=== PATIENT | male | born 1935 | race Hispanic/Latino ===

== ENCOUNTER 2016-08-28 10:03 | Inpatient (IN) | payer MEDICARE, OTHER ==
[2016-08-28 10:26] VITALS: BMI 20.7
--- NOTE | 2016-08-28 10:51 | ED PDOC ---
Arrival/HPI - General Chief Complaint: Male Genitourinary Time Seen by Provider: 08/28/16 10:05 Historian: [facility] - History of Present Illness Narrative History of Present Illness (Text): 08/28/16 10:47 A 80 year old male, whose past past medical history includes anemia, hypertension, kidney failure, urinary retention, CAD and dementia, was sent into the emergency department by correction for piper catheter replacement. As per report, patient pulled on his piper. HPI and ROS limited due to patients state. Patient is currently alert and oriented time one. PMD: Dr. Dejesus Time/Duration: Prior to Arrival Symptom Course: Unchanged Quality: Other Context: Home (correction) Past Medical History - Provider Review Nursing Documentation Reviewed: Yes - Cardiac Hx Cardiac Disorders: Yes Hx Congestive Heart Failure: Yes Hx Hypertension: Yes - Pulmonary Hx Respiratory Disorders: No - Neurological Hx Neurological Disorder: No HX Cerebrovascular Accident: Yes - HEENT Hx HEENT Disorder: No - Renal Hx Renal Disorder: No - Endocrine/Metabolic Hx Endocrine Disorders: No - Hematological/Oncological Hx Anemia: Yes - Integumentary Hx Dermatological Disorder: No - Musculoskeletal/Rheumatological Hx Musculoskeletal Disorders: No Hx Falls: No - Gastrointestinal Hx Gastrointestinal Disorders: No - Genitourinary/Gynecological Hx Genitourinary Disorders: No - Psychiatric Hx Psychophysiologic Disorder: No Hx Substance Use: No - Surgical History Hx Open Heart Surgery: Yes - Anesthesia Hx Anesthesia: Yes Family/Social History - Physician Review Nursing Documentation Reviewed: Yes Family/Social History: No Known Family HX Smoking Status: Never Smoked Hx Alcohol Use: No Hx Substance Use: No Allergies/Home Meds Allergies/Adverse Reactions: Allergies No Known Allergies Allergy (Verified 08/28/16 14:40) Home Medications: Home Meds Medication Instructions Recorded Confirmed Aspirin [Ecotrin] 81 mg PO DAILY 06/12/16 08/28/16 Clopidogrel [Plavix] 75 mg PO DAILY 06/12/16 08/28/16 Mupirocin 2% Ointment [Bactroban 1 appl TP BID 06/12/16 08/28/16 Ointment] Acetaminophen [Tylenol 325mg tab] 650 mg PO Q6 PRN 08/28/16 08/28/16 Allopurinol [Zyloprim] 100 mg PO DAILY 08/28/16 08/28/16 Ascorbic Acid [Acerola C] 500 mg PO DAILY 08/28/16 08/28/16 Atorvastatin [Lipitor] 40 mg PO DAILY 08/28/16 08/28/16 Calcium Acetate [Phoslo] 667 mg PO DAILY 08/28/16 08/28/16 Carvedilol [Coreg] 12.5 mg PO DAILY 08/28/16 08/28/16 Heparin [Heparin (RENAL)] 5,000 units SC Q8 08/28/16 08/28/16 Paricalcitol 1 mcg PO DAILY 08/28/16 08/28/16 Protein Supplement [Prosource] 30 ml PO DAILY 08/28/16 08/28/16 Risperidone [Risperdal] 0.25 mg PO Q12 08/28/16 08/28/16 amLODIPine [Norvasc] 5 mg PO DAILY 08/28/16 08/28/16 Review of Systems - Review of Systems Systems not reviewed;Unavailable: Dementia Physical Exam - Physical Exam Narrative Physical Exam (Text): Constitutional: No acute distress. Head: Normocephalic. Atraumatic. Eyes: PERRL. ENT: Moist mucous membranes. Neck: Supple. Cardiovascular: Regular rate. Chest: No tenderness. Respiratory: Clear to auscultation bilaterally. GI: Soft. Nontender. Nondistended. New and old ecchymosis. : Enlarged scrotum (Known history of hernia). Urethra not visible amidst scrotum. Back: No CVA tenderness. No decubitus ulcer. Musculoskeletal: No tenderness or swelling of extremities. Skin: No rash. Neurologic: Alert, no focal deficit. Vital Signs Reviewed: Yes Vital Signs Temp Pulse Resp BP Pulse Ox 08/28/16 13:00 116 H 18 149/73 96 08/28/16 12:23 95 H 142/64 08/28/16 11:52 106 H 22 142/64 100 08/28/16 10:20 102.2 F H 108 H 22 161/94 H 100 Temperature: Febrile Blood Pressure: Hypertensive Pulse: Tachycardic Respiratory Rate: Normal Appearance: Positive for: Well-Appearing, Non-Toxic, Comfortable Mental Status: No: Alert and Oriented X 3 (Alert and Oriented x 1) Medical Decision Making ED Course and Treatment: 08/28/16 10:47 Impression: A 80 year old male sent for piper catheter replacement. Plan: -- EKG -- Piper catheter insertion -- Reassess and disposition Progress Notes: Case discussed with Dr. Dejesus, who states patient is only being sent for piper catheter insertion and no other work up is indicated at this time. Patient can be discharged home. He recommends urology consult for piper replacement. 08/28/16 11:[address] Dejesus, given that the patient has a fever and is mildly tachycardic he recommends further evaluation for infection. Piper placement by ER nurse was unsuccessful. Dr. Terrance Kovacs, urologist vehicle controls engineer, made aware of plan and agrees to accept consult. He states he will place catheter in patient while he is in the hospital. 08/28/16 11:49 Chest X-ray read and interpreted by me, which shows cardiomegaly, no pulmonary edema. 08/28/16 11:55 Labs reviewed, lactate level of 4.4. Code sepsis called at this time. Will start on broad antibiotics and IV fluids, no bolus due to patients history of CHF. Spoke with Dr. Dejesus, who will consult Dr. Morales, an infectious disease specialist. - Lab Interpretations Lab Results: 08/28/16 10:15 08/28/16 10:15 Lab Results 08/28/16 10:15: WBC 5.7 D, RBC 4.34, Hgb 13.1 L, Hct 40.8 L, MCV 94.0, MCH 30.2 , MCHC 32.1, RDW 16.4 H, Plt Count 198, MPV 11.9 H, Gran % 95.8 H, Lymph % (Auto ) 3.1 L, Nolan % (Auto) 0.7 L, Eos % (Auto) 0.2 L, Baso % (Auto) 0.2, Gran # 5.48 , Lymph # 0.2 L, Nolan # 0.0 L, Eos # 0.0, Baso # 0.01, PT 11.2, INR 1.04, APTT 28.3, pO2 49, VBG pH 7.41, VBG pCO2 49.0, VBG HCO3 31.1 H, VBG Total CO2 32.6 H , VBG O2 Sat (Calc) 85.5 H, VBG Base Excess 5.3 H, VBG Potassium 6.8 H*, Glucose 83, Lactate 4.4 H*, FiO2 21.0, Sodium 134.0, Potassium 4.4, Chloride 100.0, Carbon Dioxide 28, Anion Gap 18, BUN 58 H, Creatinine 3.1 H, Est GFR ( Amer) 24, Est GFR (Non-Af Amer) 19, Random Glucose 81, Calcium 10.7 H, Total Bilirubin 1.3, AST 35, ALT 22, Alkaline Phosphatase 46, Total Protein 7.6 , Albumin 3.9, Globulin 3.7, Albumin/Globulin Ratio 1.1, Lipase 269, Venous Blood Potassium 6.8 H* - RAD Interpretation Radiology Orders: 08/28/16 11:37 CHEST PORTABLE [RAD] Stat - Medication Orders Current Medication Orders: Allopurinol (Zyloprim) 100 mg PO DAILY [facility] Aspirin (Ecotrin) 81 mg PO DAILY [facility] Carvedilol (Coreg) 12.5 mg PO DAILY [facility] Clopidogrel Bisulfate (Plavix) 75 mg PO DAILY [facility] Furosemide (Lasix) 40 mg PO BID [facility] Heparin Sodium (Porcine) (Heparin) 5,000 units SC Q8H [facility] PRN Reason: Protocol Cefepime HCl (Maxipime 1gm) 100 mls @ 100 mls/hr IVPB Q12 [facility] PRN Reason: Protocol Sodium Chloride (Sodium Chloride 0.9%) 1,000 mls @ 80 mls/hr IV .[id number] [facility] Non-Formulary Medication (Calcium Acetate [Phoslo]) 667 mg PO DAILY [facility] Risperidone (Risperdal Tab) 0.25 mg PO Q12 [facility] PRN Reason: Protocol Discontinued Medications Amlodipine Besylate (Norvasc) 5 mg PO STAT STA Stop: 08/28/16 12:15 Last Admin: 08/28/16 12:23 Dose: 5 MG MAR Pulse and Blood Pressure Document 08/28/16 12:23 SE (Rec: 08/28/16 12:23 SE [id number]) Pulse Pulse Rate (60-90) 95 Blood Pressure Blood Pressure (100/60-150/90) 142/64 Heparin Sodium (Porcine) (Heparin) 5,000 units IV Q8H [facility] Heparin Sodium (Porcine) (Heparin) Confirm Administered Dose 5,000 units .ROUTE .STK-MED ONE Stop: 08/28/16 12:24 Last Admin: 08/28/16 12:29 Dose: Heparin Sodium (Porcine) (Heparin) 5,000 units SC STAT STA PRN Reason: Protocol Stop: 08/28/16 12:31 Last Admin: 08/28/16 12:39 Dose: Sodium Chloride (Sodium Chloride 0.9%) 1,000 mls @ 75 mls/hr IV .[id number] [facility] Last Admin: 08/28/16 11:55 Dose: 75 MLS/HR eMAR Start Stop Document 08/28/16 11:55 SE (Rec: 08/28/16 11:55 SE [id number]) Intravenous Solution Start Date 08/28/16 Start Time 11:55 Sodium Chloride (Sodium Chloride 0.9%) 1,000 mls @ 40 mls/hr IV .Q24H [facility] Last Admin: 08/28/16 12:10 Dose: 40 MLS/HR eMAR Start Stop Document 08/28/16 12:10 SE (Rec: 08/28/16 12:11 SE [id number]) Intravenous Solution Start Date 08/28/16 Start Time 12:11 Cefepime HCl (Maxipime 1gm) 100 mls @ 100 mls/hr IVPB STAT STA PRN Reason: Protocol Stop: 08/28/16 13:05 Cefepime HCl (Maxipime 1gm) 100 mls @ 100 mls/hr IVPB Q8H [facility] PRN Reason: Protocol Last Admin: 08/28/16 12:23 Dose: 100 MLS/HR eMAR Start Stop Document 08/28/16 12:23 SE (Rec: 08/28/16 12:23 SE [id number]) Intravenous Solution Start Date 08/28/16 Start Time 12:23 Vancomycin HCl (Vancomycin 1gm) 250 mls @ 167 mls/hr IVPB STAT STA PRN Reason: Protocol Stop: 08/28/16 16:07 Influenza Virus Vaccine (Fluvirin) 45 mcg IM .ONCE ONE Stop: 08/28/16 15:17 Pneumococcal Polyvalent Vaccine (Pneumovax 23 Vaccine) 0.5 ml IM .ONCE ONE Stop: 08/28/16 15:17 - Scribe Statement The provider has reviewed the documentation as recorded by the Scribe Jenniffer Spencer Provider Scribe Attestation: All medical record entries made by the Scribe were at my direction and personally dictated by me. I have reviewed the chart and agree that the record accurately reflects my personal performance of the history, physical exam, medical decision making, and the department course for this patient. I have also personally directed, reviewed, and agree with the discharge instructions and disposition. Disposition/Present on Arrival - Present on Arrival Any Indicators Present on Arrival: Yes History of DVT/PE: No History of Uncontrolled Diabetes: No Urinary Catheter: Yes History of Decub. Ulcer: No History Surgical Site Infection Following: None - Disposition Have Diagnosis and Disposition been Completed?: Yes Diagnosis: Sepsis, Dislodged Piper catheter Disposition: HOSPITALIZED Disposition Time: 12:06 Patient Plan: Admission Condition: GUARDED
[2016-08-28 11:46] LABS: ADD MANUAL DIFF? NO
[2016-08-28 11:50] LABS: VENOUS BLOOD GAS BASE EXCESS 5.3 mmol/L (0.0-2.0); VENOUS BLOOD PH 7.41 (7.32-7.43)
[2016-08-28 11:52] LABS: BASO # 0.01 K/mm3 (0.0-2.0); BASO % 0.2 % (0.0-3.0); EOS % 0.2 % (1.5-5.0); GRAN # 5.48 (1.4-6.5); GRAN % 95.8 % (50.0-68.0); HEMATOCRIT 40.8 % (42.0-52.0); LYMPH # 0.2 (1.2-3.4); LYMPH % 3.1 % (22.0-35.0); MEAN CORPUSCULAR HEMOGLOBIN 30.2 pg (25.0-35.0); MEAN CORPUSCULAR HGB CONC 32.1 g/dl (31.0-37.0); MEAN PLATELET VOLUME 11.9 fl (7.0-11.0); MONO % 0.7 % (1.0-6.0); PLATELET COUNT 198 10^3/uL (120.0-450.0); RED CELL DISTRIBUTION WIDTH 16.4 % (11.5-14.5); WHITE BLOOD COUNT 5.7 10^3/ul (4.5-11.0)
--- NOTE | 2016-08-28 11:57 | RAD ---
PROCEDURE: Chest portable HISTORY: r/o PNA COMPARISON: 06/12/2016 TECHNIQUE: Technique: Single view portable semi erect @ 11:44. FINDINGS: No active pulmonary disease. No pulmonary nodules, masses or infiltrates. No evidence of acute, significant cardiovascular disease. Cardiomegaly. No significant pleural, osseous or subdiaphragmatic abnormalities. IMPRESSION: No active disease. No significant interval change compared to the prior examination(s).
[2016-08-28 12:00] LABS: ALB/GLOB RATIO 1.1 (1.1-1.8); BILIRUBIN,TOTAL 1.3 mg/dL (0.2-1.3); CALCIUM 10.7 mg/dL (8.4-10.5); POTASSIUM 4.4 mmol/L (3.6-5.0); TOTAL PROTEIN 7.6 g/dL (5.8-8.3)
[2016-08-28] MEDS ORDERED: Sodium Chloride 0.9% 1,000 ML IV SCH ×2 (12:00→12:02)
[2016-08-28 12:03] LABS: INR 1.04 (0.93-1.08); PARTIAL THROMBOPLASTIN TIME 28.3 Seconds (23.7-30.8)
[2016-08-28] MEDS ORDERED: Cefepime 1gm in NS 100ml 100 ML IVPB STA (12:06)
[2016-08-28] MEDS ORDERED: Cefepime 1gm in NS 100ml 100 ML IVPB SCH (12:16)
--- NOTE | 2016-08-28 12:41 | CARD ---
APPROVED REPORT EKG Measurement Heart [id number] <Conclusion> Sinus tachycardia PVCs PRWP LAHB RBBB ASMI, old STTW changes c/w ischemia
--- NOTE | 2016-08-28 14:29 | HP ---
HISTORY OF PRESENT ILLNESS: I know the patient very well from house calls and now he is in [facility] for subacute rehab. I saw him this morning actually around 6:00 in the morning. He was doing gr eat, sitting up in bed, alert and talking to me. Since then, now it is 12 noon, he had pulled out hi s Raya catheter and he has been going downhill since. He had some blood in the urine and now he loo ks septic, and they called septic in the ER, so I am here in the ER at [facility]. He is very lethargic. His face, his color has changed completely. He has got 102 temperature and this is all new since he pulled the Raya catheter out and they said there was blood in his urine and they c ould not put the Raya catheter in, so we have to get urology to put the Raya catheter in. He is no t doing well and he is in distress. Will start him on IV antibiotics, IV fluids. PAST MEDICAL HISTORY: He has a history of CHF, cellulitis of both legs with leg ulcers, history of m yocardial infarction, he had a CVA, he has been incontinent. He had an appendectomy, open heart surg miladys. He has high cholesterol, CHF, very large inguinal hernia, huge. He finally went to the [facility] e rehab after CHF and debility and he was doing well and now this happened. He also has gout. ALLERGIES: He has no known drug allergies. FAMILY HISTORY: Hypertension in the family. SOCIAL HISTORY: No smoking, no drinking, no drugs. There is secondhand smoke, though from his roomm ate. MEDICATIONS: He is on a whole bunch of medications from the senior care. He was taking ascorbic ac id, Lipitor, heparin, Bactroban cream, paricalcitol, protein, amlodipine, allopurinol, aspirin, calci um acetate, carvedilol, Plavix, Lasix, and risperidone. I see him in the stretcher in the [facility]. He is lethargic. Difficult to have a conv ersation. It was 5 hours ago he was talking, sitting up and in good spirits. He has acute changes me ntally. No acute vision or hearing loss, but old. No apparent sore throat. No chest pain, no short ness of breath, no abdominal pain, just weak, lethargic. He has a large inguinal hernia, bowling bal l size. His legs are not swollen at this time. The blisters and cellulitis have really improved wit h his weight loss. PHYSICAL EXAMINATION: VITAL SIGNS: He has 102.2 rectal temp, 108 pulse, 164/94 blood pressure, 22 respiratory rate, 100% O 2 sat on room air. HEENT: His head is ashen color, sunken eyeballs. Difficult to arouse, but he arouses and he will peter k. His throat is dry, lips are chapped. NECK: Supple. HEART: Regular rate. LUNGS: Have decreased breath sounds, clear to auscultation. ABDOMEN: Soft, nontender, positive bowel sounds. EXTREMITIES: No erythema or ulcers at this time. There is trace edema, if any. NEUROLOGIC: He is alert but he is sluggish to respond. Cranial nerves are grossly intact. What a b ig difference in 5 hours. He had pulled out his Raya and ever since then, with the blood, he has be en doing poorly. I spoke to the nurses. Sent him to get a Raya reinserted, but now he is much worse with temperature s and more lethargic. I discussed this with the Emergency Room physician. He agrees there is a vladislav christine in mentation. LABORATORY: He has a 138 sodium, potassium 4.4, BUN 58, creatinine 3.4. He did have renal failure a nd it was much worse than this, so it is improved. GFR is up to 19. Sugar is 81, calcium is 10.7, t otal bilirubin is 1.3, AST is 35, ALT is 22, alkaline phosphatase 46, total protein 7.6, albumin is 3 .9, lipase is 269. White count 5.7, hemoglobin 13.1, hematocrit 40.8, platelets of 198. INR is 1.04 . Chest x-ray showed no active disease, no significant interval change compared to prior exams. ASSESSMENT AND PLAN: I believe he is septic. We called code sepsis in the hospital Emergency Room. I consulted Dr. Morales, infectious disease doctor, and also Dr. Kovacs, urologist, to help us w ith the Raya catheter back in place. I will also get Dr. Wong, the renal doctor, who knows hi m from his past time here for renal failure. We will give him IV fluids at 40. I do not want to giv e him too much because he goes into congestive heart failure fairly quickly. Will gently hydrate him and put him on IV antibiotics. I will keep a very close eye on him. He is here for acute sepsis, p robably urosepsis, elevated temperature, still with renal failure, but has improved some, history of congestive heart failure and he is debilitated. Derick Dejesus DO cc: [id number] TT: 08/28/2016 14:28:55 pal[place]
[2016-08-28 14:37] LABS: URINE BILIRUBIN MODERATE (NEGATIVE); URINE BLOOD LARGE (NEGATIVE); URINE GLUCOSE (UA) NEGATIVE (NEGATIVE); URINE KETONE TRACE mg/dL (NEGATIVE); URINE LEUKOCYTE ESTERASE LARGE Leu/uL (NEGATIVE); URINE PROTEIN >=300 mg/dL (<30 mg/dL)
[2016-08-28] MEDS ORDERED: Vancomycin 1gm in NS 250ml 250 ML IVPB STA (14:38)
[2016-08-28 14:42] LABS: URINE APPEARANCE TURBID (CLEAR); URINE COLOR BROWN (YELLOW)
[2016-08-28 14:45] LABS: URINE BACTERIA MOD (NEG); URINE WBC TNTC /hpf (0-6)
[2016-08-28] MEDS ORDERED: Pneumococcal 23-Valent Vaccine IM ONE (15:16)
[2016-08-28] MEDS ORDERED: Influenza Vaccine 45 MCG/0.5 ml IM ONE (15:16)
[2016-08-28 16:35] LABS: VENOUS BLOOD GAS BASE EXCESS 7.3 mmol/L (0.0-2.0); VENOUS BLOOD PH 7.41 (7.32-7.43)
--- NOTE | 2016-08-28 17:01 | RAD ---
PROCEDURE: Left Hip X-ray Radiographs. HISTORY: left hip pain and swelling COMPARISON: None. FINDINGS: BONES: Normal. No fracture. JOINTS: Normal. SOFT TISSUES: Normal. OTHER FINDINGS: None. IMPRESSION: Normal left hip radiographs. No acute fracture.
[2016-08-28] MEDS: Sodium Chloride 0.9% 1,000 ML IV SCH (17:19)
[2016-08-28] MEDS: Cefepime 1gm in NS 100ml 100 ML IVPB SCH (22:21)
[2016-08-29 07:43] LABS: HEMATOCRIT 34.1 % (42.0-52.0); MEAN CELL VOLUME 94.7 fL (80.0-105.0); MEAN CORPUSCULAR HEMOGLOBIN 29.7 pg (25.0-35.0); MEAN CORPUSCULAR HGB CONC 31.4 g/dl (31.0-37.0); MEAN PLATELET VOLUME 10.2 fl (7.0-11.0); RED CELL DISTRIBUTION WIDTH 16.9 % (11.5-14.5); WHITE BLOOD COUNT 7.8 10^3/ul (4.5-11.0)
[2016-08-29 08:00] LABS: CALCIUM 9.5 mg/dL (8.4-10.5); POTASSIUM 4.3 mmol/L (3.6-5.0); TOTAL PROTEIN 6.2 g/dL (5.8-8.3)
--- NOTE | 2016-08-29 08:23 | CON ---
DATE: 08/29/2016 HISTORY OF PRESENT ILLNESS: The patient is an 80-year-old male who presented with issues related to his Raya catheter and urosepsis. He was found to have frequent PVCs on EKG, including nonsustained VT. The patient was found to have hematuria. PAST MEDICAL HISTORY: Includes a history of CHF, with cellulitis of the lower extremities, history o f myocardial infarction and a documented LV ejection fraction of 30%. Currently, he is in bed and uncooperative to any history taking, but he denies chest pain and does no t appear dyspneic. PHYSICAL EXAMINATION: VITAL SIGNS: Blood pressure 143/75, heart rate is in the 70s with frequent PVCs. NECK: Negative JVD. LUNGS: Decreased breath sounds without rales. HEART: Reveals S1, S2 with a II/ systolic ejection murmur. EXTREMITIES: Positive edema. LABORATORIES: BUN and creatinine are 65 and 3.2. Hemoglobin is 13.1. EKG shows normal sinus rhythm, left axis deviation, with frequent PVCs and nonspecific ST-T changes. IMPRESSION: 1. Urosepsis. 2. Mild systolic congestive heart failure. 3. Dilated cardiomyopathy. 4. Pedal edema. 5. Renal insufficiency. Given these findings, I agree with the patient on p.o. Lasix; will continue it. Will check a magnesi um. Will monitor on telemetry for 24 hours. Clement Wheat MD cc: [facility] TT: 08/29/2016 08:23:13 Confirmation # [id number] Dictation # [id number] mn
--- NOTE | 2016-08-29 09:05 | PN ---
DATE: 08/29/2016 He came in yesterday quite septic. He is looking a lot better this morning. The color in his face i s back. He opens his eyes, they are not sunken in anymore. He is talking to me a little bit better, still tired but much better. MEDICATIONS: He is on PhosLo, Coreg, Ecotrin, heparin, Lasix, Maxipime, Plavix, Risperdal, IV fluids , and Zyloprim. PHYSICAL EXAMINATION: VITAL SIGNS: He has a 99.6 temperature. The temp was 100.5/100.8 last night. It is down to 99.6. I t was 102.8 when he came in, 143/75 blood pressure, 20 respiratory rate, 100% O2 sat on nasal cannul a. HEENT: Head is atraumatic, normocephalic. HEART: Regular rate. LUNGS: Have decreased breath sounds bilaterally, but no wheezes, rhonchi or rales. ABDOMEN: Soft, positive bowel sounds, nontender. EXTREMITIES: Trace edema. LABORATORY: He has a 5.7 white count, 13.1 hemoglobin, 40.8 hematocrit with 198 platelets. INR is 1 .04. He has 135 sodium, potassium 4.3, BUN 65, creatinine 3.2. Sugar is 77, calcium is 9.5. AST is 34, ALT is 29, alkaline phosphatase 39, total protein 6.2. His urine is large blood, positive nitri yousuf, large leukocytes, white count too numerous to count, moderate bacteria. He is being seen by cardiology and infectious disease. IMAGING STUDIES: He also had some x-rays. Normal left hip, no acute fracture, no active disease in the chest x-ray. PLAN: Overall, starting to improve, will keep an eye on. I need to get him out of bed to chair. Ge t physical therapy involved. Continue with diet, IV fluids, IV antibiotics. Check his labs tomorrow . He is here for urosepsis, renal failure, CHF. Derick Dejesus DO cc: [id number] TT: 08/29/2016 09:05:11 Confirmation # [id number] Dictation # [id number] jn
[2016-08-29] MEDS ORDERED: Non Formulary Medication (Calcium Acetate [Phoslo] 667 MG) PO SCH (10:00)
[2016-08-29] MEDS: Cefepime 1gm in NS 100ml 100 ML IVPB SCH (12:00)
[2016-08-29] MEDS ORDERED: Meropenem 1 GM in Sodium Chloride 0.9% 100 ML IVPB SCH (16:15)
--- NOTE | 2016-08-29 16:29 | CP.PCM.CON ---
History of Present Illness - History of Present Illness History of Present Illness: 80 year old male with PMH of CAD S/P CABG with chronic CHF, HTN, dyslipidemia, history of CVA, history of urinary retention, dementia, history of right leg cellulitis [facility] because the patient looked ill, was somewhat lethargic after pulling his own Raya catheter. There was note of fever in the ED. There is no note of convulsions, no vomiting, no diarrhea, no loss of consciousness from the [facility]entiary. In the ED, blood and urine cx were taken which showed gram negative bacilli. Infectious Diseases consult is requested to further evaluate and manage. Full review of systems is difficult to obtain because of the patient's dementia. The patient is currently comfortable in bed, not in distress. Review of Systems - Review of Systems Systems not reviewed;Unavailable: Dementia Past Patient History - Past Social History Smoking Status: Never Smoked - CARDIAC Hx Cardiac Disorders: Yes Hx Congestive Heart Failure: Yes Hx Hypertension: Yes - PULMONARY Hx Respiratory Disorders: No - NEUROLOGICAL Hx Neurological Disorder: No HX Cerebrovascular Accident: Yes - HEENT Hx HEENT Problems: No - RENAL Hx Chronic Kidney Disease: No - ENDOCRINE/METABOLIC Hx Endocrine Disorders: No - HEMATOLOGICAL/ONCOLOGICAL Hx Anemia: Yes - INTEGUMENTARY Hx Dermatological Problems: No - MUSCULOSKELETAL/RHEUMATOLOGICAL Hx Musculoskeletal Disorders: No Hx Falls: No - GASTROINTESTINAL Hx Gastrointestinal Disorders: No - GENITOURINARY/GYNECOLOGICAL Hx Genitourinary Disorders: No - PSYCHIATRIC Hx Psychophysiologic Disorder: No Hx Substance Use: No - SURGICAL HISTORY Hx Open Heart Surgery: Yes - ANESTHESIA Hx Anesthesia: Yes Meds Allergies/Adverse Reactions: Allergies Allergy/AdvReac Type Severity Reaction Status Date / Time No Known Allergies Allergy Verified 08/28/16 14:40 - Medications Medications: Current Medications Allopurinol (Zyloprim) 100 mg PO DAILY [facility] Aspirin (Ecotrin) 81 mg PO DAILY [facility] Carvedilol (Coreg) 12.5 mg PO DAILY [facility] Clopidogrel Bisulfate (Plavix) 75 mg PO DAILY [facility] Furosemide (Lasix) 40 mg PO BID [facility] Heparin Sodium (Porcine) (Heparin) 5,000 units SC Q8H [facility] PRN Reason: Protocol Sodium Chloride (Sodium Chloride 0.9%) 1,000 mls @ 40 mls/hr IV .Q24H [facility] Last Admin: 08/28/16 12:10 Dose: 40 mls/hr Cefepime HCl (Maxipime 1gm) 100 mls @ 100 mls/hr IVPB Q8H [facility] PRN Reason: Protocol Last Admin: 08/28/16 12:23 Dose: 100 mls/hr Non-Formulary Medication (Calcium Acetate [Phoslo]) 667 mg PO DAILY [facility] Risperidone (Risperdal Tab) 0.25 mg PO Q12 [facility] PRN Reason: Protocol Physical Exam - Constitutional Appears: Non-toxic, No Acute Distress - Head Exam Head Exam: NORMAL INSPECTION - ENT Exam ENT Exam: Mucous Membranes Moist - Neck Exam Neck exam: Negative for: Lymphadenopathy, Meningismus - Respiratory Exam Respiratory Exam: Decreased Breath Sounds - Cardiovascular Exam Cardiovascular Exam: +S1, +S2 - GI/Abdominal Exam GI & Abdominal Exam: Soft. absent: Tenderness Results - Vital Signs Recent Vital Signs: Last Vital Signs Temp 102.2 F H 08/28/16 10:20 Pulse 116 H 08/28/16 13:00 Resp 18 08/28/16 13:00 BP 149/73 08/28/16 13:00 Pulse Ox 96 08/28/16 13:00 - Labs Result Diagrams: 08/29/16 08:15 08/29/16 07:15 Assessment & Plan - Assessment and Plan (Free Text) Plan: assessment Sepsis secondary to gram negative bacilli bacteremia probably from urinary tract infection history of right leg cellulitis CAD S/P CABG with chronic CHF HTN dyslipidemia history of CVA Plan Started the patient on Cefepime but will change it to Merrem for now pending identification and sensitivities of the gram negative bacilli in the blood and urine; should consider CT scan of the abdomen and pelvis Will monitor clinically
--- NOTE | 2016-08-29 19:28 | PCM.URO ---
Urology Progress Note - Objective Lab Results Last 24 Hours: Laboratory Results - last 24 hr 08/28/16 08/29/16 08/29/16 14:50 00:00 07:15 WBC RBC Hgb Hct MCV MCH MCHC RDW Plt Count MPV Sodium 135 Potassium 4.3 Chloride 96 Carbon Dioxide 32 Anion Gap 11 BUN 65 H Creatinine 3.2 H Est GFR ( Amer) 23 Est GFR (Non-Af Amer) 19 POC Glucose (mg/dL) 228 H Random Glucose 77 Calcium 9.5 Magnesium Total Bilirubin 1.0 AST 34 ALT 29 Alkaline Phosphatase 39 NT-Pro-B Natriuret Pep Total Protein 6.2 Albumin 3.1 Globulin 3.1 Albumin/Globulin Ratio 1.0 L Procalcitonin 1.55 H 08/29/16 08/29/16 07:30 08:15 WBC 7.8 D RBC 3.60 Hgb 10.7 L Hct 34.1 L MCV 94.7 MCH 29.7 MCHC 31.4 RDW 16.9 H Plt Count 130 MPV 10.2 Sodium Potassium Chloride Carbon Dioxide Anion Gap BUN Creatinine Est GFR ( Amer) Est GFR (Non-Af Amer) POC Glucose (mg/dL) Random Glucose Calcium Magnesium 2.1 Total Bilirubin AST ALT Alkaline Phosphatase NT-Pro-B Natriuret Pep 22692 H Total Protein Albumin Globulin Albumin/Globulin Ratio Procalcitonin Intake & Output: Intake & Output 08/29/16 08/29/16 08/30/16 06:59 18:59 06:59 Intake Total 1880 Output Total 600 Balance 1280 Weight 148 lb Intake: IV 1400 Right Forearm 1400 Oral 480 Output: Urine 600 Urine, Voided 600 Other: # Bowel Movements 0 Vital Signs: Vital Signs - 24 hr 08/28/16 08/29/16 08/29/16 22:00 00:01 01:29 Temperature 98.7 F 100.8 F H Pulse Rate 89 66 Respiratory 20 Rate Blood Pressure 151/68 H O2 Sat by Pulse 99 Oximetry 08/29/16 08/29/16 08/29/16 02:00 02:29 05:20 Temperature 100.5 F H Pulse Rate 93 H 78 Respiratory Rate Blood Pressure O2 Sat by Pulse Oximetry 08/29/16 08/29/16 08/29/16 06:00 09:59 10:00 Temperature 99.6 F Pulse Rate 78 78 83 Respiratory 20 Rate Blood Pressure 143/75 143/75 143/75 O2 Sat by Pulse 100 Oximetry 08/29/16 08/29/16 08/29/16 12:39 14:00 18:00 Temperature 98 F 98.9 F Pulse Rate 85 85 82 Respiratory 18 18 Rate Blood Pressure 115/62 126/67 O2 Sat by Pulse Oximetry 08/29/16 19:04 Temperature Pulse Rate Respiratory Rate Blood Pressure 126/67 O2 Sat by Pulse Oximetry
[2016-08-30] MEDS: Sodium Chloride 0.9% 1,000 ML IV SCH ×2 (00:57→18:49)
[2016-08-30 06:29] LABS: HEMATOCRIT 31.1 % (42.0-52.0); MEAN CELL VOLUME 94.2 fL (80.0-105.0); MEAN CORPUSCULAR HEMOGLOBIN 29.4 pg (25.0-35.0); MEAN CORPUSCULAR HGB CONC 31.2 g/dl (31.0-37.0); MEAN PLATELET VOLUME 10.2 fl (7.0-11.0); RED CELL DISTRIBUTION WIDTH 16.6 % (11.5-14.5)
[2016-08-30 06:40] LABS: ALB/GLOB RATIO 0.9 (1.1-1.8); BILIRUBIN,TOTAL 0.9 mg/dL (0.2-1.3); CALCIUM 8.6 mg/dL (8.4-10.5); PHOSPHOROUS 3.6 mg/dL (2.5-4.5); POTASSIUM 4.2 mmol/L (3.6-5.0); TOTAL PROTEIN 5.9 g/dL (5.8-8.3)
--- NOTE | 2016-08-30 07:54 | CON ---
DATE: 08/29/2016 CONSULTATION REQUESTED BY: Dr. Derick Dejesus. REASON FOR CONSULTATION: Acute renal failure, stage IV chronic kidney disease and congestive heart f ailure. HISTORY OF PRESENT ILLNESS: The patient is an 80-year-old gentleman. He was referred to [facility]'s Emergency Department from his senior living after pulling out his Raya catheter at the senior living. Of note, during a hospitalization at another facility the patient required urology to insert his catheter. On arrival to the ED, he was noted to have a blood pressure of 161/94 with a he art rate of 108, breathing at 22 breaths per minute with an oxygen saturation of 100%. Oral temperat ure was 102.2. Attempts were made to place a Raya catheter in the ER which were unsuccessful and th e patient was seen by urology who then inserted his catheter. Laboratory studies revealed a white bl ood cell count of 5700 with 96% neutrophils (patient is not on steroids). Lactic acid level was elev ated at 4.4. Chemistry panel had a BUN/creatinine of 58/3.1 whereas his baseline creatinine is in th e high 2's, corresponding to stage IV chronic kidney disease. Procalcitonin level is elevated at 1.5 5 and urine was noted to be brown, turbid with a pH of 7.0, protein of greater than 300, large blood, and 10-15 RBCs per high power field. The patient was admitted for further evaluation and management . He was given 1 gram of vancomycin as well as cefepime, and started on normal saline at 80 mL per h our. Since having been admitted, he is noted to have episodes where his mentation does decrease and he becomes confused, however. In reviewing the medications the patient was taking at his nursing [facility] e, he was on furosemide 40 mg orally twice daily, but was not on any ALIREZA inhibitors nor on any angiot ensin receptor blockers. Of note, the patient is much less edematous than he has been in the past, a s recently as 2 weeks ago. REVIEW OF SYSTEMS: Obtained from the patient as well as the chart across all 10 systems and 14 point s and was negative unless stated otherwise above. PAST MEDICAL HISTORY: Significant for hypertension, dyslipidemia, coronary artery disease with histo ry of coronary artery bypass graft, benign prostatic hypertrophy with history of urinary retention, d ementia, right lower extremity cellulitis and prior history of CVA. In 05/2016 the patient had an ec hocardiogram which revealed an ejection fraction of 30% with mild LVH. Right ventricular systolic fu nction was also noted to be mild to moderately decreased, and the patient had moderate pulmonary hype rtension. MEDICATIONS: That the patient had been taking prior to admission included amlodipine 5 mg orally ruiz ly, Risperdal 0.25 mg orally twice daily, ProSource 30 mL orally daily, paricalcitol 1 mcg orally ruiz ly, heparin 5000 units subcutaneously every 8 hours, furosemide 40 mg orally twice daily, clopidogrel 75 mg orally daily, carvedilol 12.5 mg orally daily, calcium acetate 667 mg orally daily, atorvastat in 40 mg orally daily, aspirin 81 mg orally daily, ascorbic acid 500 mg orally daily, allopurinol 100 mg orally daily and Tylenol as needed. At present, the patient has also been given vancomycin as we ll as cefepime and is on normal saline as well at 80 mL per hour. ALLERGIES: The patient has no known drug allergies. SOCIAL HISTORY: Notable for the patient having smoked in the past, although he no longer does so. H e used to drink alcohol socially, but no longer does so either. There is no illicit drug use. FAMILY HISTORY: Negative for any inheritable renal or electrolyte disorders and was otherwise noncon tributory. PHYSICAL EXAMINATION: GENERAL APPEARANCE: I saw the patient lying in bed at a 30 degree angle. He appeared to be somewhat encephalopathic and confused. When I saw him, he was receiving normal saline at 80 mL hour. VITAL SIGNS: Blood pressure is 126/67, heart rate 82, oral temperature is 98.9, respiratory rate is 18. I's and O's in the last 24-hour period are 2000/600. HEENT: The patient was normocephalic and atraumatic without any sinus tenderness. Neck was supple w ith full range of motion. Trachea was midline and freely movable. Thyroid was nontender nor was it enlarged. There was no jugular venous distention. Conjunctivae were neither pale nor were they icte rui. CHEST: Lung alex on my exam were grossly clear without any rales, rhonchi or wheezing, but the pat ient was not cooperative with deep breaths. CARDIAC: Had a regular rate and rhythm without any rubs or gallops. There were no heaves, and the P IA was not displaced. ABDOMEN: Soft, mildly distended but nontender. There was no rebounding, guarding or rigidity. Ther e were no masses, pulsatile or otherwise. EXTREMITIES: Had no dependent edema. NEUROLOGIC: The patient was encephalopathic as stated above. The patient was confused, but was othe rwise nonfocal. SKIN: Appeared to be intact, although there was evidence of chronic stasis changes of both lower ext remities. GENITOURINARY: Notable for the presence of a Raya catheter with light sidney colored urine at presen t. LABORATORY STUDIES: White count is 7.8, H and H is 10.7/34.1 with a platelet count 130,000. There a re 96% neutrophils, 3% lymphocytes, 1% monocytes. Coagulation studies are within normal limits. Lac tic acid level has decreased from 4.4 to 1.9. Sodium is 135, potassium is 4.3, chloride 96, bicarbon ate 32, BUN/creatinine 65/3.2 with a glucose of 228. Total protein/albumin is 6.2/3.1 such that his calcium of 9.5 corrects to 10.3. Yesterday's calcium had been 10.7. Procalcitonin is 1.55. AST/ALT is 34/29, alkaline phosphatase is 39. Urinalysis was brown, turbid with a pH of 7, specific gravity of 1.020, protein greater than 300, large blood, trace ketones, positive nitrites, moderate bilirubi n, large leukocyte esterase with 10-15 WBCs per high power field. Urine culture as well as blood cul tures revealed gram negative rods. X-rays of the patient's hip and pelvis do not show any evidence o f fracture. Chest x-ray did not show any evidence of acute disease. IMPRESSION AND PLAN: The patient is an 80-year-old gentleman with a known history of hypertension, d yslipidemia, coronary artery disease with history of coronary artery bypass graft, benign prostatic h ypertrophy with history of urinary retention, stage IV chronic kidney disease with a baseline creatin ine in the mid to high 2's, history of biventricular heart failure, dyslipidemia, cerebrovascular acc ident, recent hospitalization at [facility] for bilateral lower extremity cellulitis as well as acute kidney injury and acute decompensated congestive heart failure for which he had been on BiPAP, who was referred to the Emergency Department after pulling out his Raya catheter and note d to be febrile. He has gram-negative rods in the blood as well as a urine consistent with sepsis se condary to a genitourinary source. Of note, the patient also has acute kidney injury as well as lact ic acidosis and meets criteria for severe sepsis as well. He has been seen by infectious disease and his antibiotics are to be changed to meropenem. CT scan of the abdomen and pelvis has been recommen ded; clinically, however, the patient does not appear to have pyelonephritis. Of note, his urinalysi s had a specific gravity that was quite elevated, indicative of inadequate oral intake, and the patie nt at times is quite lethargic. When last I saw him he had a fairly significant amount of edema and now he has not, so we will hold his furosemide. I agree with continuing gentle intravenous fluids on this patient, and for now we will maintain him on normal saline at 80 mL per hour. Although he has decreased left ventricular systolic function, he is also noted to have decreased right ventricular sy stolic function to some degree; he may be preload dependent. His acute kidney injury I suspect is se condary to severe sepsis as well as the patient being on furosemide in the setting of inadequate oral intake. Additionally, since his urinalysis reveals his urine to be brown with "large blood" but onl y 10-15 RBCs per high power field, we will also check a CPK with his next set of labs to rule out pos sibility that he may have fallen and has rhabdomyolysis. Of note, his calcium level was elevated on admission and is currently at the upper limits of normal, and I will discontinue his calcium acetate. I will recheck his phosphorus level, and if it is elevated then we will use another phosphorus bind er such as Renagel instead. For deep venous thrombosis prophylaxis, he is on heparin 5000 units subc utaneously twice daily. Since the patient is on dual antiplatelet therapy with aspirin as well as cl opidogrel, we will also place him on gastrointestinal prophylaxis with famotidine 20 mg orally daily as well. We await final identification of the gram-negative sandra in his urine also. With respect to the patient's blood pressure, although it was elevated when he presented, at present it is on the low side, likely indicative of his severe sepsis, and for this reason I will hold off on any further aml odipine for the time being. I will be following this complex patient closely for the above complex m edical problems. I thank you very much for the courtesy of this consultation. Geovanni Wong MD cc: [id number] TT: 08/30/2016 07:54:05 Confirmation # [id number] Dictation # [id number] mn
--- NOTE | 2016-08-30 08:54 | PN ---
DATE: 08/30/2016 The plan right now is him to go home with [employer]. He is now off IV antibiotics for his u rosepsis. He has renal failure, CHF, dilated cardiomyopathy and he is comfortable in bed sleeping. He has no acute problems at this time. He has no pain, no chest pain or shortness of breath, no abdo gabby pain. PHYSICAL EXAMINATION: VITAL SIGNS: Temp 98.6, pulse 61, blood pressure 126/65, respiratory rate 18, O2 sat 100%. HEENT: Head is atraumatic, normocephalic. HEART: Regular rate. LUNGS: Decreased breath sounds but clear. ABDOMEN: Soft. EXTREMITIES: No edema. MEDICATIONS: He is on Coreg, Ecotrin, heparin, Pepcid, Plavix, Risperdal, IV fluids at 80, Zofran, a nd Zyloprim. LABORATORY DATA: He has a 136 sodium, potassium 4.2, BUN 66, creatinine 3.4. GFR is 17, sugar is 81 , calcium is 8.6, phosphorus 3.6, magnesium is 2, total bili is 0.9, AST is 30, ALT is 27, alkaline p hosphatase 37. Total protein 5.9. White count is down to 8, hemoglobin 9.7, hematocrit 31.1, platel ets of 121. He had a urine infection and urosepsis. His temperature is now normal. He is off IV antibiotics as per infectious disease. Raya catheter was put back in place. I will discontinue telemetry. The pl an is for him to go to home with home help, once he gets that arranged. He stated he would pay for h ome help too. He is on Zyloprim, Zofran Risperdal, Plavix, calcium, Pepcid, Ecotrin, and Coreg. I wi ll discontinue telemetry as per social media director and case management to arrange for home placement. Derick Dejesus DO cc: [id number] TT: 08/30/2016 08:53:45 Confirmation # [id number] Dictation # [id number] jose
--- NOTE | 2016-08-30 09:37 | CON ---
DATE: 08/29/2016 REASON FOR CONSULTATION: Urinary retention and Raya catheter dysfunction. History is from the chart mostly. The patient is unable to answer questions all that well. HISTORY OF PRESENT ILLNESS: The patient was sent in from a custodial with an indwelling Raya cat heter that was not working, that the patient had pulled out. They were unable to reinsert a catheter and sent to the Emergency Room. There was difficulty inserti ng the catheter. Urology was consulted for catheter insertion and further management and recommendations. The patient is currently with an indwelling Raya catheter that is draining clear yellow urine. PAST MEDICAL AND SURGICAL HISTORY: As listed on the chart. MEDICATIONS: See the chart as well. PHYSICAL EXAMINATION: GENERAL: He is a well-developed, well-nourished male in no apparent distress. He is currently resti ng comfortably in his bed. ABDOMEN: Soft: He has a normal male phallus without discharge. Raya catheter is in place and draining clear yellow urine. Of significant note, the patient is tremendously large inguinal hernia. However, when it is pushed t o the side and examined the penis that part of the exam is within relatively normal limits. See the plan. DIAGNOSES: 1. Urinary retention. 2. Large inguinal hernia. From a urology standpoint on initial evaluation, perhaps it is difficult to find concealed penis. In further evaluation once it is identified, the patient's penis is relatively within normal limits. He still has voiding dysfunction and urinary retention from what I can gather. So from a urology standpoint, the patient is stable for discharge home whenever he is cleared medical ly. I would suggest from a urology standpoint, we are going to try to follow the patient in the offi ce and change the catheter in our office. Regarding his hernia and consideration of surgical consultation is worth evaluating. This can be done inpatient or outpatient, regarding Dr. Dejesus's plan, also the patient's condition. So the final diagnosis is urinary retention and a hernia. UROLOGY PLAN: Outpatient management. Will continue to follow the patient in our office. Thank you for the urology consultation. Alfred Kovacs MD cc: [id number] TT: 08/30/2016 09:37:14 Confirmation # [id number] Dictation # [id number] jn
[2016-08-30] MEDS ORDERED: Meropenem 1 GM in Sodium Chloride 0.9% 100 ML IVPB SCH (10:00)
[2016-08-30] MEDS: Meropenem 1 GM in Sodium Chloride 0.9% 100 ML IVPB SCH ×2 (10:43→22:40)
--- NOTE | 2016-08-30 10:48 | PN ---
DATE: 08/30/2016 SUBJECTIVE: The patient is comfortable in bed. The Raya is now in place. PHYSICAL EXAMINATION: VITAL SIGNS: Blood pressure 126/65, heart rate is in the 60s. NECK: Negative JVD. LUNGS: Decreased breath sounds bilaterally. HEART: Reveals S1, S2. EXTREMITIES: Without change. LABORATORY DATA: BUN and creatinine 66 and 3.4. The magnesium is 2.0. The hemoglobin is 9.7. IMPRESSION: 1. Urosepsis. 2. Congestive heart failure, which is better. 3. Pedal edema, which is better. 4. Dilated cardiomyopathy. 5. Renal insufficiency. Given these findings, the patient is better on Lasix with electrolytes that are stable. PLAN: Will discontinue telemetry today. The plan is for discharge once arrangements have been made. We will discontinue telemetry today. Clement Wheat MD cc: [id number] TT: 08/30/2016 10:47:23 Confirmation # [id number] Dictation # [id number] an
--- NOTE | 2016-08-30 15:34 | CP.PCM.PN ---
Subjective - Date & Time of Evaluation Date of Evaluation: 08/30/16 Time of Evaluation: 09:50 - Subjective Subjective: Comfortable in bed, afebrile, not in cardiorespiratory distress, no diarrhea. Objective - Vital Signs/Intake and Output Vital Signs (last 24 hours): Temp Pulse Resp BP Pulse Ox 98.6 F 69 18 126/65 100 08/30/16 06:00 08/30/16 06:00 08/30/16 06:00 08/30/16 06:00 08/30/16 06:00 Intake and Output: 08/30/16 08/30/16 06:59 18:59 Intake Total 600 Output Total 225 Balance 375 - Medications Medications: Current Medications Allopurinol (Zyloprim) 100 mg PO DAILY [facility] Last Admin: 08/29/16 10:01 Dose: 100 mg Aspirin (Ecotrin) 81 mg PO DAILY [facility] Last Admin: 08/29/16 10:00 Dose: 81 mg Carvedilol (Coreg) 12.5 mg PO DAILY [facility] Last Admin: 08/29/16 09:59 Dose: 12.5 mg Clopidogrel Bisulfate (Plavix) 75 mg PO DAILY [facility] Last Admin: 08/29/16 10:00 Dose: 75 mg Famotidine (Pepcid) 40 mg PO HS [facility] Heparin Sodium (Porcine) (Heparin) 5,000 units SC Q12H [facility] PRN Reason: Protocol Last Admin: 08/29/16 22:57 Dose: 5,000 units Sodium Chloride (Sodium Chloride 0.9%) 1,000 mls @ 80 mls/hr IV .[id number] [facility] Last Admin: 08/30/16 00:57 Dose: 80 mls/hr Meropenem 1 gm/ Sodium (Chloride) 100 mls @ 100 mls/hr IVPB Q12 [facility] PRN Reason: Protocol Ondansetron HCl (Zofran Inj) 4 mg IVP Q8H PRN PRN Reason: Nausea/Vomiting Last Admin: 08/29/16 15:01 Dose: 4 mg Risperidone (Risperdal Tab) 0.25 mg PO Q12 [facility] PRN Reason: Protocol Last Admin: 08/29/16 22:58 Dose: 0.25 mg - Labs Labs: 08/30/16 06:05 08/30/16 06:05 PT 11.2 Seconds (9.9-11.8) 08/28/16 10:15 INR 1.04 (0.93-1.08) 08/28/16 10:15 APTT 28.3 Seconds (23.7-30.8) 08/28/16 10:15 - Constitutional Appears: Non-toxic, No Acute Distress - Head Exam Head Exam: NORMAL INSPECTION - ENT Exam ENT Exam: Mucous Membranes Moist - Neck Exam Neck Exam: absent: Lymphadenopathy, Meningismus - Respiratory Exam Respiratory Exam: Decreased Breath Sounds - Cardiovascular Exam Cardiovascular Exam: +S1, +S2 - GI/Abdominal Exam GI & Abdominal Exam: Soft. absent: Tenderness Assessment and Plan - Assessment and Plan (Free Text) Plan: assessment Sepsis secondary to gram negative bacilli bacteremia probably from urinary tract infection, slowly improving history of right leg cellulitis CAD S/P CABG with chronic CHF HTN dyslipidemia history of CVA Plan continue Merrem (day 2) pending identification and sensitivities of the gram negative bacilli in the blood and urine; should consider CT scan of the abdomen and pelvis; will follow up repeat blood cx done today Will continue to monitor clinically Discussed with Dr. Dejesus
--- NOTE | 2016-08-31 02:06 | PN ---
DATE: 08/30/2016 SUBJECTIVE: The patient was seen on telemetry earlier today. Since then he has been transferred to a general medical floor. He is awake, but appears to be somewhat encephalopathic. He denied any com plaints. OBJECTIVE: VITAL SIGNS: Blood pressure is 131/71, heart rate 56, oral temperature is 98.2, respiratory rate is 18, oxygen saturation 98% on room air. I's and O's were documented as 900/400. HEENT: The patient was normocephalic and atraumatic without any sinus tenderness, although he did ap pear to be somewhat pale, including conjunctivae. NECK: There was no jugular venous distention that I could appreciate. CHEST: Lungs alex on my exam were grossly clear to auscultation, but the patient was not cooperati ve with deep breaths. CARDIAC: Had a regular rate and rhythm without any rubs or gallops. ABDOMEN: Soft, mildly distended, but nontender. There was no rebounding, guarding or rigidity. EXTREMITIES: Had only trace dependent edema bilaterally. NEUROLOGIC: The patient was somewhat lethargic as stated above. VASCULAR: Had no bruits. LABORATORY STUDIES: As follows: White count is 8.0, H and H 9.7/31.1 with a platelet count of 121,0 00. Sodium is 136, potassium 4.2, chloride 97, bicarbonate 30, BUN/creatinine 66/3.4 with a glucose of 81. Corrected calcium is 9.6. Urine cultures have Klebsiella pneumoniae. Blood cultures with gr am-negative rods. There is no new imaging to report. IMPRESSION AND PLAN: The patient is an 80-year-old gentleman with history of hypertension, dyslipide dipak, coronary artery disease with history of coronary artery bypass graft, benign prostatic hypertrop hy with history of urinary retention, stage IV chronic kidney disease with a baseline creatinine in t he mid to high 2s, history of biventricular heart failure, dyslipidemia, history of cerebrovascular a ccident, recent hospitalization at [facility] for bilateral lower extremity celluliti s and acute kidney injury with acute decompensated congestive heart failure for which he had been on BiPAP, who originally was sent to the [facility]'s Emergency Department from his correction after he had pulled out his Raya catheter. While there, he was noted to be febrile and was adm itted and has acute kidney injury with severe sepsis. He is also noted to have Klebsiella pneumoniae in the urine, as well as gram-negative rods in the blood, which are yet to be identified. 1. Infectious disease followup is appreciated and the patient currently remains on meropenem for now . CT scan of the abdomen and pelvis has been recommended. 2. The patient's creatinine has increased since admission. He has no documented hemodynamic instabi lity and is currently not on any diuretics, ALIREZA inhibitors, or angiotensin receptor blockers. We amos l continue him on normal saline at 80 mL per hour for now, but need to be wary as to not volume overl oad him on account of this poor left ventricular systolic function. 3. Urinalysis on admission was brown, but CPK was only 38. I will repeat his CPK tomorrow. The fac t that the urinalysis was brown could suggest glomerulonephritis. I doubt acute tubular necrosis giv en the fact that his urine specific gravity is elevated at 1.020. Nonetheless, we will check his uri ne sodium as well as urine creatinine and urine urea nitrogen to calculate his fractional excretion o f sodium and fractional excretion of urea nitrogen to determine whether or not he is volume responsiv e and whether or not he would benefit from ongoing intravenous fluids. 4. The patient does not have any rash to suggest interstitial nephritis, although this is not a univ ersal finding. there was no eosinophilia on admission. I will check his urine for eosinophils as we ll. 5. Cardiology followup is also appreciated. Telemetry was able to be discontinued today with the penny mendez being transferred to a general medical floor. 6. For now, leave Raya catheter in place given the patient's predisposition towards developing urin irineo retention. In the past, his Raya catheter had not been at the proper location. If his creatini ne continues to increase, I will check a bladder ultrasound tomorrow. Review of systems, past medical history, social history and family history were all reviewed and ther e were no new changes. Geovanni Wong MD cc: [id number] TT: 08/31/2016 02:05:05 Confirmation # [id number] Dictation # [id number] mn
[2016-08-31 04:59] LABS: URINE BILIRUBIN NEGATIVE (NEGATIVE); URINE BLOOD LARGE (NEGATIVE); URINE GLUCOSE (UA) NEGATIVE (NEGATIVE); URINE KETONE NEGATIVE (NEGATIVE); URINE LEUKOCYTE ESTERASE SMALL Leu/uL (NEGATIVE); URINE PROTEIN 30 mg/dL (<30 mg/dL); URINE UROBILINOGEN 0.2 E.U./dL (<1 E.U./dL)
[2016-08-31 05:04] LABS: URINE APPEARANCE SLIGHT-CLOUDY (CLEAR); URINE COLOR YELLOW (YELLOW)
[2016-08-31 05:09] LABS: URINE BACTERIA SMALL (NEG); URINE EPITHELIAL CELLS 0 - 2 /hpf (0-5); URINE RBC 15 - 20 /hpf (0-2)
[2016-08-31 06:53] LABS: HEMATOCRIT 28.4 % (42.0-52.0); MEAN CELL VOLUME 94.7 fL (80.0-105.0); MEAN CORPUSCULAR HEMOGLOBIN 29.7 pg (25.0-35.0); MEAN CORPUSCULAR HGB CONC 31.3 g/dl (31.0-37.0); MEAN PLATELET VOLUME 10.5 fl (7.0-11.0); RED CELL DISTRIBUTION WIDTH 16.6 % (11.5-14.5); WHITE BLOOD COUNT 6.7 10^3/ul (4.5-11.0)
[2016-08-31 07:11] LABS: ALB/GLOB RATIO 0.9 (1.1-1.8); BILIRUBIN,TOTAL 0.8 mg/dL (0.2-1.3); POTASSIUM 4.4 mmol/L (3.6-5.0); TOTAL PROTEIN 5.5 g/dL (5.8-8.3)
[2016-08-31] MEDS: Meropenem 1 GM in Sodium Chloride 0.9% 100 ML IVPB SCH (09:16)
--- NOTE | 2016-08-31 09:43 | PN ---
DATE: 08/31/2016 I saw the patient resting in bed. He is more alert, more coherent, talking, asking very good questio ns. He is on Coreg, Ecotrin, Merrem IV, Pepcid, Plavix, Risperdal, IV fluids, Zofran and Zyloprim. He is definitely improving mentally. PHYSICAL EXAMINATION: VITAL SIGNS: He has a 97.8 temp, 53 pulse, 124/64 blood pressure, 20 respiratory rate, 98% O2 sat on room air. HEENT: Head is atraumatic, normocephalic. HEART: Regular rate. LUNGS: Decreased breath sounds but clear. ABDOMEN: Soft. EXTREMITIES: No edema. I discussed physical therapy, walking and getting back to a good physical state. He understands what he has to do. He is being seen by renal, infectious disease, cardiology, urology. The Raya is arnie k in and there is clear urine. IMPRESSION: He has gram-negative rods in blood and urine from the urinary tract. Also right leg javier lulitis, coronary artery disease status post coronary artery bypass graft, chronic congestive heart f ailure, hypertension, history of cerebrovascular accident, large inguinal hernia. LABORATORY DATA: A 6.7 white count, 8.9 hemoglobin (it dropped from 13.1 - will keep an eye on it; if it keeps on going down, I am going to transfuse him), 28.4 hematocrit with 113 platelets. Sodium 136, potassium 4.4, BUN 65, creatinine 3.2 (3.2 is a little bit better), GFR is up to 19, sugar is 81 , calcium is 8. Total bili is 0.8, AST is 30, ALT is 27, alk phos is 43, total creatine kinase is 24 . BNP is 42,700. Total protein is 5.5. I am going to try and get him to TCU today to finish off the IV antibiotics, get physical therapy, an d that is the plan. I discussed this with his partner who would eventually like to take him home. Sera bhat is getting arrangements made for 24-hour help at home. Urosepsis, congestive heart failure, dilated cardiomyopathy, renal insufficiency, and change in menta tion which is improved. Derick Dejesus DO cc: [id number] TT: 08/31/2016 09:42:13 Confirmation # [id number] Dictation # [id number]
[2016-08-31] MEDS ORDERED: Barium Sulfate Susp 2.1% w/v, 2.0% w/w 450 mL Bottle PO ONE (10:20)
[2016-08-31] MEDS ORDERED: Lidocaine 2% Inj (20ml) ONE (14:45)
--- NOTE | 2016-08-31 15:40 | CT ---
PROCEDURE: CT Abdomen and Pelvis without intravenous contrast HISTORY: rule out intra-abdominal infection COMPARISON: None. TECHNIQUE: Without contrast. Contrast Dose: Radiation dose: Total exam DLP = 1289 mGy-cm. FINDINGS: LOWER THORAX: Bibasilar infiltrates and effusions are seen right greater than left. Air bronchograms are seen on the right side. LIVER: Unremarkable. No gross lesion or ductal dilatation. GALLBLADDER AND BILE DUCTS: Unremarkable. PANCREAS: Unremarkable. No gross lesion or ductal dilatation. SPLEEN: Unremarkable. ADRENALS: Unremarkable. No mass. KIDNEYS AND URETERS: Unremarkable. No hydronephrosis. No solid mass. VASCULATURE: A caval filter is present BOWEL: There is a very large right inguinal hernia. At the level of the inguinal canal the hernia measures 8 cm in diameter. In the right side of the scrotum the hernia measures 14 x 20 cm. The hernia contains multiple loops of large and small bowel. There is no evidence of inflammation or obstruction. APPENDIX: Not visualize PERITONEUM: Unremarkable. No free fluid. No free air. LYMPH NODES: Unremarkable. No enlarged lymph nodes. BLADDER: Unremarkable. REPRODUCTIVE: Unremarkable. BONES: No acute fracture. OTHER FINDINGS: None. IMPRESSION: Large right inguinal hernia which contains the right side of the colon and multiple small bowel loops. No evidence of obstruction. Bibasilar infiltrates and small effusions right greater than left, possible pneumonia
--- NOTE | 2016-08-31 17:07 | VASCULAR ---
PROCEDURE: Ultrasound and fluoroscopically placed right upper extremity PICC line. HISTORY: Sepsis. Urinary tract infection. Long-term IV antibiotics. Needs PICC line. PHYSICIAN(S): Clement Rodriges MD. TECHNIQUE: The relative risks and indications of the procedure were explained to the patient's family and consent obtained. The patient was placed supine on the arteriogram table and the right arm prepped and draped in the usual sterile fashion. A tourniquet was applied to the right axilla. 1% Xylocaine was used to anesthetize the skin and soft tissues at the puncture site above the elbow. The right basilic vein was punctured under direct ultrasound guidance with a micropuncture set. A 0.018 guidewire was advanced centrally and used to measure the length to the SVC/RA junction. A 5 Guyanese single-lumen PICC line 41 cm long was advanced to the SVC/RA junction. The catheter was flushed and secured. The patient tolerated the procedure well. IMPRESSION: 1. Ultrasound and fluoroscopically placed right upper extremity PICC line. A 5 Guyanese single-lumen PICC line 41 cm long was advanced to the SVC/RA junction.
[2016-08-31 17:12] VITALS: BP 129/70; PULSE 62; RESP 18; TEMP 97.6; O2SAT 99
--- NOTE | 2016-08-31 19:43 | CP.PCM.PN ---
Subjective - Date & Time of Evaluation Date of Evaluation: 08/31/16 Time of Evaluation: 10:15 - Subjective Subjective: Comfortable, complaining of mild abdominal pain, no diarrhea, no nausea or vomiting. Objective - Vital Signs/Intake and Output Vital Signs (last 24 hours): Temp Pulse Resp BP Pulse Ox 97.6 F 62 18 129/70 99 08/31/16 17:08 08/31/16 17:08 08/31/16 17:08 08/31/16 17:08 08/31/16 17:08 Intake and Output: 08/31/16 09/01/16 18:59 06:59 Intake Total 810 480 Output Total 300 350 Balance 510 130 - Medications Medications: Current Medications Allopurinol (Zyloprim) 100 mg PO DAILY [facility] Last Admin: 08/31/16 09:16 Dose: 100 mg Aspirin (Ecotrin) 81 mg PO DAILY [facility] Last Admin: 08/31/16 09:17 Dose: 81 mg Carvedilol (Coreg) 12.5 mg PO DAILY [facility] Last Admin: 08/31/16 09:16 Dose: 12.5 mg Clopidogrel Bisulfate (Plavix) 75 mg PO DAILY [facility] Last Admin: 08/31/16 09:16 Dose: 75 mg Famotidine (Pepcid) 40 mg PO HS [facility] Last Admin: 08/30/16 22:42 Dose: 40 mg Heparin Sodium (Porcine) (Heparin) 5,000 units SC Q12H ROXY PRN Reason: Protocol Last Admin: 08/31/16 12:40 Dose: Not Given Sodium Chloride (Sodium Chloride 0.9%) 1,000 mls @ 80 mls/hr IV .[id number] [facility] Last Admin: 08/30/16 18:49 Dose: 80 mls/hr Meropenem 1 gm/ Sodium (Chloride) 100 mls @ 100 mls/hr IVPB Q12 ROXY PRN Reason: Protocol Last Admin: 08/31/16 09:16 Dose: 100 mls/hr Ondansetron HCl (Zofran Inj) 4 mg IVP Q8H PRN PRN Reason: Nausea/Vomiting Last Admin: 08/30/16 20:22 Dose: 4 mg Risperidone (Risperdal Tab) 0.25 mg PO Q12 ROXY PRN Reason: Protocol Last Admin: 08/31/16 09:16 Dose: 0.25 mg - Labs Labs: 03/17/17 06:02 08/31/16 06:02 PT 11.2 Seconds (9.9-11.8) 08/28/16 10:15 INR 1.04 (0.93-1.08) 08/28/16 10:15 APTT 28.3 Seconds (23.7-30.8) 08/28/16 10:15 - Constitutional Appears: Non-toxic, No Acute Distress - Head Exam Head Exam: NORMAL INSPECTION - ENT Exam ENT Exam: Mucous Membranes Moist - Neck Exam Neck Exam: absent: Lymphadenopathy, Meningismus - Respiratory Exam Respiratory Exam: Decreased Breath Sounds - Cardiovascular Exam Cardiovascular Exam: +S1, +S2 - GI/Abdominal Exam GI & Abdominal Exam: Soft, Tenderness (mild, epigastric). absent: Distended, Guarding, Rigid Assessment and Plan - Assessment and Plan (Free Text) Plan: assessment Sepsis secondary to enterobacter bacteremia and Klebsiella urinary tract infection R/O intra-abdominal infection history of right leg cellulitis CAD S/P CABG with chronic CHF HTN dyslipidemia history of CVA Plan continue Merrem (day 3); follow up CT scan of the abdomen and pelvis; repeat blood cx is negative Will continue to monitor clinically
== END 2016-08-31 23:42 | DRG 872 ==
LOC: ED 10:03 → ERH 12:34 → 2RSO 13:30 → 3RSO 08-30 13:05 → 3RNO 08-30 13:43
PROVIDERS: ADMIT Family Medicine; ATTEND Family Medicine
PROC: 02HV33Z Insertion of Infusion Device into Superior Vena Cava, Percutaneous Approach (ICD-10-PCS; principal; 2016-08-31)
DX: A41.59 Other Gram-negative sepsis (principal); N39.0 Urinary tract infection, site not specified; R65.20 Severe sepsis without septic shock; N17.9 Acute kidney failure, unspecified; N18.4 Chronic kidney disease, stage 4 (severe); E87.2 Acidosis; I13.0 Hypertensive heart and chronic kidney disease with heart failure and stage 1 through stage 4 chronic kidney disease, or unspecified chronic kidney disease; I42.0 Dilated cardiomyopathy; I50.22 Chronic systolic (congestive) heart failure; L03.115 Cellulitis of right lower limb; F03.90 Unspecified dementia, unspecified severity, without behavioral disturbance, psychotic disturbance, mood disturbance, and anxiety; I27.2 Other secondary pulmonary hypertension; R31.9 Hematuria, unspecified; E78.5 Hyperlipidemia, unspecified; M10.9 Gout, unspecified; K40.90 Unilateral inguinal hernia, without obstruction or gangrene, not specified as recurrent; E78.00 Pure hypercholesterolemia, unspecified; I25.10 Atherosclerotic heart disease of native coronary artery without angina pectoris; N40.1 Benign prostatic hyperplasia with lower urinary tract symptoms; R33.8 Other retention of urine; I25.2 Old myocardial infarction; Z86.73 Personal history of transient ischemic attack (TIA), and cerebral infarction without residual deficits; Z95.1 Presence of aortocoronary bypass graft; Z79.02 Long term (current) use of antithrombotics/antiplatelets; Z79.82 Long term (current) use of aspirin; Z87.891 Personal history of nicotine dependence; Z82.49 Family history of ischemic heart disease and other diseases of the circulatory system

== ENCOUNTER 2016-09-21 19:00 | Inpatient (IN) | payer MEDICARE, OTHER ==
[2016-09-21 19:00] VITALS: BMI 20.7
[2016-09-21] MEDS ORDERED: Aztreonam 2 Gm in NS 100mL 100 ML IVPB STA (19:27)
[2016-09-21] MEDS ORDERED: Vancomycin 1gm in NS 250ml 250 ML IVPB STA (19:27)
[2016-09-21 19:39] LABS: ADD MANUAL DIFF? NO
--- NOTE | 2016-09-21 19:41 | ED PDOC ---
Arrival/HPI - General Chief Complaint: Weakness/Neurological Deficit Time Seen by Provider: 09/21/16 19:15 Historian: Custodial - History of Present Illness Narrative History of Present Illness (Text): 09/21/16 19:35 Jordi Acosta is an 80 year old male, whose past medical history includes CHF , CAD, hypertension, bilateral lower extremity cellulitis, NH, CVA, CABG, and incontinence, who presents to the Emergency department sent by EMS for lethargy tonight. long-term also reports associated generalized weakness. Patient is non-verbal. Limited HPI and ROS due to patient's altered mental status. Time/Duration: Other (today) Symptom Onset: Gradual Symptom Course: Unchanged Activities at Onset: Light Context: Home (long-term) Past Medical History - Provider Review Nursing Documentation Reviewed: Yes - Infectious Disease Hx of Infectious Diseases: None - Cardiac Hx Cardiac Disorders: Yes Hx Congestive Heart Failure: Yes Hx Hypertension: Yes - Pulmonary Hx Respiratory Disorders: No - Neurological HX Cerebrovascular Accident: Yes - HEENT Hx HEENT Disorder: No - Renal Hx Renal Disorder: No - Endocrine/Metabolic Hx Endocrine Disorders: No - Hematological/Oncological Hx Anemia: Yes - Integumentary Hx Dermatological Disorder: No - Musculoskeletal/Rheumatological Hx Musculoskeletal Disorders: No Hx Falls: No - Gastrointestinal Hx Gastrointestinal Disorders: No - Genitourinary/Gynecological Hx Genitourinary Disorders: No - Psychiatric Hx Psychophysiologic Disorder: No Hx Substance Use: No - Surgical History Hx Open Heart Surgery: Yes - Anesthesia Hx Anesthesia: Yes Family/Social History - Physician Review Nursing Documentation Reviewed: Yes Family/Social History: No Known Family HX Smoking Status: Never Smoked Hx Alcohol Use: No Hx Substance Use: No Allergies/Home Meds Allergies/Adverse Reactions: Allergies No Known Allergies Allergy (Verified 09/21/16 19:09) Home Medications: Home Meds Medication Instructions Recorded Confirmed Aspirin [Ecotrin] 81 mg PO DAILY 06/12/16 09/21/16 Clopidogrel [Plavix] 75 mg PO DAILY 06/12/16 09/21/16 Allopurinol [Zyloprim] 100 mg PO DAILY 08/28/16 09/21/16 Carvedilol [Coreg] 12.5 mg PO DAILY 08/28/16 09/21/16 Ferrous Sulfate [Feosol] 324 mg PO BID 09/21/16 09/21/16 Risperidone [Risperdal] 0.25 mg PO Q12 09/21/16 09/21/16 Vortioxetine Hydrobromide 5 mg PO DAILY 09/21/16 09/21/16 [Trintellix] Review of Systems - Review of Systems Systems not reviewed;Unavailable: Altered Mental Status Constitutional: Other (+lethargic) Physical Exam Vital Signs Reviewed: Yes Vital Signs Temp Pulse Resp BP Pulse Ox 09/21/16 23:49 66 20 128/31 L 89 L 09/21/16 23:40 67 20 117/38 L 98 09/21/16 23:29 63 20 113/51 L 95 09/21/16 23:20 61 20 108/52 L 96 09/21/16 23:09 65 20 81/32 L 96 09/21/16 23:00 69 20 115/51 L 96 09/21/16 22:49 66 20 110/43 L 96 09/21/16 22:38 67 20 88/36 L 100 09/21/16 22:29 74 20 87/37 L 100 09/21/16 22:19 75 20 80/47 L 100 09/21/16 22:09 68 20 96/50 L 97 09/21/16 22:02 71 20 85/49 L 98 09/21/16 21:59 67 20 88/52 L 98 09/21/16 21:39 89 20 178/92 H 100 09/21/16 21:31 20 09/21/16 21:08 62 18 102/61 09/21/16 20:08 67 H 125/69 96 09/21/16 19:00 99.5 F 88 24 112/66 97 Temperature: Afebrile Blood Pressure: Normal Pulse: Regular Respiratory Rate: Normal Appearance: Positive for: Non-Toxic, Comfortable Pain Distress: None Mental Status: Positive for: Lethargic - Systems Exam Head: Present: Atraumatic, Normocephalic Pupils: Present: PERRL Extroacular Muscles: Present: EOMI Conjunctiva: Present: Normal Mouth: Present: Moist Mucous Membranes Neck: Present: Normal Range of Motion Respiratory/Chest: Present: Good Air Exchange, Decreased Breath Sounds. No: Respiratory Distress, Accessory Muscle Use Cardiovascular: Present: Regular Rate and Rhythm, Normal S1, S2. No: Murmurs Abdomen: Present: Normal Bowel Sounds. No: Tenderness, Distention, Peritoneal Signs Genitourinary Male: Present: Hernias (Large hernia/scrotal mass) Upper Extremity: Present: Normal Inspection. No: Cyanosis, Edema Lower Extremity: Present: Normal Inspection. No: Edema Neurological: Present: CN II-XII Intact, Other (Non-verbal) Skin: Present: Warm, Dry, Normal Color. No: Rashes Psychiatric: Present: Lethargic Medical Decision Making ED Course and Treatment: 09/21/16 19:35 Impression: 80 year old male sent from [facility] for lethargy and generalized weakness. Differential Diagnosis include but are not limited to: sepsis vs. pneumonia vs. UTI vs. ACS Plan: -- EKG -- Chest X-ray -- Labs, VBG, blood cultures -- Urinalysis, urine cultures -- IV fluids -- Vanco -- Azactam -- Reassess and disposition Prior Visits: Notes and results from previous visits were reviewed. On 08/28/2016, pt was seen in the Emergency department for Raya replacement. Pt was admitted to the hospital for further evaluation. Progress Notes: 09/21/16 19:56 Reviewed radiology, Chest X-ray shows left upper lobe pneumonia. 09/21/16 20:45 Reviewed EKG, a fib at 64 bpm. Rapid ventricular response. LAD. Incomplete RBBB. Non-specific ST/T wave changes. 09/21/16 21:20 Called by RN to bedside. Pt became agonal, requiring emergent intubation. PROCEDURE: INTUBATION Performed by the emergency provider Consent: Discussion of the risks, benefits, and alternatives to the procedure, along with informed consent was precluded by the urgency of the procedure and the patient condition. Timeout: A timeout to verify the correct patient, procedure, and site was performed. Indication: Respiratory failure Pre-oxygenation: [id number] Medications: Propofol. See MAR for details. ETT Size: 7.5 gauge Confirmation: Cords directly visualized as tube passed, good bilateral breath sounds, positive CO2 detector color change, tube fogging, adequate chest rise, improving pulse oximetry reading, improved skin color, and absence of gastric sounds,. ETT Secured: The cuff was inflated and the tube was secured appropriately at a distance of 23 cm at the lip. Post-Procedure: There were no immediate complications. CXR Confirmation: Yes 09/21/16 21:[address] Uribe, intensivst, who is aware and agrees to evaluate pt for ICU admission. 09/21/16 21:[address] Son, covering for Dr. Dejesus, who is aware and agrees with plan. Pt will be admitted to ICU for sepsis and respiratory failure under Dr. Dejesus's service. 09/21/16 23:43 Reviewed post-intubation Chest X-ray, shows ET tube above the tiki. 09/22/16 06:40 - Critical Care Critical Care Minutes: 30 minutes Narrative Critical Care (Text): Management of respiratory failure - Lab Interpretations Lab Results: 09/21/16 19:30 09/21/16 19:30 Lab Results 09/21/16 21:10: Urine Color Yellow, Urine Appearance Turbid, Urine pH 6.0, Ur Specific [place] 1.025, Urine Protein 100 H, Urine Glucose (UA) Negative, Urine Ketones Negative, Urine Blood Large H, Urine Nitrate Negative, Urine Bilirubin Small H, Urine Urobilinogen 0.2, Ur Leukocyte Esterase Large H, Urine RBC 2 - 5 , Urine WBC Tntc, Ur Epithelial Cells 0 - 2, Urine Bacteria Many 09/21/16 19:30: WBC 19.0 H D, RBC 3.64, Hgb 10.4 L, Hct 34.3 L, MCV 94.2, MCH 28.6, MCHC 30.3 L, RDW 16.9 H, Plt Count 190, MPV 10.2, Gran % 79.3 H, Lymph % ( Auto) 11.4 L, Ward % (Auto) 9.2 H, Eos % (Auto) 0.0 L, Baso % (Auto) 0.1, Gran # 15.09 H, Lymph # 2.2, Ward # 1.8 H, Eos # 0.0, Baso # 0.01, PT 13.8 H, INR 1.28 H, APTT 34.4 H, pO2 109 H, VBG pH 7.27 L, VBG pCO2 56.0, VBG HCO3 25.7, VBG Total CO2 27.4, VBG O2 Sat (Calc) 99.0 H, VBG Base Excess -2.1 L, VBG Potassium 6.0 H, Glucose 95, Lactate 1.7, FiO2 21.0, Sodium 146.0, Potassium 5.8 H* D, Chloride 119.0 H, Carbon Dioxide 27, Anion Gap 14, BUN 56 H, Creatinine 3.3 H, Est GFR ( Amer) 22, Est GFR (Non-Af Amer) 18, Random Glucose 90, Calcium 8.6, Phosphorus 5.0 H, Magnesium 2.4 H, Total Bilirubin 1.6 H, AST 46, ALT 36, Alkaline Phosphatase 60, Total Protein 6.2, Albumin 2.6 L, Globulin 3.7, Albumin/Globulin Ratio 0.7 L, Venous Blood Potassium 6.0 H 09/21/16 19:24: POC Glucose (mg/dL) 92 09/21/16 19:00: Lactate Dehydrogenase 770 H, Total Creatine Kinase 358 H, CK-MB (CK-2) 4.1 H, CK-MB (CK-2) % Cancelled, Troponin I 1.15 H* D, NT-Pro-B Natriuret Pep 584390 H I have reviewed the lab results: Yes - RAD Interpretation Narrative RAD Interpretations (Text): Chest X-ray shows left upper lobe pneumonia. post-intubation Chest X-ray, shows ET tube above the tiki. Radiology Orders: 09/21/16 19:21 CHEST PORTABLE [RAD] Stat 09/21/16 21:48 CHEST PORTABLE [RAD] Stat Instrumentation Controls Engineer: ED Physician - EKG Interpretation EKG Interpretation (Text): EKG: Ordered, reviewed, and independently interpreted the EKG. Rate : 64 BPM Rhythm : A fib Interpretation : Rapid ventricular response. LAD. Incomplete RBBB. Non-specific ST/T wave changes. Comparison : No acute change from previous EKG on 08/28/2016. Interpreted by ED Physician: Yes Type: 12 lead EKG - Medication Orders Current Medication Orders: Albuterol/Ipratropium (Duoneb 3 Mg/0.5 Mg (3 Ml) Ud) 3 ml IH [id number] ROXY Stop: 09/22/16 12:01 Sodium Chloride (Sodium Chloride 0.9%) 1,000 mls @ 150 mls/hr IV .[id number] ROXY Last Admin: 09/22/16 02:30 Dose: 150 MLS/HR eMAR Start Stop Document 09/22/16 02:30 MORRISON (Rec: 09/22/16 02:30 [facility]RISON [facility] [place]-[employer] MANAGER) Intravenous Solution Start Date 09/22/16 Start Time 00:30 Vancomycin HCl (Vancomycin 1gm) 250 mls @ 167 mls/hr IVPB DAILY ROXY PRN Reason: Protocol Heparin Sodium/Sodium Chloride (Heparin 80431 Units/250ml 1/2 Normal Saline) 250 mls @ 12.737 mls/hr IV .[id number] PRN; Protocol; 18 UNITS/KG/HR PRN Reason: ADJUST RATE PER PROTOCOL Last Admin: 09/22/16 02:23 Dose: 12.737 MLS/HR Titration Intervention Document 09/22/16 02:23 MORRISON (Rec: 09/22/16 02:24 [facility] [place]-[employer] MANAGER) Titration Intake Container Volume 250 Titration Dosing Titration Dose 18 IV Rate 12.737 Intake/Decrease Start eMAR Start Stop Document 09/22/16 02:23 MORRISON (Rec: 09/22/16 02:24 [facility] [place]-[employer] MANAGER) Intravenous Solution Start Date 09/22/16 Start Time 02:24 Tigecycline 50 mg/ Sodium (Chloride) 100 mls @ 100 mls/hr IV Q12H ROXY PRN Reason: Protocol Stop: 09/22/16 12:59 Pantoprazole Sodium (Protonix Inj) 40 mg IVP DAILY ROXY Discontinued Medications Albuterol Sulfate (Albuterol 0.5% Inhal Liz (2.5 Mg/0.5 Ml) Ud) 5 mg IH STAT STA Stop: 09/21/16 20:11 Last Admin: 09/21/16 20:23 Dose: 5 MG Dextrose (Dextrose 50% Inj) 50 ml IVP STAT STA Stop: 09/21/16 20:10 Last Admin: 09/21/16 20:23 Dose: 50 ML IVP Administration Document 09/21/16 20:23 ATIF (Rec: 09/21/16 20:23 ATIF [id number]) Charges for Administration # of IVP Administrations 1 Enoxaparin Sodium (Lovenox) 30 mg SC DAILY ROXY PRN Reason: Protocol Aztreonam (Azactam 2 Gm) 100 mls @ 100 mls/hr IVPB STAT STA PRN Reason: Protocol Stop: 09/21/16 20:26 Last Admin: 09/21/16 19:45 Dose: 100 MLS/HR eMAR Start Stop Document 09/21/16 19:45 ATIF (Rec: 09/21/16 19:45 ATIF [id number]) Intravenous Solution Start Date 09/21/16 Start Time 19:45 End Date 09/21/16 End time 20:45 Total Infusion Time 60 Vancomycin HCl (Vancomycin 1gm) 250 mls @ 167 mls/hr IVPB STAT STA PRN Reason: Protocol Stop: 09/21/16 20:56 Last Admin: 09/21/16 19:45 Dose: 167 MLS/HR eMAR Start Stop Document 09/21/16 19:45 ATIF (Rec: 09/21/16 19:45 ATIF [id number]) Intravenous Solution Start Date 09/21/16 Start Time 19:45 End Date 09/21/16 End time 21:15 Total Infusion Time 90 Propofol (Diprivan) Confirm Administered Dose 100 mls @ ud .ROUTE .STK-MED ONE Stop: 09/21/16 21:46 Propofol (Diprivan) 50 mls @ 2.123 mls/hr IV .[id number] PRN; Protocol; 5 MCG/KG/ MIN PRN Reason: TITRATE PER MD ORDER Sodium Chloride (Sodium Chloride 0.9%) 1,000 mls @ 999 mls/hr IV .Q1H1M STA Stop: 09/22/16 00:12 Tigecycline 50 mg/ Sodium (Chloride) 100 mls @ 100 mls/hr IV Q12 ROXY PRN Reason: Protocol Stop: 09/22/16 00:44 Last Admin: 09/22/16 01:30 Dose: 100 MLS/HR eMAR Start Stop Document 09/22/16 01:30 MORRISON (Rec: 09/22/16 02:27 [facility] [place]-[employer] MANAGER) Intravenous Solution Start Date 09/22/16 Start Time 01:30 Insulin Human Regular (Humulin R) 10 units IVP STAT STA Stop: 09/21/16 20:10 Last Admin: 09/21/16 20:22 Dose: 10 UNITS IVP Administration Document 09/21/16 20:22 ATIF (Rec: 09/21/16 20:22 ATIF [id number]) Charges for Administration # of IVP Administrations 1 - Scribe Statement The provider has reviewed the documentation as recorded by the Jose Martinez Provider Attestation: All medical record entries made by the Scribe were at my direction and personally dictated by me. I have reviewed the chart and agree that the record accurately reflects my personal performance of the history, physical exam, medical decision making, and the department course for this patient. I have also personally directed, reviewed, and agree with the discharge instructions and disposition. Disposition/Present on Arrival - Present on Arrival Any Indicators Present on Arrival: No History of DVT/PE: No History of Uncontrolled Diabetes: No Urinary Catheter: Yes History of Decub. Ulcer: No History Surgical Site Infection Following: None - Disposition Have Diagnosis and Disposition been Completed?: Yes Diagnosis: Sepsis, Cardiac arrest Disposition: HOSPITALIZED Disposition Time: 22:00 Condition: CRITICAL
[2016-09-21] MEDS: Sodium Chloride 0.9% 1,000 ML IV SCH (19:46)
[2016-09-21 19:47] LABS: BASO # 0.01 K/mm3 (0.0-2.0); BASO % 0.1 % (0.0-3.0); GRAN # 15.09 (1.4-6.5); GRAN % 79.3 % (50.0-68.0); HEMATOCRIT 34.3 % (42.0-52.0); LYMPH # 2.2 (1.2-3.4); LYMPH % 11.4 % (22.0-35.0); MEAN CELL VOLUME 94.2 fL (80.0-105.0); MEAN CORPUSCULAR HEMOGLOBIN 28.6 pg (25.0-35.0); MEAN CORPUSCULAR HGB CONC 30.3 g/dl (31.0-37.0); MEAN PLATELET VOLUME 10.2 fl (7.0-11.0); MONO # 1.8 (0.1-0.6); MONO % 9.2 % (1.0-6.0); PLATELET COUNT 190 10^3/uL (120.0-450.0); RED CELL DISTRIBUTION WIDTH 16.9 % (11.5-14.5)
[2016-09-21 19:53] LABS: VENOUS BLOOD GAS BASE EXCESS -2.1 mmol/L (0.0-2.0); VENOUS BLOOD PH 7.27 (7.32-7.43)
[2016-09-21 19:57] LABS: INR 1.28 (0.93-1.08); PARTIAL THROMBOPLASTIN TIME 34.4 Seconds (23.7-30.8)
[2016-09-21 20:00] LABS: ALB/GLOB RATIO 0.7 (1.1-1.8); BILIRUBIN,TOTAL 1.6 mg/dL (0.2-1.3); CALCIUM 8.6 mg/dL (8.4-10.5); MAGNESIUM 2.4 mg/dL (1.7-2.2); TOTAL PROTEIN 6.2 g/dL (5.8-8.3)
[2016-09-21 20:07] LABS: POTASSIUM 5.8 mmol/L (3.6-5.0)
[2016-09-21] MEDS ORDERED: Insulin Regular 1 UNITS/0.01 ML ML IVP STA (20:09)
[2016-09-21] MEDS ORDERED: Dextrose 50% SYRINGE Inj (50 ml) IVP STA (20:09)
[2016-09-21] MEDS ORDERED: Albuterol 0.5% Inhal Sol (2.5 mg/0.5 ml) UD IH STA (20:10)
[2016-09-21 21:25] LABS: URINE APPEARANCE TURBID (CLEAR); URINE BILIRUBIN SMALL (NEGATIVE); URINE BLOOD LARGE (NEGATIVE); URINE COLOR YELLOW (YELLOW); URINE GLUCOSE (UA) NEGATIVE (NEGATIVE); URINE KETONE NEGATIVE (NEGATIVE); URINE LEUKOCYTE ESTERASE LARGE Leu/uL (NEGATIVE); URINE PROTEIN 100 mg/dL (<30 mg/dL); URINE UROBILINOGEN 0.2 E.U./dL (<1 E.U./dL)
[2016-09-21 21:30] LABS: URINE BACTERIA MANY (NEG); URINE EPITHELIAL CELLS 0 - 2 /hpf (0-5); URINE WBC TNTC /hpf (0-6)
[2016-09-21] MEDS ORDERED: Propofol 10 mg/ml 50 ML IV PRN (21:46)
[2016-09-21 22:53] LABS: ARTERIAL BLOOD GAS HCO3 19.3 mmol/L (21-28); ARTERIAL BLOOD GAS PH 7.28 (7.35-7.45)
[2016-09-21] MEDS ORDERED: Sodium Chloride 0.9% 1,000 ML IV STA (23:12)
--- NOTE | 2016-09-21 23:57 | CP.PCM.CON ---
History of Present Illness - History of Present Illness History of Present Illness: Reason for ICU Consult: Cardiac arrest HPI: 80 y/o male sent from [facility] secondary to a complaint of lethargy, fatigue and weakness for the past few days. The transfer records indicate the patient was becoming more lethargic daily and was unable to follow simple commands so he was sent to the ED. While in the ED the patient underwent cardiac arrest and underwent ACLS protocol from 2129 to 2138 when he achieved ROSC. Patient is now intubated and unable to provide any further history. I spoke with the patient's next of kin, who is his legal partner ( Jordi Vera [phone]) and he relayed that the patient has been in and out of rehab/nursing facilities since May of 2016. The records show the patient was here about 3 weeks ago, where he was treated for urosepsis, received a PICC line and was discharged to the nursing facility with an indwelling catheter and to continue his IV Abx. Patient is off of sedation which was started in the ED and is not awake or alert to partake in the history or physical exam. PMHx: h/o CVA CHF (EF 30% with mild pul htn RVSP 46 on echo 05/2016) chronic Right LE cellulitis Depression Allergies: NKDA Fam Hx: reviewed and noncontributory Soc Hx: no history of tobacco/etoh/illicit drug use Home meds: FeS04 325mg po bid Trintellix 5mg po daily Risperdol 0.25mg po q12 pepcid 40mg po hs Plavix 75mg po daily Coreg 12.5mg po daily ASA 81mg po daily Allopurinol 100mg po daily Review of Systems - Review of Systems Systems not reviewed;Unavailable: Intubated Past Patient History - Infectious Disease Hx of Infectious Diseases: None - Past Social History Smoking Status: Never Smoked Alcohol: None Home Situation {Lives}: Group Home - CARDIAC Hx Cardiac Disorders: Yes Hx Congestive Heart Failure: Yes Hx Hypertension: Yes - PULMONARY Hx Respiratory Disorders: No - NEUROLOGICAL HX Cerebrovascular Accident: Yes - HEENT Hx HEENT Problems: No - RENAL Hx Chronic Kidney Disease: No - ENDOCRINE/METABOLIC Hx Endocrine Disorders: No - HEMATOLOGICAL/ONCOLOGICAL Hx Anemia: Yes - INTEGUMENTARY Hx Dermatological Problems: No - MUSCULOSKELETAL/RHEUMATOLOGICAL Hx Musculoskeletal Disorders: No Hx Falls: No - GASTROINTESTINAL Hx Gastrointestinal Disorders: No - GENITOURINARY/GYNECOLOGICAL Hx Genitourinary Disorders: No - PSYCHIATRIC Hx Psychophysiologic Disorder: No Hx Substance Use: No - SURGICAL HISTORY Hx Open Heart Surgery: Yes - ANESTHESIA Hx Anesthesia: Yes Meds Allergies/Adverse Reactions: Allergies Allergy/AdvReac Type Severity Reaction Status Date / Time No Known Allergies Allergy Verified 09/21/16 19:09 - Medications Medications: Current Medications Enoxaparin Sodium (Lovenox) 30 mg SC DAILY ROXY PRN Reason: Protocol Sodium Chloride (Sodium Chloride 0.9%) 1,000 mls @ 150 mls/hr IV .Q6H40M ROXY Last Admin: 09/21/16 19:46 Dose: 150 mls/hr Propofol (Diprivan) 50 mls @ 2.123 mls/hr IV .[id number] PRN; Protocol; 5 MCG/KG/ MIN PRN Reason: TITRATE PER MD ORDER Sodium Chloride (Sodium Chloride 0.9%) 1,000 mls @ 999 mls/hr IV .Q1H1M STA Stop: 09/22/16 00:12 Aztreonam (Azactam 1 Gm) 100 mls @ 100 mls/hr IVPB Q8 ROXY PRN Reason: Protocol Stop: 09/22/16 14:59 Vancomycin HCl (Vancomycin 1gm) 250 mls @ 167 mls/hr IVPB DAILY ROXY PRN Reason: Protocol Physical Exam - Constitutional Appears: Chronically Ill Additional comments: intubated; non responsive to verbal or physical stimulus - Head Exam Head Exam: ATRAUMATIC, NORMOCEPHALIC - Eye Exam Pupil Exam: Miosis - ENT Exam ENT Exam: Mucous Membranes Dry - Respiratory Exam Respiratory Exam: Rhonchi (bilateral ronchi), NORMAL BREATHING PATTERN. absent : Rales, Wheezes - Cardiovascular Exam Cardiovascular Exam: Irregular Rhythm, +S1, +S2 (irregularly irregular) - GI/Abdominal Exam GI & Abdominal Exam: Soft. absent: Guarding, Rebound, Tenderness - Rectal Exam Rectal Exam: Deferred - Extremities Exam Additional comments: Right lower extremity cellulitis; appears chronic - Neurological Exam Neurological exam: Altered (intubated; not sedated; unresponsive to verbal or physical stimulus; withdraws to pain and is breathing over the ventilator) - Skin Skin Exam: Dry, Intact, Normal Color, Warm Results - Vital Signs Recent Vital Signs: Last Vital Signs Temp 99.5 F 09/21/16 19:00 Pulse 69 09/21/16 23:00 Resp 20 09/21/16 23:00 BP 115/51 L 09/21/16 23:00 Pulse Ox 96 09/21/16 23:00 - Labs Result Diagrams: 09/21/16 19:30 09/21/16 19:30 Labs: Laboratory Results - last 24 hr 09/21/16 09/21/16 22:09 22:35 pCO2 41 pO2 356.0 H HCO3 19.3 L ABG pH 7.28 L ABG Total CO2 20.6 L ABG O2 Saturation 100.6 H ABG Base Excess -7.1 L ABG Potassium 5.0 Sodium 146.0 Chloride 123.0 H Glucose 59 L Lactate 3.7 H FiO2 100.0 POC Glucose (mg/dL) 93 Arterial Blood Potassium 5.0 - EKG Data EKG Interpreted by: Myself (Afib @ 70 bpm; no ST elevations or depressions noted ; RBBB) - Imaging and Cardiology Chest x-ray Status: Image reviewed by me (ETT at the level of the tiki; ?RLL infiltrate/ atelectasis) Assessment & Plan - Assessment and Plan (Free Text) Assessment: 80 y/o male with a PMx CHF (EF 30%), CAD, RLE Cellulitis, Depression, history of CVA and recurrent urinary tract infection Plan: Neuro: patient is not responding to verbal or physical stimulus; will obtain a CT Head and perform frequent neurochecks; will avoid sedation unless patient becomes more awake/alert and agitated Pulm: ABG reviewed showing adequate oxygenation; metabolic acidosis; Fi02 decreased to 40% and will titrate to keep his sa02 greater than 92%. ETT pulled back as it was at the level of the tiki in a previous CXR; CT Chest film reviewed personally showing bibasilar effusions and atelectasis with a possible infiltrate on the RLL. CVS: Will hydrate with IVF resuscitation; patient had an SBP in the 80's in the ED after his cardiac arrest; will repeat lactic acid (post code lac elevated at 3.7); monitor strict i's and o's; will place on vasopressor support if patient fails to respond to fluid resuscitation (consent obtained from his legal partner via telephone with 2 witnesses). Shown to have Afib on ekg as well as on the monitor; CHADS VASC = 6; will place him on a heparin drip for anticoagulation to minimalize his stroke risk. Trop level of 1.15 possibly secondary to cardiac arrest, will continue on heparin drip and trend trop levels and also repeat BNP level as his post arrest level is 168K. GI: will keep him NPO and place him on protonix 40mg IV daily; OG-tube in place ; no acute issues otherwise. Renal: NAYA which appears to be worsening; Cr is higher today when compared to [place] records (BUN/Cr 44/2.4); will perform daily labs and strict i's and o's ; daily weights; currently does not have any urine output in the piper bag; will evaluate CT Abd/pelvis for any renal disease or urinary obstruction. Also shown to have hyperkalemia for which he was treated in the ED; will repeat bmp in the AM. ID: appears likely to be suffering from urosepsis; will follow up urine cultures and blood cultures; he was treated with Vanco and Azactam in the ED, however his recent urine culture shows kelbsiella which was resistant to Aztreonam; will order tigecycline (resistant) for now; ID consult pending Heme: history of iron deficiency anemia; curently showing leukocytosis of 19 likely secondary to cystitis; will monitor daily labs Urology: attempted to deflate piper balloon in the ED to have the catheter changed, however balloon would not deflate; bladder scan performed showing only 32mL's of urine; Case discussed with Dr. Alexi Kovacs over the phone; will attempt to irrigate piper catheter; will follow up CT Abd/pelvis to ensure the tip of the piper is within the bladder. psych: unable to assess due to being intubated and non-responsive Case discussed at length with Dr. Willett in the ED all labs and images available thus far have been reviewed personally Total time of care: 60 minutes
[2016-09-21] MEDS ORDERED: Heparin25000 units/250ml 1/2NS 250 ML IV PRN (23:58)
[2016-09-22 00:39] LABS: TROPONIN I 1.15 ng/mL
--- NOTE | 2016-09-22 01:03 | CT ---
EXAM: CT Head Without Intravenous Contrast CLINICAL HISTORY: 80 years old, male; Signs and symptoms; Other: Post cardiac arrest; Additional info: Post cardiac arrest; Evaluate for any ic pathology TECHNIQUE: Axial computed tomography images of the head/brain without intravenous contrast. This CT exam was performed using one or more of the following dose reduction techniques: automated exposure control, adjustment of the mA and/or kV according to patient size, and/or use of iterative reconstruction technique. COMPARISON: No relevant prior studies available. FINDINGS: Brain: No acute intracranial hemorrhage. Age-appropriate periventricular white matter disease. No edema. Large area of decreased attenuation is identified adjacent to the posterior horn of the left lateral ventricle, findings consistent with prior cerebral infarction. Ventricles: Age-appropriate ventriculomegaly. Bones: No acute displaced fracture. Sinuses: Unremarkable as visualized. No acute sinusitis. Mastoid air cells: Unremarkable as visualized. No mastoid effusion. IMPRESSION: Findings consistent with prior left-sided cerebral infarction, without acute intracranial hemorrhage, or suspicious mass effect.
--- NOTE | 2016-09-22 01:09 | CT ---
EXAM: CT Chest Without Intravenous Contrast CLINICAL HISTORY: 80 years old, male; Signs and symptoms; Other: Evaluate for significan pnumonia; Additional info: Evaluate for significant pnuemonia/atelectasis TECHNIQUE: Axial computed tomography images of the chest without intravenous contrast. This CT exam was performed using one or more of the following dose reduction techniques: automated exposure control, adjustment of the mA and/or kV according to patient size, and/or use of iterative reconstruction technique. MIP reconstructed images were created and reviewed. Coronal and sagittal reformatted images were created and reviewed. COMPARISON: CR - CHEST PORTABLE 09/21/2016 11:26:23 PM FINDINGS: Lungs: Moderate bilateral pleural effusions, with adjacent compressive atelectasis. Dense opacification along the anterolateral margin of the superior portion of the left lower lobe, possibly an infiltrate. Pleural spaces: As above. Heart: The heart is enlarged, without significant pericardial effusion. Valvular calcification is also present in Vasculature: Calcified atherosclerotic disease. Prominence of the main pulmonary artery, findings suggesting pulmonary hypertension. Lymph nodes: No enlarged lymph nodes. Bones: No acute fracture. Sternal wires are identified. IMPRESSION: Moderate bilateral pleural effusions with adjacent compressive atelectasis. Focal infiltrate within the left lower lobe, as detailed above.
--- NOTE | 2016-09-22 01:14 | CT ---
EXAM: CT Abdomen and Pelvis Without Intravenous Contrast CLINICAL HISTORY: 80 years old, male; Signs and symptoms; Other: Evaluate for hydronephrosis; Additional info: Evaluate for hydronephrosis or urinary obstruction TECHNIQUE: Axial computed tomography images of the abdomen and pelvis without intravenous contrast. This CT exam was performed using one or more of the following dose reduction techniques: automated exposure control, adjustment of the mA and/or kV according to patient size, and/or use of iterative reconstruction technique. Coronal and sagittal reformatted images were created and reviewed. COMPARISON: CT - ABD PELVIS PO CONTRAST ONLY 08/31/2016 3:03:21 PM FINDINGS: Lower thorax:Moderate bilateral pleural effusions, with adjacent compressive atelectasis. The heart is enlarged, without significant pericardial effusion. A nasogastric tube extends the stomach ABDOMEN: Liver: No acute findings Gallbladder and bile ducts: No acute finding. No calcified stones. No intra-extrahepatic biliary ductal dilation. Pancreas: Limited evaluation secondary to the lack of intravenous contrast. Spleen: No acute findings. Adrenals: No acute findings. Kidneys and ureters: No obstructing stones. No hydronephrosis. The bilateral kidneys are atrophic, with moderate perinephric stranding. PELVIS: Bladder: Decompressed with a Raya catheter. Moderately thickened rose. Reproductive: No acute findings. Appendix: The appendix is not definitively visualized, however no pericecal inflammatory changes identified to suggest the presence of acute appendicitis. ABDOMEN and PELVIS: Stomach and bowel: No acute findings. A nonobstructing bowel containing right inguinal hernia is identified, incompletely evaluated in the current examination as it is not fully included. Peritoneum: As above. Lymph nodes: Limited evaluation without intravenous contrast. Vasculature: Dense calcified atherosclerotic disease. A filter is present within the inferior vena cava Bones: No acute fracture. IMPRESSION: Moderate bilateral pleural effusions, with adjacent compressive atelectasis. Incomplete evaluation of a right inguinal hernia, containing bowel which does not appear to be obstructing, however not completely included on the current examination. No hydronephrosis is detected. The bladder is decompressed with a Raya catheter, with moderately thickened rose.
[2016-09-22] MEDS: Sodium Chloride 0.9% 1,000 ML IV SCH ×3 (02:30→22:30)
[2016-09-22] MEDS: Albuterol-Ipratrop 3 mg / 0.5 (3 ml) UD IH SCH ×2 (04:00→08:01)
[2016-09-22] MEDS ORDERED: Aztreonam 1 Gm in NS 100mL 100 ML IVPB SCH (06:00)
[2016-09-22 06:05] LABS: ADD MANUAL DIFF? NO
[2016-09-22 06:22] LABS: BASO # 0.01 K/mm3 (0.0-2.0); BASO % 0.1 % (0.0-3.0); GRAN # 11.64 (1.4-6.5); GRAN % 77.8 % (50.0-68.0); HEMATOCRIT 35.5 % (42.0-52.0); LYMPH # 2.1 (1.2-3.4); LYMPH % 14.1 % (22.0-35.0); MEAN CELL VOLUME 96.5 fL (80.0-105.0); MEAN CORPUSCULAR HEMOGLOBIN 28.8 pg (25.0-35.0); MEAN CORPUSCULAR HGB CONC 29.9 g/dl (31.0-37.0); MEAN PLATELET VOLUME 10.4 fl (7.0-11.0); MONO # 1.2 (0.1-0.6); PLATELET COUNT 158 10^3/uL (120.0-450.0); RED CELL DISTRIBUTION WIDTH 17.2 % (11.5-14.5); WHITE BLOOD COUNT 14.9 10^3/ul (4.5-11.0)
[2016-09-22 06:24] LABS: ALB/GLOB RATIO 0.7 (1.1-1.8); BILIRUBIN,TOTAL 1.3 mg/dL (0.2-1.3); POTASSIUM 5.3 mmol/L (3.6-5.0); TOTAL PROTEIN 5.6 g/dL (5.8-8.3)
[2016-09-22] MEDS ORDERED: Dextrose 50% SYRINGE Inj (50 ml) ONE (06:46)
[2016-09-22 06:48] LABS: INR 1.46 (0.93-1.08)
[2016-09-22 06:51] LABS: TROPONIN I 1.24 ng/mL
[2016-09-22 06:53] LABS: PARTIAL THROMBOPLASTIN TIME > 180.0 Seconds (23.7-30.8)
[2016-09-22 07:03] LABS: ARTERIAL BLOOD GAS HCO3 16.7 mmol/L (21-28); ARTERIAL BLOOD GAS O2 CAPACITY 13.5 mL/dl (16-24); ARTERIAL BLOOD GAS O2 CONTENT 13.2 ML/dl (15-23); ARTERIAL BLOOD HGB O2 SAT 94.8 % (95.0-98.0); CARBOXYHEMOGLOBIN 2.2 % (0.5-1.5); HHB 2.2 % (0-5); METHEMOGLOBIN 0.7 % (0.0-3.0)
[2016-09-22] MEDS ORDERED: Dextrose 50% SYRINGE Inj (50 ml) IVP ONE (07:27)
[2016-09-22] MEDS ORDERED: Meropenem 1,000 MG in Sodium Chloride 0.9% 100 ML IVPB SCH (07:30)
--- NOTE | 2016-09-22 08:08 | RAD ---
HISTORY: post intubation COMPARISON: Earlier today FINDINGS: LUNGS: Endotracheal and nasogastric tubes in satisfactory position. Infiltrate at right lung base PLEURA: No significant pleural effusion identified, no pneumothorax apparent. CARDIOVASCULAR: Normal. OSSEOUS STRUCTURES: No significant abnormalities. VISUALIZED UPPER ABDOMEN: Normal. OTHER FINDINGS: None. IMPRESSION: Endotracheal and nasogastric tubes in satisfactory position. Infiltrate at right lung base
--- NOTE | 2016-09-22 08:13 | RAD ---
HISTORY: Sepsis Patient COMPARISON: 08/28/2016 FINDINGS: LUNGS: No active pulmonary disease. PLEURA: There is layering of small pleural effusions CARDIOVASCULAR: Moderate cardiomegaly. Vascular congestion and layering pleural effusions OSSEOUS STRUCTURES: No significant abnormalities. VISUALIZED UPPER ABDOMEN: Normal. OTHER FINDINGS: None. IMPRESSION: Cardiomegaly with vascular congestion and small pleural effusions
--- NOTE | 2016-09-22 08:24 | RAD ---
HISTORY: evaluate repositioned ET tube COMPARISON: Earlier same day FINDINGS: LUNGS: The endotracheal tube is been pulled back slightly and is in satisfactory position. The nasogastric tube extends just beyond the GE junction in satisfactory position. PLEURA: No significant pleural effusion identified, no pneumothorax apparent. CARDIOVASCULAR: Moderate cardiomegaly vascular congestion and right lower lobe infiltrate OSSEOUS STRUCTURES: No significant abnormalities. VISUALIZED UPPER ABDOMEN: Normal. OTHER FINDINGS: None. IMPRESSION: Endotracheal and nasogastric tube in satisfactory position
--- NOTE | 2016-09-22 09:43 | HP ---
HISTORY OF PRESENT ILLNESS: The patient was sent over from rehab facility secondary to fevers and ch ills and difficulty breathing. When brought to the ER, was immediately intubated and sent to the ICU . PAST MEDICAL HISTORY: Includes CHF, cellulitis, CAD, CVA, as well as incontinence. PAST SURGICAL HISTORY: Open heart surgery as well as an appendectomy. ALLERGIES: No known allergies to medications. FAMILY MEDICAL HISTORY: Hypertension. SOCIAL HISTORY: No smoking, no drinking, no drug use. REVIEW OF SYSTEMS: Unable to obtain from the patient because the patient is intubated at this point; however, in review from the [facility] he was complaining about chills, chest pain, and shortness of breath. PHYSICAL EXAMINATION: VITAL SIGNS: Blood pressure currently is 128/30, pulse rate of 66, temperature is 98.6, O2 saturatio n is 100% on mechanical ventilation. HEENT: Normocephalic, atraumatic. Positive for ET tube. CARDIOVASCULAR: Regular rate and rhythm. S1, S2 appreciated. LUNGS: Bilateral air entry is decreased at the base and there are scattered rhonchi. ABDOMEN: Nondistended, nontender. Positive bowel sounds. EXTREMITIES: Peripheral pulses +2 with trace pitting edema. LABORATORY DATA: WBCs of 14.9, hemoglobin of 10.6, hematocrit of 35.5, platelets of 158. INR curren tly is 1.46. Chemistry: Sodium of 149, potassium of 5.3, creatinine of 3.1. Troponin is elevated a t 1.24. ASSESSMENT: 1. Respiratory failure. 2. Sepsis. 3. Non-ST elevation myocardial infarction. 4. History of congestive heart failure. 5. History of cellulitis. PLAN: At this point, we will follow with the MICU team is doing, giving IV fluids as well as started the patient on heparin drip. Cardiology was called in and will follow this patient very closely. Roman Son MD cc: [id number] TT: 09/22/2016 09:42:53 jn
--- NOTE | 2016-09-22 09:50 | PN ---
DATE: 09/22/2016 SUBJECTIVE: The patient is sedated on the ventilator with FiO2 of 40%. He is getting IV heparin. N ote that the patient is post-CPR and presented initially with altered mental status. PHYSICAL EXAMINATION: VITAL SIGNS: Temperature is 98.6, his pulse is 66, respirations of 14 and BP is 128/31. SKIN: Warm and dry. HEENT: Head atraumatic, normocephalic. Eyes sluggishly reactive to light. Ears, nose and throat se emed to be within normal limits. NECK: Supple, no JVD, no thyroid enlargement, no lymph nodes. HEART: Regular rate and rhythm, normal S1, S2. LUNGS: Reveal rare rhonchi bilaterally. ABDOMEN: Soft, decreased bowel sounds. GENITAL AND RECTAL: Deferred. MUSCULOSKELETAL: No joint deformities. EXTREMITIES: Reveal 1-2+ lower extremity edema. NEUROLOGIC: The patient is sedated on the ventilator. Chest x-ray reveals that there is bilateral pleural effusions with left lower lobe infiltrate. LABORATORY DATA: Show a white count of 14.9, hemoglobin is 10.6, hematocrit 35.5 with platelets of 1 58,000. Arterial blood gas reveals a pH of 7.30, pCO2 of 34, pO2 of 80 on 40% FIO2. Sodium is 149, potassium 5.3, chloride 118, CO2 of 20 with a BUN of 55, creatinine of 3.1, and glucose of 93. IMPRESSION: This patient has respiratory failure requiring ventilator support, is status post cardia c arrest requiring CPR. The patient presented initially with altered mental status. He has a urinar y tract infection, possible urosepsis and is noted to have pleural effusions as well as the left lowe r lobe pneumonia. The patient has renal insufficiency, anemia and an old left-sided cerebral infarct . PLAN: We will continue with ventilator support. We will follow his chest x-ray and arterial blood g as closely. The patient is getting doxycycline as far as antibiotics. He is getting heparin IV as w ell. The patient is on meropenem as a second antibiotic and is getting Protonix IV. We will continu e with IV fluids and continue to monitor the patient closely. We will follow his labs and correct as needed and continue to treat aggressively along with the other consultants and the primary care doct or. Hugh Roberts MD cc: [id number] TT: 09/22/2016 09:49:37 Confirmation # [id number] Dictation # [id number] jn
[2016-09-22] MEDS ORDERED: Enoxaparin 30 mg Syringe SC SCH (10:00)
[2016-09-22] MEDS ORDERED: Vancomycin 1gm in NS 250ml 250 ML IVPB SCH (10:00)
[2016-09-22] MEDS: Meropenem 1g/NS 100mL IVPB 100 ML IVPB SCH ×2 (10:09→21:16)
[2016-09-22] MEDS: Linezolid 600 mg in D5W 300 ml 300 ML IVPB SCH ×2 (10:09→21:17)
--- NOTE | 2016-09-22 11:23 | CP.PCM.CON ---
History of Present Illness - History of Present Illness History of Present Illness: 80 year old male with PMH of CAD S/P CABG with chronic CHF, HTN, dyslipidemia, history of CVA, history of urinary retention, dementia, history of right leg cellulitis was recently admitted in [facility] (August 28 2016) for enterobacter bacteremia and Klebsiella in the urine. He was sent back to senior care then on IV Meropenem and apparently completed at least 2 weeks of the antibiotics. He was also discharged with a Raya catheter. He was apparently doing well at the senior care and until about 2-3 days ago when he started becoming more lethargic and weak. There was no note of fever, no vomiting, no diarrhea, no convulsions, no loss of consciousness, but had decreased appetite. In the ED, he had cardiorespiratory arrest and ACLS was initiated and the patient was resuscitated. He is now in the ICU for closer observation. In the ED, CT chest/abdomen and pelvis revealed probable left lower lobe infiltrate and 10-15 WBC's on urinalysis. Infectious diseases consult is requested to further evaluate and manage. Review of Systems - Review of Systems Systems not reviewed;Unavailable: Intubated Past Patient History - Infectious Disease Hx of Infectious Diseases: None - Past Medical History & Family History Past Medical History?: Yes Past Family History: Reviewed and not pertinent - Past Social History Smoking Status: Never Smoked - CARDIAC Hx Cardiac Disorders: Yes Hx Congestive Heart Failure: Yes Hx Hypertension: Yes - PULMONARY Hx Respiratory Disorders: No - NEUROLOGICAL HX Cerebrovascular Accident: Yes - HEENT Hx HEENT Problems: No - RENAL Hx Chronic Kidney Disease: No - ENDOCRINE/METABOLIC Hx Endocrine Disorders: No - HEMATOLOGICAL/ONCOLOGICAL Hx Anemia: Yes - INTEGUMENTARY Hx Dermatological Problems: No - MUSCULOSKELETAL/RHEUMATOLOGICAL Hx Musculoskeletal Disorders: No Hx Falls: No - GASTROINTESTINAL Hx Gastrointestinal Disorders: No - GENITOURINARY/GYNECOLOGICAL Hx Genitourinary Disorders: No - PSYCHIATRIC Hx Psychophysiologic Disorder: No Hx Substance Use: No - SURGICAL HISTORY Hx Open Heart Surgery: Yes - ANESTHESIA Hx Anesthesia: Yes Meds Allergies/Adverse Reactions: Allergies Allergy/AdvReac Type Severity Reaction Status Date / Time No Known Allergies Allergy Verified 09/21/16 19:09 - Medications Medications: Current Medications Albuterol/Ipratropium (Duoneb 3 Mg/0.5 Mg (3 Ml) Ud) 3 ml IH [id number] ROXY Stop: 09/22/16 12:01 Sodium Chloride (Sodium Chloride 0.9%) 1,000 mls @ 150 mls/hr IV .Q6H40M [facility] Last Admin: 09/22/16 02:30 Dose: 150 mls/hr Vancomycin HCl (Vancomycin 1gm) 250 mls @ 167 mls/hr IVPB DAILY [facility] PRN Reason: Protocol Heparin Sodium/Sodium Chloride (Heparin 63959 Units/250ml 1/2 Normal Saline) 250 mls @ 12.737 mls/hr IV .[id number] PRN; Protocol; 18 UNITS/KG/HR PRN Reason: ADJUST RATE PER PROTOCOL Last Titration: 09/22/16 06:57 Dose: 0 units/kg/hr Tigecycline 50 mg/ Sodium (Chloride) 100 mls @ 100 mls/hr IV Q12H ROXY PRN Reason: Protocol Stop: 09/22/16 12:59 Pantoprazole Sodium (Protonix Inj) 40 mg IVP DAILY [facility] Physical Exam - Constitutional Appears: Other (Intubated and sedated) - ENT Exam Additional comments: ET tube in place - Neck Exam Neck exam: Negative for: Lymphadenopathy, Meningismus - Respiratory Exam Respiratory Exam: Decreased Breath Sounds, Rales (scattered) - Cardiovascular Exam Cardiovascular Exam: +S1, +S2 - GI/Abdominal Exam GI & Abdominal Exam: Soft. absent: Tenderness Results - Vital Signs Recent Vital Signs: Last Vital Signs Temp 98.6 F 09/22/16 04:23 Pulse 66 09/22/16 04:23 Resp 14 09/22/16 04:23 BP 128/31 L 09/22/16 04:23 Pulse Ox 100 09/22/16 04:00 - Labs Result Diagrams: 09/22/16 05:30 09/22/16 05:30 Labs: Laboratory Results - last 24 hr 09/21/16 09/21/16 09/22/16 22:09 22:35 05:30 WBC 14.9 H D RBC 3.68 Hgb 10.6 L Hct 35.5 L MCV 96.5 MCH 28.8 MCHC 29.9 L RDW 17.2 H Plt Count 158 MPV 10.4 Gran % 77.8 H Lymph % (Auto) 14.1 L [place] % (Auto) 8.0 H Eos % (Auto) 0.0 L Baso % (Auto) 0.1 Gran # 11.64 H Lymph # 2.1 [place] # 1.2 H Eos # 0.0 Baso # 0.01 PT 15.8 H INR 1.46 H APTT > 180.0 H* pCO2 41 pO2 356.0 H HCO3 19.3 L ABG pH 7.28 L ABG Total CO2 20.6 L ABG O2 Saturation 100.6 H ABG Base Excess -7.1 L ABG Potassium 5.0 Sodium 146.0 149 H Chloride 123.0 H 118 H Glucose 59 L Lactate 3.7 H FiO2 100.0 Potassium 5.3 H Carbon Dioxide 20 L Anion Gap 16 BUN 55 H Creatinine 3.1 H Est GFR ( Amer) 24 Est GFR (Non-Af Amer) 19 POC Glucose (mg/dL) 93 Random Glucose 62 L Calcium 8.0 L Total Bilirubin 1.3 AST 85 H ALT 47 Alkaline Phosphatase 63 Lactate Dehydrogenase 842 H Total Creatine Kinase 216 Troponin I 1.24 H* Total Protein 5.6 L Albumin 2.4 L Globulin 3.3 Albumin/Globulin Ratio 0.7 L Arterial Blood Potassium 5.0 Assessment & Plan - Assessment and Plan (Free Text) Plan: assessment Severe sepsis with acute hypoxic and ventilator-dependent respiratory failure probably secondary to left lower lobe healthcare-associated pneumonia with possible gram positive cocci and /or gram negative bacilli; consider UTI as well Chronic renal failure history of enterobacter bacteremia and Klebsiella urinary tract infection S/P treatment with at least 2 weeks of IV antibiotics history of right leg cellulitis CAD S/P CABG with chronic CHF HTN dyslipidemia history of CVA Plan started patient on Zyvox, Merrem and Doxycycline and gave a dose of IV Gentamicin pending blood cx, urine cx, PCT; reviewed CT chest, abdomen and pelvis Reviewed ICU note and Pulmonary note Will monitor clinical response
[2016-09-22 14:39] LABS: VENOUS BLOOD GAS BASE EXCESS -5.4 mmol/L (0.0-2.0); VENOUS BLOOD PH 7.36 (7.32-7.43)
--- NOTE | 2016-09-22 14:59 | CARD ---
APPROVED REPORT EKG Measurement Heart [id number] <Conclusion> Atrial fibrillation with a competing junctional pacemaker Left axis deviation Pulmonary disease pattern Incomplete right bundle branch block Septal infarct, age undetermined Prolonged QT Abnormal ECG
--- NOTE | 2016-09-22 14:59 | CARD ---
APPROVED REPORT EKG Measurement Heart [id number] <Conclusion> Atrial fibrillation with premature ventricular or aberrantly conducted complexes Left axis deviation Incomplete right bundle branch block Septal infarct, age undetermined Abnormal ECG
[2016-09-23 04:29] LABS: ADD MANUAL DIFF? NO
[2016-09-23 04:42] LABS: ALB/GLOB RATIO 0.6 (1.1-1.8); CALCIUM 7.7 mg/dL (8.4-10.5); POTASSIUM 5.3 mmol/L (3.6-5.0); TOTAL PROTEIN 5.6 g/dL (5.8-8.3)
[2016-09-23 05:32] LABS: BASO # 0.01 K/mm3 (0.0-2.0); BASO % 0.1 % (0.0-3.0); EOS % 0.1 % (1.5-5.0); GRAN # 9.35 (1.4-6.5); GRAN % 81.9 % (50.0-68.0); HEMATOCRIT 33.6 % (42.0-52.0); MEAN CELL VOLUME 93.1 fL (80.0-105.0); MEAN CORPUSCULAR HEMOGLOBIN 29.1 pg (25.0-35.0); MEAN CORPUSCULAR HGB CONC 31.3 g/dl (31.0-37.0); MEAN PLATELET VOLUME 10.7 fl (7.0-11.0); MONO % 8.9 % (1.0-6.0); PLATELET COUNT 192 10^3/uL (120.0-450.0); WHITE BLOOD COUNT 11.4 10^3/ul (4.5-11.0)
[2016-09-23] MEDS: Sodium Chloride 0.9% 1,000 ML IV SCH ×2 (05:50→17:21)
--- NOTE | 2016-09-23 08:45 | PN ---
DATE: 09/23/2016 SUBJECTIVE: The patient is sedated on the ventilator with an FiO2 of 40%. Note that he did have a f ever this morning and will be given Tylenol. The patient is getting IV heparin and note that he is p ost-CPR. PHYSICAL EXAMINATION: VITAL SIGNS: His temperature is 101 and his pulse is 81, respirations are 18, and BP is 134/76, O2 s aturation is 100% on 40% FiO2. HEENT: Head is atraumatic, normocephalic. Eyes reactive to light. Ears, nose and throat seemed to be within normal limits. NECK: Supple. No JVD, no thyroid enlargement, no lymph nodes. CARDIOVASCULAR: Heart has a regular rate and rhythm, normal S1, S2. LUNGS: Reveal bilateral rhonchi. ABDOMEN: Soft, decreased bowel sounds. GENITALIA AND RECTAL: Deferred. MUSCULOSKELETAL: No joint deformities. EXTREMITIES: Reveal trace lower extremity edema. NEUROLOGIC: He is sedated on the ventilator. LABORATORIES: His white count is 11.4, hemoglobin is 10.5, hematocrit 33.6 with platelets of 192,000 . PTT is 55.8. His sodium is 147, potassium 5.3, chloride 117, CO2 of 20, BUN of 60, creatinine of 3.3 and glucose of 96. IMPRESSION: The patient has respiratory failure requiring ventilator support. He is status post car diac arrest and cardiopulmonary resuscitation. The patient has urinary tract infection, possible uro sepsis and pleural effusions as well as left lower lobe pneumonia. The patient has renal insufficien cy, anemia and a left-sided cerebral infarct. PLAN: We will continue with ventilator support. Continue with aggressive pulmonary toilet. Follow his chest x-ray and arterial blood gas closely. The patient is on doxycycline and meropenem for anti biotics and is getting heparin IV. We will continue with the Protonix, IV fluids and continue to mon itor closely. We will also follow the patient with the primary care doctor as well as the other cons ultants. Hugh Roberts MD cc: [id number] TT: 09/23/2016 08:44:47 Confirmation # [id number] Dictation # [id number] en
[2016-09-23] MEDS: Linezolid 600 mg in D5W 300 ml 300 ML IVPB SCH ×2 (09:31→22:16)
[2016-09-23] MEDS: Meropenem 1g/NS 100mL IVPB 100 ML IVPB SCH ×2 (09:32→22:13)
--- NOTE | 2016-09-23 10:40 | CP.PCM.PN ---
Subjective - Date & Time of Evaluation Date of Evaluation: 09/23/16 Time of Evaluation: 10:10 - Subjective Subjective: Patient continues to be on the ventilator. Developed fever this morning. No diarrhea noted. Objective - Vital Signs/Intake and Output Vital Signs (last 24 hours): Temp Pulse Resp BP Pulse Ox 101.0 F H 75 24 134/76 100 09/23/16 08:00 09/23/16 10:00 09/22/16 19:00 09/23/16 06:00 09/23/16 10:00 - Medications Medications: Current Medications Acetaminophen (Tylenol 650 Mg Supp) 650 mg RC Q6H PRN PRN Reason: Fever >100.4 F Last Admin: 09/23/16 08:21 Dose: 650 mg Sodium Chloride (Sodium Chloride 0.9%) 1,000 mls @ 150 mls/hr IV .Q6H40M ROXY Last Admin: 09/23/16 05:50 Dose: 150 mls/hr Heparin Sodium/Sodium Chloride (Heparin 26975 Units/250ml 1/2 Normal Saline) 250 mls @ 12.737 mls/hr IV .[id number] PRN; Protocol; 18 UNITS/KG/HR PRN Reason: ADJUST RATE PER PROTOCOL Last Titration: 09/23/16 00:11 Dose: 9 units/kg/hr Doxycycline Hyclate 100 mg/ (Sodium Chloride) 100 mls @ 100 mls/hr IVPB Q12 ROXY PRN Reason: Protocol Last Admin: 09/23/16 09:31 Dose: 100 mls/hr Meropenem 1g/NS 100mL IVPB (Meropenem 1g/Ns 100ml Ivpb) 100 mls @ 100 mls/hr IVPB Q12 [facility]OXY PRN Reason: Protocol Stop: 09/29/16 07:31 Last Admin: 09/23/16 09:32 Dose: 100 mls/hr Linezolid (Zyvox 600mg/300ml D5w) 300 mls @ 200 mls/hr IVPB Q12 [facility]OX[facility] PRN Reason: Protocol Stop: 09/29/16 10:01 Last Admin: 09/23/16 09:31 Dose: 200 mls/hr Lorazepam (Ativan) 1 mg IVP Q6H PRN; Protocol PRN Reason: Anxiety Last Admin: 09/22/16 17:26 Dose: 1 mg Pantoprazole Sodium (Protonix Inj) 40 mg IVP DAILY ROXY Last Admin: 09/23/16 09:32 Dose: 40 mg - Labs Labs: 09/23/16 04:20 09/23/16 04:20 PT 15.8 Seconds (9.9-11.8) H 09/22/16 05:30 INR 1.46 (0.93-1.08) H 09/22/16 05:30 APTT 55.8 Seconds (23.7-30.8) H 09/23/16 04:20 - Constitutional Appears: Other (Intubated, arousable by tactile stimuli but does not follow commands.) - Head Exam Head Exam: NORMAL INSPECTION - ENT Exam Additional comments: ET tube in place - Neck Exam Neck Exam: absent: Meningismus - Respiratory Exam Respiratory Exam: Decreased Breath Sounds - Cardiovascular Exam Cardiovascular Exam: +S1, +S2 - GI/Abdominal Exam GI & Abdominal Exam: Soft. absent: Tenderness - Extremities Exam Extremities Exam: Pedal Edema Assessment and Plan - Assessment and Plan (Free Text) Plan: assessment Severe sepsis with acute hypoxic and ventilator-dependent respiratory failure probably secondary to left lower lobe healthcare-associated pneumonia with possible gram positive cocci and /or gram negative bacilli; consider UTI as well Chronic renal failure history of enterobacter bacteremia S/P treatment with at least 2 weeks of IV antibiotics multidrug-resistant Klebsiella in the urine history of right leg cellulitis CAD S/P CABG with chronic CHF HTN dyslipidemia history of CVA Plan continue Zyvox, Merrem and Doxycycline (day 2) and gave a dose of IV Gentamicin yesterday pending urine cx; blood cx are negative x 1 day; PCT is elevated at 35.3 but the patient has renal failure; reviewed CT chest, abdomen and pelvis which shows bilateral pleural effusion and left lower lobe pneumonia but no note of cystitis or pyelonephritis on the imaging Reviewed ICU note and Pulmonary note Will continue monitor clinical response Patient continues to be in critical condition Spoke with the patient's next of kin (Jordi Vera) and explained to him the severity of the patient's illness and explained also that we needed to give a dose of IV Gentamicin because the patient is at risk for very resistant organisms, even though it was nephrotoxic
--- NOTE | 2016-09-23 13:54 | RAD ---
HISTORY: on vent COMPARISON: 09/21/2016 FINDINGS: LUNGS: No active pulmonary disease. PLEURA: No significant pleural effusion identified, no pneumothorax apparent. CARDIOVASCULAR: There is moderate cardiomegaly with mild vascular congestion. OSSEOUS STRUCTURES: No significant abnormalities. VISUALIZED UPPER ABDOMEN: Normal. OTHER FINDINGS: Endotracheal and nasogastric tubes in satisfactory position IMPRESSION: Moderate cardiomegaly with mild vascular congestion
--- NOTE | 2016-09-23 15:11 | PN ---
DATE: 09/23/2016 I know the patient very well from house calls, from nursing homes, in and out of the hospital. I spoke to his partner, Jordi this morning. He is presently on the ventilator. He is not doing that well. He is also very septic. PHYSICAL EXAMINATION: VITAL SIGNS: Temp 100.7, they were as high as 101. He has a 74 pulse, 120/96 blood pressure, 100% O2 sat on ventilator. HEENT: His head is atraumatic, normocephalic. HEART: Regular rate. He had some PVCs. I called in cardiology. LUNGS: Decreased breath sounds, but clear to auscultation. ABDOMEN: Soft. EXTREMITIES: No edema. He is currently on Ativan, doxycycline IV, heparin, Merrem IV, Protonix, IV fluids, tigecycline IV, Tylenol and Zyvox IV. He has 11.4 white count. When he came in, it was 19. It is down to 11, which is good. Hemoglobin is 10.5, hematocrit 33.6, platelets of 192. He has a 147 sodium, potassium is 5.3, BUN is 60, creatinine 3.3. He has been as low as 2.5. That is basically where he has been renally. His GFR is 18, sugar is 96, calcium 7.7, total bili is 1, AST is 45, ALT is 49, alkaline phosphatase total protein is 5.6. Urine had large blood, large leukocytes and many bacteria. I believe this infection is coming from the urine. I believe there is a consult for Dr. Kovacs, who knows him, to change the catheter. Hopefully, he will. He has a very large inguinal hernia which prevents catheter changes easily. He is being seen by the electro tech and infectious disease. Last chest x-ray showed tube in good position. He also had a chest CT and a head CT , no acute changes from the old stroke he has. He has got moderate bilateral effusions, left lower lobe base infiltrate. He will have pulmonary, cardio evaluations, infectious disease evaluations and urology. He is severely septic , respiratory failure, possible myocardial infarction on top of everything else. Discussed with his partner at length. Derick Dejesus DO cc: [id number] TT: 09/23/2016 14:39:13 Confirmation # [id number] Dictation # [id number] en MTDD
[2016-09-23 16:43] LABS: ABG MECHANICAL RATE 14; ARTERIAL BLOOD GAS HCO3 16.6 mmol/L (21-28); ARTERIAL BLOOD GAS PH 7.38 (7.35-7.45); ATERIAL BLOOD GAS PEEP 5
[2016-09-23] MEDS ORDERED: Heparin25000 units/250ml 1/2NS 250 ML IV PRN (19:41)
[2016-09-23] MEDS: Heparin25000 units/250ml 1/2NS 250 ML IV PRN (20:04)
[2016-09-24] MEDS: Sodium Chloride 0.9% 1,000 ML IV SCH (01:18)
[2016-09-24 05:57] LABS: HEMATOCRIT 28.7 % (42.0-52.0); MEAN CELL VOLUME 91.4 fL (80.0-105.0); MEAN CORPUSCULAR HEMOGLOBIN 28.7 pg (25.0-35.0); MEAN CORPUSCULAR HGB CONC 31.4 g/dl (31.0-37.0); MEAN PLATELET VOLUME 10.6 fl (7.0-11.0); PLATELET COUNT 140 10^3/uL (120.0-450.0); RED CELL DISTRIBUTION WIDTH 17.2 % (11.5-14.5); WHITE BLOOD COUNT 7.1 10^3/ul (4.5-11.0)
[2016-09-24 05:59] LABS: ALB/GLOB RATIO 0.7 (1.1-1.8); BILIRUBIN,TOTAL 0.7 mg/dL (0.2-1.3); CALCIUM 7.7 mg/dL (8.4-10.5); POTASSIUM 4.9 mmol/L (3.6-5.0); TOTAL PROTEIN 4.8 g/dL (5.8-8.3)
[2016-09-24 06:01] LABS: ADD MANUAL DIFF? YES
[2016-09-24 06:39] LABS: BAND 6 % (0-2); NEUTROPHIL 71 % (50.0-70.0); PLATELET ESTIMATE NORMAL (NORMAL); POIKILOCYTOSIS 1+
[2016-09-24 06:40] LABS: ANISOCYTOSIS SLIGHT; OVALOCYTES SLIGHT
[2016-09-24 06:42] LABS: ARTERIAL BLOOD GAS HCO3 17.2 mmol/L (21-28); ARTERIAL BLOOD GAS O2 CAPACITY 11.9 mL/dl (16-24); ARTERIAL BLOOD GAS O2 CONTENT 11.8 ML/dl (15-23); ARTERIAL BLOOD GAS PH 7.38 (7.35-7.45); HHB 0.6 % (0-5); METHEMOGLOBIN 1.4 % (0.0-3.0)
[2016-09-24] MEDS: Levalbuterol 0.63 MG/3 ML Inhal Soln UD IH SCH ×3 (08:12→21:02)
--- NOTE | 2016-09-24 08:17 | CON ---
DATE: 09/24/2016 REASON FOR CONSULTATION: Ventilator management. REFERRING PHYSICIAN: Dr. Derick Dejesus History is obtained via extensive discussion with the ICU nurse. I have also reviewed the chart at length. The patient is an 80-year-old chronically ill male, with past medical history significant for congestive heart failure, coronary artery disease, myocardial infarction in the past, open heart surgery in the past, hypertension, cerebrovascular accident in the past, cardiomyopathy, who presented -- originally from [facility] on 09/21/2016 -- with increasing lethargy and generalized weakness. I did review the notes by Dr. Uribe(ICU) and Dr. Fitch (Emergency Room). Apparently, in the Emergency Room, the patient became agonal. He was subsequently intubated for airway protection and ventilation. As per Dr. Uribe, the patient also lost his blood pressure and pulse for approximately 9 minutes. He was successfully resuscitated. I am thus asked to evaluate on this case for additional ventilator management. Again,I did discuss the case with the ICU nurse at length. There is no preceding history of shortness of breath, cough, or sputum production. There is also no preceding history of chest pain, coughing up of blood or chest pain - - made worse with deep respirations. The patient has had temperatures throughout his hospital stay. The temperatures have been defervescing nicely over the past 24 hours. No history of chills or infectious exposure. No history of night sweats, weight loss or appetite change prior to the above events. No history of calf pains. No history of diaphoresis. No history of recent travel or trauma. REVIEW OF SYSTEMS: No history of nausea, vomiting or diarrhea. No known acute urinary symptoms. Rest of the review of systems is negative. ALLERGIES: No known allergies. SOCIAL HISTORY: Positive for tobacco, negative for alcohol. FAMILY HISTORY: No inheritable diseases. HOME MEDICATIONS: Include Feosol, Risperdal, Pepcid, Plavix, Coreg, aspirin, Zyloprim. PHYSICAL EXAMINATION: GENERAL: The patient is currently on the ventilator. He is lethargic, but arousable. VITAL SIGNS: Temperature is 99.2, pulse 71, respirations 16/14, blood pressure 116/41. HEENT: Normocephalic, atraumatic. No JVD. CARDIOVASCULAR: Systolic ejection murmur at the lower left sternal border. Questionable S3 gallop. LUNGS: Decreased breath sounds at the bases. Minimal bilateral rhonchi. No wheezing. EXTREMITIES: Positive edema is noted in both lower extremities. No peripheral cyanosis. The calves are nontender to palpation. GASTROINTESTINAL: Abdomen is soft, nontender, nondistended. Bowel sounds are positive. SKIN: Mild cellulitis -- right lower extremity. NEUROLOGIC: Limited at the present time. PERTINENT LABORATORY DATA: Chest x-ray was done this morning and reviewed. There is mild to moderate pulmonary edema noted with probable small bilateral pleural effusions. The last arterial blood gas noted in the computer -- was done on last night. Ventilator settings: Assist control 14, tidal volume 400, FiO2 40%. Results are: pH of 7.38, pCO2 28, pO2 of 108. CBC: White count 7.1 , hemoglobin 9.0, hematocrit 28.7, platelets of 140. Complete metabolic profile : Potassium 5.3, chloride 117, carbon dioxide 20, BUN 60, creatinine 3.3, calcium 7.7, total protein 5.6, albumin 2.2. Rest of the metabolic profile is within normal limits. Peak troponin during the admission -- 1.24. Microbiology : Urine culture is positive for Klebsiella species. CAT scan of the abdomen and pelvis was done on 09/21/2016. There are moderate bilateral pleural effusions with adjacent compressive atelectasis. There is incomplete evaluation of a right inguinal hernia. CAT scan of the chest was also done on the same day. Again, bilateral pleural effusions with adjacent atelectasis is noted. There may be a focal infiltrate within the left lower lobe -- but this is very difficult to tell. IMPRESSION: 1. Respiratory failure. 2. Status post cardiopulmonary resuscitation. 3. Urosepsis. 4. Rule out pneumonia -- left lower lobe. 5. Renal insufficiency. 6. Pulmonary edema. 7. Rule out myocardial infarction. PLAN: Again, I did discuss the case with the ICU nurse at length. I have also reviewed the chart at length. Apparently, the patient presented to [facility] -- from [facility] originally on 09/21/2016 -- with increasing weakness and lethargy. As above, the patient was noted to be agonal in the Emergency Room. He was thus intubated for airway protection and ventilation. Again, as per Dr. Uribe, the patient also lost blood pressure and pulse for approximately 9 minutes. He was successfully resuscitated. I did review the last x-ray as above. The x-ray reveals mild to moderate pulmonary edema changes and probable small bilateral pleural effusions. I have also reviewed the last arterial blood gas. There is a compensated metabolic acidosis with an increase in the alveolar-arterial gradient. I will order a stat arterial blood gas this morning-- and will be called with those results. Upon review of the culture data, Klebsiella has grown from the urine. I also reviewed the CAT scans of the abdomen, pelvis and chest. There are bilateral pleural effusions noted with adjacent compressive atelectasis. Again, there may be a focal infiltrate in the left lower lobe -- but this is extremely hard to tell. Also, the procalcitonin recently done was elevated. However,this value may be affected by the renal insufficiency. In any case, I would continue with the antibiotic coverage as per infectious disease. Temperatures are resolving. The leukocytosis has completely resolved. Cardiology evaluation with Dr. Wheat has been ordered. It does appear that the clinical status of the patient is improved -- compared to the initial presentation. However, the overall status/prognosis of this patient remains very guarded. I will discuss the above with the entire ICU team in the next few moments. I will also discuss the above with Dr. Dejesus. Thank you very much for this pulmonary consultation. Maurilio Dietz MD cc: [id number] TT: 09/24/2016 08:16:36 Confirmation # [id number] Dictation # [id number] en MTDD
--- NOTE | 2016-09-24 09:01 | PN ---
DATE: 09/24/2016 I saw him in the intensive care unit. He is still on the ventilator. He is more alert. He is awake. He is looking at me. He is understanding what I am saying and he is nodding appropriately. MEDICATIONS: He is on Ativan, heparin, Merrem IV, Protonix, IV fluids, Tylenol , Xopenex, and Zyvox IV. PHYSICAL EXAMINATION: VITAL SIGNS: 99.2 temp, 71 pulse, 116/41 blood pressure, 100% O2 sat on mechanical ventilator. HEENT: His head is atraumatic, normocephalic. NECK: He has an endotracheal tube in place on the ventilator. HEART: Regular rate. LUNGS: Decreased breath sounds, but clear. No wheezes, no rhonchi. ABDOMEN: Soft, positive bowel sounds. EXTREMITIES: No edema. LABORATORY DATA: He has a blood test. He has a 7.1 white count, great, came down nicely from 19, hemoglobin, 20.7 hematocrit with 140 platelets. He has a 144 sodium, potassium is 4.9, BUN is 66, creatinine 3.3 about his baseline. GFR is 18. Sugar is 76, calcium 7.7, magnesium is 2, total bili is 0.7, AST is 25, ALT is 36, alk phos 52, total protein is 4.8. Urine was large and many bacteria. The UTI is probably the reason why he had the infection, sepsis and put him into respiratory failure. Legionella was negative. He is being seen by pulmonary, infectious disease, wireless store manager. I am hoping pulmonary can extubate him today. I will discuss this with his partner, Jordi who I know very well. Will check his labs tomorrow. Continue with aggressive treatment and care. He has got respiratory failure, severe sepsis from UTI and CO, and debility. Derick Dejesus DO cc: [id number] TT: 09/24/2016 09:00:55 Confirmation # [id number] Dictation # [id number] [facility]
[2016-09-24] MEDS: Linezolid 600 mg in D5W 300 ml 300 ML IVPB SCH ×2 (09:03→22:02)
[2016-09-24 09:23] LABS: INR 1.15 (0.93-1.08)
--- NOTE | 2016-09-24 09:43 | RAD ---
HISTORY: f/u pneumonia COMPARISON: 09/23/2016 FINDINGS: The endotracheal tube terminates 2.2 cm proximal to the tiki. The nasogastric tube terminates in the stomach. LUNGS: There is mild pulmonary venous congestion. There are small pleural effusions. PLEURA: No significant pleural effusion identified, no pneumothorax apparent. CARDIOVASCULAR: There is persistent severe cardiomegaly. Status post CABG. OSSEOUS STRUCTURES: No significant abnormalities. VISUALIZED UPPER ABDOMEN: Normal. OTHER FINDINGS: None. IMPRESSION: Findings are most compatible with mild congestive heart failure. Stable position of endotracheal and nasogastric tubes.
[2016-09-24] MEDS ORDERED: DOBUTamine 500mg/250ml D5W 250 ML IV PRN (10:47)
--- NOTE | 2016-09-24 10:57 | CON ---
DATE: 09/24/2016 HISTORY OF PRESENT ILLNESS: The patient presented to the Emergency Room with weakness. He had a car diopulmonary arrest in which he is currently intubated. PAST MEDICAL HISTORY: Notable for dilated cardiomyopathy. He was discharged in August of this year w ith IV antibiotics for urosepsis. His echocardiogram revealed an ejection fraction of approximately 30%. In addition, he suffers from dementia as well as chronic renal failure. SOCIAL HISTORY: Unavailable. REVIEW OF SYSTEMS: Unavailable. PHYSICAL EXAMINATION: GENERAL: The patient is currently intubated and unresponsive. VITAL SIGNS: Blood pressure 118/48, heart rate is in the 70s. NECK: Negative JVD. LUNGS: Decreased breath sounds bilaterally. HEART: Reveals S1, S2. EXTREMITIES: Without edema. LABORATORIES: Hemoglobin is 9.0. Chemistries: The BUN and creatinine are 66 and 3.3. The troponins peaked at 1.24. His proBNP was greater than 168,000. IMPRESSION: 1. Acute pulmonary edema. 2. Respiratory failure. 3. Cardiopulmonary compromise. 4. Renal insufficiency. 5. Anoxic encephalopathy. 6. Renal failure. 7. Dilated cardiomyopathy. Given these findings, the patient's prognosis is poor; however, while we are assessing his neurologic status, we will give a trial of IV dobutamine to help his CHF symptoms. This may also help him come off the respirator. Clement Wheat MD cc: [id number] TT: 09/24/2016 10:57:15 Confirmation # [id number] Dictation # [id number]
[2016-09-24] MEDS: Meropenem 1g/NS 100mL IVPB 100 ML IVPB SCH ×2 (11:26→21:22)
--- NOTE | 2016-09-24 13:43 | PN ---
DATE: 09/24/2016 The patient seen earlier today in room 129, bed 3. The patient appears to be unchanged. The patient has low-grade fevers, which is improved. The patient remains intubated on a ventilator, has an NG t ube, poor mental status. PHYSICAL EXAMINATION: VITAL SIGNS: Temperature is 99, blood pressure is 130/60, respiratory rate of 25, a heart rate of 76 . HEENT: Unremarkable. NECK: Supple. LUNGS: Have decreased breath sounds. HEART: Normal S1, S2. ABDOMEN: Soft, nontender. LABORATORY EXAMINATION: Reveals a white count of 7.1, hemoglobin of 9, platelets of 140. Coagulatio n is noted. Chemistries are noted with a BUN of 66, creatinine of 3.3. Microbiology is reviewed wit h Klebsiella pneumoniae in the urine. ASSESSMENT AND PLAN: An 80-year-old with severe sepsis, acute hypoxic ventilator-dependent respirato ry failure secondary to left lower lobe healthcare-associated pneumonia, possible gram-positive cocci , possible gram-negative sandra with a shaffer resistant Klebsiella urinary tract infection. Currently on Z yvox, doxycycline and meropenem. A dose of gentamicin was given. Currently on meropenem and Zyvox. Will ask microbiology at [facility] to do microbiology testing on Avycaz for Klebsiella pneumon iae. We will continue the current present treatment of meropenem and Zyvox and will follow closely. The patient is also on Tygacil. Will follow closely with you. Jose Morales MD cc: [id number] TT: 09/24/2016 13:42:28 Confirmation # [id number] Dictation # [id number]
--- NOTE | 2016-09-24 15:26 | CP.CCUPN ---
<Kiko Webber - Last Filed: 09/24/16 15:43> CCU Subjective - Physician Review Subjective (Free Text): 09/24/16 15:23 Patient seen and examined at bedside in ICU. Today is hospital day 4. Remains off sedation. Some spontaneous movements of extremities noted, patient intermittently head nodding/shaking, opens eyes on command. Not following most commands. CCU Objective - Vital Signs / Intake & Output Vital Signs (Last 4 hours): Vital Signs Temp Pulse Resp BP Pulse Ox 09/24/16 14:00 85 35 H 150/71 99 09/24/16 13:00 82 153/68 H 99 09/24/16 12:20 85 99 09/24/16 12:00 98.9 F 70 25 H 130/63 98 Intake and Output (Last 8hrs): Intake & Output 09/24/16 09/24/16 09/24/16 06:59 14:59 22:59 Intake Total 1935 Output Total 200 250 Balance 1735 -250 Intake: IV 5 lh 1934 Oral 0 Output: Urine 200 250 Urethral (Raya) 200 250 Other: Voiding Method Indwelling Catheter - Physical Exam Physical Exam Limitations: Positive for: Other (altered mental status s/p cardiac arrest, off sedation for ~72 hours) Head: Positive for: Atraumatic, Normocephalic. Negative for: Contusion, Ecchymosis, Abrasion, Laceration Pupils: Positive for: PERRL. Negative for: Sluggish, Non-Reactive, Pinpoint Extroacular Muscles: Positive for: Other (not following commands for EOMI testing, but intermittently tracking staff accross room) Conjunctiva: Positive for: Normal. Negative for: Injected, Icteric Mouth: Positive for: Moist Mucous Membranes, Other (ET tube in place). Negative for: Drooling Nose (External): Positive for: Atraumatic, Other (NG tube in place, fixed with tape). Negative for: Abrasion, Contusion, Laceration Neck: Positive for: Normal Range of Motion Respiratory/Chest: Positive for: Good Air Exchange, Decreased Breath Sounds ( decreased breath sounds in all auscultated alex,). Negative for: Clear to Auscultation, Respiratory Distress, Accessory Muscle Use, Wheezes, Rales, Rhonchi, Tachypneic Cardiovascular: Positive for: Regular Rate and Rhythm, Normal S1, S2. Negative for: Murmurs, Tachycardic, Bradycardic Abdomen: Positive for: Normal Bowel Sounds. Negative for: Tenderness, Distention, Peritoneal Signs, Guarding, Ostomy Tubes, Mass/Organomegaly Genitourinary Male: Positive for: Hernias (Large hernia/scrotal mass), Other ( diffusely swollen scrotum, difficult to visualize penis 2/2 swollen scrotum) Upper Extremity: Positive for: Swelling (non-pitting edema in bilateral UE), Other (Small shallow ulcer along dorsal aspect of Right wrist region; intermittent spontanous movement of right upper extremity, moves hands to attempt to swat away suctioning tool). Negative for: Normal Inspection, Cyanosis, Edema, Normal ROM, NORMAL PULSES (+ 1 radial pulses bilaterally, difficult to palpate due to UE swelling) Lower Extremity: Positive for: Normal Inspection, NORMAL PULSES (+1 ), Other ( no spontaneous movements witnessed, not following commands). Negative for: Edema, CALF TENDERNESS Neurological: Positive for: Other (Non-verbal, intubated, head shakes/nods to some questions, opens eyes on command). Negative for: GCS=15, Motor Func Grossly Intact Skin: Positive for: Warm, Dry, Normal Color, Abrasion (as described in upper extremity exam). Negative for: Rashes Other physical findings (Free Text): intubated, mildly alert, opens eyes to command but not following most other commands, appears lethargic (occasional time gap between when command issued and patient's response) - Medications Active Medications: Active Medications Generic Name Dose Route Start Last Admin Trade Name Roryq PRN Reason Stop Dose Admin Acetaminophen 650 mg 09/23/16 08:01 09/23/16 08:21 Tylenol 650 Mg Supp RC 650 mg Q6H PRN Administration Fever >100.4 F Aspirin 81 mg 09/24/16 11:45 09/24/16 13:46 Aspirin Chewable PO 81 mg DAILY ROXY Administration Atorvastatin Calcium 40 mg 09/24/16 11:45 09/24/16 13:45 Lipitor PO 40 mg DIN ROXY Administration Clopidogrel Bisulfate 75 mg 09/24/16 11:45 09/24/16 13:46 Plavix PO 75 mg DAILY ROXY Administration Sodium Chloride 1,000 mls @ 150 mls/hr 09/21/16 19:30 09/24/16 01:18 Sodium Chloride 0.9% IV 150 mls/hr .[id number] ROXY Administration Meropenem 1g/NS 100mL IVPB 100 mls @ 100 mls/hr 09/22/16 07:37 09/24/16 11:26 Meropenem 1g/Ns 100ml Ivpb IVPB 09/29/16 07:31 100 mls/hr Q12 ROXY Administration Protocol Linezolid 300 mls @ 200 mls/hr 09/22/16 10:00 09/24/16 09:03 Zyvox 600mg/300ml D5w IVPB 09/29/16 10:01 200 mls/hr Q12 ROXY Administration Protocol Tigecycline 50 mg/ Sodium 100 mls @ 100 mls/hr 09/23/16 11:30 09/24/16 10:35 Chloride IV 09/30/16 11:31 100 mls/hr Q12 ROXY Administration Protocol Heparin Sodium/Sodium Chloride 250 mls @ 7.185 mls/hr 09/23/16 20:02 09/24/16 11:20 Heparin 26209 Units/250ml 1/2 Normal Saline IV 6 units/kg/hr .Q24H PRN Titration ADJUST RATE PER PROTOCOL Protocol 9 UNITS/KG/HR Dobutamine HCl/Dextrose 250 mls @ 11.975 mls/hr 09/24/16 10:47 09/24/16 12:00 Dobutamine/Dextrose 5% 500mg/250ml IV 11.975 mls/hr .[id number] PRN Administration TITRATE PER PROTOCOL Protocol 5 MCG/KG/MIN Levalbuterol HCl 0.63 mg 09/24/16 08:00 09/24/16 13:32 Xopenex IH 0.63 mg [id number] ROXY Administration Lorazepam 1 mg 09/22/16 15:26 09/22/16 17:26 Ativan IVP 1 mg Q6H PRN Administration Anxiety Protocol Pantoprazole Sodium 40 mg 09/22/16 10:00 09/24/16 09:03 Protonix Inj IVP 40 mg DAILY ROXY Administration - Patient Studies Lab Studies: Microbiology Studies 09/24/16 07:00 Gram Stain - Preliminary Sputum 09/23/16 12:00 Blood Culture - Preliminary Blood-Venous NO GROWTH AFTER 24 HOURS 09/23/16 11:30 Blood Culture - Preliminary Blood-Venous NO GROWTH AFTER 24 HOURS 09/22/16 02:35 MRSA Culture (Admit) - Final Naris MRSA NOT DETECTED Lab Studies 09/24/16 09/24/16 09/24/16 Range/Units 08:30 08:25 07:15 WBC (4.5-11.0) 10^3/ul RBC (3.5-6.1) 10^6/uL Hgb (14.0-18.0) gm/dL Hct (42.0-52.0) % MCV (80.0-105.0) fL MCH (25.0-35.0) pg MCHC (31.0-37.0) g/dl RDW (11.5-14.5) % Plt Count (120.0-450.0) 10^3/uL MPV (7.0-11.0) fl Neutrophils % (Manual) (50.0-70.0) % Band Neutrophils % (0-2) % Lymphocytes % (Manual) (22.0-35.0) % Monocytes % (Manual) (1.0-6.0) % Platelet Evaluation (NORMAL) Poikilocytosis (manual Anisocytosis (manual) Ovalocytes PT 12.4 H (9.9-11.8) Seconds INR 1.15 H (0.93-1.08) APTT 100.0 H* (23.7-30.8) Seconds pCO2 (35-45) mm/Hg pO2 (80-100) mm/Hg HCO3 (21-28) mmol/L ABG pH (7.35-7.45) ABG Total CO2 (22-28) mmol.L ABG O2 Saturation (95-98) % ABG O2 Content (15-23) ML/dl ABG Base Excess (-2.0-3.0) mmol/L ABG Hemoglobin (11.7-17.4) g/dL ABG Carboxyhemoglobin (0.5-1.5) % POC ABG HHb (Measured) (0-5) % ABG Methemoglobin (0.0-3.0) % ABG O2 Capacity (16-24) mL/dl ABG Potassium (3.6-5.2) mmol/L Hgb O2 Saturation (95.0-98.0) % Glucose (75-110) mg/dl Lactate (0.7-2.1) mmol/L Mechanical Rate FiO2 % Tidal Volume PEEP Sodium (132-148) mmol/L Potassium (3.6-5.0) mmol/L Chloride (95-110) mmol/L Carbon Dioxide (21-33) mmol/L Anion Gap (10-20) BUN (7-21) mg/dL Creatinine (0.5-1.4) mg/dL Est GFR ( Amer) Est GFR (Non-Af Amer) POC Glucose (mg/dL) 73 (65-110) mg/dL Random Glucose (70-110) mg/dL Calcium (8.4-10.5) mg/dL Phosphorus (2.5-4.5) mg/dL Magnesium (1.7-2.2) mg/dL Total Bilirubin (0.2-1.3) mg/dL AST (15-59) U/L ALT (7-56) U/L Alkaline Phosphatase (38-133) U/L Troponin I 0.70 H* D ng/mL Total Protein (5.8-8.3) g/dL Albumin (3.0-4.8) g/dL Globulin gm/dL Albumin/Globulin Ratio (1.1-1.8) Arterial Blood Potassium (3.6-5.2) mmol/L 09/24/16 09/24/16 09/24/16 Range/Units 07:00 06:30 05:30 WBC 7.1 D (4.5-11.0) 10^3/ul RBC 3.14 L (3.5-6.1) 10^6/uL Hgb 9.0 L (14.0-18.0) gm/dL Hct 28.7 L (42.0-52.0) % MCV 91.4 (80.0-105.0) fL MCH 28.7 (25.0-35.0) pg MCHC 31.4 (31.0-37.0) g/dl RDW 17.2 H (11.5-14.5) % Plt Count 140 (120.0-450.0) 10^3/uL MPV 10.6 (7.0-11.0) fl Neutrophils % (Manual) 71 H (50.0-70.0) % Band Neutrophils % 6 H (0-2) % Lymphocytes % (Manual) 18 L (22.0-35.0) % Monocytes % (Manual) 5 (1.0-6.0) % Platelet Evaluation Normal (NORMAL) Poikilocytosis (manual 1+ Anisocytosis (manual) Slight Ovalocytes Slight PT (9.9-11.8) Seconds INR (0.93-1.08) APTT Cancelled (23.7-30.8) Seconds pCO2 29 L (35-45) mm/Hg pO2 100.0 (80-100) mm/Hg HCO3 17.2 L (21-28) mmol/L ABG pH 7.38 (7.35-7.45) ABG Total CO2 18.1 L (22-28) mmol.L ABG O2 Saturation 99.4 H (95-98) % ABG O2 Content 11.8 L (15-23) ML/dl ABG Base Excess -7.0 L (-2.0-3.0) mmol/L ABG Hemoglobin 8.6 L (11.7-17.4) g/dL ABG Carboxyhemoglobin 2.0 H (0.5-1.5) % POC ABG HHb (Measured) 0.6 (0-5) % ABG Methemoglobin 1.4 (0.0-3.0) % ABG O2 Capacity 11.9 L (16-24) mL/dl ABG Potassium (3.6-5.2) mmol/L Hgb O2 Saturation 96.0 (95.0-98.0) % Glucose (75-110) mg/dl Lactate (0.7-2.1) mmol/L Mechanical Rate FiO2 40.0 % Tidal Volume PEEP Sodium 144 (132-148) mmol/L Potassium 4.9 (3.6-5.0) mmol/L Chloride 118 H (95-110) mmol/L Carbon Dioxide 18 L (21-33) mmol/L Anion Gap 13 (10-20) BUN 66 H (7-21) mg/dL Creatinine 3.3 H (0.5-1.4) mg/dL Est GFR ( Amer) 22 Est GFR (Non-Af Amer) 18 POC Glucose (mg/dL) (65-110) mg/dL Random Glucose 76 (70-110) mg/dL Calcium 7.7 L (8.4-10.5) mg/dL Phosphorus 5.0 H (2.5-4.5) mg/dL Magnesium 2.0 (1.7-2.2) mg/dL Total Bilirubin 0.7 (0.2-1.3) mg/dL AST 25 (15-59) U/L ALT 36 (7-56) U/L Alkaline Phosphatase 52 (38-133) U/L Troponin I ng/mL Total Protein 4.8 L (5.8-8.3) g/dL Albumin 1.9 L (3.0-4.8) g/dL Globulin 2.9 gm/dL Albumin/Globulin Ratio 0.7 L (1.1-1.8) Arterial Blood Potassium (3.6-5.2) mmol/L 09/23/16 09/23/16 09/23/16 Range/Units 18:24 16:30 11:43 WBC (4.5-11.0) 10^3/ul RBC (3.5-6.1) 10^6/uL Hgb (14.0-18.0) gm/dL Hct (42.0-52.0) % MCV (80.0-105.0) fL MCH (25.0-35.0) pg MCHC (31.0-37.0) g/dl RDW (11.5-14.5) % Plt Count (120.0-450.0) 10^3/uL MPV (7.0-11.0) fl Neutrophils % (Manual) (50.0-70.0) % Band Neutrophils % (0-2) % Lymphocytes % (Manual) (22.0-35.0) % Monocytes % (Manual) (1.0-6.0) % Platelet Evaluation (NORMAL) Poikilocytosis (manual Anisocytosis (manual) Ovalocytes PT (9.9-11.8) Seconds INR (0.93-1.08) APTT (23.7-30.8) Seconds pCO2 28 L (35-45) mm/Hg pO2 108.0 H (80-100) mm/Hg HCO3 16.6 L (21-28) mmol/L ABG pH 7.38 (7.35-7.45) ABG Total CO2 17.5 L (22-28) mmol.L ABG O2 Saturation 99.4 H (95-98) % ABG O2 Content (15-23) ML/dl ABG Base Excess -7.1 L (-2.0-3.0) mmol/L ABG Hemoglobin (11.7-17.4) g/dL ABG Carboxyhemoglobin (0.5-1.5) % POC ABG HHb (Measured) (0-5) % ABG Methemoglobin (0.0-3.0) % ABG O2 Capacity (16-24) mL/dl ABG Potassium 4.7 (3.6-5.2) mmol/L Hgb O2 Saturation (95.0-98.0) % Glucose 83 (75-110) mg/dl Lactate 1.2 (0.7-2.1) mmol/L Mechanical Rate 14 FiO2 40.0 % Tidal Volume 400 PEEP 5 Sodium 146.0 (132-148) mmol/L Potassium (3.6-5.0) mmol/L Chloride 124.0 H (95-110) mmol/L Carbon Dioxide (21-33) mmol/L Anion Gap (10-20) BUN (7-21) mg/dL Creatinine (0.5-1.4) mg/dL Est GFR ( Amer) Est GFR (Non-Af Amer) POC Glucose (mg/dL) 102 112 H (65-110) mg/dL Random Glucose (70-110) mg/dL Calcium (8.4-10.5) mg/dL Phosphorus (2.5-4.5) mg/dL Magnesium (1.7-2.2) mg/dL Total Bilirubin (0.2-1.3) mg/dL AST (15-59) U/L ALT (7-56) U/L Alkaline Phosphatase (38-133) U/L Troponin I ng/mL Total Protein (5.8-8.3) g/dL Albumin (3.0-4.8) g/dL Globulin gm/dL Albumin/Globulin Ratio (1.1-1.8) Arterial Blood Potassium 4.7 (3.6-5.2) mmol/L Laboratory Results - last 24 hr 09/23/16 09/23/16 09/23/16 11:43 16:30 18:24 WBC RBC Hgb Hct MCV MCH MCHC RDW Plt Count MPV Neutrophils % (Manual) Band Neutrophils % Lymphocytes % (Manual) Monocytes % (Manual) Platelet Evaluation Poikilocytosis (manual Anisocytosis (manual) Ovalocytes PT INR APTT pCO2 28 L pO2 108.0 H HCO3 16.6 L ABG pH 7.38 ABG Total CO2 17.5 L ABG O2 Saturation 99.4 H ABG O2 Content ABG Base Excess -7.1 L ABG Hemoglobin ABG Carboxyhemoglobin POC ABG HHb (Measured) ABG Methemoglobin ABG O2 Capacity ABG Potassium 4.7 Hgb O2 Saturation Sodium 146.0 Chloride 124.0 H Glucose 83 Lactate 1.2 Mechanical Rate 14 FiO2 40.0 Tidal Volume 400 PEEP 5 Potassium Carbon Dioxide Anion Gap BUN Creatinine Est GFR ( Amer) Est GFR (Non-Af Amer) POC Glucose (mg/dL) 112 H 102 Random Glucose Calcium Phosphorus Magnesium Total Bilirubin AST ALT Alkaline Phosphatase Troponin I Total Protein Albumin Globulin Albumin/Globulin Ratio Arterial Blood Potassium 4.7 09/24/16 09/24/16 09/24/16 05:30 06:30 07:00 WBC 7.1 D RBC 3.14 L Hgb 9.0 L Hct 28.7 L MCV 91.4 MCH 28.7 MCHC 31.4 RDW 17.2 H Plt Count 140 MPV 10.6 Neutrophils % (Manual) 71 H Band Neutrophils % 6 H Lymphocytes % (Manual) 18 L Monocytes % (Manual) 5 Platelet Evaluation Normal Poikilocytosis (manual 1+ Anisocytosis (manual) Slight Ovalocytes Slight PT INR APTT Cancelled pCO2 29 L pO2 100.0 HCO3 17.2 L ABG pH 7.38 ABG Total CO2 18.1 L ABG O2 Saturation 99.4 H ABG O2 Content 11.8 L ABG Base Excess -7.0 L ABG Hemoglobin 8.6 L ABG Carboxyhemoglobin 2.0 H POC ABG HHb (Measured) 0.6 ABG Methemoglobin 1.4 ABG O2 Capacity 11.9 L ABG Potassium Hgb O2 Saturation 96.0 Sodium 144 Chloride 118 H Glucose Lactate Mechanical Rate FiO2 40.0 Tidal Volume PEEP Potassium 4.9 Carbon Dioxide 18 L Anion Gap 13 BUN 66 H Creatinine 3.3 H Est GFR ( Amer) 22 Est GFR (Non-Af Amer) 18 POC Glucose (mg/dL) Random Glucose 76 Calcium 7.7 L Phosphorus 5.0 H Magnesium 2.0 Total Bilirubin 0.7 AST 25 ALT 36 Alkaline Phosphatase 52 Troponin I Total Protein 4.8 L Albumin 1.9 L Globulin 2.9 Albumin/Globulin Ratio 0.7 L Arterial Blood Potassium 09/24/16 09/24/16 09/24/16 07:15 08:25 08:30 WBC RBC Hgb Hct MCV MCH MCHC RDW Plt Count MPV Neutrophils % (Manual) Band Neutrophils % Lymphocytes % (Manual) Monocytes % (Manual) Platelet Evaluation Poikilocytosis (manual Anisocytosis (manual) Ovalocytes PT 12.4 H INR 1.15 H APTT 100.0 H* pCO2 pO2 HCO3 ABG pH ABG Total CO2 ABG O2 Saturation ABG O2 Content ABG Base Excess ABG Hemoglobin ABG Carboxyhemoglobin POC ABG HHb (Measured) ABG Methemoglobin ABG O2 Capacity ABG Potassium Hgb O2 Saturation Sodium Chloride Glucose Lactate Mechanical Rate FiO2 Tidal Volume PEEP Potassium Carbon Dioxide Anion Gap BUN Creatinine Est GFR ( Amer) Est GFR (Non-Af Amer) POC Glucose (mg/dL) 73 Random Glucose Calcium Phosphorus Magnesium Total Bilirubin AST ALT Alkaline Phosphatase Troponin I 0.70 H* D Total Protein Albumin Globulin Albumin/Globulin Ratio Arterial Blood Potassium Fingerstick Blood Sugar Results: 109 Review of Systems - Review of Systems Systems not reviewed;Unavailable: Intubated Critical Care Progress Note - Nutrition Nutrition: Nutrition Category Date Time Status NPO Diet [DIET] Diets 09/21/16 Breakfast Ordered Assessment/Plan - Assessment and Plan (Free Text) Assessment: This is an 80 yo M with PMH of CVA, CHF with EF 30%, mild Pulm HTN, chronic Right LE cellulitis, and Depression who was intubated for respiratory failure and is s/p cardiac arrest with ROSC after 9 minutes. Plan: Neuro: -awake, mildly alert but lethargic, only following some commands -intubated, off sedation for ~72 hours, only gained alertness within last 24 hours -maintain normothermia, no fevers overnight -good gag reflex when suctioning through ET tube -Hx CVA -Neuro (Dr. Perry) consulted, appreciate any recs -Ativan for PRN sedation -Head CT on 09/21 notable for prior L-CVA, no acute mass effect or hemorrhage noted Pulm: -Intubated for respiratory failure in the ED -on Pressure Support at time of exam 40%/5/5, tolerating well, good gag reflex when deep suctioning; will attempt to extubate -Full code, so if patient fails extubation, will re-intubate -Satting well on 40% FiO2, 99% on monitor at bedside at time of exam -Protective Lung Ventilation strategy, low tidal volumes, conservative O2 management -Maintain SaO2 > 90%, paO2 > 60 -AM ABG reviewed, pCO2 29 (was 28), pO2 100 (was 108), HCO2 17.2 (was 16.6), pH 7.38 (was 7.38), FiO2 40% (was 40%); likely compensated metabolic acidosis, possibly 2/2 renal failure -Pulm following (Dr. Dietz), appreciate any recs: elevated procal of 30.30 (09/22) may be 2/2 UTI and renal failure instead of pneumonia; started on Xopenex -CXR today not indicative of pneumonia, read as mild Congestive heart failure, ETT and NGT remain in place -Aspiration precautions, head of bed to 30 degrees Cardio: -NSTEMI, on heparin drip, starting ASA/Plavix/Statin -Hgb decrease from 10.5 to 9.0, repeat H&H in afternoon, f/u -Maintain MAP > 65, not currently on pressors -Trop today 0.70 (was 1.24, 1.15); NSTEMI vs Kidney leak 2/2 renal failure vs ischemic injury from cardiac arrest -Cardio (Dr. Wheat) following, appreciate any recs; started on Dobutamine 5mcg/ kg as per Cardio for inotropic support -Most recent Echo on 06/03/16, notable for LVEF 30.4%, mild concentric LVH, severely impaired systolic fxn, LV global hypokinesis, no LV thrombus noted, mild-mod reduction of RV systolic fxn, Mod-severe MR, mild-mod pulm HTN -S/p Cardiac arrest in ED, ROSC after 9 minutes GI: -NPO -Protonix for GI ppx Renal: -Renal failure vs acute on chronic renal insult -Baseline Cr 2.5-2.7 in 2016, elevated to 3.1-3.4 during last admission ~3 weeks prior, 3.3 today -metabolic acidosis likely 2/2 renal failure, compensated per ABG -Nephro (Dr. Wong) and Urology (Dr. Kovacs) consulted, appreciate any recs -Avoid nephrotoxic drugs where feasible -maintain euvolemia and euglycemia -Monitor electrolytes and replete as needed; -Urine Cx positive for resistant Klebsiella, noted during last admission as well , started on Tygacil as per ID, avoid Bactrim due to renal failure -Given recently treated resistant Klebsiella, increasing lethargy/weakness/ chills of patient prior to presentation, and WBCs of 19.0 on presentation, likely urosepsis ID: -Given recently treated resistant Klebsiella, increasing lethargy/weakness/ chills of patient prior to presentation, and WBCs of 19.0 on presentation, likely urosepsis -Initial Chest CT and CXR concerning for possible pneumonia, but current CXR not indicative of pneumonia; per Pulm elevated procal may be 2/2 UTI and renal failure -Continue Meropenem and Linezolid, Tygacil added per ID -WBCs improved to 7.1 (was 11.4), afebrile overnight Heme: -Hgb decreased from 10.5 to 9.0 -repeat H&H ordered for afternoon, r/u -on Heparin drip for NSTEMI, f/u PTTs, coags ordered Dispo: ICU for respiratory failure (intubated) and s/p Cardiac arrest (ROSC after 9 minutes), pending extubation FEN: NPO, NS IVF 150cc/hr Access: Raya, Peripheral IV, ETT, NGT Consults: Urology, Nephrology, Cardio, ID, Neuro, Pulm Ppx: Protonix for GI, Heparin drip covers for DVT Code Status: Full Code per partner Patient seen, reviewed, and discussed with attending, Dr. Littlejohn. - Date & Time Date: 09/24/16 Time: 16:52 <Eron JIMÉNEZ,Nupur H - Last Filed: 09/24/16 17:58> CCU Objective - Vital Signs / Intake & Output Vital Signs (Last 4 hours): Vital Signs Temp Pulse Resp BP Pulse Ox 09/24/16 17:12 90 24 98 09/24/16 17:01 75 27 H 145/107 H 96 09/24/16 17:00 86 28 H 95 09/24/16 16:00 98.3 F 85 27 H 140/78 98 09/24/16 15:00 80 22 144/62 99 09/24/16 14:54 84 25 H 100 09/24/16 14:00 85 35 H 150/71 99 Intake and Output (Last 8hrs): Intake & Output 09/24/16 09/24/16 09/24/16 06:59 14:59 22:59 Intake Total 1934 Output Total 200 250 Balance 1735 -250 Intake: IV 1935 lh 1935 Oral 0 Output: Urine 200 250 Urethral (Raya) 200 250 Other: Voiding Method Indwelling Catheter - Medications Active Medications: Active Medications Generic Name Dose Route Start Last Admin Trade Name Freq PRN Reason Stop Dose Admin Acetaminophen 650 mg 09/23/16 08:01 09/23/16 08:21 Tylenol 650 Mg Supp RC 650 mg Q6H PRN Administration Fever >100.4 F Aspirin 81 mg 09/24/16 11:45 09/24/16 13:46 Aspirin Chewable PO 81 mg DAILY ROXY Administration Atorvastatin Calcium 40 mg 09/24/16 11:45 09/24/16 13:45 Lipitor PO 40 mg DIN ROXY Administration Bacitracin 0 gm 09/24/16 18:00 Bacitracin TOP TID ROXY Clopidogrel Bisulfate 75 mg 09/24/16 11:45 09/24/16 13:46 Plavix PO 75 mg DAILY ROXY Administration Sodium Chloride 1,000 mls @ 150 mls/hr 09/21/16 19:30 09/24/16 01:18 Sodium Chloride 0.9% IV 150 mls/hr .[id number] ROXY Administration Meropenem 1g/NS 100mL IVPB 100 mls @ 100 mls/hr 09/22/16 07:37 09/24/16 11:26 Meropenem 1g/Ns 100ml Ivpb IVPB 09/29/16 07:31 100 mls/hr Q12 ROXY Administration Protocol Linezolid 300 mls @ 200 mls/hr 09/22/16 10:00 09/24/16 09:03 Zyvox 600mg/300ml D5w IVPB 09/29/16 10:01 200 mls/hr Q12 ROXY Administration Protocol Tigecycline 50 mg/ Sodium 100 mls @ 100 mls/hr 09/23/16 11:30 09/24/16 10:35 Chloride IV 09/30/16 11:31 100 mls/hr Q12 ROXY Administration Protocol Heparin Sodium/Sodium Chloride 250 mls @ 7.185 mls/hr 09/23/16 20:02 09/24/16 15:35 Heparin 51957 Units/250ml 1/2 Normal Saline IV 4.79 mls/hr .Q24H PRN Administration ADJUST RATE PER PROTOCOL Protocol 9 UNITS/KG/HR Dobutamine HCl/Dextrose 250 mls @ 11.975 mls/hr 09/24/16 10:47 09/24/16 12:00 Dobutamine/Dextrose 5% 500mg/250ml IV 11.975 mls/hr .[id number] PRN Administration TITRATE PER PROTOCOL Protocol 5 MCG/KG/MIN Levalbuterol HCl 0.63 mg 09/24/16 08:00 09/24/16 13:32 Xopenex IH 0.63 mg [id number] ROXY Administration Lorazepam 1 mg 09/22/16 15:26 09/22/16 17:26 Ativan IVP 1 mg Q6H PRN Administration Anxiety Protocol Pantoprazole Sodium 40 mg 09/22/16 10:00 09/24/16 09:03 Protonix Inj IVP 40 mg DAILY ROXY Administration - Patient Studies Lab Studies: Microbiology Studies 09/23/16 12:00 Blood Culture - Preliminary Blood-Venous Gram Negative Miguel Gram Stain - Final 09/24/16 07:00 Gram Stain - Preliminary Sputum 09/23/16 11:30 Blood Culture - Preliminary Blood-Venous NO GROWTH AFTER 24 HOURS 09/22/16 02:35 MRSA Culture (Admit) - Final Naris MRSA NOT DETECTED Lab Studies 09/24/16 09/24/16 09/24/16 Range/Units 16:30 15:30 08:30 WBC (4.5-11.0) 10^3/ul RBC (3.5-6.1) 10^6/uL Hgb 9.1 L (14.0-18.0) gm/dL Hct 29.6 L (42.0-52.0) % MCV (80.0-105.0) fL MCH (25.0-35.0) pg MCHC (31.0-37.0) g/dl RDW (11.5-14.5) % Plt Count (120.0-450.0) 10^3/uL MPV (7.0-11.0) fl Neutrophils % (Manual) (50.0-70.0) % Band Neutrophils % (0-2) % Lymphocytes % (Manual) (22.0-35.0) % Monocytes % (Manual) (1.0-6.0) % Platelet Evaluation (NORMAL) Poikilocytosis (manual Anisocytosis (manual) Ovalocytes PT (9.9-11.8) Seconds INR (0.93-1.08) APTT 63.6 H (23.7-30.8) Seconds pCO2 (35-45) mm/Hg pO2 (80-100) mm/Hg HCO3 (21-28) mmol/L ABG pH (7.35-7.45) ABG Total CO2 (22-28) mmol.L ABG O2 Saturation (95-98) % ABG O2 Content (15-23) ML/dl ABG Base Excess (-2.0-3.0) mmol/L ABG Hemoglobin (11.7-17.4) g/dL ABG Carboxyhemoglobin (0.5-1.5) % POC ABG HHb (Measured) (0-5) % ABG Methemoglobin (0.0-3.0) % ABG O2 Capacity (16-24) mL/dl Hgb O2 Saturation (95.0-98.0) % FiO2 % Sodium (132-148) mmol/L Potassium (3.6-5.0) mmol/L Chloride (95-110) mmol/L Carbon Dioxide (21-33) mmol/L Anion Gap (10-20) BUN (7-21) mg/dL Creatinine (0.5-1.4) mg/dL Est GFR ( Amer) Est GFR (Non-Af Amer) POC Glucose (mg/dL) (65-110) mg/dL Random Glucose (70-110) mg/dL Calcium (8.4-10.5) mg/dL Phosphorus (2.5-4.5) mg/dL Magnesium (1.7-2.2) mg/dL Total Bilirubin (0.2-1.3) mg/dL AST (15-59) U/L ALT (7-56) U/L Alkaline Phosphatase (38-133) U/L Troponin I 0.70 H* D ng/mL Total Protein (5.8-8.3) g/dL Albumin (3.0-4.8) g/dL Globulin gm/dL Albumin/Globulin Ratio (1.1-1.8) 09/24/16 09/24/16 09/24/16 Range/Units 08:25 07:15 07:00 WBC (4.5-11.0) 10^3/ul RBC (3.5-6.1) 10^6/uL Hgb (14.0-18.0) gm/dL Hct (42.0-52.0) % MCV (80.0-105.0) fL MCH (25.0-35.0) pg MCHC (31.0-37.0) g/dl RDW (11.5-14.5) % Plt Count (120.0-450.0) 10^3/uL MPV (7.0-11.0) fl Neutrophils % (Manual) (50.0-70.0) % Band Neutrophils % (0-2) % Lymphocytes % (Manual) (22.0-35.0) % Monocytes % (Manual) (1.0-6.0) % Platelet Evaluation (NORMAL) Poikilocytosis (manual Anisocytosis (manual) Ovalocytes PT 12.4 H (9.9-11.8) Seconds INR 1.15 H (0.93-1.08) APTT 100.0 H* (23.7-30.8) Seconds pCO2 (35-45) mm/Hg pO2 (80-100) mm/Hg HCO3 (21-28) mmol/L ABG pH (7.35-7.45) ABG Total CO2 (22-28) mmol.L ABG O2 Saturation (95-98) % ABG O2 Content (15-23) ML/dl ABG Base Excess (-2.0-3.0) mmol/L ABG Hemoglobin (11.7-17.4) g/dL ABG Carboxyhemoglobin (0.5-1.5) % POC ABG HHb (Measured) (0-5) % ABG Methemoglobin (0.0-3.0) % ABG O2 Capacity (16-24) mL/dl Hgb O2 Saturation (95.0-98.0) % FiO2 % Sodium (132-148) mmol/L Potassium (3.6-5.0) mmol/L Chloride (95-110) mmol/L Carbon Dioxide (21-33) mmol/L Anion Gap (10-20) BUN (7-21) mg/dL Creatinine (0.5-1.4) mg/dL Est GFR ( Amer) Est GFR (Non-Af Amer) POC Glucose (mg/dL) 73 (65-110) mg/dL Random Glucose (70-110) mg/dL Calcium (8.4-10.5) mg/dL Phosphorus 5.0 H (2.5-4.5) mg/dL Magnesium 2.0 (1.7-2.2) mg/dL Total Bilirubin (0.2-1.3) mg/dL AST (15-59) U/L ALT (7-56) U/L Alkaline Phosphatase (38-133) U/L Troponin I ng/mL Total Protein (5.8-8.3) g/dL Albumin (3.0-4.8) g/dL Globulin gm/dL Albumin/Globulin Ratio (1.1-1.8) 09/24/16 09/24/16 09/23/16 Range/Units 06:30 05:30 18:24 WBC 7.1 D (4.5-11.0) 10^3/ul RBC 3.14 L (3.5-6.1) 10^6/uL Hgb 9.0 L (14.0-18.0) gm/dL Hct 28.7 L (42.0-52.0) % MCV 91.4 (80.0-105.0) fL MCH 28.7 (25.0-35.0) pg MCHC 31.4 (31.0-37.0) g/dl RDW 17.2 H (11.5-14.5) % Plt Count 140 (120.0-450.0) 10^3/uL MPV 10.6 (7.0-11.0) fl Neutrophils % (Manual) 71 H (50.0-70.0) % Band Neutrophils % 6 H (0-2) % Lymphocytes % (Manual) 18 L (22.0-35.0) % Monocytes % (Manual) 5 (1.0-6.0) % Platelet Evaluation Normal (NORMAL) Poikilocytosis (manual 1+ Anisocytosis (manual) Slight Ovalocytes Slight PT (9.9-11.8) Seconds INR (0.93-1.08) APTT Cancelled (23.7-30.8) Seconds pCO2 29 L (35-45) mm/Hg pO2 100.0 (80-100) mm/Hg HCO3 17.2 L (21-28) mmol/L ABG pH 7.38 (7.35-7.45) ABG Total CO2 18.1 L (22-28) mmol.L ABG O2 Saturation 99.4 H (95-98) % ABG O2 Content 11.8 L (15-23) ML/dl ABG Base Excess -7.0 L (-2.0-3.0) mmol/L ABG Hemoglobin 8.6 L (11.7-17.4) g/dL ABG Carboxyhemoglobin 2.0 H (0.5-1.5) % POC ABG HHb (Measured) 0.6 (0-5) % ABG Methemoglobin 1.4 (0.0-3.0) % ABG O2 Capacity 11.9 L (16-24) mL/dl Hgb O2 Saturation 96.0 (95.0-98.0) % FiO2 40.0 % Sodium 144 (132-148) mmol/L Potassium 4.9 (3.6-5.0) mmol/L Chloride 118 H (95-110) mmol/L Carbon Dioxide 18 L (21-33) mmol/L Anion Gap 13 (10-20) BUN 66 H (7-21) mg/dL Creatinine 3.3 H (0.5-1.4) mg/dL Est GFR ( Amer) 22 Est GFR (Non-Af Amer) 18 POC Glucose (mg/dL) 102 (65-110) mg/dL Random Glucose 76 (70-110) mg/dL Calcium 7.7 L (8.4-10.5) mg/dL Phosphorus (2.5-4.5) mg/dL Magnesium (1.7-2.2) mg/dL Total Bilirubin 0.7 (0.2-1.3) mg/dL AST 25 (15-59) U/L ALT 36 (7-56) U/L Alkaline Phosphatase 52 (38-133) U/L Troponin I ng/mL Total Protein 4.8 L (5.8-8.3) g/dL Albumin 1.9 L (3.0-4.8) g/dL Globulin 2.9 gm/dL Albumin/Globulin Ratio 0.7 L (1.1-1.8) Laboratory Results - last 24 hr 09/23/16 09/24/16 09/24/16 18:24 05:30 06:30 WBC 7.1 D RBC 3.14 L Hgb 9.0 L Hct 28.7 L MCV 91.4 MCH 28.7 MCHC 31.4 RDW 17.2 H Plt Count 140 MPV 10.6 Neutrophils % (Manual) 71 H Band Neutrophils % 6 H Lymphocytes % (Manual) 18 L Monocytes % (Manual) 5 Platelet Evaluation Normal Poikilocytosis (manual 1+ Anisocytosis (manual) Slight Ovalocytes Slight PT INR APTT Cancelled pCO2 29 L pO2 100.0 HCO3 17.2 L ABG pH 7.38 ABG Total CO2 18.1 L ABG O2 Saturation 99.4 H ABG O2 Content 11.8 L ABG Base Excess -7.0 L ABG Hemoglobin 8.6 L ABG Carboxyhemoglobin 2.0 H POC ABG HHb (Measured) 0.6 ABG Methemoglobin 1.4 ABG O2 Capacity 11.9 L Hgb O2 Saturation 96.0 FiO2 40.0 Sodium 144 Potassium 4.9 Chloride 118 H Carbon Dioxide 18 L Anion Gap 13 BUN 66 H Creatinine 3.3 H Est GFR ( Amer) 22 Est GFR (Non-Af Amer) 18 POC Glucose (mg/dL) 102 Random Glucose 76 Calcium 7.7 L Phosphorus Magnesium Total Bilirubin 0.7 AST 25 ALT 36 Alkaline Phosphatase 52 Troponin I Total Protein 4.8 L Albumin 1.9 L Globulin 2.9 Albumin/Globulin Ratio 0.7 L 09/24/16 09/24/16 09/24/16 07:00 07:15 08:25 WBC RBC Hgb Hct MCV MCH MCHC RDW Plt Count MPV Neutrophils % (Manual) Band Neutrophils % Lymphocytes % (Manual) Monocytes % (Manual) Platelet Evaluation Poikilocytosis (manual Anisocytosis (manual) Ovalocytes PT 12.4 H INR 1.15 H APTT 100.0 H* pCO2 pO2 HCO3 ABG pH ABG Total CO2 ABG O2 Saturation ABG O2 Content ABG Base Excess ABG Hemoglobin ABG Carboxyhemoglobin POC ABG HHb (Measured) ABG Methemoglobin ABG O2 Capacity Hgb O2 Saturation FiO2 Sodium Potassium Chloride Carbon Dioxide Anion Gap BUN Creatinine Est GFR ( Amer) Est GFR (Non-Af Amer) POC Glucose (mg/dL) 73 Random Glucose Calcium Phosphorus 5.0 H Magnesium 2.0 Total Bilirubin AST ALT Alkaline Phosphatase Troponin I Total Protein Albumin Globulin Albumin/Globulin Ratio 09/24/16 09/24/16 09/24/16 08:30 15:30 16:30 WBC RBC Hgb 9.1 L Hct 29.6 L MCV MCH MCHC RDW Plt Count MPV Neutrophils % (Manual) Band Neutrophils % Lymphocytes % (Manual) Monocytes % (Manual) Platelet Evaluation Poikilocytosis (manual Anisocytosis (manual) Ovalocytes PT INR APTT 63.6 H pCO2 pO2 HCO3 ABG pH ABG Total CO2 ABG O2 Saturation ABG O2 Content ABG Base Excess ABG Hemoglobin ABG Carboxyhemoglobin POC ABG HHb (Measured) ABG Methemoglobin ABG O2 Capacity Hgb O2 Saturation FiO2 Sodium Potassium Chloride Carbon Dioxide Anion Gap BUN Creatinine Est GFR ( Amer) Est GFR (Non-Af Amer) POC Glucose (mg/dL) Random Glucose Calcium Phosphorus Magnesium Total Bilirubin AST ALT Alkaline Phosphatase Troponin I 0.70 H* D Total Protein Albumin Globulin Albumin/Globulin Ratio Critical Care Progress Note - Nutrition Nutrition: Nutrition Category Date Time Status NPO Diet [DIET] Diets 09/21/16 Breakfast Ordered Attending/Attestation - Attestation I have personally seen and examined this patient.: Yes I have fully participated in the care of the patient.: Yes I have reviewed all pertinent clinical information: Yes Notes (Text): 09/24/16 17:53 80 y/o M s/p respiratory failure and Cardiac arrest x 9 minutes. Respiratory failure -unclear eitiology but seems there was atelectasis and increased pulmonary vascular congestion. -Passed SBT trail today and was able to be extubated . -Can protect airway and has good GAG reflex. -Pt is a full code, and will need to have airway monitoring and swallow evaluation. S/P Cardiac Arrest -72 hrs post arrest 9 Minutes. - Was not given Asprin or Plavix. - Was started on Heparin drip. -cardiology aware of his CHF hx and cardiac arrest. - cardiology wants to start inotropes to help with forward flow. - Will need Neurology workup for possible anoxic injury in addition to previous CVA and dementia at baseline. - Pt is not following commands and not making purposeful decisions. - Cardiology to decide if the patient is a cath candidate. NAYA on CKD AG Metabolic acidosis with poor urine output. Urology and Nephrology to see th epatient. cc time 65 min
[2016-09-24] MEDS: Heparin25000 units/250ml 1/2NS 250 ML IV PRN (15:35)
[2016-09-24 16:29] LABS: HEMATOCRIT 29.6 % (42.0-52.0)
--- NOTE | 2016-09-24 17:38 | CON ---
DATE: 09/23/2016 CONSULTATION REQUESTED BY: Dr. Derick Dejesus REASON FOR CONSULTATION: Stage IV chronic kidney disease, lactic acidosis, anemia. Congestive heart failure. HISTORY OF PRESENT ILLNESS: The patient is an 80-year-old gentleman. He was brought to [facility]'s Emergency Department on 09/21 by EMS after he was noted to be increasingly lethargic and to have generalized weakness at his [facility]. Of note, the patient is nonverbal. On arrival to the ED, he was noted to initially have a blood pressure 112/66, although this decreased to as low as 88/52, heart rate was in the 70s. Oxygen saturation was initially 97% , but decreased to as low as 89%. The patient had a temperature of 99.5 degrees. Chest x-ray had revealed congestive heart failure. An EKG revealed atrial fibrillation with a rapid ventricular response. The patient was intubated and admitted to the intensive care unit. On arrival, laboratory studies had revealed that he was hyperkalemic at 5.8 (nonhemolyzed) with a sodium that was high normal at 147. Troponin I was increased at 1.15. N- terminal proBNP was elevated at 168,000. White blood cell count was elevated at 19,000 with 79% neutrophils, although there was no bandemia noted. The patient had a CT scan of his chest (without contrast), which revealed moderate bilateral pleural effusions with adjacent compressive atelectasis and a focal infiltrate within the left lower lobe. There was a prominence of the main pulmonary artery suggesting pulmonary hypertension. Of note, he also had a CT scan of the abdomen and pelvis (without oral or IV contrast), which revealed a right inguinal hernia containing bowel which does not appear to be obstructed or incarcerated. No hydronephrosis was detected. The bladder had a Raya catheter, although the rose were thickened. CT scan of the patient's head ( again without IV contrast) revealed a history of left-sided CVA but without any acute pathology. The patient was seen by infectious disease and promptly started on antibiotics (Zyvox, meropenem as well as doxycycline with 1 dose of gentamicin) for severe sepsis with acute hypoxic and ventilator dependent respiratory failure thought to be secondary to left lower lobe healthcare- associated pneumonia as well as possible sepsis secondary to a genitourinary source. Since having been admitted, the patient's creatinine has remained in the low 3s, which appears to be his baseline and corresponds to stage IV chronic kidney disease. He is noted to have a lactic acid level that is elevated at 3.7 on admission, but this has decreased. Of note, the patient's hemoglobin has decreased from an admitting hemoglobin of 10.4 down to 9.0. He has since been started on dobutamine as well as heparin infusion for the acute coronary syndrome. REVIEW OF SYSTEMS: Could not be obtained from the patient because he was intubated when I had seen him. Additionally, he is reported as having been nonverbal at baseline. PAST MEDICAL HISTORY: Significant for coronary artery disease, history of congestive heart failure with reduced ejection fraction (ejection fraction was noted to be 30% on echocardiogram from 05/2016 with mild pulmonary hypertension noted at that time as well), prior history of left-sided CVA, aphasia, stage IV CKD with a baseline creatinine in the low 3s, complicated by anemia, chronic right lower extremity cellulitis as well as depression. MEDICATIONS: The patient had been taking at his [facility] and prior to admission included: Allopurinol 100 mg orally daily, aspirin 81 mg orally daily , carvedilol 12.5 mg orally twice daily, clopidogrel 75 mg orally daily, famotidine 40 mg orally nightly, Risperdal 0.25 mg orally twice daily, Trintellix 5 mg orally daily, and ferrous sulfate 324 mg orally twice daily. ALLERGIES: There were no known drug allergies. SOCIAL HISTORY: Notable for the patient residing at [facility]. There is no documented tobacco, alcohol or illicit drug use. FAMILY HISTORY: Negative for any inheritable renal or electrolyte disorders in this 80-year-old gentleman and was otherwise noncontributory. PHYSICAL EXAMINATION: GENERAL APPEARANCE: I saw the patient in the intensive care unit. He was intubated when I saw him. His eyes were open, but he appeared to be somewhat lethargic. FIO2 is 40%. NG tube was in place as was Raya catheter, which had sidney urine. He was on a heparin infusion as well as a dobutamine infusion as well. He did not appear to be in any pain or distress. VITAL SIGNS: Blood pressure is 130/63 with a minimum blood pressure in the last 24-hour period of approximately 112/62 and maximum of 130/63, heart rate is 70, but has ranged from the 60s-70s, temperature is 98.9 degrees, but he has a T-max of 101 degrees since having been admitted. Respiratory is 25, but has ranged from 14 to approximately 27 breaths in the last 24-hour period. Oxygen saturation is 98%, saturation ranging from 98% to 100% on an FIO2 of 40%. I's and O's in the last 24-hour period are documented as 3300/300. The remainder of the exam is as follows: HEENT: As stated above, the patient was intubated and receiving mechanical ventilation. NG tube was in place as well. Conjunctivae did not appear to be pale. NECK: There was no jugular venous distention that I could appreciate on exam. CHEST: Lungs alex were auscultated anteriorly and had distant breath sounds at the bases, but there was no wheezing or rhonchi that I could appreciate. Diaphragmatic excursion and air flow into both lungs alex was bilaterally symmetrical. CARDIAC: Irregularly irregular with a II/ systolic ejection murmur at the right base. There were no heaves and the PMI appeared to be somewhat displaced laterally. ABDOMEN: Soft, mildly distended, but nontender, without any rebounding, guarding or rigidity. There was no hepatosplenomegaly. EXTREMITIES: Notable for edema in all limbs, although the left upper extremity was somewhat larger than the others. SKIN: Chronic stasis changes over both lower extremities. In particular, the right more than the left. NEUROLOGIC: The patient was intubated and therefore cannot be fully assessed. VASCULAR: Had no bruits. GENITOURINARY: Notable for the presence of a Raya catheter with sidney colored urine. There was no suprapubic tenderness. LABORATORY STUDIES: White count is 7.1, H and H is 9/28.7 with a platelet count of 140,000. There are 71% neutrophils, 6% bands, 18% lymphocytes. MCV is noted to be 91. INR was 1.15, PTT is 100. Most recently ABG from today has a pH of 7.38 with a pCO2 of 29, PaO2 of 99.4 and an oxygen saturation of 100% on an FiO2 of 40%. Sodium is 144, potassium is 4.9, chloride is 118, bicarbonate is 18, BUN/creatinine is 66/3.3 with a glucose of 76. Total protein at this time is 4.8/2.0 such that the calcium is 7.7, corrects to 9.3. Phosphorus is 5.0, magnesium is 2.0. AST/ALT is 25/36, alkaline phosphatase is 52, troponin I is 0.7. CPK was 216. Urinalysis on admission was yellow, turbid with a pH of 6, specific gravity of 1.025, protein of 100 "large blood" but only 2-5 RBCs per high power field, large leukocyte esterase ,and large blood. Urine for legionella antigen is negative. Urine culture is growing out Klebsiella pneumoniae. Blood cultures have no growth to date. Chest x-ray from today, mild congestive heart failure. IMPRESSION AND PLAN: The patient an 80-year-old gentleman with a known history of coronary artery disease, history of heart failure with reduced ejection fraction (30%) and at least mild pulmonary hypertension, prior history of cerebrovascular accident and reportedly with dementia, stage IV chronic kidney disease with a baseline creatinine that is apparently in the low 3s, prior history of dementia, who was transferred from his [facility] after becoming increasingly lethargic and increasingly fatigued. While in the Emergency Department, he underwent cardiac arrest for which he was intubated including ACLS and after 9 minutes, we had recovery of spontaneous circulation. He remains in the intensive care unit at present on a dobutamine infusion. Of note , he did have lactic acidosis on presentation, which may have been secondary to his known history of decreased cardiac output and an evolving acute coronary syndrome that resulted in his cardiac arrest. This lactic acidosis has resolved as he has recovered spontaneous circulation and has been placed on dobutamine. Of note, he continues to appear in congestive heart failure radiographically and as manifested by his elevated N-terminal proBNP as well as the fact that all his limbs are edematous. I agree with continuing him on a dobutamine infusion for now; however, we need to continue to make sure that all of his electrolytes are optimized. Potassium and magnesium are where they should be on dobutamine and his calcium corrects to within normal limits. Of note, he continues to have metabolic acidosis (corrected anion gap is only 13), which is likely secondary to his chronic kidney disease stage IV. His urine output has decreased and he is now oliguric and thus meets criteria for acute kidney injury superimposed on his stage IV chronic kidney disease. The acute kidney injury is likely secondary to his cardiac arrest and at present, the optimal therapy would be to continue to try to attain optimal hemodynamics with a dobutamine infusion as is being performed. The hyperkalemia he had on admission has resolved, but on admission, it was likely secondary to his lactic acidosis with a shift of potassium from his cells and into his blood. With respect to the patient's edema, although he has edema in all 4 limbs, it seems most pronounced in the left upper extremity where he apparently has had a PICC line in the past. To this end, I will order a left upper extremity venous Doppler, although it is noted that the patient is on intravenous heparin for his acute coronary syndrome and even if he did have a left upper extremity deep venous thrombosis, he is being treated for this regardless. For his acute coronary syndrome, he remains on aspirin as well as atorvastatin being given via his NG tube, but is not on a beta-mercy because of cardiogenic shock. Of note, imaging did reveal what appears to be healthcare-associated pneumonia, but this may have been following the intubation for the patient and he does remain on aggressive antibiotic therapy with meropenem and Zyvox as well as tigecycline for now. If his urine output were to decrease, I would challenge him with furosemide on a p.r.n. basis. Since his chest x-ray reveals congestive heart failure, there is no role for intravenous fluids in this patient. If needed for hemodynamic stability, we can give him concurrent albumin with his Lasix to optimize his urine output. For deep venous thrombosis prophylaxis, the heparin infusion that the patient is receiving for his acute coronary syndrome will suffice and for gastrointestinal prophylaxis in this patient he was intubated and on aspirin as well as heparin infusion. He is currently receiving pantoprazole 40 mg intravenously daily. Of note, urinalysis on admission revealed large blood, but only 2-5 RBCs per high power field and although his CPK was not particularly elevated on presentation, we will check it again since following CPR could certainly have increased even further and his urine is noted to be somewhat dark. We will monitor the patient closely, but at present, there is no firm indication for dialysis. Prior notes from treating physicians have all been reviewed as well. His neurological status is being evaluated and if he is in fact determined to have evidence of hypoxic or anoxic encephalopathy, then obviously any further aggressive intervention would be unwarranted in my opinion. I will be following this complex patient closely for the above complex medical problems and more than 35 minutes were spent in the care of this ICU patient today. ARIEL Riddle MD cc: [id number] TT: 09/24/2016 17:38:05 Confirmation # [id number] Dictation # [id number] caroline FAIRBANKS
[2016-09-24] MEDS: Bacitracin Ointment 30 GM TUBE TOP SCH (18:45)
--- NOTE | 2016-09-24 19:39 | CON ---
DATE: 09/24/2016 HISTORY OF PRESENT ILLNESS: This is an 80-year-old male who was brought to the Emergency Room for in creasing lethargy at the shelter. In the ER, blood pressure was very low, 112/66. Decreased to 88/52. Renal and congestive heart failure. The patient was admitted to ICU. CAT scan of the head showed left cerebral old infarct. Troponin was increased and ultrasound of both the legs and arms sh ows deep vein thrombosis and also sepsis. PAST MEDICAL HISTORY: Coronary artery disease, congestive heart failure. The patient has aphasia fr om a previous stroke and right-sided weakness from the left hemispheric stroke and chronic kidney dis ease. ALLERGIES: No known drug allergies. SOCIAL HISTORY: The patient was a resident at [facility]. PHYSICAL EXAMINATION: HEENT: Normocephalic, atraumatic. NECK: Supple. NEUROLOGIC: The patient was intubated in the ER but was extubated today. Opens eyes. Does not foll ow commands. The pupils were reactive. EOM intact. Limited movement of the extremities noted. Marilyn p tendon reflexes 1+ and edema of all the extremities noted. IMPRESSION: Encephalopathy and status post cardiac arrest superimposed on dementia. Workup is in pr ogress. Continue present management. We will follow up. Eric Perry MD cc: [id number] TT: 09/24/2016 19:38:11 Confirmation # [id number] Dictation # [id number]
[2016-09-25] MEDS: Sodium Chloride 0.9% 1,000 ML IV SCH (00:38)
[2016-09-25] MEDS: Levalbuterol 0.63 MG/3 ML Inhal Soln UD IH SCH ×5 (05:00→23:14)
[2016-09-25 05:11] LABS: ARTERIAL BLOOD GAS O2 CAPACITY 13.5 mL/dl (16-24); ARTERIAL BLOOD GAS O2 CONTENT 13.5 ML/dl (15-23); ARTERIAL BLOOD GAS PH 7.28 (7.35-7.45); ARTERIAL BLOOD HGB O2 SAT 97.3 % (95.0-98.0); CARBOXYHEMOGLOBIN 1.8 % (0.5-1.5); HHB 0 % (0-5); METHEMOGLOBIN 0.9 % (0.0-3.0)
[2016-09-25] MEDS: DOBUTamine 500mg/250ml D5W 250 ML IV PRN ×2 (05:41→09:00)
[2016-09-25 06:09] LABS: ADD MANUAL DIFF? NO
[2016-09-25 06:21] LABS: BASO # 0.01 K/mm3 (0.0-2.0); BASO % 0.1 % (0.0-3.0); EOS % 0.1 % (1.5-5.0); GRAN # 6.63 (1.4-6.5); GRAN % 72.8 % (50.0-68.0); LYMPH # 1.6 (1.2-3.4); LYMPH % 17.5 % (22.0-35.0); MEAN CORPUSCULAR HEMOGLOBIN 28.8 pg (25.0-35.0); MEAN CORPUSCULAR HGB CONC 31.3 g/dl (31.0-37.0); MEAN PLATELET VOLUME 10.8 fl (7.0-11.0); MONO # 0.9 (0.1-0.6); MONO % 9.5 % (1.0-6.0); PLATELET COUNT 138 10^3/uL (120.0-450.0); RED CELL DISTRIBUTION WIDTH 17.3 % (11.5-14.5); WHITE BLOOD COUNT 9.1 10^3/ul (4.5-11.0)
[2016-09-25 06:37] LABS: ALB/GLOB RATIO 0.6 (1.1-1.8); BILIRUBIN,TOTAL 0.8 mg/dL (0.2-1.3); CALCIUM 7.5 mg/dL (8.4-10.5); POTASSIUM 4.8 mmol/L (3.6-5.0)
--- NOTE | 2016-09-25 06:42 | CP.CCUPN ---
<Kiko Webber - Last Filed: 09/25/16 12:59> CCU Subjective - Physician Review Subjective (Free Text): 09/25/16 06:39 Patient seen and examined at bedside in ICU. Today is hospital day 5. Extubated yesterday. Awake and alert, able to answer most questions appropriately, oriented to self and location, not to year. Follows most commands. Dyspnic with talking, and wet breathing sounds, but not gasping for air or choking. Denies chest pain, productive cough, pain with respiration. CCU Objective - Vital Signs / Intake & Output Vital Signs (Last 4 hours): Vital Signs Temp Pulse Resp BP Pulse Ox 09/25/16 06:28 135/63 09/25/16 05:21 83 28 H 09/25/16 05:20 84 28 H 09/25/16 05:19 87 29 H 09/25/16 05:00 79 31 H 127/68 100 09/25/16 04:56 77 26 H 100 09/25/16 04:00 98.2 F 68 24 154/63 H 99 09/25/16 03:53 75 21 98 09/25/16 03:00 69 24 155/63 H 97 09/25/16 02:48 70 23 98 Intake and Output (Last 8hrs): Intake & Output 09/24/16 09/24/16 09/25/16 14:59 22:59 06:59 Intake Total 2214 2487 Output Total 400 525 Balance 1814 1962 Intake: IV 2214 2487 Right Antecubital 36 Right Hand 78 2487 lh 2100 Output: Urine 400 525 Urethral (Piper) 400 525 Other: Voiding Method Indwelling Catheter Indwelling Catheter # Bowel Movements 1 - Physical Exam Head: Positive for: Atraumatic, Normocephalic. Negative for: Contusion, Ecchymosis, Abrasion, Laceration Pupils: Positive for: PERRL. Negative for: Sluggish, Non-Reactive, Pinpoint Extroacular Muscles: Positive for: EOMI Conjunctiva: Positive for: Normal. Negative for: Injected, Icteric Mouth: Positive for: Moist Mucous Membranes. Negative for: Drooling, Normal Teeth (dentures) Nose (External): Positive for: Atraumatic, Other (NG tube in place, fixed with tape). Negative for: Abrasion, Contusion, Laceration Neck: Positive for: Normal Range of Motion. Negative for: JVD Respiratory/Chest: Positive for: Good Air Exchange, Decreased Breath Sounds ( decreased breath sounds in all auscultated alex), Rales (diffuse rales in all alex), Other (dyspnic with speach). Negative for: Clear to Auscultation, Accessory Muscle Use, Wheezes, Rhonchi, Tachypneic, Tender to Palpation Cardiovascular: Positive for: Regular Rate and Rhythm, Normal S1, S2. Negative for: Murmurs, Irregular Rhythm, Tachycardic, Bradycardic Abdomen: Positive for: Normal Bowel Sounds. Negative for: Tenderness, Distention, Peritoneal Signs, Guarding, Ostomy Tubes, Mass/Organomegaly Genitourinary Male: Positive for: Hernias (Large hernia/scrotal mass), Other ( diffusely swollen/enlarged scrotum, unable to visualize penis due to swollen/ enlarged scrotum but able to palpate through scrotal tissue; piper in place draining yellow urine) Upper Extremity: Positive for: Edema (+1-2 pitting edema bilaterally), Other ( ROM limited by fatigue, but all to follow simple commands/movements requiring mininal exertion). Negative for: Normal Inspection, Cyanosis, Normal ROM, NORMAL PULSES (unable to palpate pulses through edema), Erythema Lower Extremity: Positive for: Edema (+1-2 pitting edema bilaterally), Other ( ROM limited by fatigue, but all to follow simple commands/movements requiring mininal exertion). Negative for: Normal Inspection, CALF TENDERNESS, NORMAL PULSES (unable to palpate pulses through edema), Cyanosis, Normal ROM Neurological: Positive for: GCS=15, Other (Non-verbal, intubated, head shakes/ nods to some questions, opens eyes on command). Negative for: Speech Normal ( speech is slow, dyspnic with talking), Motor Func Grossly Intact Skin: Positive for: Warm (except on palpation of bilateral UE), Dry, Normal Color, Abrasion (as described in upper extremity exam). Negative for: Rashes Psychiatric: Positive for: Lethargic Other physical findings (Free Text): awake and alert, oriented to self and location, disoriented to year, following most commands, occasional several-second delay between command issued and command followed - Medications Active Medications: Active Medications Generic Name Dose Route Start Last Admin Trade Name Freq PRN Reason Stop Dose Admin Acetaminophen 650 mg 09/23/16 08:01 09/23/16 08:21 Tylenol 650 Mg Supp RC 650 mg Q6H PRN Administration Fever >100.4 F Aspirin 81 mg 09/24/16 11:45 09/24/16 13:46 Aspirin Chewable PO 81 mg DAILY ROXY Administration Atorvastatin Calcium 40 mg 09/24/16 11:45 09/24/16 13:45 Lipitor PO 40 mg DIN ROXY Administration Bacitracin 0 gm 09/24/16 18:00 09/24/16 18:45 Bacitracin TOP 1 gm TID ROXY Administration Clopidogrel Bisulfate 75 mg 09/24/16 11:45 09/24/16 13:46 Plavix PO 75 mg DAILY ROXY Administration Meropenem 1g/NS 100mL IVPB 100 mls @ 100 mls/hr 09/22/16 07:37 09/24/16 21:22 Meropenem 1g/Ns 100ml Ivpb IVPB 09/29/16 07:31 100 mls/hr Q12 ROXY Administration Protocol Linezolid 300 mls @ 200 mls/hr 09/22/16 10:00 09/24/16 22:02 Zyvox 600mg/300ml D5w IVPB 09/29/16 10:01 200 mls/hr Q12 ROXY Administration Protocol Tigecycline 50 mg/ Sodium 100 mls @ 100 mls/hr 09/23/16 11:30 09/24/16 21:21 Chloride IV 09/30/16 11:31 100 mls/hr Q12 ROXY Administration Protocol Heparin Sodium/Sodium Chloride 250 mls @ 7.185 mls/hr 09/23/16 20:02 09/25/16 00:30 Heparin 30576 Units/250ml 1/2 Normal Saline IV 3 units/kg/hr .Q24H PRN Titration ADJUST RATE PER PROTOCOL Protocol 9 UNITS/KG/HR Dobutamine HCl/Dextrose 250 mls @ 11.975 mls/hr 09/25/16 05:40 09/25/16 05:42 Dobutamine/Dextrose 5% 500mg/250ml IV 2 mcg/kg/min .[id number] PRN Titration TITRATE PER PROTOCOL Protocol 5 MCG/KG/MIN Levalbuterol HCl 0.63 mg 09/24/16 08:00 09/25/16 05:00 Xopenex IH 0.63 mg [id number] ROXY Administration Lorazepam 1 mg 09/22/16 15:26 09/22/16 17:26 Ativan IVP 1 mg Q6H PRN Administration Anxiety Protocol Pantoprazole Sodium 40 mg 09/22/16 10:00 09/24/16 09:03 Protonix Inj IVP 40 mg DAILY ROXY Administration - Patient Studies Lab Studies: Microbiology Studies 09/23/16 12:00 Blood Culture - Preliminary Blood-Venous Gram Negative Miguel Gram Stain - Final 09/24/16 07:00 Gram Stain - Preliminary Sputum 09/23/16 11:30 Blood Culture - Preliminary Blood-Venous NO GROWTH AFTER 24 HOURS Lab Studies 09/25/16 09/25/16 09/24/16 Range/Units 05:30 05:05 22:58 WBC 9.1 D (4.5-11.0) 10^3/ul RBC 3.37 L (3.5-6.1) 10^6/uL Hgb 9.7 L (14.0-18.0) gm/dL Hct 31.0 L (42.0-52.0) % MCV 92.0 (80.0-105.0) fL MCH 28.8 (25.0-35.0) pg MCHC 31.3 (31.0-37.0) g/dl RDW 17.3 H (11.5-14.5) % Plt Count 138 (120.0-450.0) 10^3/uL MPV 10.8 (7.0-11.0) fl Gran % 72.8 H (50.0-68.0) % Lymph % (Auto) 17.5 L (22.0-35.0) % [place] % (Auto) 9.5 H (1.0-6.0) % Eos % (Auto) 0.1 L (1.5-5.0) % Baso % (Auto) 0.1 (0.0-3.0) % Gran # 6.63 H (1.4-6.5) Lymph # 1.6 (1.2-3.4) [place] # 0.9 H (0.1-0.6) Eos # 0.0 (0.0-0.7) Baso # 0.01 (0.0-2.0) K/mm3 Neutrophils % (Manual) (50.0-70.0) % Band Neutrophils % (0-2) % Lymphocytes % (Manual) (22.0-35.0) % Monocytes % (Manual) (1.0-6.0) % Platelet Evaluation (NORMAL) Poikilocytosis (manual Anisocytosis (manual) Ovalocytes PT (9.9-11.8) Seconds INR (0.93-1.08) APTT 46.2 H 117.5 H* (23.7-30.8) Seconds pCO2 34 L (35-45) mm/Hg pO2 259.0 H (80-100) mm/Hg HCO3 16.0 L (21-28) mmol/L ABG pH 7.28 L (7.35-7.45) ABG Total CO2 17.0 L (22-28) mmol.L ABG O2 Saturation 100.0 H (95-98) % ABG O2 Content 13.5 L (15-23) ML/dl ABG Base Excess -9.8 L (-2.0-3.0) mmol/L ABG Hemoglobin 9.4 L (11.7-17.4) g/dL ABG Carboxyhemoglobin 1.8 H (0.5-1.5) % POC ABG HHb (Measured) 0 (0-5) % ABG Methemoglobin 0.9 (0.0-3.0) % ABG O2 Capacity 13.5 L (16-24) mL/dl Hgb O2 Saturation 97.3 (95.0-98.0) % FiO2 36.0 % Sodium (132-148) mmol/L Potassium (3.6-5.0) mmol/L Chloride (95-110) mmol/L Carbon Dioxide (21-33) mmol/L Anion Gap (10-20) BUN (7-21) mg/dL Creatinine (0.5-1.4) mg/dL Est GFR ( Amer) Est GFR (Non-Af Amer) POC Glucose (mg/dL) (65-110) mg/dL Random Glucose (70-110) mg/dL Calcium (8.4-10.5) mg/dL Phosphorus (2.5-4.5) mg/dL Magnesium (1.7-2.2) mg/dL Total Bilirubin (0.2-1.3) mg/dL AST (15-59) U/L ALT (7-56) U/L Alkaline Phosphatase (38-133) U/L Troponin I ng/mL Total Protein (5.8-8.3) g/dL Albumin (3.0-4.8) g/dL Globulin gm/dL Albumin/Globulin Ratio (1.1-1.8) 09/24/16 09/24/16 09/24/16 Range/Units 16:30 15:30 08:30 WBC (4.5-11.0) 10^3/ul RBC (3.5-6.1) 10^6/uL Hgb 9.1 L (14.0-18.0) gm/dL Hct 29.6 L (42.0-52.0) % MCV (80.0-105.0) fL MCH (25.0-35.0) pg MCHC (31.0-37.0) g/dl RDW (11.5-14.5) % Plt Count (120.0-450.0) 10^3/uL MPV (7.0-11.0) fl Gran % (50.0-68.0) % Lymph % (Auto) (22.0-35.0) % [place] % (Auto) (1.0-6.0) % Eos % (Auto) (1.5-5.0) % Baso % (Auto) (0.0-3.0) % Gran # (1.4-6.5) Lymph # (1.2-3.4) [place] # (0.1-0.6) Eos # (0.0-0.7) Baso # (0.0-2.0) K/mm3 Neutrophils % (Manual) (50.0-70.0) % Band Neutrophils % (0-2) % Lymphocytes % (Manual) (22.0-35.0) % Monocytes % (Manual) (1.0-6.0) % Platelet Evaluation (NORMAL) Poikilocytosis (manual Anisocytosis (manual) Ovalocytes PT (9.9-11.8) Seconds INR (0.93-1.08) APTT 63.6 H (23.7-30.8) Seconds pCO2 (35-45) mm/Hg pO2 (80-100) mm/Hg HCO3 (21-28) mmol/L ABG pH (7.35-7.45) ABG Total CO2 (22-28) mmol.L ABG O2 Saturation (95-98) % ABG O2 Content (15-23) ML/dl ABG Base Excess (-2.0-3.0) mmol/L ABG Hemoglobin (11.7-17.4) g/dL ABG Carboxyhemoglobin (0.5-1.5) % POC ABG HHb (Measured) (0-5) % ABG Methemoglobin (0.0-3.0) % ABG O2 Capacity (16-24) mL/dl Hgb O2 Saturation (95.0-98.0) % FiO2 % Sodium (132-148) mmol/L Potassium (3.6-5.0) mmol/L Chloride (95-110) mmol/L Carbon Dioxide (21-33) mmol/L Anion Gap (10-20) BUN (7-21) mg/dL Creatinine (0.5-1.4) mg/dL Est GFR ( Amer) Est GFR (Non-Af Amer) POC Glucose (mg/dL) (65-110) mg/dL Random Glucose (70-110) mg/dL Calcium (8.4-10.5) mg/dL Phosphorus (2.5-4.5) mg/dL Magnesium (1.7-2.2) mg/dL Total Bilirubin (0.2-1.3) mg/dL AST (15-59) U/L ALT (7-56) U/L Alkaline Phosphatase (38-133) U/L Troponin I 0.70 H* D ng/mL Total Protein (5.8-8.3) g/dL Albumin (3.0-4.8) g/dL Globulin gm/dL Albumin/Globulin Ratio (1.1-1.8) 09/24/16 09/24/16 09/24/16 Range/Units 08:25 07:15 07:00 WBC (4.5-11.0) 10^3/ul RBC (3.5-6.1) 10^6/uL Hgb (14.0-18.0) gm/dL Hct (42.0-52.0) % MCV (80.0-105.0) fL MCH (25.0-35.0) pg MCHC (31.0-37.0) g/dl RDW (11.5-14.5) % Plt Count (120.0-450.0) 10^3/uL MPV (7.0-11.0) fl Gran % (50.0-68.0) % Lymph % (Auto) (22.0-35.0) % Lincoln % (Auto) (1.0-6.0) % Eos % (Auto) (1.5-5.0) % Baso % (Auto) (0.0-3.0) % Gran # (1.4-6.5) Lymph # (1.2-3.4) [place] # (0.1-0.6) Eos # (0.0-0.7) Baso # (0.0-2.0) K/mm3 Neutrophils % (Manual) (50.0-70.0) % Band Neutrophils % (0-2) % Lymphocytes % (Manual) (22.0-35.0) % Monocytes % (Manual) (1.0-6.0) % Platelet Evaluation (NORMAL) Poikilocytosis (manual Anisocytosis (manual) Ovalocytes PT 12.4 H (9.9-11.8) Seconds INR 1.15 H (0.93-1.08) APTT 100.0 H* (23.7-30.8) Seconds pCO2 (35-45) mm/Hg pO2 (80-100) mm/Hg HCO3 (21-28) mmol/L ABG pH (7.35-7.45) ABG Total CO2 (22-28) mmol.L ABG O2 Saturation (95-98) % ABG O2 Content (15-23) ML/dl ABG Base Excess (-2.0-3.0) mmol/L ABG Hemoglobin (11.7-17.4) g/dL ABG Carboxyhemoglobin (0.5-1.5) % POC ABG HHb (Measured) (0-5) % ABG Methemoglobin (0.0-3.0) % ABG O2 Capacity (16-24) mL/dl Hgb O2 Saturation (95.0-98.0) % FiO2 % Sodium (132-148) mmol/L Potassium (3.6-5.0) mmol/L Chloride (95-110) mmol/L Carbon Dioxide (21-33) mmol/L Anion Gap (10-20) BUN (7-21) mg/dL Creatinine (0.5-1.4) mg/dL Est GFR ( Amer) Est GFR (Non-Af Amer) POC Glucose (mg/dL) 73 (65-110) mg/dL Random Glucose (70-110) mg/dL Calcium (8.4-10.5) mg/dL Phosphorus 5.0 H (2.5-4.5) mg/dL Magnesium 2.0 (1.7-2.2) mg/dL Total Bilirubin (0.2-1.3) mg/dL AST (15-59) U/L ALT (7-56) U/L Alkaline Phosphatase (38-133) U/L Troponin I ng/mL Total Protein (5.8-8.3) g/dL Albumin (3.0-4.8) g/dL Globulin gm/dL Albumin/Globulin Ratio (1.1-1.8) 09/24/16 09/24/16 Range/Units 06:30 05:30 WBC (4.5-11.0) 10^3/ul RBC (3.5-6.1) 10^6/uL Hgb (14.0-18.0) gm/dL Hct (42.0-52.0) % MCV (80.0-105.0) fL MCH (25.0-35.0) pg MCHC (31.0-37.0) g/dl RDW (11.5-14.5) % Plt Count (120.0-450.0) 10^3/uL MPV (7.0-11.0) fl Gran % (50.0-68.0) % Lymph % (Auto) (22.0-35.0) % Lincoln % (Auto) (1.0-6.0) % Eos % (Auto) (1.5-5.0) % Baso % (Auto) (0.0-3.0) % Gran # (1.4-6.5) Lymph # (1.2-3.4) Lincoln # (0.1-0.6) Eos # (0.0-0.7) Baso # (0.0-2.0) K/mm3 Neutrophils % (Manual) 71 H (50.0-70.0) % Band Neutrophils % 6 H (0-2) % Lymphocytes % (Manual) 18 L (22.0-35.0) % Monocytes % (Manual) 5 (1.0-6.0) % Platelet Evaluation Normal (NORMAL) Poikilocytosis (manual 1+ Anisocytosis (manual) Slight Ovalocytes Slight PT (9.9-11.8) Seconds INR (0.93-1.08) APTT Cancelled (23.7-30.8) Seconds pCO2 29 L (35-45) mm/Hg pO2 100.0 (80-100) mm/Hg HCO3 17.2 L (21-28) mmol/L ABG pH 7.38 (7.35-7.45) ABG Total CO2 18.1 L (22-28) mmol.L ABG O2 Saturation 99.4 H (95-98) % ABG O2 Content 11.8 L (15-23) ML/dl ABG Base Excess -7.0 L (-2.0-3.0) mmol/L ABG Hemoglobin 8.6 L (11.7-17.4) g/dL ABG Carboxyhemoglobin 2.0 H (0.5-1.5) % POC ABG HHb (Measured) 0.6 (0-5) % ABG Methemoglobin 1.4 (0.0-3.0) % ABG O2 Capacity 11.9 L (16-24) mL/dl Hgb O2 Saturation 96.0 (95.0-98.0) % FiO2 40.0 % Sodium 144 (132-148) mmol/L Potassium 4.9 (3.6-5.0) mmol/L Chloride 118 H (95-110) mmol/L Carbon Dioxide 18 L (21-33) mmol/L Anion Gap 13 (10-20) BUN 66 H (7-21) mg/dL Creatinine 3.3 H (0.5-1.4) mg/dL Est GFR ( Amer) 22 Est GFR (Non-Af Amer) 18 POC Glucose (mg/dL) (65-110) mg/dL Random Glucose 76 (70-110) mg/dL Calcium 7.7 L (8.4-10.5) mg/dL Phosphorus (2.5-4.5) mg/dL Magnesium (1.7-2.2) mg/dL Total Bilirubin 0.7 (0.2-1.3) mg/dL AST 25 (15-59) U/L ALT 36 (7-56) U/L Alkaline Phosphatase 52 (38-133) U/L Troponin I ng/mL Total Protein 4.8 L (5.8-8.3) g/dL Albumin 1.9 L (3.0-4.8) g/dL Globulin 2.9 gm/dL Albumin/Globulin Ratio 0.7 L (1.1-1.8) Laboratory Results - last 24 hr 09/24/16 09/24/16 09/24/16 05:30 06:30 07:00 WBC RBC Hgb Hct MCV MCH MCHC RDW Plt Count MPV Gran % Lymph % (Auto) [place] % (Auto) Eos % (Auto) Baso % (Auto) Gran # Lymph # [place] # Eos # Baso # Neutrophils % (Manual) 71 H Band Neutrophils % 6 H Lymphocytes % (Manual) 18 L Monocytes % (Manual) 5 Platelet Evaluation Normal Poikilocytosis (manual 1+ Anisocytosis (manual) Slight Ovalocytes Slight PT INR APTT Cancelled pCO2 29 L pO2 100.0 HCO3 17.2 L ABG pH 7.38 ABG Total CO2 18.1 L ABG O2 Saturation 99.4 H ABG O2 Content 11.8 L ABG Base Excess -7.0 L ABG Hemoglobin 8.6 L ABG Carboxyhemoglobin 2.0 H POC ABG HHb (Measured) 0.6 ABG Methemoglobin 1.4 ABG O2 Capacity 11.9 L Hgb O2 Saturation 96.0 FiO2 40.0 Sodium 144 Potassium 4.9 Chloride 118 H Carbon Dioxide 18 L Anion Gap 13 BUN 66 H Creatinine 3.3 H Est GFR ( Amer) 22 Est GFR (Non-Af Amer) 18 POC Glucose (mg/dL) Random Glucose 76 Calcium 7.7 L Phosphorus 5.0 H Magnesium 2.0 Total Bilirubin 0.7 AST 25 ALT 36 Alkaline Phosphatase 52 Troponin I Total Protein 4.8 L Albumin 1.9 L Globulin 2.9 Albumin/Globulin Ratio 0.7 L 09/24/16 09/24/16 09/24/16 07:15 08:25 08:30 WBC RBC Hgb Hct MCV MCH MCHC RDW Plt Count MPV Gran % Lymph % (Auto) [place] % (Auto) Eos % (Auto) Baso % (Auto) Gran # Lymph # [place] # Eos # Baso # Neutrophils % (Manual) Band Neutrophils % Lymphocytes % (Manual) Monocytes % (Manual) Platelet Evaluation Poikilocytosis (manual Anisocytosis (manual) Ovalocytes PT 12.4 H INR 1.15 H APTT 100.0 H* pCO2 pO2 HCO3 ABG pH ABG Total CO2 ABG O2 Saturation ABG O2 Content ABG Base Excess ABG Hemoglobin ABG Carboxyhemoglobin POC ABG HHb (Measured) ABG Methemoglobin ABG O2 Capacity Hgb O2 Saturation FiO2 Sodium Potassium Chloride Carbon Dioxide Anion Gap BUN Creatinine Est GFR ( Amer) Est GFR (Non-Af Amer) POC Glucose (mg/dL) 73 Random Glucose Calcium Phosphorus Magnesium Total Bilirubin AST ALT Alkaline Phosphatase Troponin I 0.70 H* D Total Protein Albumin Globulin Albumin/Globulin Ratio 09/24/16 09/24/16 09/24/16 15:30 16:30 22:58 WBC RBC Hgb 9.1 L Hct 29.6 L MCV MCH MCHC RDW Plt Count MPV Gran % Lymph % (Auto) [place] % (Auto) Eos % (Auto) Baso % (Auto) Gran # Lymph # [place] # Eos # Baso # Neutrophils % (Manual) Band Neutrophils % Lymphocytes % (Manual) Monocytes % (Manual) Platelet Evaluation Poikilocytosis (manual Anisocytosis (manual) Ovalocytes PT INR APTT 63.6 H 117.5 H* pCO2 pO2 HCO3 ABG pH ABG Total CO2 ABG O2 Saturation ABG O2 Content ABG Base Excess ABG Hemoglobin ABG Carboxyhemoglobin POC ABG HHb (Measured) ABG Methemoglobin ABG O2 Capacity Hgb O2 Saturation FiO2 Sodium Potassium Chloride Carbon Dioxide Anion Gap BUN Creatinine Est GFR ( Amer) Est GFR (Non-Af Amer) POC Glucose (mg/dL) Random Glucose Calcium Phosphorus Magnesium Total Bilirubin AST ALT Alkaline Phosphatase Troponin I Total Protein Albumin Globulin Albumin/Globulin Ratio 09/25/16 09/25/16 05:05 05:30 WBC 9.1 D RBC 3.37 L Hgb 9.7 L Hct 31.0 L MCV 92.0 MCH 28.8 MCHC 31.3 RDW 17.3 H Plt Count 138 MPV 10.8 Gran % 72.8 H Lymph % (Auto) 17.5 L [place] % (Auto) 9.5 H Eos % (Auto) 0.1 L Baso % (Auto) 0.1 Gran # 6.63 H Lymph # 1.6 Lincoln # 0.9 H Eos # 0.0 Baso # 0.01 Neutrophils % (Manual) Band Neutrophils % Lymphocytes % (Manual) Monocytes % (Manual) Platelet Evaluation Poikilocytosis (manual Anisocytosis (manual) Ovalocytes PT INR APTT 46.2 H pCO2 34 L pO2 259.0 H HCO3 16.0 L ABG pH 7.28 L ABG Total CO2 17.0 L ABG O2 Saturation 100.0 H ABG O2 Content 13.5 L ABG Base Excess -9.8 L ABG Hemoglobin 9.4 L ABG Carboxyhemoglobin 1.8 H POC ABG HHb (Measured) 0 ABG Methemoglobin 0.9 ABG O2 Capacity 13.5 L Hgb O2 Saturation 97.3 FiO2 36.0 Sodium Potassium Chloride Carbon Dioxide Anion Gap BUN Creatinine Est GFR ( Amer) Est GFR (Non-Af Amer) POC Glucose (mg/dL) Random Glucose Calcium Phosphorus Magnesium Total Bilirubin AST ALT Alkaline Phosphatase Troponin I Total Protein Albumin Globulin Albumin/Globulin Ratio Fingerstick Blood Sugar Results: 81 Review of Systems - Review of Systems Systems not reviewed;Unavailable: Other (still lethargic, somewhat disoriented, no memory of arriving at hospital or events prior) Critical Care Progress Note - Nutrition Nutrition: Nutrition Category Date Time Status NPO Diet [DIET] Diets 09/21/16 Breakfast Ordered Assessment/Plan - Assessment and Plan (Free Text) Assessment: This is an 80 yo M with PMH of CVA, CHF with EF 30%, mild Pulm HTN, chronic Right LE cellulitis, and Depression who was intubated for respiratory failure and is s/p cardiac arrest with ROSC after 9 minutes. Plan: Neuro: -awake, mildly alert but lethargic, only following some commands -extubated 1 day prior, maintaining airway; Full code per partner, so will reintubate if patient's respiratory distress/failure recurs -maintain normothermia, no fevers overnight -Hx CVA -Neuro (Dr. Perry) consulted, appreciate any recs -Ativan for PRN sedation -Head CT on 09/21 notable for prior L-CVA, no acute mass effect or hemorrhage noted -PT/OT consulted, OOB to chair as tolerated Pulm: -Intubated for respiratory failure in the ED, extubated yesterday (09/24) -Satting well on NC O2 5L, but wet breath sounds and diffuse rales on exam, and increased O2 requirement from yesterday (on 2L O2 NC) -CXR today and exam concerning for fluid overload/pulmonary edema; holding IVF and Stat IV Lasix 40mg as per Pulm, will f/u urine output and reassess lungs after 3 hours; repeat CXR; further IV Lasix as needed to resolve fluid overload -Full code per partner, so will reintubate if patient's respiratory distress/ failure recurs; Palliative care consulted, appreciate any recs -Maintain SaO2 > 90%, paO2 > 60 -AM ABG reviewed, pCO2 34 (was 29), pO2 259 (was 100), HCO2 16 (was 17.2), pH 7.28 (was 7.38), FiO2 36% (was 40%); per Winter's Formula expected paCO2 30-34, so compensated, but worsening acidosis -Pulm following (Dr. Dietz), appreciate any recs -Aspiration precautions, head of bed to 30 degrees Cardio: -NSTEMI, on heparin drip, continue ASA/Plavix/Statin -Hgb increased from 9.1 to 9.6 -Maintain MAP > 65, not currently on pressors -Trop yesterday 0.70 (was 1.24, 1.15); NSTEMI vs Kidney leak 2/2 renal failure vs ischemic injury from cardiac arrest -Cardio (Dr. Wheat) following, appreciate any recs; continue Dobutamine drip for now as per Cardio, Echo ordered -Most recent Echo on 06/03/16, notable for LVEF 30.4%, mild concentric LVH, severely impaired systolic fxn, LV global hypokinesis, no LV thrombus noted, mild-mod reduction of RV systolic fxn, Mod-severe MR, mild-mod pulm HTN -S/p Cardiac arrest in ED, ROSC after 9 minutes -Upper Extremity US yesterday notes bilateral subclavian thrombi, already covered by Heparin drip for NSTEMI GI: -NPO -NG tube in place, lithographer apprentice consulted to start appropriate NGT feeds -Protonix for GI ppx Renal: -Renal failure vs NAYA on CKD -Baseline Cr 2.5-2.7 in 2016, elevated to 3.1-3.4 during last admission ~3 weeks prior, 3.2 today (was 3.3) -metabolic acidosis likely 2/2 renal failure, compensated per ABG/Winter's formula -Nephro (Dr. Wong) and Urology (Dr. Kovacs) consulted, appreciate any recs -Avoid nephrotoxic drugs where feasible -maintain euglycemia (BG 140-180), no euvolemia as currently fluid overloaded/ trying to diurese -Monitor electrolytes and replete as needed -Urine Cx positive for resistant Klebsiella, noted during last admission as well , started on Tygacil as per ID, avoid Bactrim due to renal failure -Given recently treated resistant Klebsiella, increasing lethargy/weakness/ chills of patient prior to presentation, and WBCs of 19.0 on presentation, likely urosepsis ID: -Given recently treated resistant Klebsiella, increasing lethargy/weakness/ chills of patient prior to presentation, and WBCs of 19.0 on presentation, likely urosepsis -Initial Chest CT and CXR concerning for possible pneumonia, but current CXR more suggestive of fluid overload/pulm edema; per Pulm elevated procal may be 2/ 2 UTI and renal failure -Continue Meropenem and Linezolid, Tygacil added per ID -WBCs 9.1 (was 7.1), afebrile overnight Heme: -Hgb increased from 9.1 to 9.6 -on Heparin drip for NSTEMI and bilateral subclavian thrombi, f/u PTTs Endo: -AM Glucose on labs 69, currently NPO pending swallow study, cardiovascular lab director referral for tube feeds -No D5 as fluid overloaded already -1/2 Amp D50 ordered, fingerstick 1 hour after 141, continue to monitor Dispo: ICU for respiratory failure (post extubation, day 2) and s/p Cardiac arrest (ROSC after 9 minutes), undergoing diuresis for pulm edema FEN: NPO, cardiovascular lab director consulted for appropriate NG tube feeds Access: Piper, Peripheral IV, NGT Consults: Urology, Nephrology, Cardio, ID, Neuro, Pulm, Palliative Ppx: Protonix for GI, Heparin drip covers for DVT Code Status: Full Code per partner Patient seen, reviewed, and discussed with attending, Dr. Littlejohn. - Date & Time Date: 09/25/16 Time: 13:09 <Eron JIMÉNEZ,[facility] - Last Filed: 09/25/16 13:38> CCU Objective - Vital Signs / Intake & Output Vital Signs (Last 4 hours): Vital Signs Pulse Resp BP Pulse Ox 09/25/16 13:12 166/72 H 09/25/16 11:00 82 27 H 174/101 H 99 09/25/16 10:53 77 30 H 99 09/25/16 10:47 79 28 H 100 09/25/16 10:00 79 25 H 177/82 H 100 Intake and Output (Last 8hrs): Intake & Output 09/24/16 09/25/16 09/25/16 22:59 06:59 14:59 Intake Total 2214 2487 Output Total 400 525 Balance 1814 1962 Weight 176 lb Intake: IV 2214 2487 Right Antecubital 36 Right Hand 78 2487 lh 2100 Output: Urine 400 525 Urethral (Piper) 400 525 Other: Voiding Method Indwelling Catheter Indwelling Catheter # Bowel Movements 1 - Medications Active Medications: Active Medications Generic Name Dose Route Start Last Admin Trade Name Freq PRN Reason Stop Dose Admin Acetaminophen 650 mg 09/23/16 08:01 09/23/16 08:21 Tylenol 650 Mg Supp RC 650 mg Q6H PRN Administration Fever >100.4 F Aspirin 81 mg 09/24/16 11:45 09/25/16 09:01 Aspirin Chewable PO 81 mg DAILY ROXY Administration Atorvastatin Calcium 40 mg 09/24/16 11:45 09/24/16 13:45 Lipitor PO 40 mg DIN ROXY Administration Bacitracin 0 gm 09/24/16 18:00 09/25/16 13:13 Bacitracin TOP 1 gm TID ROXY Administration Calcium Carbonate 600 mg 09/25/16 10:00 09/25/16 11:59 Caltrate PO 600 mg BID ROXY Administration Clopidogrel Bisulfate 75 mg 09/24/16 11:45 09/25/16 09:01 Plavix PO 75 mg DAILY ROXY Administration Heparin Sodium/Sodium Chloride 250 mls @ 7.185 mls/hr 09/23/16 20:02 09/25/16 06:54 Heparin 32376 Units/250ml 1/2 Normal Saline IV 5 units/kg/hr .Q24H PRN Titration ADJUST RATE PER PROTOCOL Protocol 9 UNITS/KG/HR Dobutamine HCl/Dextrose 250 mls @ 11.975 mls/hr 09/25/16 05:40 09/25/16 09:00 Dobutamine/Dextrose 5% 500mg/250ml IV 11.975 mls/hr .[id number] PRN Administration TITRATE PER PROTOCOL Protocol 5 MCG/KG/MIN Ceftazidime/Avibactam 0.94 gm/ 100 mls @ 50 mls/hr 09/25/16 12:00 09/25/16 12: 24 Sodium Chloride IVPB 50 mls/hr Q12H ROXY Administration Levalbuterol HCl 0.63 mg 09/24/16 08:00 09/25/16 08:02 Xopenex IH 0.63 mg [id number] ROXY Administration Lorazepam 1 mg 09/22/16 15:26 09/22/16 17:26 Ativan IVP 1 mg Q6H PRN Administration Anxiety Protocol Pantoprazole Sodium 40 mg 09/22/16 10:00 09/25/16 09:01 Protonix Inj IVP 40 mg DAILY ROXY Administration - Patient Studies Lab Studies: Microbiology Studies 09/23/16 11:30 Blood Culture - Preliminary Blood-Venous Gram Negative Miguel Gram Stain - Final 09/23/16 12:00 Blood Culture - Preliminary Blood-Venous Gram Negative Miguel Gram Stain - Final 09/24/16 07:00 Gram Stain - Preliminary Sputum Lab Studies 09/25/16 09/25/16 09/25/16 Range/Units 07:22 05:57 05:30 WBC 9.1 D (4.5-11.0) 10^3/ul RBC 3.37 L (3.5-6.1) 10^6/uL Hgb 9.7 L (14.0-18.0) gm/dL Hct 31.0 L (42.0-52.0) % MCV 92.0 (80.0-105.0) fL MCH 28.8 (25.0-35.0) pg MCHC 31.3 (31.0-37.0) g/dl RDW 17.3 H (11.5-14.5) % Plt Count 138 (120.0-450.0) 10^3/uL MPV 10.8 (7.0-11.0) fl Gran % 72.8 H (50.0-68.0) % Lymph % (Auto) 17.5 L (22.0-35.0) % Lincoln % (Auto) 9.5 H (1.0-6.0) % Eos % (Auto) 0.1 L (1.5-5.0) % Baso % (Auto) 0.1 (0.0-3.0) % Gran # 6.63 H (1.4-6.5) Lymph # 1.6 (1.2-3.4) Lincoln # 0.9 H (0.1-0.6) Eos # 0.0 (0.0-0.7) Baso # 0.01 (0.0-2.0) K/mm3 APTT 46.2 H (23.7-30.8) Seconds pCO2 (35-45) mm/Hg pO2 (80-100) mm/Hg HCO3 (21-28) mmol/L ABG pH (7.35-7.45) ABG Total CO2 (22-28) mmol.L ABG O2 Saturation (95-98) % ABG O2 Content (15-23) ML/dl ABG Base Excess (-2.0-3.0) mmol/L ABG Hemoglobin (11.7-17.4) g/dL ABG Carboxyhemoglobin (0.5-1.5) % POC ABG HHb (Measured) (0-5) % ABG Methemoglobin (0.0-3.0) % ABG O2 Capacity (16-24) mL/dl Hgb O2 Saturation (95.0-98.0) % FiO2 % Sodium 146 (132-148) mmol/L Potassium 4.8 (3.6-5.0) mmol/L Chloride 119 H (98-107) mmol/L Carbon Dioxide 18 L (21-33) mmol/L Anion Gap 14 (10-20) BUN 68 H (7-21) mg/dL Creatinine 3.2 H (0.5-1.4) mg/dL Est GFR ( Amer) 23 Est GFR (Non-Af Amer) 19 POC Glucose (mg/dL) 84 81 (65-110) mg/dL Random Glucose 69 L (70-110) mg/dL Calcium 7.5 L (8.4-10.5) mg/dL Phosphorus 5.7 H (2.5-4.5) mg/dL Magnesium 1.9 (1.7-2.2) mg/dL Total Bilirubin 0.8 (0.2-1.3) mg/dL AST 30 (15-59) U/L ALT 37 (7-56) U/L Alkaline Phosphatase 52 (38-133) U/L Total Creatine Kinase 30 L (35-230) U/L Total Protein 5.0 L (5.8-8.3) g/dL Albumin 1.9 L (3.0-4.8) g/dL Globulin 3.1 gm/dL Albumin/Globulin Ratio 0.6 L (1.1-1.8) 09/25/16 09/25/16 09/24/16 Range/Units 05:05 00:11 22:58 WBC (4.5-11.0) 10^3/ul RBC (3.5-6.1) 10^6/uL Hgb (14.0-18.0) gm/dL Hct (42.0-52.0) % MCV (80.0-105.0) fL MCH (25.0-35.0) pg MCHC (31.0-37.0) g/dl RDW (11.5-14.5) % Plt Count (120.0-450.0) 10^3/uL MPV (7.0-11.0) fl Gran % (50.0-68.0) % Lymph % (Auto) (22.0-35.0) % Lincoln % (Auto) (1.0-6.0) % Eos % (Auto) (1.5-5.0) % Baso % (Auto) (0.0-3.0) % Gran # (1.4-6.5) Lymph # (1.2-3.4) Lincoln # (0.1-0.6) Eos # (0.0-0.7) Baso # (0.0-2.0) K/mm3 APTT 117.5 H* (23.7-30.8) Seconds pCO2 34 L (35-45) mm/Hg pO2 259.0 H (80-100) mm/Hg HCO3 16.0 L (21-28) mmol/L ABG pH 7.28 L (7.35-7.45) ABG Total CO2 17.0 L (22-28) mmol.L ABG O2 Saturation 100.0 H (95-98) % ABG O2 Content 13.5 L (15-23) ML/dl ABG Base Excess -9.8 L (-2.0-3.0) mmol/L ABG Hemoglobin 9.4 L (11.7-17.4) g/dL ABG Carboxyhemoglobin 1.8 H (0.5-1.5) % POC ABG HHb (Measured) 0 (0-5) % ABG Methemoglobin 0.9 (0.0-3.0) % ABG O2 Capacity 13.5 L (16-24) mL/dl Hgb O2 Saturation 97.3 (95.0-98.0) % FiO2 36.0 % Sodium (132-148) mmol/L Potassium (3.6-5.0) mmol/L Chloride (98-107) mmol/L Carbon Dioxide (21-33) mmol/L Anion Gap (10-20) BUN (7-21) mg/dL Creatinine (0.5-1.4) mg/dL Est GFR ( Amer) Est GFR (Non-Af Amer) POC Glucose (mg/dL) 116 H (65-110) mg/dL Random Glucose (70-110) mg/dL Calcium (8.4-10.5) mg/dL Phosphorus (2.5-4.5) mg/dL Magnesium (1.7-2.2) mg/dL Total Bilirubin (0.2-1.3) mg/dL AST (15-59) U/L ALT (7-56) U/L Alkaline Phosphatase (38-133) U/L Total Creatine Kinase (35-230) U/L Total Protein (5.8-8.3) g/dL Albumin (3.0-4.8) g/dL Globulin gm/dL Albumin/Globulin Ratio (1.1-1.8) 09/24/16 09/24/16 09/24/16 Range/Units 17:56 16:30 15:30 WBC (4.5-11.0) 10^3/ul RBC (3.5-6.1) 10^6/uL Hgb 9.1 L (14.0-18.0) gm/dL Hct 29.6 L (42.0-52.0) % MCV (80.0-105.0) fL MCH (25.0-35.0) pg MCHC (31.0-37.0) g/dl RDW (11.5-14.5) % Plt Count (120.0-450.0) 10^3/uL MPV (7.0-11.0) fl Gran % (50.0-68.0) % Lymph % (Auto) (22.0-35.0) % Lincoln % (Auto) (1.0-6.0) % Eos % (Auto) (1.5-5.0) % Baso % (Auto) (0.0-3.0) % Gran # (1.4-6.5) Lymph # (1.2-3.4) [place] # (0.1-0.6) Eos # (0.0-0.7) Baso # (0.0-2.0) K/mm3 APTT 63.6 H (23.7-30.8) Seconds pCO2 (35-45) mm/Hg pO2 (80-100) mm/Hg HCO3 (21-28) mmol/L ABG pH (7.35-7.45) ABG Total CO2 (22-28) mmol.L ABG O2 Saturation (95-98) % ABG O2 Content (15-23) ML/dl ABG Base Excess (-2.0-3.0) mmol/L ABG Hemoglobin (11.7-17.4) g/dL ABG Carboxyhemoglobin (0.5-1.5) % POC ABG HHb (Measured) (0-5) % ABG Methemoglobin (0.0-3.0) % ABG O2 Capacity (16-24) mL/dl Hgb O2 Saturation (95.0-98.0) % FiO2 % Sodium (132-148) mmol/L Potassium (3.6-5.0) mmol/L Chloride (98-107) mmol/L Carbon Dioxide (21-33) mmol/L Anion Gap (10-20) BUN (7-21) mg/dL Creatinine (0.5-1.4) mg/dL Est GFR ( Amer) Est GFR (Non-Af Amer) POC Glucose (mg/dL) 91 (65-110) mg/dL Random Glucose (70-110) mg/dL Calcium (8.4-10.5) mg/dL Phosphorus (2.5-4.5) mg/dL Magnesium (1.7-2.2) mg/dL Total Bilirubin (0.2-1.3) mg/dL AST (15-59) U/L ALT (7-56) U/L Alkaline Phosphatase (38-133) U/L Total Creatine Kinase (35-230) U/L Total Protein (5.8-8.3) g/dL Albumin (3.0-4.8) g/dL Globulin gm/dL Albumin/Globulin Ratio (1.1-1.8) /04/02 Range/Units 11:50 WBC (4.5-11.0) 10^3/ul RBC (3.5-6.1) 10^6/uL Hgb (14.0-18.0) gm/dL Hct (42.0-52.0) % MCV (80.0-105.0) fL MCH (25.0-35.0) pg MCHC (31.0-37.0) g/dl RDW (11.5-14.5) % Plt Count (120.0-450.0) 10^3/uL MPV (7.0-11.0) fl Gran % (50.0-68.0) % Lymph % (Auto) (22.0-35.0) % Lincoln % (Auto) (1.0-6.0) % Eos % (Auto) (1.5-5.0) % Baso % (Auto) (0.0-3.0) % Gran # (1.4-6.5) Lymph # (1.2-3.4) Lincoln # (0.1-0.6) Eos # (0.0-0.7) Baso # (0.0-2.0) K/mm3 APTT (23.7-30.8) Seconds pCO2 (35-45) mm/Hg pO2 (80-100) mm/Hg HCO3 (21-28) mmol/L ABG pH (7.35-7.45) ABG Total CO2 (22-28) mmol.L ABG O2 Saturation (95-98) % ABG O2 Content (15-23) ML/dl ABG Base Excess (-2.0-3.0) mmol/L ABG Hemoglobin (11.7-17.4) g/dL ABG Carboxyhemoglobin (0.5-1.5) % POC ABG HHb (Measured) (0-5) % ABG Methemoglobin (0.0-3.0) % ABG O2 Capacity (16-24) mL/dl Hgb O2 Saturation (95.0-98.0) % FiO2 % Sodium (132-148) mmol/L Potassium (3.6-5.0) mmol/L Chloride (98-107) mmol/L Carbon Dioxide (21-33) mmol/L Anion Gap (10-20) BUN (7-21) mg/dL Creatinine (0.5-1.4) mg/dL Est GFR ( Amer) Est GFR (Non-Af Amer) POC Glucose (mg/dL) 105 (65-110) mg/dL Random Glucose (70-110) mg/dL Calcium (8.4-10.5) mg/dL Phosphorus (2.5-4.5) mg/dL Magnesium (1.7-2.2) mg/dL Total Bilirubin (0.2-1.3) mg/dL AST (15-59) U/L ALT (7-56) U/L Alkaline Phosphatase (38-133) U/L Total Creatine Kinase (35-230) U/L Total Protein (5.8-8.3) g/dL Albumin (3.0-4.8) g/dL Globulin gm/dL Albumin/Globulin Ratio (1.1-1.8) Laboratory Results - last 24 hr 09/24/16 09/24/16 09/24/16 11:50 15:30 16:30 WBC RBC Hgb 9.1 L Hct 29.6 L MCV MCH MCHC RDW Plt Count MPV Gran % Lymph % (Auto) [place] % (Auto) Eos % (Auto) Baso % (Auto) Gran # Lymph # [place] # Eos # Baso # APTT 63.6 H pCO2 pO2 HCO3 ABG pH ABG Total CO2 ABG O2 Saturation ABG O2 Content ABG Base Excess ABG Hemoglobin ABG Carboxyhemoglobin POC ABG HHb (Measured) ABG Methemoglobin ABG O2 Capacity Hgb O2 Saturation FiO2 Sodium Potassium Chloride Carbon Dioxide Anion Gap BUN Creatinine Est GFR ( Amer) Est GFR (Non-Af Amer) POC Glucose (mg/dL) 105 Random Glucose Calcium Phosphorus Magnesium Total Bilirubin AST ALT Alkaline Phosphatase Total Creatine Kinase Total Protein Albumin Globulin Albumin/Globulin Ratio 09/24/16 09/24/16 09/25/16 17:56 22:58 00:11 WBC RBC Hgb Hct MCV MCH MCHC RDW Plt Count MPV Gran % Lymph % (Auto) [place] % (Auto) Eos % (Auto) Baso % (Auto) Gran # Lymph # [place] # Eos # Baso # APTT 117.5 H* pCO2 pO2 HCO3 ABG pH ABG Total CO2 ABG O2 Saturation ABG O2 Content ABG Base Excess ABG Hemoglobin ABG Carboxyhemoglobin POC ABG HHb (Measured) ABG Methemoglobin ABG O2 Capacity Hgb O2 Saturation FiO2 Sodium Potassium Chloride Carbon Dioxide Anion Gap BUN Creatinine Est GFR ( Amer) Est GFR (Non-Af Amer) POC Glucose (mg/dL) 91 116 H Random Glucose Calcium Phosphorus Magnesium Total Bilirubin AST ALT Alkaline Phosphatase Total Creatine Kinase Total Protein Albumin Globulin Albumin/Globulin Ratio 09/25/16 09/25/16 09/25/16 05:05 05:30 05:57 WBC 9.1 D RBC 3.37 L Hgb 9.7 L Hct 31.0 L MCV 92.0 MCH 28.8 MCHC 31.3 RDW 17.3 H Plt Count 138 MPV 10.8 Gran % 72.8 H Lymph % (Auto) 17.5 L [place] % (Auto) 9.5 H Eos % (Auto) 0.1 L Baso % (Auto) 0.1 Gran # 6.63 H Lymph # 1.6 Lincoln # 0.9 H Eos # 0.0 Baso # 0.01 APTT 46.2 H pCO2 34 L pO2 259.0 H HCO3 16.0 L ABG pH 7.28 L ABG Total CO2 17.0 L ABG O2 Saturation 100.0 H ABG O2 Content 13.5 L ABG Base Excess -9.8 L ABG Hemoglobin 9.4 L ABG Carboxyhemoglobin 1.8 H POC ABG HHb (Measured) 0 ABG Methemoglobin 0.9 ABG O2 Capacity 13.5 L Hgb O2 Saturation 97.3 FiO2 36.0 Sodium 146 Potassium 4.8 Chloride 119 H Carbon Dioxide 18 L Anion Gap 14 BUN 68 H Creatinine 3.2 H Est GFR ( Amer) 23 Est GFR (Non-Af Amer) 19 POC Glucose (mg/dL) 81 Random Glucose 69 L Calcium 7.5 L Phosphorus 5.7 H Magnesium 1.9 Total Bilirubin 0.8 AST 30 ALT 37 Alkaline Phosphatase 52 Total Creatine Kinase 30 L Total Protein 5.0 L Albumin 1.9 L Globulin 3.1 Albumin/Globulin Ratio 0.6 L 09/25/16 07:22 WBC RBC Hgb Hct MCV MCH MCHC RDW Plt Count MPV Gran % Lymph % (Auto) [place] % (Auto) Eos % (Auto) Baso % (Auto) Gran # Lymph # [place] # Eos # Baso # APTT pCO2 pO2 HCO3 ABG pH ABG Total CO2 ABG O2 Saturation ABG O2 Content ABG Base Excess ABG Hemoglobin ABG Carboxyhemoglobin POC ABG HHb (Measured) ABG Methemoglobin ABG O2 Capacity Hgb O2 Saturation FiO2 Sodium Potassium Chloride Carbon Dioxide Anion Gap BUN Creatinine Est GFR ( Amer) Est GFR (Non-Af Amer) POC Glucose (mg/dL) 84 Random Glucose Calcium Phosphorus Magnesium Total Bilirubin AST ALT Alkaline Phosphatase Total Creatine Kinase Total Protein Albumin Globulin Albumin/Globulin Ratio Critical Care Progress Note - Nutrition Nutrition: Nutrition Category Date Time Status NPO Diet [DIET] Diets 09/21/16 Breakfast Ordered Attending/Attestation - Attestation I have personally seen and examined this patient.: Yes I have fully participated in the care of the patient.: Yes I have reviewed all pertinent clinical information: Yes Notes (Text): 09/25/16 13:31 80 y/o M s/p Cardiac arrest w/ Gram - Kleb bacteremia KLEB bacteremia on AVYCAZ for KLEB per I.D. Blood cx x2 Positive BP WNL. No SHOCK state. CHF with recent cardiac arrest. W/ Increased pulmonary vascular congestion. Cardiology placed patient on Dobutamine. Lasix x 1 , hold all I.V fluids. Net positive 7 L since admission . No plans for cardiac cath yet. On heparin for NSTEMI and cardiac arrest. 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 May need tube feeding. Paliative care on board to decide goals of care. Pt wants to be DNR/DNI per paliative care conversation. Will reach out to POA to confirm decision. ppi cc time 65 min
[2016-09-25 07:14] LABS: MAGNESIUM 1.9 mg/dL (1.7-2.2); PHOSPHOROUS 5.7 mg/dL (2.5-4.5)
[2016-09-25] MEDS ORDERED: Dextrose 50% SYRINGE Inj (50 ml) IVP ONE (07:24)
--- NOTE | 2016-09-25 07:42 | PN ---
DATE: 09/25/2016(615AM--705AM) SUBJECTIVE: The patient is currently extubated. He is mildly short of breath, but in no acute distress. He appears very weak looking. PHYSICAL EXAMINATION: VITAL SIGNS: Temperature is 98.2, pulse 83, respirations 20/22, blood pressure 135/63. Oxygen saturation on nasal cannula is 100%. HEENT: Normocephalic, atraumatic. No JVD. CARDIOVASCULAR: Systolic ejection murmur at the lower left sternal border. Questionable S3 gallop. LUNGS: Decreased breath sounds at the bases. Less rhonchi. No wheezing. EXTREMITIES: Positive for edema. No cyanosis, no clubbing. Calves are nontender to palpation. GASTROINTESTINAL: Abdomen is soft, nontender, nondistended. Bowel sounds are positive. SKIN: Mild cellulitis -- right lower extremity. NEUROLOGIC: Limited at the present time. PERTINENT LABORATORY DATA: Chest x-ray was done this morning and reviewed. There is moderate pulmonary edema noted with small bilateral pleural effusions. Arterial blood gas was done on nasal cannula. Results are: pH 7.28, pCO2 34 , pO2 of 259. IMPRESSION: 1. Respiratory failure. 2. Status post cardiopulmonary resuscitation. 3. Urosepsis. 4. Rule out pneumonia -- left lower lobe. 5. Renal insufficiency. 6. Pulmonary edema. 7. Rule out myocardial infarction. PLAN: The patient is currently extubated and remains in the ICU. He is mildly short of breath, but in no acute distress. He does remain very weak looking. I did review the x-ray as above. Moderate pulmonary edema with bilateral pleural effusions are noted. I did discuss the case with the night nurse and medical collections representative at length. The patient is currently getting 150 mL of intravenous fluid per hour, in addition to the heparin drip and multiple other intravenous infusions. At this point in time, I would recommend discontinuing the intravenous fluid and starting nasogastric feedings. The patient will also be given a stat dose of Lasix. Input by Dr. Wheat (cardiology) is noted. The patient is currently on a dobutamine drip. Inputs by neurology and infectious disease are also noted. I would continue with the antibiotic coverage as per infectious disease. Temperatures have resolved. The leukocytosis has also completely resolved. Clinical status of the patient is improved -- compared to last week. However, the future status/prognosis of this patient remains very guarded. I will discuss the above with the entire ICU team in the next few moments. I will also discuss the above with Dr. Dejesus later this morning. Maurilio Dietz MD cc: [id number] TT: 09/25/2016 07:41:53 Confirmation # [id number] Dictation # [id number] en MTDD
[2016-09-25] MEDS: Meropenem 1g/NS 100mL IVPB 100 ML IVPB SCH (09:02)
[2016-09-25] MEDS: Linezolid 600 mg in D5W 300 ml 300 ML IVPB SCH (09:04)
--- NOTE | 2016-09-25 09:04 | PN ---
DATE: 09/25/2016 I saw him in the intensive care unit. He is extubated. He is talking, still very weak. He is very concerned about where he is going. He had respiratory failure, sepsis, EKG changes, probably STEMI w ith the UTI. MEDICATIONS: He is on chewable aspirin, Ativan, bacitracin, dobutamine drip, heparin, Lipitor, Merre m IV, Plavix, Protonix, Tygacil IV, Xopenex, and Zyvox IV. PHYSICAL EXAMINATION: VITAL SIGNS: Temp 98.2, which is good. He has a 71 pulse, 149/75 blood pressure, 26 respiratory rat e, 100% O2 sat on 4 liters nasal cannula. HEENT: Head is atraumatic, normocephalic. NG tube in place. Throat is dry. NECK: Supple. HEART: Regular rate. LUNGS: Decreased breath sounds, mild upper airway congestion bilaterally, changes with cough. ABDOMEN: Soft, nontender, positive bowel sounds. Large inguinal hernia. EXTREMITIES: Trace edema. LABORATORY DATA: He has a 9.1 white count - good for him, 9.7 hemoglobin, 31 hematocrit, and 138 walt telets. He has a 146 sodium, potassium 4.8, BUN 68, creatinine 3.2 - a tad better. GFR is 19. Suga r is 84. Calcium is 7.5. AST is 30, ALT is 37. Alk phos is 52. He is a bit better, not out of the davila yet. 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 He has lots of issues - re spiratory failure, status post cardiopulmonary resuscitation, urosepsis, left lower lobe pneumonia, r enal insufficiency, pulmonary edema, and myocardial infarction. We will check his labs tomorrow. Co ntinue with aggressive treatment and care. I will discuss this with his partner, Jordi. Derick Dejesus DO cc: [id number] TT: 09/25/2016 09:03:45 Confirmation # [id number] Dictation # [id number] jose
[2016-09-25] MEDS: Bacitracin Ointment 30 GM TUBE TOP SCH ×3 (09:06→17:16)
--- NOTE | 2016-09-25 09:09 | RAD ---
HISTORY: f/u COMPARISON: 09/24/2016 FINDINGS: There has been interval extubation. The nasogastric tube terminates in the stomach. LUNGS: There is worsening pulmonary venous congestion. PLEURA: There worsening pleural effusions, larger on the right. No pneumothorax. CARDIOVASCULAR: Persistent moderate cardiomegaly. Status post CABG. OSSEOUS STRUCTURES: Within normal limits for the patient's age. VISUALIZED UPPER ABDOMEN: Normal. OTHER FINDINGS: None. IMPRESSION: Worsening of moderate pleural effusions, larger on the right. Persistent cardiomegaly and worsening pulmonary venous congestion.
--- NOTE | 2016-09-25 10:30 | RAD ---
HISTORY: reassess fluid overload s/p diuresis COMPARISON: Earlier same day FINDINGS: LUNGS: No change in vascular congestion and hazy infiltrates. Probable layering of pleural effusions PLEURA: No significant pleural effusion identified, no pneumothorax apparent. CARDIOVASCULAR: Normal. OSSEOUS STRUCTURES: No significant abnormalities. VISUALIZED UPPER ABDOMEN: NG tube in satisfactory position OTHER FINDINGS: None. IMPRESSION: No change in vascular congestion and hazy infiltrates. Probable layering of pleural effusions
--- NOTE | 2016-09-25 11:42 | CP.PCM.CON ---
History of Present Illness - History of Present Illness History of Present Illness: Palliative consult requested by Dr Winter Dejesus notified Reason: Goals of care/ advance care planning HPI: Sent for [facility] with lethargy, weakness and fatigue of few days duration.Upon arriving to the ED patient became unresponsive> went into cardiopulmonary arrest> ACLS> intubated, ROSC achieved within 9 minutes. Workup also revealed DVT, urosepsis,atrial fibrillation. PMHx: COPD, CHF, EF 30 %, pulmonary hypertension,chronic right LE cellulitis,CVA , right sided weakness , CKD depression, urosepsis,anemia, deconditioning. Social History: Non smoker no alcohol or drug use. Lived with life partner Jordi Pool. Family History: Non contributory. Advance Care Plan: The patient does not have an Advanced Directive Review of Systems: As per HPI, weakness, fatigue, dyspnea. Past Patient History - Infectious Disease Hx of Infectious Diseases: None - Past Medical History & Family History Past Medical History?: Yes Past Family History: Reviewed and not pertinent - Past Social History Smoking Status: Never Smoked - CARDIAC Hx Cardiac Disorders: Yes Hx Congestive Heart Failure: Yes Hx Hypertension: Yes - PULMONARY Hx Respiratory Disorders: No - NEUROLOGICAL HX Cerebrovascular Accident: Yes - HEENT Hx HEENT Problems: No - RENAL Hx Chronic Kidney Disease: No - ENDOCRINE/METABOLIC Hx Endocrine Disorders: No - HEMATOLOGICAL/ONCOLOGICAL Hx Anemia: Yes - INTEGUMENTARY Hx Dermatological Problems: No - MUSCULOSKELETAL/RHEUMATOLOGICAL Hx Musculoskeletal Disorders: No Hx Falls: No - GASTROINTESTINAL Hx Gastrointestinal Disorders: No - GENITOURINARY/GYNECOLOGICAL Hx Genitourinary Disorders: No - PSYCHIATRIC Hx Psychophysiologic Disorder: No Hx Substance Use: No - SURGICAL HISTORY Hx Open Heart Surgery: Yes - ANESTHESIA Hx Anesthesia: Yes Meds Allergies/Adverse Reactions: Allergies Allergy/AdvReac Type Severity Reaction Status Date / Time No Known Allergies Allergy Verified 09/21/16 19:09 - Medications Medications: Current Medications Acetaminophen (Tylenol 650 Mg Supp) 650 mg RC Q6H PRN PRN Reason: Fever >100.4 F Last Admin: 09/23/16 08:21 Dose: 650 mg Aspirin (Aspirin Chewable) 81 mg PO DAILY [facility] Last Admin: 09/25/16 09:01 Dose: 81 mg Atorvastatin Calcium (Lipitor) 40 mg PO DIN [facility] Last Admin: 09/24/16 13:45 Dose: 40 mg Bacitracin (Bacitracin) 0 gm TOP TID [facility] Last Admin: 09/25/16 09:06 Dose: 1 gm Calcium Carbonate (Caltrate) 600 mg PO BID [facility] Clopidogrel Bisulfate (Plavix) 75 mg PO DAILY [facility] Last Admin: 09/25/16 09:01 Dose: 75 mg Meropenem 1g/NS 100mL IVPB (Meropenem 1g/Ns 100ml Ivpb) 100 mls @ 100 mls/hr IVPB Q12 [facility] PRN Reason: Protocol Stop: 09/29/16 07:31 Last Admin: 09/25/16 09:02 Dose: 100 mls/hr Linezolid (Zyvox 600mg/300ml D5w) 300 mls @ 200 mls/hr IVPB Q12 [facility] PRN Reason: Protocol Stop: 09/29/16 10:01 Last Admin: 09/25/16 09:04 Dose: 200 mls/hr Tigecycline 50 mg/ Sodium (Chloride) 100 mls @ 100 mls/hr IV Q12 [facility] PRN Reason: Protocol Stop: 09/30/16 11:31 Last Admin: 09/25/16 09:00 Dose: 100 mls/hr Heparin Sodium/Sodium Chloride (Heparin 61068 Units/250ml 1/2 Normal Saline) 250 mls @ 7.185 mls/hr IV .Q24H PRN; Protocol; 9 UNITS/KG/HR PRN Reason: ADJUST RATE PER PROTOCOL Last Titration: 09/25/16 06:54 Dose: 5 units/kg/hr Dobutamine HCl/Dextrose (Dobutamine/Dextrose 5% 500mg/250ml) 250 mls @ 11.975 mls/hr IV .[id number] PRN; Protocol; 5 MCG/KG/MIN PRN Reason: TITRATE PER PROTOCOL Last Admin: 09/25/16 09:00 Dose: 11.975 mls/hr Levalbuterol HCl (Xopenex) 0.63 mg IH [id number] [facility] Last Admin: 09/25/16 08:02 Dose: 0.63 mg Lorazepam (Ativan) 1 mg IVP Q6H PRN; Protocol PRN Reason: Anxiety Last Admin: 09/22/16 17:26 Dose: 1 mg Pantoprazole Sodium (Protonix Inj) 40 mg IVP DAILY [facility] Last Admin: 09/25/16 09:01 Dose: 40 mg Physical Exam - Constitutional Appears: No Acute Distress, Chronically Ill - Head Exam Head Exam: NORMAL INSPECTION - Eye Exam Eye Exam: Normal appearance, PERRL - ENT Exam ENT Exam: Mucous Membranes Moist, Normal Oropharynx - Neck Exam Neck exam: Positive for: Normal Inspection - Respiratory Exam Respiratory Exam: Accessory Muscle Use, Decreased Breath Sounds, Rhonchi Additional comments: dyspnea, tachypnea - Cardiovascular Exam Cardiovascular Exam: Irregular Rhythm, +S1, +S2 - GI/Abdominal Exam GI & Abdominal Exam: Normal Bowel Sounds, Soft Additional comments: no tenderness or guarding - Extremities Exam Additional comments: right mervin pareses - Back Exam Back exam: NORMAL INSPECTION - Skin Skin Exam: Dry, Pallor Additional comments: right lower extremity cellulitis, sacrum red - Additional Findings Additional findings: palliative performance scale rating 30 % Results - Vital Signs Recent Vital Signs: Last Vital Signs Temp 98.1 F 09/25/16 08:00 Pulse 79 09/25/16 10:47 Resp 28 H 09/25/16 10:47 BP 177/82 H 09/25/16 10:00 Pulse Ox 100 09/25/16 10:47 - Labs Result Diagrams: 09/25/16 05:30 09/25/16 05:30 Labs: Laboratory Results - last 24 hr 09/24/16 09/24/16 09/24/16 08:30 11:50 15:30 WBC RBC Hgb 9.1 L Hct 29.6 L MCV MCH MCHC RDW Plt Count MPV Gran % Lymph % (Auto) [place] % (Auto) Eos % (Auto) Baso % (Auto) Gran # Lymph # [place] # Eos # Baso # APTT pCO2 pO2 HCO3 ABG pH ABG Total CO2 ABG O2 Saturation ABG O2 Content ABG Base Excess ABG Hemoglobin ABG Carboxyhemoglobin POC ABG HHb (Measured) ABG Methemoglobin ABG O2 Capacity Hgb O2 Saturation FiO2 Sodium Potassium Chloride Carbon Dioxide Anion Gap BUN Creatinine Est GFR ( Amer) Est GFR (Non-Af Amer) POC Glucose (mg/dL) 105 Random Glucose Calcium Phosphorus Magnesium Total Bilirubin AST ALT Alkaline Phosphatase Total Creatine Kinase Troponin I 0.70 H* D Total Protein Albumin Globulin Albumin/Globulin Ratio 09/24/16 09/24/16 09/24/16 16:30 17:56 22:58 WBC RBC Hgb Hct MCV MCH MCHC RDW Plt Count MPV Gran % Lymph % (Auto) [place] % (Auto) Eos % (Auto) Baso % (Auto) Gran # Lymph # [place] # Eos # Baso # APTT 63.6 H 117.5 H* pCO2 pO2 HCO3 ABG pH ABG Total CO2 ABG O2 Saturation ABG O2 Content ABG Base Excess ABG Hemoglobin ABG Carboxyhemoglobin POC ABG HHb (Measured) ABG Methemoglobin ABG O2 Capacity Hgb O2 Saturation FiO2 Sodium Potassium Chloride Carbon Dioxide Anion Gap BUN Creatinine Est GFR ( Amer) Est GFR (Non-Af Amer) POC Glucose (mg/dL) 91 Random Glucose Calcium Phosphorus Magnesium Total Bilirubin AST ALT Alkaline Phosphatase Total Creatine Kinase Troponin I Total Protein Albumin Globulin Albumin/Globulin Ratio 09/25/16 09/25/16 09/25/16 00:11 05:05 05:30 WBC 9.1 D RBC 3.37 L Hgb 9.7 L Hct 31.0 L MCV 92.0 MCH 28.8 MCHC 31.3 RDW 17.3 H Plt Count 138 MPV 10.8 Gran % 72.8 H Lymph % (Auto) 17.5 L [place] % (Auto) 9.5 H Eos % (Auto) 0.1 L Baso % (Auto) 0.1 Gran # 6.63 H Lymph # 1.6 [place] # 0.9 H Eos # 0.0 Baso # 0.01 APTT 46.2 H pCO2 34 L pO2 259.0 H HCO3 16.0 L ABG pH 7.28 L ABG Total CO2 17.0 L ABG O2 Saturation 100.0 H ABG O2 Content 13.5 L ABG Base Excess -9.8 L ABG Hemoglobin 9.4 L ABG Carboxyhemoglobin 1.8 H POC ABG HHb (Measured) 0 ABG Methemoglobin 0.9 ABG O2 Capacity 13.5 L Hgb O2 Saturation 97.3 FiO2 36.0 Sodium 146 Potassium 4.8 Chloride 119 H Carbon Dioxide 18 L Anion Gap 14 BUN 68 H Creatinine 3.2 H Est GFR ( Amer) 23 Est GFR (Non-Af Amer) 19 POC Glucose (mg/dL) 116 H Random Glucose 69 L Calcium 7.5 L Phosphorus 5.7 H Magnesium 1.9 Total Bilirubin 0.8 AST 30 ALT 37 Alkaline Phosphatase 52 Total Creatine Kinase 30 L Troponin I Total Protein 5.0 L Albumin 1.9 L Globulin 3.1 Albumin/Globulin Ratio 0.6 L 09/25/16 09/25/16 05:57 07:22 WBC RBC Hgb Hct MCV MCH MCHC RDW Plt Count MPV Gran % Lymph % (Auto) [place] % (Auto) Eos % (Auto) Baso % (Auto) Gran # Lymph # [place] # Eos # Baso # APTT pCO2 pO2 HCO3 ABG pH ABG Total CO2 ABG O2 Saturation ABG O2 Content ABG Base Excess ABG Hemoglobin ABG Carboxyhemoglobin POC ABG HHb (Measured) ABG Methemoglobin ABG O2 Capacity Hgb O2 Saturation FiO2 Sodium Potassium Chloride Carbon Dioxide Anion Gap BUN Creatinine Est GFR ( Amer) Est GFR (Non-Af Amer) POC Glucose (mg/dL) 81 84 Random Glucose Calcium Phosphorus Magnesium Total Bilirubin AST ALT Alkaline Phosphatase Total Creatine Kinase Troponin I Total Protein Albumin Globulin Albumin/Globulin Ratio Assessment & Plan - Assessment and Plan (Free Text) Assessment: 80 year old male admitted with urosepsis, DVT, s/p cardiopulmonary arrest, s/p intubation, atrial fibrillation. History of CHF, EF 30 %,pulmonary hypertension, anemia, cellulitis, depression, UTI. The patient is awake, weak. Accessory muscle use, dyspneic, anxious. I explained to the patient that he had suffered cardiopulmonary arrest resulting in CPR/intubation/mechanical ventilation. The patient did not acknowledge this. I asked if his condition worsened, meaning that if his heart and lungs failed again, would he want to have CPR and intubation. I explained that without these measures he could .The patient said no both times, that he did not want these measures. I asked if he had discussed this with his partner( Jordi), he indicated that he hadn't. When Dr. Alvaro Littlejohn and I went back to verify this with the patient, he was inconsistent and did not commit to DNR/ DNI. I also spoke with patient's lifetime partner, Jordi He Deleon via phone. Jordi himself is ill and homebound. I told him of the conversation I had with the patient. Jordi stated he had never had a discussion with the patient regarding resuscitation wishes. 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 Jordi stated that he understood this, but needed to think things through. Jordi acknowledged that he was thinking with his heart at this point and would probably agree to full resuscitation efforts but would like talk to the patient before making any decision. Time spent in discussion with patient and partner regarding goals of care / resuscitation wishes, 40 minutes Plan: Continue current medical management. Will assist with establishing goals of care and advance care planning - Date & Time Date: 09/25/16 Time: 13:00
--- NOTE | 2016-09-25 13:42 | US ---
PROCEDURE: Left upper extremity venous ultrasound HISTORY: Arm pain and swelling. Evaluate for deep venous thrombosis. PHYSICIAN(S): Clement Rodriges MD. FINDINGS: The visualized left internal jugular vein is patent and compressible. Occlusive thrombus is noted in the mid to distal left subclavian vein and left axillary vein. DVT is also noted in the proximal left brachial veins. Limited imaging of the right subclavian vein demonstrates occlusive thrombus. IMPRESSION: 1. Left axillo subclavian DVT. 2. Right subclavian DVT
--- NOTE | 2016-09-25 13:44 | PN ---
DATE: 09/25/2016 The patient seen in [facility], bed 3. No fevers. The patient is extubated. He was seen earlier this morn ing. PHYSICAL EXAMINATION: VITAL SIGNS: Temperature is 98, blood pressure is 170/100, respiratory rate of 20, heart rate of 79. HEENT: Unremarkable. NECK: Supple. LUNGS: Decreased breath sounds. HEART: Normal S1, S2. ABDOMEN: Soft, nontender. LABORATORY EXAMINATION: Reveals the patient's white count is 9.1, hemoglobin of 9 and platelets of 1 38. Chemistries are noted. BUN of 68, creatinine of 3.2. The patient's last procalcitonin of 35. Microbiology reveals gram-negative sandra in the blood and a gram-negative sandra in other blood cultures. The patient does have Klebsiella species in the urine. It is sensitive to Avycaz. Blood cultures f rom the 9th are gram-negative sandra. Urine culture is Klebsiella and I have contacted ____ and notifie d her that I have asked microbiology to check for the Klebsiella sensitive to Avycaz and it is sensit christy to Avycaz. We will discontinue the meropenem and we will discontinue the Zyvox and Tygacil and s tart the patient on Avycaz. We will dose the Avycaz, which is ceftazidime and avibactam, since the p atient's creatinine is 3.2. ASSESSMENT AND PLAN: An 80-year-old with severe sepsis with acute hypoxic ventilatory dependent resp iratory failure secondary to left lower lobe healthcare-associated pneumonia with possible gram-posit christy cocci, possible gram-negative sandra, now with severe sepsis. He is extubated, with gram-negative r od bacteremia with Klebsiella that is resistant to most antibiotics. It is sensitive to Avycaz, whic h is ceftazidime and avibactam. We will start Avycaz renal dosing and discontinue the Zyvox, discont inue the Tygacil and meropenem and since the patient's renal function, the GFR is 23, we will adjust the dose. I have asked pharmacy to initiate Avycaz in this patient with a gram-negative sandra bacterem ia, most likely urine as the source. We will check on identification of the gram-negative sandra in the blood and we will make further recommendation. I have discussed it with ____. First dose now. Jose Morales MD cc: 350 TT: 09/25/2016 13:43:52 Confirmation # [id number] Dictation # [id number] sn
[2016-09-25] MEDS ORDERED: Albuterol-Ipratrop 3 mg / 0.5 (3 ml) UD IH STA (14:07)
--- NOTE | 2016-09-25 19:30 | CARD ---
APPROVED REPORT EXAM: Two-dimensional and M-mode echocardiogram with Doppler and color Doppler. INDICATION LV Function:SystolicDiastolic 2D DIMENSIONS Left Atrium (2D)4.9 (1.6-4.0cm)IVSd1.3 (0.7-1.1cm) LVDd4.8 (3.9-5.9cm)PWd1.6 (0.7-1.1cm) LVDs3.7 (2.5-4.0cm)LVEF (%)40.0 (>50%) M-Mode DIMENSIONS Aortic Root2.60 (2.2-3.7cm)Aortic Cusp Exc.0.90 (1.5-2.0cm) Aortic Valve AoV Peak Redyfgpu995.0cm/Birgit Peak GR.20mmHg Mitral Valve E/A ratio0.0 TDI E/Lateral E'0.0E/Medial E'0.0 Tricuspid Valve TR Peak [id number] [id number] Peak Gr.33mmHg [id number] LEFT VENTRICLE The left ventricle is normal size. There is mild concentric left ventricular hypertrophy. The systolic function is moderately impaired. There is a flattened septum Rhythm is A Fib RIGHT VENTRICLE The right ventricle is borderline dilated. There is normal right ventricular wall thickness. RV Systolic function is mildly to moderately reduced. ATRIA The left atrium is moderately dilated. The right atrium is mildly dilated. AORTIC VALVE The aortic valve is mildly sclerotic. There is mild to moderate aortic regurgitation. MITRAL VALVE The mitral valve is moderately thickened. Mitral regurgitation is mild to moderate. TRICUSPID VALVE There is mild pulmonary hypertension. GREAT VESSELS The aortic root is normal in size. PERICARDIAL EFFUSION There is moderate left pleural effusion. <Conclusion> The left ventricle is normal size. There is mild concentric left ventricular hypertrophy. The systolic function is moderately impaired. There is a flattened septum There is mild to moderate aortic regurgitation. Mitral regurgitation is mild to moderate. There is moderate left pleural effusion.
--- NOTE | 2016-09-25 23:09 | CP.PCM.PN ---
Subjective - Date & Time of Evaluation Date of Evaluation: 09/25/16 Time of Evaluation: 11:00 Objective - Vital Signs/Intake and Output Vital Signs (last 24 hours): Temp Pulse Resp BP Pulse Ox 98.2 F 71 33 H 130/63 96 09/25/16 20:00 09/25/16 22:00 09/25/16 22:00 09/25/16 22:00 09/25/16 22:00 Intake and Output: 09/25/16 09/26/16 18:59 06:59 Intake Total 738 Output Total 800 Balance -62 - Medications Medications: Current Medications Acetaminophen (Tylenol 650 Mg Supp) 650 mg RC Q6H PRN PRN Reason: Fever >100.4 F Last Admin: 09/23/16 08:21 Dose: 650 mg Aspirin (Aspirin Chewable) 81 mg PO DAILY [facility] Last Admin: 09/25/16 09:01 Dose: 81 mg Atorvastatin Calcium (Lipitor) 40 mg PO DIN [facility] Last Admin: 09/25/16 17:18 Dose: 40 mg Bacitracin (Bacitracin) 0 gm TOP TID [facility] Last Admin: 09/25/16 17:16 Dose: 1 gm Calcium Carbonate (Caltrate) 600 mg PO BID [facility] Last Admin: 09/25/16 17:16 Dose: 600 mg Clopidogrel Bisulfate (Plavix) 75 mg PO DAILY [facility] Last Admin: 09/25/16 09:01 Dose: 75 mg Heparin Sodium/Sodium Chloride (Heparin 81668 Units/250ml 1/2 Normal Saline) 250 mls @ 7.185 mls/hr IV .Q24H PRN; Protocol; 9 UNITS/KG/HR PRN Reason: ADJUST RATE PER PROTOCOL Last Titration: 09/25/16 06:54 Dose: 5 units/kg/hr Dobutamine HCl/Dextrose (Dobutamine/Dextrose 5% 500mg/250ml) 250 mls @ 11.975 mls/hr IV .[id number] PRN; Protocol; 5 MCG/KG/MIN PRN Reason: TITRATE PER PROTOCOL Last Admin: 09/25/16 09:00 Dose: 11.975 mls/hr Ceftazidime/Avibactam 0.94 gm/ (Sodium Chloride) 100 mls @ 50 mls/hr IVPB Q12H [facility] Last Admin: 09/25/16 12:24 Dose: 50 mls/hr Levalbuterol HCl (Xopenex) 0.63 mg IH [id number] [facility] Last Admin: 09/25/16 20:56 Dose: 0.63 mg Lorazepam (Ativan) 1 mg IVP Q6H PRN; Protocol PRN Reason: Anxiety Last Admin: 09/22/16 17:26 Dose: 1 mg Metoprolol Tartrate (Lopressor) 25 mg PO BID [facility] Last Admin: 09/25/16 17:17 Dose: 25 mg Pantoprazole Sodium (Protonix Inj) 40 mg IVP DAILY [facility] Last Admin: 09/25/16 09:01 Dose: 40 mg - Labs Labs: 09/25/16 05:30 09/25/16 05:30 PT 12.4 Seconds (9.9-11.8) H 09/24/16 08:25 INR 1.15 (0.93-1.08) H 09/24/16 08:25 APTT 69.6 Seconds (23.7-30.8) H 09/25/16 20:10
[2016-09-26] MEDS: Levalbuterol 0.63 MG/3 ML Inhal Soln UD IH SCH ×5 (05:16→20:01)
[2016-09-26 05:50] LABS: ARTERIAL BLOOD GAS O2 CAPACITY 14.7 mL/dl (16-24); ARTERIAL BLOOD GAS O2 CONTENT 14.6 ML/dl (15-23); ARTERIAL BLOOD HGB O2 SAT 95.6 % (95.0-98.0); CARBOXYHEMOGLOBIN 2.5 % (0.5-1.5); HHB 0.8 % (0-5); METHEMOGLOBIN 1.1 % (0.0-3.0)
[2016-09-26 06:09] LABS: ARTERIAL BLOOD GAS PH 7.15 (7.35-7.45)
[2016-09-26 06:53] LABS: HEMATOCRIT 34.2 % (42.0-52.0); MEAN CELL VOLUME 92.2 fL (80.0-105.0); MEAN CORPUSCULAR HGB CONC 30.4 g/dl (31.0-37.0); MEAN PLATELET VOLUME 10.8 fl (7.0-11.0); RED CELL DISTRIBUTION WIDTH 17.6 % (11.5-14.5); WHITE BLOOD COUNT 9.4 10^3/ul (4.5-11.0)
[2016-09-26 07:05] LABS: ALB/GLOB RATIO 0.6 (1.1-1.8); ALKALINE PHOSPHATASE 57 U/L (38-133); ALT/SGPT 33 U/L (7-56); AST/SGOT 32 U/L (15-59); BILIRUBIN,TOTAL 0.8 mg/dL (0.2-1.3); BLOOD UREA NITROGEN 75 mg/dL (7-21); CALCIUM 8.1 mg/dL (8.4-10.5); CARBON DIOXIDE 17 mmol/L (21-33); CHLORIDE 117 mmol/L (98-107); GFR AFRICAN-AMERICAN 20; GLUCOSE,RANDOM 80 mg/dL (70-110); MAGNESIUM 1.9 mg/dL (1.7-2.2); PHOSPHOROUS 7.7 mg/dL (2.5-4.5); POTASSIUM 5.3 mmol/L (3.6-5.0); SODIUM 143 mmol/L (132-148); TOTAL PROTEIN 5.1 g/dL (5.8-8.3)
[2016-09-26] MEDS ORDERED: Sodium Bicarbonate (8.4%) 50 Meq Syringe IVP ONE (07:39)
[2016-09-26 07:41] LABS: ARTERIAL BLOOD GAS HCO3 15.1 mmol/L (21-28); ARTERIAL BLOOD GAS O2 CAPACITY 14.2 mL/dl (16-24); ARTERIAL BLOOD GAS O2 CONTENT 13.9 ML/dl (15-23); ARTERIAL BLOOD GAS PH 7.22 (7.35-7.45); ARTERIAL BLOOD HGB O2 SAT 94.5 % (95.0-98.0); CARBOXYHEMOGLOBIN 2.5 % (0.5-1.5); HHB 1.9 % (0-5)
--- NOTE | 2016-09-26 07:53 | CP.CCUPN ---
<Kiko Webber - Last Filed: 09/26/16 13:15> CCU Subjective - Physician Review Subjective (Free Text): 09/26/16 07:50 Patient seen and examined at bedside in ICU. Today is hospital day 6. Extubated 2 days agos. Awake and alert, but lethargic, with labored respirations and weak breath sounds. Patient is sufficiently awake and alert to track staff in room and answer questions, but is dyspnic with speech. Started on BiPAP. CCU Objective - Vital Signs / Intake & Output Vital Signs (Last 4 hours): Vital Signs Temp Pulse Resp BP Pulse Ox 09/26/16 07:17 71 09/26/16 06:49 70 09/26/16 06:18 73 32 H 156/87 H 67 L 09/26/16 06:13 146/73 09/26/16 06:00 74 37 H 66 L 09/26/16 05:28 77 28 H 09/26/16 05:27 82 27 H 09/26/16 05:00 68 27 H 145/73 99 09/26/16 04:49 67 27 H 09/26/16 04:48 69 29 H 09/26/16 04:47 73 24 09/26/16 04:46 77 26 H 09/26/16 04:45 75 30 H 09/26/16 04:44 68 23 09/26/16 04:43 72 27 H 09/26/16 04:42 70 29 H 09/26/16 04:41 75 24 09/26/16 04:40 72 24 09/26/16 04:39 82 27 H 09/26/16 04:38 68 31 H 09/26/16 04:37 72 26 H 09/26/16 04:36 73 25 H 09/26/16 04:35 73 26 H 09/26/16 04:34 73 26 H 09/26/16 04:33 72 28 H 09/26/16 04:32 77 25 H 09/26/16 04:31 70 26 H 09/26/16 04:30 71 30 H 09/26/16 04:29 66 25 H 09/26/16 04:28 74 26 H 09/26/16 04:17 74 26 H 09/26/16 04:16 74 25 H 09/26/16 04:15 68 25 H 09/26/16 04:14 70 32 H 09/26/16 04:13 76 26 H 09/26/16 04:12 68 26 H 09/26/16 04:11 69 28 H 09/26/16 04:10 72 28 H 09/26/16 04:09 75 27 H 09/26/16 04:08 76 26 H 09/26/16 04:07 75 27 H 09/26/16 04:06 75 27 H 09/26/16 04:05 79 26 H 09/26/16 04:04 80 28 H 09/26/16 04:03 73 26 H 09/26/16 04:02 78 31 H 09/26/16 04:01 74 28 H 09/26/16 04:00 98.6 F 70 149/64 09/26/16 03:59 75 29 H Intake and Output (Last 8hrs): Intake & Output 09/25/16 09/26/16 09/26/16 22:59 06:59 14:59 Intake Total 738 122 Output Total 800 600 Balance -62 -8 Intake: IV 138 122 Right Antecubital 4 Right Hand 134 122 Oral 0 0 Other 600 Output: Urine 800 600 Urethral (Piper) 800 600 Other: Voiding Method Indwelling Catheter # Bowel Movements 1 - Physical Exam Head: Positive for: Atraumatic, Normocephalic. Negative for: Contusion, Ecchymosis, Abrasion, Laceration Pupils: Positive for: PERRL. Negative for: Sluggish, Non-Reactive, Pinpoint Extroacular Muscles: Positive for: EOMI Conjunctiva: Positive for: Normal. Negative for: Injected, Icteric Mouth: Positive for: Moist Mucous Membranes, Other (wearing bipap mask). Negative for: Drooling Nose (External): Positive for: Atraumatic, Other (NG tube in place, fixed with tape). Negative for: Abrasion, Contusion, Laceration Neck: Positive for: Trachea Midline. Negative for: MIDLINE TENDERNESS, JVD Respiratory/Chest: Positive for: Good Air Exchange, Respiratory Distress ( labored breathing with wet breath sounds this AM while on Nasal Canula 5L), Decreased Breath Sounds (decreased breath sounds in all auscultated alex), Rales (diffuse rales in all alex, improved over yesterday), Other (dyspnic with speech, worse compared to yesterday). Negative for: Clear to Auscultation , Accessory Muscle Use, Wheezes, Rhonchi, Tachypneic, Tender to Palpation Cardiovascular: Positive for: Regular Rate and Rhythm, Normal S1, S2. Negative for: Murmurs, Irregular Rhythm, Tachycardic, Bradycardic Abdomen: Positive for: Normal Bowel Sounds. Negative for: Tenderness, Distention, Peritoneal Signs, Guarding, Ostomy Tubes, Mass/Organomegaly Genitourinary Male: Positive for: Hernias (Large hernia/scrotal mass), Other ( diffusely swollen/enlarged scrotum, unable to visualize penis due to swollen/ enlarged scrotum but able to palpate through scrotal tissue; piper in place draining yellow urine) Upper Extremity: Positive for: Edema (+2 pitting edema bilaterally), Other (ROM limited by fatigue, but all to follow simple commands/movements requiring mininal exertion; both hands cool to palpation). Negative for: Normal Inspection, Cyanosis, Normal ROM, NORMAL PULSES (unable to palpate pulses through edema), Erythema Lower Extremity: Positive for: Edema (+2 pitting edema bilaterally), Other (ROM limited by fatigue, but all to follow simple commands/movements requiring mininal exertion). Negative for: Normal Inspection, CALF TENDERNESS, NORMAL PULSES (unable to palpate pulses through edema), Cyanosis, Normal ROM Neurological: Positive for: GCS=15. Negative for: Speech Normal (speech is slow , dyspnic with talking), Motor Func Grossly Intact Skin: Positive for: Warm (except as noted in Extremities exams), Dry, Normal Color, Abrasion (as described in upper extremity exam). Negative for: Rashes, Diaphoretic, Erythematous Psychiatric: Positive for: Lethargic Other physical findings (Free Text): lethargic, but awake and alert sufficiently to track staff in room and answer simple questions/follow simple commands - Medications Active Medications: Active Medications Generic Name Dose Route Start Last Admin Trade Name Freq PRN Reason Stop Dose Admin Acetaminophen 650 mg 09/23/16 08:01 09/23/16 08:21 Tylenol 650 Mg Supp RC 650 mg Q6H PRN Administration Fever >100.4 F Aspirin 81 mg 09/24/16 11:45 09/25/16 09:01 Aspirin Chewable PO 81 mg DAILY ROXY Administration Atorvastatin Calcium 40 mg 09/24/16 11:45 09/25/16 17:18 Lipitor PO 40 mg DIN ROXY Administration Bacitracin 0 gm 09/24/16 18:00 09/25/16 17:16 Bacitracin TOP 1 gm TID ROXY Administration Calcium Carbonate 600 mg 09/25/16 10:00 09/25/16 17:16 Caltrate PO 600 mg BID ROXY Administration Clopidogrel Bisulfate 75 mg 09/24/16 11:45 09/25/16 09:01 Plavix PO 75 mg DAILY ROXY Administration Heparin Sodium/Sodium Chloride 250 mls @ 7.185 mls/hr 09/23/16 20:02 09/25/16 06:54 Heparin 40347 Units/250ml 1/2 Normal Saline IV 5 units/kg/hr .Q24H PRN Titration ADJUST RATE PER PROTOCOL Protocol 9 UNITS/KG/HR Dobutamine HCl/Dextrose 250 mls @ 11.975 mls/hr 09/25/16 05:40 09/25/16 09:00 Dobutamine/Dextrose 5% 500mg/250ml IV 11.975 mls/hr .[id number] PRN Administration TITRATE PER PROTOCOL Protocol 5 MCG/KG/MIN Ceftazidime/Avibactam 0.94 gm/ 100 mls @ 50 mls/hr 09/25/16 12:00 09/25/16 23: 14 Sodium Chloride IVPB 50 mls/hr Q12H ROXY Administration Levalbuterol HCl 0.63 mg 09/25/16 15:30 09/26/16 07:12 Xopenex IH 0.63 mg [id number] ROXY Administration Lorazepam 1 mg 09/22/16 15:26 09/22/16 17:26 Ativan IVP 1 mg Q6H PRN Administration Anxiety Protocol Metoprolol Tartrate 25 mg 09/25/16 18:00 09/25/16 17:17 Lopressor PO 25 mg BID ROXY Administration Pantoprazole Sodium 40 mg 09/22/16 10:00 09/25/16 09:01 Protonix Inj IVP 40 mg DAILY ROXY Administration - Patient Studies Lab Studies: Microbiology Studies 09/23/16 11:30 Blood Culture - Preliminary Blood-Venous Gram Negative Miguel Gram Stain - Final 09/23/16 12:00 Blood Culture - Preliminary Blood-Venous Gram Negative Miguel Gram Stain - Final Lab Studies 09/26/16 09/26/16 09/25/16 Range/Units 06:20 05:40 20:10 WBC 9.4 (4.5-11.0) 10^3/ul RBC 3.71 (3.5-6.1) 10^6/uL Hgb 10.4 L (14.0-18.0) gm/dL Hct 34.2 L (42.0-52.0) % MCV 92.2 (80.0-105.0) fL MCH 28.0 (25.0-35.0) pg MCHC 30.4 L (31.0-37.0) g/dl RDW 17.6 H (11.5-14.5) % Plt Count 129 (120.0-450.0) 10^3/uL MPV 10.8 (7.0-11.0) fl APTT 50.2 H 69.6 H (23.7-30.8) Seconds pCO2 46 H (35-45) mm/Hg pO2 107.0 H (80-100) mm/Hg HCO3 16.0 L (21-28) mmol/L ABG pH 7.15 L* (7.35-7.45) ABG Total CO2 17.4 L (22-28) mmol.L ABG O2 Saturation 99.2 H (95-98) % ABG O2 Content 14.6 L (15-23) ML/dl ABG Base Excess -12.4 L (-2.0-3.0) mmol/L ABG Hemoglobin 10.7 L (11.7-17.4) g/dL ABG Carboxyhemoglobin 2.5 H (0.5-1.5) % POC ABG HHb (Measured) 0.8 (0-5) % ABG Methemoglobin 1.1 (0.0-3.0) % ABG O2 Capacity 14.7 L (16-24) mL/dl Hgb O2 Saturation 95.6 (95.0-98.0) % FiO2 40.0 % Sodium 143 (132-148) mmol/L Potassium 5.3 H (3.6-5.0) mmol/L Chloride 117 H (98-107) mmol/L Carbon Dioxide 17 L (21-33) mmol/L Anion Gap 14 (10-20) BUN 75 H (7-21) mg/dL Creatinine 3.6 H (0.5-1.4) mg/dL Est GFR ( Amer) 20 Est GFR (Non-Af Amer) 16 POC Glucose (mg/dL) (65-110) mg/dL Random Glucose 80 (70-110) mg/dL Calcium 8.1 L (8.4-10.5) mg/dL Phosphorus 7.7 H (2.5-4.5) mg/dL Magnesium 1.9 (1.7-2.2) mg/dL Total Bilirubin 0.8 (0.2-1.3) mg/dL AST 32 (15-59) U/L ALT 33 (7-56) U/L Alkaline Phosphatase 57 (38-133) U/L Total Protein 5.1 L (5.8-8.3) g/dL Albumin 2.0 L (3.0-4.8) g/dL Globulin 3.2 gm/dL Albumin/Globulin Ratio 0.6 L (1.1-1.8) 09/25/16 09/25/16 09/25/16 Range/Units 17:47 13:28 11:47 WBC (4.5-11.0) 10^3/ul RBC (3.5-6.1) 10^6/uL Hgb (14.0-18.0) gm/dL Hct (42.0-52.0) % MCV (80.0-105.0) fL MCH (25.0-35.0) pg MCHC (31.0-37.0) g/dl RDW (11.5-14.5) % Plt Count (120.0-450.0) 10^3/uL MPV (7.0-11.0) fl APTT 70.0 H (23.7-30.8) Seconds pCO2 (35-45) mm/Hg pO2 (80-100) mm/Hg HCO3 (21-28) mmol/L ABG pH (7.35-7.45) ABG Total CO2 (22-28) mmol.L ABG O2 Saturation (95-98) % ABG O2 Content (15-23) ML/dl ABG Base Excess (-2.0-3.0) mmol/L ABG Hemoglobin (11.7-17.4) g/dL ABG Carboxyhemoglobin (0.5-1.5) % POC ABG HHb (Measured) (0-5) % ABG Methemoglobin (0.0-3.0) % ABG O2 Capacity (16-24) mL/dl Hgb O2 Saturation (95.0-98.0) % FiO2 % Sodium (132-148) mmol/L Potassium (3.6-5.0) mmol/L Chloride (98-107) mmol/L Carbon Dioxide (21-33) mmol/L Anion Gap (10-20) BUN (7-21) mg/dL Creatinine (0.5-1.4) mg/dL Est GFR ( Amer) Est GFR (Non-Af Amer) POC Glucose (mg/dL) 95 115 H (65-110) mg/dL Random Glucose (70-110) mg/dL Calcium (8.4-10.5) mg/dL Phosphorus (2.5-4.5) mg/dL Magnesium (1.7-2.2) mg/dL Total Bilirubin (0.2-1.3) mg/dL AST (15-59) U/L ALT (7-56) U/L Alkaline Phosphatase (38-133) U/L Total Protein (5.8-8.3) g/dL Albumin (3.0-4.8) g/dL Globulin gm/dL Albumin/Globulin Ratio (1.1-1.8) 09/25/16 Range/Units 09:12 WBC (4.5-11.0) 10^3/ul RBC (3.5-6.1) 10^6/uL Hgb (14.0-18.0) gm/dL Hct (42.0-52.0) % MCV (80.0-105.0) fL MCH (25.0-35.0) pg MCHC (31.0-37.0) g/dl RDW (11.5-14.5) % Plt Count (120.0-450.0) 10^3/uL MPV (7.0-11.0) fl APTT (23.7-30.8) Seconds pCO2 (35-45) mm/Hg pO2 (80-100) mm/Hg HCO3 (21-28) mmol/L ABG pH (7.35-7.45) ABG Total CO2 (22-28) mmol.L ABG O2 Saturation (95-98) % ABG O2 Content (15-23) ML/dl ABG Base Excess (-2.0-3.0) mmol/L ABG Hemoglobin (11.7-17.4) g/dL ABG Carboxyhemoglobin (0.5-1.5) % POC ABG HHb (Measured) (0-5) % ABG Methemoglobin (0.0-3.0) % ABG O2 Capacity (16-24) mL/dl Hgb O2 Saturation (95.0-98.0) % FiO2 % Sodium (132-148) mmol/L Potassium (3.6-5.0) mmol/L Chloride (98-107) mmol/L Carbon Dioxide (21-33) mmol/L Anion Gap (10-20) BUN (7-21) mg/dL Creatinine (0.5-1.4) mg/dL Est GFR ( Amer) Est GFR (Non-Af Amer) POC Glucose (mg/dL) 141 H (65-110) mg/dL Random Glucose (70-110) mg/dL Calcium (8.4-10.5) mg/dL Phosphorus (2.5-4.5) mg/dL Magnesium (1.7-2.2) mg/dL Total Bilirubin (0.2-1.3) mg/dL AST (15-59) U/L ALT (7-56) U/L Alkaline Phosphatase (38-133) U/L Total Protein (5.8-8.3) g/dL Albumin (3.0-4.8) g/dL Globulin gm/dL Albumin/Globulin Ratio (1.1-1.8) Laboratory Results - last 24 hr 09/25/16 09/25/16 09/25/16 09:12 11:47 13:28 WBC RBC Hgb Hct MCV MCH MCHC RDW Plt Count MPV APTT 70.0 H pCO2 pO2 HCO3 ABG pH ABG Total CO2 ABG O2 Saturation ABG O2 Content ABG Base Excess ABG Hemoglobin ABG Carboxyhemoglobin POC ABG HHb (Measured) ABG Methemoglobin ABG O2 Capacity Hgb O2 Saturation FiO2 Sodium Potassium Chloride Carbon Dioxide Anion Gap BUN Creatinine Est GFR ( Amer) Est GFR (Non-Af Amer) POC Glucose (mg/dL) 141 H 115 H Random Glucose Calcium Phosphorus Magnesium Total Bilirubin AST ALT Alkaline Phosphatase Total Protein Albumin Globulin Albumin/Globulin Ratio 09/25/16 09/25/16 09/26/16 17:47 20:10 05:40 WBC RBC Hgb Hct MCV MCH MCHC RDW Plt Count MPV APTT 69.6 H pCO2 46 H pO2 107.0 H HCO3 16.0 L ABG pH 7.15 L* ABG Total CO2 17.4 L ABG O2 Saturation 99.2 H ABG O2 Content 14.6 L ABG Base Excess -12.4 L ABG Hemoglobin 10.7 L ABG Carboxyhemoglobin 2.5 H POC ABG HHb (Measured) 0.8 ABG Methemoglobin 1.1 ABG O2 Capacity 14.7 L Hgb O2 Saturation 95.6 FiO2 40.0 Sodium Potassium Chloride Carbon Dioxide Anion Gap BUN Creatinine Est GFR ( Amer) Est GFR (Non-Af Amer) POC Glucose (mg/dL) 95 Random Glucose Calcium Phosphorus Magnesium Total Bilirubin AST ALT Alkaline Phosphatase Total Protein Albumin Globulin Albumin/Globulin Ratio 09/26/16 06:20 WBC 9.4 RBC 3.71 Hgb 10.4 L Hct 34.2 L MCV 92.2 MCH 28.0 MCHC 30.4 L RDW 17.6 H Plt Count 129 MPV 10.8 APTT 50.2 H pCO2 pO2 HCO3 ABG pH ABG Total CO2 ABG O2 Saturation ABG O2 Content ABG Base Excess ABG Hemoglobin ABG Carboxyhemoglobin POC ABG HHb (Measured) ABG Methemoglobin ABG O2 Capacity Hgb O2 Saturation FiO2 Sodium 143 Potassium 5.3 H Chloride 117 H Carbon Dioxide 17 L Anion Gap 14 BUN 75 H Creatinine 3.6 H Est GFR ( Amer) 20 Est GFR (Non-Af Amer) 16 POC Glucose (mg/dL) Random Glucose 80 Calcium 8.1 L Phosphorus 7.7 H Magnesium 1.9 Total Bilirubin 0.8 AST 32 ALT 33 Alkaline Phosphatase 57 Total Protein 5.1 L Albumin 2.0 L Globulin 3.2 Albumin/Globulin Ratio 0.6 L Fingerstick Blood Sugar Results: 98 Review of Systems - Review of Systems Systems not reviewed;Unavailable: Acuity of Condition Critical Care Progress Note - Nutrition Nutrition: Nutrition Category Date Time Status NPO Diet [DIET] Diets 09/21/16 Breakfast Ordered Assessment/Plan - Assessment and Plan (Free Text) Assessment: This is an 80 yo M with PMH of CVA, CHF with EF 30%, mild Pulm HTN, chronic Right LE cellulitis, and Depression who was intubated for respiratory failure and is s/p cardiac arrest with ROSC after 9 minutes. He is currently being managed for Klebsiella Urosepsis, respiratory distress with respiratory and metabolic acidosis; patient has elected to be made DNR/DNI. Plan: Neuro: -awake, mildly alert but lethargic, only following some commands -extubated 2 days prior, airway remains protected, neurologically stable -maintain normothermia, no fevers overnight -Hx CVA -Neuro (Dr. Perry) consulted, appreciate any recs; more likely hypoxic injury vs anoxic injury, will require rehab, signed off -d/c Ativan for PRN sedation -Head CT on 09/21 notable for prior L-CVA, no acute mass effect or hemorrhage noted -PT/OT consulted Pulm: -Intubated for respiratory failure in the ED, extubated 2 days prior; worsened respiratory status today, switched from NC to Bipap (05/22/35%/16) -patient now DNR/DNI after discussion with patient, who repeatedly expressed desire to not be re-intubated; partner confirms that patient wishes include not being intubated/ventilated indefinitely; Palliative on board, appreciate all recs -Was satting well on NC O2 5L, but wet breath sounds/diffuse rales on exam, ABG on 5L NC acutely worsened today, pH down to 7.15; switched to Bipap and diuresed with 80mg IV Lasix x1 -CXR today and exam concerning for fluid overload/pulmonary edema -Maintain SaO2 > 90%, paO2 > 60 -AM ABGs on BiPAP (5L NC): pCO2 37 (46), pO2 79 (was 107), HCO2 15.1 (was 16), pH 7.22 (was 7.15), FiO2 35% (40%); per Winter's Formula expected paCO2 28-32 ( 30-34), so not compensated -Pulm following (Dr. Dietz), appreciate any recs -Aspiration precautions, head of bed to 30 degrees Cardio: -NSTEMI, on heparin drip, continue ASA/Plavix/Statin -Hgb increased from 9.7 to 10.4 -Maintain MAP > 65, not currently on pressors -Most recent trop 0.70 (was 1.24, 1.15); NSTEMI vs Kidney leak 2/2 renal failure vs ischemic injury from cardiac arrest -Cardio (Dr. Wheat) following, appreciate any recs; Dobutamine drip put on hold due to multiple and increasing frequency PVCs and arrhythmias -Most recent Echo on 09/25/16, notable for LVEF 40%, mild concentric LVH, moderate systolic fxn impairment, flattened septum, mild-mod AR and MR, moderate left pleural effusion -S/p Cardiac arrest in ED, ROSC after 9 minutes -Upper Extremity US notes bilateral subclavian thrombi, already covered by Heparin drip for NSTEMI GI: -NPO -NG tube in place, holding off on NG tube feeds due to risk of aspiration while on BiPAP -Protonix for GI ppx Renal: -Renal failure vs NAYA on CKD -Baseline Cr 2.5-2.7 in 2016, elevated to 3.1-3.4 during last admission ~3 weeks prior, 3.2 today (was 3.3) -metabolic acidosis with respiratory acidosis, not compensate per Winter's formula -Nephro (Dr. Wong) and Urology (Dr. Kovacs) consulted, appreciate any recs -Avoid nephrotoxic drugs where feasible -maintain euglycemia (BG 140-180), no euvolemia as currently fluid overloaded/ trying to diurese -Monitor electrolytes and replete as needed -Urine Cx positive for resistant Klebsiella, noted during last admission as well , started on Tygacil as per ID, avoid Bactrim due to renal failure -Given recently treated resistant Klebsiella, increasing lethargy/weakness/ chills of patient prior to presentation, and WBCs of 19.0 on presentation, likely urosepsis ID: -Given recently treated MDR Klebsiella, increasing lethargy/weakness/chills of patient prior to presentation, and WBCs of 19.0 on presentation, likely urosepsis, now bacteremia as well -Repeat blood cultures obtained, 1st positive for G(-) rods, 2nd positive for MDR Klebsiela -Initial Chest CT and CXR concerning for possible pneumonia, but current CXR more suggestive of fluid overload/pulm edema; per Pulm elevated procal may be 2/ 2 UTI and renal failure -continue Acyvir as per ID -ID (Dr. Morrison) on board, appreciate any recs -WBCs 9.4 (was 9.1), afebrile overnight Heme: -Hgb increased from 9.7 to 10.4 -on Heparin drip for NSTEMI and bilateral subclavian thrombi, f/u PTTs Endo: -maintain euglycemia BG 140-180 -holding NG tube feeds due to aspiration risk for NGT feds concurrent with BiPAP Dispo: ICU for respiratory failure (post extubation, day 3) and s/p Cardiac arrest (ROSC after 9 minutes), now on BiPAP, made DNR FEN: NPO Access: Piper, Peripheral IV, NGT Consults: Urology, Nephrology, Cardio, ID, Neuro (signed off), Pulm, Palliative Ppx: Protonix for GI, Heparin drip covers for DVT Code Status: After discussion with partner and patient, patient has elected to be made DNR/DNI Patient seen, reviewed, and discussed with attending, Dr. Littlejohn. - Date & Time Date: 09/26/16 Time: 07:58 <Eron JIMÉNEZ,[facility] - Last Filed: 09/26/16 14:18> CCU Objective - Vital Signs / Intake & Output Vital Signs (Last 4 hours): Vital Signs Temp Pulse Resp BP Pulse Ox 09/26/16 13:35 69 27 H 99 09/26/16 13:23 67 28 H 09/26/16 13:22 59 L 26 H 09/26/16 13:19 64 26 H 09/26/16 13:00 66 25 H 125/70 100 09/26/16 12:26 132/60 09/26/16 12:00 97.8 F 63 25 H 132/60 98 09/26/16 11:00 78 26 H 151/70 H 99 09/26/16 10:14 68 27 H 135/56 L 97 Intake and Output (Last 8hrs): Intake & Output 09/25/16 09/26/16 09/26/16 22:59 06:59 14:59 Intake Total 738 122 Output Total 800 600 Balance -62 -478 Intake: IV 138 122 Right Antecubital 4 Right Hand 134 122 Oral 0 0 Other 600 Output: Urine 800 600 Urethral (Piper) 800 600 Other: Voiding Method Indwelling Catheter Indwelling Catheter # Bowel Movements 1 - Medications Active Medications: Active Medications Generic Name Dose Route Start Last Admin Trade Name Freq PRN Reason Stop Dose Admin Acetaminophen 650 mg 09/23/16 08:01 09/23/16 08:21 Tylenol 650 Mg Supp RC 650 mg Q6H PRN Administration Fever >100.4 F Aspirin 81 mg 09/24/16 11:45 09/26/16 09:16 Aspirin Chewable PO 81 mg DAILY ROXY Administration Atorvastatin Calcium 40 mg 09/24/16 11:45 09/25/16 17:18 Lipitor PO 40 mg DIN ROXY Administration Bacitracin 0 gm 09/24/16 18:00 09/26/16 09:18 Bacitracin TOP 1 gm TID ROXY Administration Calcium Carbonate 600 mg 09/25/16 10:00 09/26/16 09:16 Caltrate PO 600 mg BID ROXY Administration Clopidogrel Bisulfate 75 mg 09/24/16 11:45 09/26/16 09:16 Plavix PO 75 mg DAILY ROXY Administration Furosemide 60 mg 09/26/16 11:15 09/26/16 12:26 Lasix IVP 60 mg Q12 ROXY Administration Heparin Sodium/Sodium Chloride 250 mls @ 7.185 mls/hr 09/23/16 20:02 09/25/16 06:54 Heparin 41798 Units/250ml 1/2 Normal Saline IV 5 units/kg/hr .Q24H PRN Titration ADJUST RATE PER PROTOCOL Protocol 9 UNITS/KG/HR Dobutamine HCl/Dextrose 250 mls @ 11.975 mls/hr 09/25/16 05:40 09/25/16 09:00 Dobutamine/Dextrose 5% 500mg/250ml IV 11.975 mls/hr .[id number] PRN Administration TITRATE PER PROTOCOL Protocol 5 MCG/KG/MIN Ceftazidime/Avibactam 0.94 gm/ 100 mls @ 50 mls/hr 09/25/16 12:00 09/26/16 12: 37 Sodium Chloride IVPB 50 mls/hr Q12H ROXY Administration Levalbuterol HCl 0.63 mg 09/25/16 15:30 09/26/16 11:04 Xopenex IH 0.63 mg [id number] ROXY Administration Metoprolol Tartrate 25 mg 09/25/16 18:00 09/26/16 09:17 Lopressor PO 25 mg BID ROXY Administration Pantoprazole Sodium 40 mg 09/22/16 10:00 09/26/16 09:19 Protonix Inj IVP 40 mg DAILY ROXY Administration - Patient Studies Lab Studies: Microbiology Studies 09/24/16 07:00 Gram Stain - Final Sputum Sputum Culture - Final NORMAL ORAL EDUARDO 09/23/16 12:00 Blood Culture - Preliminary Blood-Venous Klebsiella Pneumoniae Ssp Pneu Gram Stain - Final 09/23/16 11:30 Blood Culture - Preliminary Blood-Venous Gram Negative Miguel Gram Stain - Final Lab Studies 09/26/16 09/26/16 09/26/16 Range/Units 13:20 07:38 06:20 WBC 9.4 (4.5-11.0) 10^3/ul RBC 3.71 (3.5-6.1) 10^6/uL Hgb 10.4 L (14.0-18.0) gm/dL Hct 34.2 L (42.0-52.0) % MCV 92.2 (80.0-105.0) fL MCH 28.0 (25.0-35.0) pg MCHC 30.4 L (31.0-37.0) g/dl RDW 17.6 H (11.5-14.5) % Plt Count 129 (120.0-450.0) 10^3/uL MPV 10.8 (7.0-11.0) fl APTT 50.2 H (23.7-30.8) Seconds pCO2 31 L 37 (35-45) mm/Hg pO2 91.0 79.0 L (80-100) mm/Hg HCO3 14.6 L 15.1 L (21-28) mmol/L ABG pH 7.28 L 7.22 L (7.35-7.45) ABG Total CO2 15.6 L 16.2 L (22-28) mmol.L ABG O2 Saturation 99.7 H 98.0 (95-98) % ABG O2 Content 12.3 L 13.9 L (15-23) ML/dl ABG Base Excess -11.1 L -11.8 L (-2.0-3.0) mmol/L ABG Hemoglobin 9.0 L 10.4 L (11.7-17.4) g/dL ABG Carboxyhemoglobin 2.9 H 2.5 H (0.5-1.5) % POC ABG HHb (Measured) 0.3 1.9 (0-5) % ABG Methemoglobin 0.7 1.0 (0.0-3.0) % ABG O2 Capacity 12.3 L 14.2 L (16-24) mL/dl Hgb O2 Saturation 96.1 94.5 L (95.0-98.0) % FiO2 35.0 35.0 % Sodium 143 (132-148) mmol/L Potassium 5.3 H (3.6-5.0) mmol/L Chloride 117 H (98-107) mmol/L Carbon Dioxide 17 L (21-33) mmol/L Anion Gap 14 (10-20) BUN 75 H (7-21) mg/dL Creatinine 3.6 H (0.5-1.4) mg/dL Est GFR ( Amer) 20 Est GFR (Non-Af Amer) 16 POC Glucose (mg/dL) (65-110) mg/dL Random Glucose 80 (70-110) mg/dL Calcium 8.1 L (8.4-10.5) mg/dL Phosphorus 7.7 H (2.5-4.5) mg/dL Magnesium 1.9 (1.7-2.2) mg/dL Total Bilirubin 0.8 (0.2-1.3) mg/dL AST 32 (15-59) U/L ALT 33 (7-56) U/L Alkaline Phosphatase 57 (38-133) U/L Total Protein 5.1 L (5.8-8.3) g/dL Albumin 2.0 L (3.0-4.8) g/dL Globulin 3.2 gm/dL Albumin/Globulin Ratio 0.6 L (1.1-1.8) Complement C3 < 40.0 L (88.0-165.0) mg/dL Complement C4 13.2 L (14.0-44.0) mg/dL Hepatitis C Antibody Negative (NEGATIVE) 09/26/16 09/25/16 09/25/16 Range/Units 05:40 20:10 17:47 WBC (4.5-11.0) 10^3/ul RBC (3.5-6.1) 10^6/uL Hgb (14.0-18.0) gm/dL Hct (42.0-52.0) % MCV (80.0-105.0) fL MCH (25.0-35.0) pg MCHC (31.0-37.0) g/dl RDW (11.5-14.5) % Plt Count (120.0-450.0) 10^3/uL MPV (7.0-11.0) fl APTT 69.6 H (23.7-30.8) Seconds pCO2 46 H (35-45) mm/Hg pO2 107.0 H (80-100) mm/Hg HCO3 16.0 L (21-28) mmol/L ABG pH 7.15 L* (7.35-7.45) ABG Total CO2 17.4 L (22-28) mmol.L ABG O2 Saturation 99.2 H (95-98) % ABG O2 Content 14.6 L (15-23) ML/dl ABG Base Excess -12.4 L (-2.0-3.0) mmol/L ABG Hemoglobin 10.7 L (11.7-17.4) g/dL ABG Carboxyhemoglobin 2.5 H (0.5-1.5) % POC ABG HHb (Measured) 0.8 (0-5) % ABG Methemoglobin 1.1 (0.0-3.0) % ABG O2 Capacity 14.7 L (16-24) mL/dl Hgb O2 Saturation 95.6 (95.0-98.0) % FiO2 40.0 % Sodium (132-148) mmol/L Potassium (3.6-5.0) mmol/L Chloride (98-107) mmol/L Carbon Dioxide (21-33) mmol/L Anion Gap (10-20) BUN (7-21) mg/dL Creatinine (0.5-1.4) mg/dL Est GFR ( Amer) Est GFR (Non-Af Amer) POC Glucose (mg/dL) 95 (65-110) mg/dL Random Glucose (70-110) mg/dL Calcium (8.4-10.5) mg/dL Phosphorus (2.5-4.5) mg/dL Magnesium (1.7-2.2) mg/dL Total Bilirubin (0.2-1.3) mg/dL AST (15-59) U/L ALT (7-56) U/L Alkaline Phosphatase (38-133) U/L Total Protein (5.8-8.3) g/dL Albumin (3.0-4.8) g/dL Globulin gm/dL Albumin/Globulin Ratio (1.1-1.8) Complement C3 (88.0-165.0) mg/dL Complement C4 (14.0-44.0) mg/dL Hepatitis C Antibody (NEGATIVE) 09/25/16 09/25/16 Range/Units 11:47 09:12 WBC (4.5-11.0) 10^3/ul RBC (3.5-6.1) 10^6/uL Hgb (14.0-18.0) gm/dL Hct (42.0-52.0) % MCV (80.0-105.0) fL MCH (25.0-35.0) pg MCHC (31.0-37.0) g/dl RDW (11.5-14.5) % Plt Count (120.0-450.0) 10^3/uL MPV (7.0-11.0) fl APTT (23.7-30.8) Seconds pCO2 (35-45) mm/Hg pO2 (80-100) mm/Hg HCO3 (21-28) mmol/L ABG pH (7.35-7.45) ABG Total CO2 (22-28) mmol.L ABG O2 Saturation (95-98) % ABG O2 Content (15-23) ML/dl ABG Base Excess (-2.0-3.0) mmol/L ABG Hemoglobin (11.7-17.4) g/dL ABG Carboxyhemoglobin (0.5-1.5) % POC ABG HHb (Measured) (0-5) % ABG Methemoglobin (0.0-3.0) % ABG O2 Capacity (16-24) mL/dl Hgb O2 Saturation (95.0-98.0) % FiO2 % Sodium (132-148) mmol/L Potassium (3.6-5.0) mmol/L Chloride (98-107) mmol/L Carbon Dioxide (21-33) mmol/L Anion Gap (10-20) BUN (7-21) mg/dL Creatinine (0.5-1.4) mg/dL Est GFR ( Amer) Est GFR (Non-Af Amer) POC Glucose (mg/dL) 115 H 141 H (65-110) mg/dL Random Glucose (70-110) mg/dL Calcium (8.4-10.5) mg/dL Phosphorus (2.5-4.5) mg/dL Magnesium (1.7-2.2) mg/dL Total Bilirubin (0.2-1.3) mg/dL AST (15-59) U/L ALT (7-56) U/L Alkaline Phosphatase (38-133) U/L Total Protein (5.8-8.3) g/dL Albumin (3.0-4.8) g/dL Globulin gm/dL Albumin/Globulin Ratio (1.1-1.8) Complement C3 (88.0-165.0) mg/dL Complement C4 (14.0-44.0) mg/dL Hepatitis C Antibody (NEGATIVE) Laboratory Results - last 24 hr 09/25/16 09/25/16 09/25/16 09:12 11:47 17:47 WBC RBC Hgb Hct MCV MCH MCHC RDW Plt Count MPV APTT pCO2 pO2 HCO3 ABG pH ABG Total CO2 ABG O2 Saturation ABG O2 Content ABG Base Excess ABG Hemoglobin ABG Carboxyhemoglobin POC ABG HHb (Measured) ABG Methemoglobin ABG O2 Capacity Hgb O2 Saturation FiO2 Sodium Potassium Chloride Carbon Dioxide Anion Gap BUN Creatinine Est GFR ( Amer) Est GFR (Non-Af Amer) POC Glucose (mg/dL) 141 H 115 H 95 Random Glucose Calcium Phosphorus Magnesium Total Bilirubin AST ALT Alkaline Phosphatase Total Protein Albumin Globulin Albumin/Globulin Ratio Complement C3 Complement C4 Hepatitis C Antibody 09/25/16 09/26/16 09/26/16 20:10 05:40 06:20 WBC 9.4 RBC 3.71 Hgb 10.4 L Hct 34.2 L MCV 92.2 MCH 28.0 MCHC 30.4 L RDW 17.6 H Plt Count 129 MPV 10.8 APTT 69.6 H 50.2 H pCO2 46 H pO2 107.0 H HCO3 16.0 L ABG pH 7.15 L* ABG Total CO2 17.4 L ABG O2 Saturation 99.2 H ABG O2 Content 14.6 L ABG Base Excess -12.4 L ABG Hemoglobin 10.7 L ABG Carboxyhemoglobin 2.5 H POC ABG HHb (Measured) 0.8 ABG Methemoglobin 1.1 ABG O2 Capacity 14.7 L Hgb O2 Saturation 95.6 FiO2 40.0 Sodium 143 Potassium 5.3 H Chloride 117 H Carbon Dioxide 17 L Anion Gap 14 BUN 75 H Creatinine 3.6 H Est GFR ( Amer) 20 Est GFR (Non-Af Amer) 16 POC Glucose (mg/dL) Random Glucose 80 Calcium 8.1 L Phosphorus 7.7 H Magnesium 1.9 Total Bilirubin 0.8 AST 32 ALT 33 Alkaline Phosphatase 57 Total Protein 5.1 L Albumin 2.0 L Globulin 3.2 Albumin/Globulin Ratio 0.6 L Complement C3 < 40.0 L Complement C4 13.2 L Hepatitis C Antibody Negative 09/26/16 09/26/16 07:38 13:20 WBC RBC Hgb Hct MCV MCH MCHC RDW Plt Count MPV APTT pCO2 37 31 L pO2 79.0 L 91.0 HCO3 15.1 L 14.6 L ABG pH 7.22 L 7.28 L ABG Total CO2 16.2 L 15.6 L ABG O2 Saturation 98.0 99.7 H ABG O2 Content 13.9 L 12.3 L ABG Base Excess -11.8 L -11.1 L ABG Hemoglobin 10.4 L 9.0 L ABG Carboxyhemoglobin 2.5 H 2.9 H POC ABG HHb (Measured) 1.9 0.3 ABG Methemoglobin 1.0 0.7 ABG O2 Capacity 14.2 L 12.3 L Hgb O2 Saturation 94.5 L 96.1 FiO2 35.0 35.0 Sodium Potassium Chloride Carbon Dioxide Anion Gap BUN Creatinine Est GFR ( Amer) Est GFR (Non-Af Amer) POC Glucose (mg/dL) Random Glucose Calcium Phosphorus Magnesium Total Bilirubin AST ALT Alkaline Phosphatase Total Protein Albumin Globulin Albumin/Globulin Ratio Complement C3 Complement C4 Hepatitis C Antibody EKG/Cardiology Studies: Cardiology / EKG Studies 09/26/16 12:19 EKG [ELECTROCARDIOGRAM] Stat Comment: Reason For Exam: sudden bradycardic episode to 40, assess intervals Critical Care Progress Note - Nutrition Nutrition: Nutrition Category Date Time Status NPO Diet [DIET] Diets 09/21/16 Breakfast Ordered Attending/Attestation - Attestation I have personally seen and examined this patient.: Yes I have fully participated in the care of the patient.: Yes I have reviewed all pertinent clinical information: Yes Notes (Text): 09/26/16 14:12 80 y/o M w/ MODS NAYA ON CKD w/ poor urine output NOn AG Metabolic acidosis w/ respiratory acidosis MDR Klebsiella Blood x 2. Colistin ??? Toxic to all organs w/ NAYA CKD CHF w/ reduced EF, was on Dobutamine but frequent PVC and arrythmia notes- stopped for now. Continue diuresis for Pleural effusion and increased pulmonary vascular congestion. Keep euvolemic. b/l Upper ext DVT on Heparin drip. Keep PTT appx 55 On BIPAP to help with the mixed acid base disorder. Keep PH > 7.3 Bicarbonate IVP x2 100 meq given. DNR /DNI several conversations with the patient by myself and Paliative care team. Pt does not want Dialysis, Intubation or cpr/ shocks etc. Pt's significant other has been contacted several times as well. cc time 72 min
--- NOTE | 2016-09-26 08:04 | PN ---
DATE: 09/25/2016 CHIEF COMPLAINT: Followup for altered mental status. SUBJECTIVE: The patient seen and examined at bedside. No acute events tonight. The patient extubat ed. Is fairly alert, following simple commands, moving all extremities. He has severe sepsis with a cute hypoxia, ventilator dependent respiratory failure, secondary to left lower lobe healthcare-assoc iated pneumonia with possible gram-positive cocci, had sepsis, extubated with gram-negative bacteremi a with Klebsiella resistant UTI. He still mildly confused, but follows simple commands. CT head nasir ws old left MCA territory infarcts and he has residual right-sided weakness. No acute events overnig ht. 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 SOCIAL HISTORY: A nonsmoker, nonalcoholic, no illicit drug use. REVIEW OF SYSTEMS: A 14-point review of systems is negative except for the HPI. FAMILY HISTORY: Noncontributory. ALLERGIES: No known drug allergies. PHYSICAL EXAMINATION: VITAL SIGNS: Temperature of 97.6, pulse rate of 75, blood pressure of 167/72, respiratory rate 29, o xygen saturation 92% with oxygen. GENERAL: The patient is sitting up in bed, lethargic, no acute distress. HEENT: Atraumatic, normocephalic. PERRLA. Extraocular muscles intact. NECK: Supple, no JVD, no adenopathy noted. LUNGS: Decreased breath sounds bilaterally, scattered rhonchi. HEART: S1, S2, normal rate and rhythm. No murmurs, rubs, or gallops. ABDOMEN: Soft, nontender, nondistended. Bowel sounds are present. EXTREMITIES: Notable for edema in all limbs except for upper extremity somewhat larger than th e . SKIN: Has chronic stasis changes of the both lower extremities in the right more than the left. NEUROLOGIC: The patient is extubated, in no acute distress, lethargic. Speech is hypophonic. No ap hasia noted. Follows very limited simple commands, slow to respond. Otherwise, cranial nerves II-XI I intact. MOTOR: Spontaneous movement in all extremities. No tremors noted. SENSORY: Withdraws on localized noxious stimulus. Light touch is intact. DTRs are 1+ throughout a nd absent at the ankles. COORDINATION AND GAIT: Deferred for now. LABORATORY DATA: Sodium is 146, potassium 4.8, chloride of 119, carbon dioxide 18, BUN of 68, creati nine of 3.2, random glucose of 69, which is low. 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 While he was in the Emergency Room, apparently, he underwent cardiac arrest, for which he was intubated, incl uding Advanced Cardiac Life Support, and after 9 minutes we had recovery of spontaneous circulation. He was placed on dobutamine infusion and had lactic acidosis on presentation, which may have been se condary to his known history of decreased cardiac output evolving from the acute coronary syndrome an d resulted in his cardiac arrest. He had acute on chronic kidney injury and some underlying healthca re-associated pneumonia, which may have been following the intubation, and is on aggressive antibioti c therapy. Has underlying urinary tract infection with Klebsiella pneumoniae, and has gram-negative rods in his venous blood, which is all on antibiotic therapy and infectious disease is on board. Was consulted for his mental status. His altered mental status is likely secondary to hypoxic-induced b rain injury superimposed on underlying toxic metabolic encephalopathy. He is extubated and is follow ing simple commands, but slow to respond given underlying metabolic derangements and underlying urina ry tract infection, as well as sepsis. Today, he had a blood sugar of 69, which is low. At this time, recommend: 1. Continue with aspirin 81 mg and Lipitor 40 mg for stroke prevention. 2. Keep his blood pressure between 120 to 130 mmHg. 3. Avoid any sedating medications. 4. He is on aspirin and Plavix for stroke prevention and dyslipidemia. 5. Monitor his electrolytes and correct accordingly. 6. Once again, continue GI and DVT prophylaxis. 7. Will need acute rehab and long-term care. 8. No further neurological workup needed at this time. His recovery will be very slow and, having this episode of hypoxic injury to the brain, can worsen hi s underlying cognitive impairment given that he has history of CVA. Once again, thank you for this followup. Fritz Perry MD cc: [phone] TT: 09/25/2016 17:35:28 Confirmation # [id number] Dictation # [id number] dn
--- NOTE | 2016-09-26 08:35 | PN ---
DATE: 09/26/2016(600am--655am) SUBJECTIVE: The patient appears more short of breath this morning. He is using accessory muscles for breathing. He appears awake and alert. VITALS: Temperature is 98.6, pulse 73, respirations 28/30, blood pressure 156/ 87. Oxygen saturation on nasal cannula is 95%. HENT: Normocephalic, atraumatic. No JVD. CARDIOVASCULAR: Systolic ejection murmur at the low left sternal border. Questionable S3 gallop. LUNGS: Decreased breath sounds at the bases. Minimal rhonchi. No wheezing. EXTREMITIES: Positive for edema. No cyanosis, no clubbing. Calves are nontender to palpation. GASTROINTESTINAL: Abdomen is soft, nontender, nondistended. Bowel sounds are positive. SKIN: Mild cellulitis -- right lower extremity. NEUROLOGIC EXAMINATION: Limited at the present time. CURRENT LABORATORY DATA: Chest x-ray was done this morning and reviewed. Compared to yesterday's film, today's film is slightly improved. There is less pulmonary edema noted. Small bilateral pleural effusions remain. Arterial blood gas was done on nasal cannula. Results are: pH 7.15, pCO2 of 46 , pO2 of 107. IMPRESSION: 1. Respiratory failure. 2. Status post cardiopulmonary resuscitation. 3. Urosepsis. 4. Rule out pneumonia -- left lower lobe. 5. Renal insufficiency. 6. Pulmonary edema. 7. Rule out myocardial infarction. PLAN: The patient is more short of breath this morning. He is using accessory muscles for breathing. I did discuss the case with the night nurse and certified court/medical interpreter at length. I have also reviewed the chest x-ray -- as above. The chest x-ray this morning is actually improved -- compared to yesterday's film. I have also reviewed the arterial blood gas. There is a severe mixed metabolic and respiratory acidosis present. The metabolic profile is pending for the morning. As a first step, we will transition the patient to BiPAP. Will also check a repeat arterial blood gas in 1 hour. I will be called with those results. The patient remains on a dobutamine drip. He did receive an extra dose of Lasix this morning. Cardiology evaluation with Dr. Wheat is noted. Infectious disease and renal evaluations are also noted. Depending on the clinical status and repeat arterial blood gas results, the patient may need to be reintubated. He remains critically ill with overall very guarded/poor prognosis. I will discuss the above with the entire ICU team in the next few moments. I will also discuss the above with Dr. Dejesus later this morning. Maurilio Dietz MD cc: [phone] TT: 09/26/2016 08:35:10 Confirmation # [id number] Dictation # [id number] jn MTDD
--- NOTE | 2016-09-26 08:57 | PN ---
DATE: 09/26/2016 I saw the patient in intensive care unit today. He is now on BiPAP. He is extubated for 2 days. A little more lethargic today, more respiratory issues. Also, his blood gas dropped to a 7.1 pH and I am worried he might need to be intubated again. I know they are going to give him Lasix 80 mg IV this morning to try and get rid of some fluid, but his kidney functions are also worsening a little bit. He is awake. He can listen; he is not talking right now. VITAL SIGNS: 98.6, pulse of 71, 156/87 blood pressure, 32 respiratory rate, and 99% O2 sat on BiPAP. HEAD: Atraumatic. EYES: Are a little sunken today. Nonverbal. NECK: Supple. HEART: Regular rate. LUNGS: Decreased breath sounds, but for the most part, clear. ABDOMEN: Soft. Large inguinal hernia. EXTREMITIES: Trace edema. He looks a little puffy to me all over. He is on aspirin, Ativan, bacitracin, Caltrate, ceftazidime, dobutamine IV, heparin IV, Lipitor, Lopressor, Plavix, Protonix, Tylenol, Xopenex. He has a 143 sodium, potassium is 5.3, BUN up to 75, creatinine is up to 3.6. As we try and diurese him the kidney functions are taking a hit. Calcium is 8.1 , phosphorus 7.7, magnesium is 1.9, total bili is 0.8. AST is 32, ALT is 33, alk phos is 57. White count is holding at 9.4, hemoglobin 10.4, hematocrit 34.2 , platelets of 129. He is being seen by multiple physicians: [place], renal, neuro, infectious disease, palliative care, cardiology. He has a chest x-ray pending this morning. Cardiology is also on the case. He is definitely in deep trouble in the intensive care unit. He has severe sepsis, hypoxia from the ventilator and BiPAP, respiratory failure, EKG changes, UTI. I will discuss this with his partner, Elmer Pierre. Will check his labs tomorrow. Hopefully, he will not need to be intubated again. He has a very poor prognosis. Derick Dejesus DO cc: [id number] TT: 09/26/2016 08:57:21 Confirmation # [id number] Dictation # [id number] jn MTDD
[2016-09-26] MEDS: Bacitracin Ointment 30 GM TUBE TOP SCH ×3 (09:18→17:21)
--- NOTE | 2016-09-26 09:52 | RAD ---
HISTORY: f/u COMPARISON: 09/25/2016 8:55 a.m. FINDINGS: LUNGS: Prior bibasilar hazy opacities are consistent with bilateral layering pleural effusions. An element of concomitant passive compressive atelectasis is probable. These appearances are not significantly changed. Mild pulmonary venous congestion is also suspect. No interval change here is appreciated PLEURA: No significant pleural effusion identified, no pneumothorax apparent. CARDIOVASCULAR: Cardiomegaly OSSEOUS STRUCTURES: No significant abnormalities. VISUALIZED UPPER ABDOMEN: Normal. OTHER FINDINGS: Midline sternotomy cerclage wires are present the most cephalad cerclage wire is discontinuous and multiple segments this is unchanged. A NG tube is inserted its tip is in the stomach. EKG leads in place IMPRESSION: Bibasilar hazy infiltrates with vascular congestion-findings consistent with bibasilar layering pleural effusions as detailed above. No interval change appreciated
--- NOTE | 2016-09-26 10:29 | PN ---
DATE: 09/26/2016 The patient is in bed in no acute distress, nontoxic. PHYSICAL EXAMINATION: VITAL SIGNS: Temperature is 98, blood pressure is 150/70, respiratory rate of 16. HEENT: Unremarkable. NECK: Supple. LUNGS: Decreased breath sounds. HEART: Normal S1, S2. ABDOMEN: Soft, nontender. LABORATORY DATA: Reveals a white count of 9.4, hemoglobin of 10, platelets of 129. Chemistries reve al the BUN of 75, creatinine of 3.6 and procalcitonin is 35. Microbiology reveals Klebsiella in the blood and Klebsiella in the urine. It is sensitive to Avycaz, multiresistant organism. Review of the medications reveals the patient to be on Avycaz, which is ceftazidime and Avibactam at 0.94 g sodium of a combination antibiotic. ASSESSMENT AND PLAN: This is an 80-year-old with severe sepsis with acute hypoxic ventilatory depend ent respiratory failure secondary to left lower lobe healthcare-associated pneumonia with possible gr am-positive cocci, possible gram-negative sandra pneumonia, now with severe sepsis with multidrug resist ant Klebsiella bacteremia with multidrug resistant Klebsiella pneumoniae, urine as the source, sensit christy to Avycaz and started on Avycaz, now day #2. The patient is extubated, doing well. Will continu e the Avycaz. Will need 10-14 days. Jose Morales MD cc: [phone] TT: 09/26/2016 10:28:58 Confirmation # [id number] Dictation # [id number] pal[place]
--- NOTE | 2016-09-26 11:14 | CP.PCM.PN ---
Subjective - Date & Time of Evaluation Date of Evaluation: 09/26/16 Time of Evaluation: 11:00 - Subjective Subjective: Awake, anxious. Dyspneic/accessory muscle use. BIPAP in use. Listens when spoken to,but not answering questions. Objective - Vital Signs/Intake and Output Vital Signs (last 24 hours): Temp Pulse Resp BP Pulse Ox 97.8 F 74 26 H 150/72 100 09/26/16 08:00 09/26/16 09:40 09/26/16 08:01 09/26/16 09:17 09/26/16 08:01 Intake and Output: 09/26/16 09/26/16 06:59 18:59 Intake Total 122 Output Total 600 Balance -478 - Medications Medications: Current Medications Acetaminophen (Tylenol 650 Mg Supp) 650 mg RC Q6H PRN PRN Reason: Fever >100.4 F Last Admin: 09/23/16 08:21 Dose: 650 mg Aspirin (Aspirin Chewable) 81 mg PO DAILY [facility] Last Admin: 09/26/16 09:16 Dose: 81 mg Atorvastatin Calcium (Lipitor) 40 mg PO DIN [facility] Last Admin: 09/25/16 17:18 Dose: 40 mg Bacitracin (Bacitracin) 0 gm TOP TID [facility] Last Admin: 09/26/16 09:18 Dose: 1 gm Calcium Carbonate (Caltrate) 600 mg PO BID [facility] Last Admin: 09/26/16 09:16 Dose: 600 mg Clopidogrel Bisulfate (Plavix) 75 mg PO DAILY [facility] Last Admin: 09/26/16 09:16 Dose: 75 mg Heparin Sodium/Sodium Chloride (Heparin 25005 Units/250ml 1/2 Normal Saline) 250 mls @ 7.185 mls/hr IV .Q24H PRN; Protocol; 9 UNITS/KG/HR PRN Reason: ADJUST RATE PER PROTOCOL Last Titration: 09/25/16 06:54 Dose: 5 units/kg/hr Dobutamine HCl/Dextrose (Dobutamine/Dextrose 5% 500mg/250ml) 250 mls @ 11.975 mls/hr IV .[id number] PRN; Protocol; 5 MCG/KG/MIN PRN Reason: TITRATE PER PROTOCOL Last Admin: 09/25/16 09:00 Dose: 11.975 mls/hr Ceftazidime/Avibactam 0.94 gm/ (Sodium Chloride) 100 mls @ 50 mls/hr IVPB Q12H [facility] Last Admin: 09/25/16 23:14 Dose: 50 mls/hr Levalbuterol HCl (Xopenex) 0.63 mg IH [id number] [facility] Last Admin: 09/26/16 11:04 Dose: 0.63 mg Metoprolol Tartrate (Lopressor) 25 mg PO BID [facility] Last Admin: 09/26/16 09:17 Dose: 25 mg Pantoprazole Sodium (Protonix Inj) 40 mg IVP DAILY [facility] Last Admin: 09/26/16 09:19 Dose: 40 mg - Labs Labs: 09/26/16 06:20 09/26/16 06:20 PT 12.4 Seconds (9.9-11.8) H 09/24/16 08:25 INR 1.15 (0.93-1.08) H 09/24/16 08:25 APTT 50.2 Seconds (23.7-30.8) H 09/26/16 06:20 - Constitutional Appears: Chronically Ill - Eye Exam Eye Exam: Normal appearance, PERRL - Respiratory Exam Respiratory Exam: Accessory Muscle Use, Decreased Breath Sounds, Rhonchi - Cardiovascular Exam Cardiovascular Exam: Irregular Rhythm, +S1, +S2 - GI/Abdominal Exam GI & Abdominal Exam: Soft, Normal Bowel Sounds - Extremities Exam Additional comments: right lower extremity cellutitis - Skin Skin Exam: Pallor, Warm Additional comments: anasarca Assessment and Plan - Assessment and Plan (Free Text) Assessment: 80 year old male admitted with urosepsis, pneumonia, NAYA, cardiac arrhythmia, s/ p cardiopulmonary arrest,s/p intubation. The patient is dyspneic, BIPAP in use. He is having multi-focal types of cardiac arrhythmia. His kidney functions are worsening. He has anasarca. He is anxious. The patient will acknowledge you when you speak to him, but is not answering questions. He did not respond when asked if he wants to be intubated or have CPR if his condition worsens. I tried to reach the patients life partner, Jordi Pool to inform him of patient status.His cell phone is not taking messages and there is no answer on the house phone despite multiple attempts.
[2016-09-26 13:29] LABS: ARTERIAL BLOOD GAS HCO3 14.6 mmol/L (21-28); ARTERIAL BLOOD GAS O2 CAPACITY 12.3 mL/dl (16-24); ARTERIAL BLOOD GAS O2 CONTENT 12.3 ML/dl (15-23); ARTERIAL BLOOD GAS PH 7.28 (7.35-7.45); ARTERIAL BLOOD HGB O2 SAT 96.1 % (95.0-98.0); CARBOXYHEMOGLOBIN 2.9 % (0.5-1.5); HHB 0.3 % (0-5); METHEMOGLOBIN 0.7 % (0.0-3.0)
--- NOTE | 2016-09-26 15:19 | PN ---
DATE: 09/26/2016 The patient remains extubated. His inotropic therapy was discontinued because of ventricular ectopy. PHYSICAL EXAMINATION: VITAL SIGNS: Blood pressure is 131/68, the heart rate is in the 60s. NECK: Negative JVD. LUNGS: Decreased breath sounds bilaterally. HEART: Reveals S1, S2. EXTREMITIES: Without edema. LABORATORIES: Hemoglobin is 10.4. Chemistries: Potassium is 5.3. Magnesium is 1.9, BUN and creati nine are 75 and 3.5. IMPRESSION: 1. Status post cardiopulmonary arrest. 2. Ventricular ectopy. 3. Cardiomyopathy with an ejection fraction of 40%. 4. Status post acute pulmonary edema. 5. Renal insufficiency. 6. Anoxic encephalopathy. PLAN: Given these findings, the patient is now a DNR. We will keep the patient off of inotropic therapy for 24 hours. Dialysis has been refused by the yohana montes de oca's significant other. Clement Wheat MD cc: [id number] TT: 09/26/2016 15:18:24 Confirmation # [id number] Dictation # [id number]
--- NOTE | 2016-09-26 21:45 | PCM.URO ---
Urology Progress Note - Objective Lab Results Last 24 Hours: Laboratory Results - last 24 hr 09/25/16 09/25/16 09/25/16 09:12 11:47 17:47 WBC RBC Hgb Hct MCV MCH MCHC RDW Plt Count MPV APTT pCO2 pO2 HCO3 ABG pH ABG Total CO2 ABG O2 Saturation ABG O2 Content ABG Base Excess ABG Hemoglobin ABG Carboxyhemoglobin POC ABG HHb (Measured) ABG Methemoglobin ABG O2 Capacity Hgb O2 Saturation FiO2 Sodium Potassium Chloride Carbon Dioxide Anion Gap BUN Creatinine Est GFR ( Amer) Est GFR (Non-Af Amer) POC Glucose (mg/dL) 141 H 115 H 95 Random Glucose Calcium Phosphorus Magnesium Total Bilirubin AST ALT Alkaline Phosphatase Total Protein Albumin Globulin Albumin/Globulin Ratio Complement C3 Complement C4 Hep Bs Antigen Hepatitis C Antibody 09/26/16 09/26/16 09/26/16 05:40 06:20 07:38 WBC 9.4 RBC 3.71 Hgb 10.4 L Hct 34.2 L MCV 92.2 MCH 28.0 MCHC 30.4 L RDW 17.6 H Plt Count 129 MPV 10.8 APTT 50.2 H pCO2 46 H 37 pO2 107.0 H 79.0 L HCO3 16.0 L 15.1 L ABG pH 7.15 L* 7.22 L ABG Total CO2 17.4 L 16.2 L ABG O2 Saturation 99.2 H 98.0 ABG O2 Content 14.6 L 13.9 L ABG Base Excess -12.4 L -11.8 L ABG Hemoglobin 10.7 L 10.4 L ABG Carboxyhemoglobin 2.5 H 2.5 H POC ABG HHb (Measured) 0.8 1.9 ABG Methemoglobin 1.1 1.0 ABG O2 Capacity 14.7 L 14.2 L Hgb O2 Saturation 95.6 94.5 L FiO2 40.0 35.0 Sodium 143 Potassium 5.3 H Chloride 117 H Carbon Dioxide 17 L Anion Gap 14 BUN 75 H Creatinine 3.6 H Est GFR ( Amer) 20 Est GFR (Non-Af Amer) 16 POC Glucose (mg/dL) Random Glucose 80 Calcium 8.1 L Phosphorus 7.7 H Magnesium 1.9 Total Bilirubin 0.8 AST 32 ALT 33 Alkaline Phosphatase 57 Total Protein 5.1 L Albumin 2.0 L Globulin 3.2 Albumin/Globulin Ratio 0.6 L Complement C3 < 40.0 L Complement C4 13.2 L Hep Bs Antigen Negative Hepatitis C Antibody Negative 09/26/16 13:20 WBC RBC Hgb Hct MCV MCH MCHC RDW Plt Count MPV APTT pCO2 31 L pO2 91.0 HCO3 14.6 L ABG pH 7.28 L ABG Total CO2 15.6 L ABG O2 Saturation 99.7 H ABG O2 Content 12.3 L ABG Base Excess -11.1 L ABG Hemoglobin 9.0 L ABG Carboxyhemoglobin 2.9 H POC ABG HHb (Measured) 0.3 ABG Methemoglobin 0.7 ABG O2 Capacity 12.3 L Hgb O2 Saturation 96.1 FiO2 35.0 Sodium Potassium Chloride Carbon Dioxide Anion Gap BUN Creatinine Est GFR ( Amer) Est GFR (Non-Af Amer) POC Glucose (mg/dL) Random Glucose Calcium Phosphorus Magnesium Total Bilirubin AST ALT Alkaline Phosphatase Total Protein Albumin Globulin Albumin/Globulin Ratio Complement C3 Complement C4 Hep Bs Antigen Hepatitis C Antibody Intake & Output: Intake & Output 09/26/16 09/26/16 09/27/16 06:59 18:59 06:59 Intake Total 122 296 Output Total 600 1100 Balance -227 -804 Intake: IV 122 196 Right Antecubital 148 Right Hand 122 48 Oral 0 100 Output: Urine 600 1100 Urethral (Raya) 600 1100 Other: Voiding Method Indwelling Catheter Indwelling Catheter Vital Signs: Vital Signs - 24 hr 09/25/16 09/25/16 09/25/16 22:00 22:53 23:00 Temperature Pulse Rate 71 69 66 Respiratory 33 H 30 H 29 H Rate Blood Pressure 130/63 141/75 O2 Sat by Pulse 96 95 98 Oximetry 09/26/16 09/26/16 09/26/16 00:00 01:00 01:42 Temperature 98.2 F Pulse Rate 71 72 72 Respiratory 31 H 34 H 34 H Rate Blood Pressure 156/65 H 150/54 L O2 Sat by Pulse 93 L 90 L 91 L Oximetry 09/26/16 09/26/16 09/26/16 02:00 03:00 03:59 Temperature Pulse Rate 70 72 75 Respiratory 35 H 35 H 29 H Rate Blood Pressure 146/54 L 151/62 H O2 Sat by Pulse 91 L 90 L Oximetry 09/26/16 09/26/16 09/26/16 04:00 04:01 04:02 Temperature 98.6 F Pulse Rate 70 74 78 Respiratory 28 H 31 H Rate Blood Pressure 149/64 O2 Sat by Pulse Oximetry 09/26/16 09/26/16 09/26/16 04:03 04:04 04:05 Temperature Pulse Rate 73 80 79 Respiratory 26 H 28 H 26 H Rate Blood Pressure O2 Sat by Pulse Oximetry 09/26/16 09/26/16 09/26/16 04:06 04:07 04:08 Temperature Pulse Rate 75 75 76 Respiratory 27 H 27 H 26 H Rate Blood Pressure O2 Sat by Pulse Oximetry 09/26/16 09/26/16 09/26/16 04:09 04:10 04:11 Temperature Pulse Rate 75 72 69 Respiratory 27 H 28 H 28 H Rate Blood Pressure O2 Sat by Pulse Oximetry 09/26/16 09/26/16 09/26/16 04:12 04:13 04:14 Temperature Pulse Rate 68 76 70 Respiratory 26 H 26 H 32 H Rate Blood Pressure O2 Sat by Pulse Oximetry 09/26/16 09/26/16 09/26/16 04:15 04:16 04:17 Temperature Pulse Rate 68 74 74 Respiratory 25 H 25 H 26 H Rate Blood Pressure O2 Sat by Pulse Oximetry 09/26/16 09/26/16 09/26/16 04:18 04:19 04:20 Temperature Pulse Rate 66 64 66 Respiratory 26 H 34 H 33 H Rate Blood Pressure O2 Sat by Pulse Oximetry 09/26/16 09/26/16 09/26/16 04:21 04:22 04:23 Temperature Pulse Rate 69 72 69 Respiratory 34 H 33 H 34 H Rate Blood Pressure O2 Sat by Pulse Oximetry 09/26/16 09/26/16 09/26/16 04:24 04:25 04:26 Temperature Pulse Rate 76 71 72 Respiratory 25 H 27 H 26 H Rate Blood Pressure O2 Sat by Pulse Oximetry 09/26/16 09/26/16 09/26/16 04:27 04:28 04:29 Temperature Pulse Rate 75 74 66 Respiratory 26 H 26 H 25 H Rate Blood Pressure O2 Sat by Pulse Oximetry 09/26/16 09/26/16 09/26/16 04:30 04:31 04:32 Temperature Pulse Rate 71 70 77 Respiratory 30 H 26 H 25 H Rate Blood Pressure O2 Sat by Pulse Oximetry 09/26/16 09/26/16 09/26/16 04:33 04:34 04:35 Temperature Pulse Rate 72 73 73 Respiratory 28 H 26 H 26 H Rate Blood Pressure O2 Sat by Pulse Oximetry 09/26/16 09/26/16 09/26/16 04:36 04:37 04:38 Temperature Pulse Rate 73 72 68 Respiratory 25 H 26 H 31 H Rate Blood Pressure O2 Sat by Pulse Oximetry 09/26/16 09/26/16 09/26/16 04:39 04:40 04:41 Temperature Pulse Rate 82 72 75 Respiratory 27 H 24 24 Rate Blood Pressure O2 Sat by Pulse Oximetry 09/26/16 09/26/16 09/26/16 04:42 04:43 04:44 Temperature Pulse Rate 70 72 68 Respiratory 29 H 27 H 23 Rate Blood Pressure O2 Sat by Pulse Oximetry 09/26/16 09/26/16 09/26/16 04:45 04:46 04:47 Temperature Pulse Rate 75 77 73 Respiratory 30 H 26 H 24 Rate Blood Pressure O2 Sat by Pulse Oximetry 09/26/16 09/26/16 09/26/16 04:48 04:49 05:00 Temperature Pulse Rate 69 67 68 Respiratory 29 H 27 H 27 H Rate Blood Pressure 145/73 O2 Sat by Pulse 99 Oximetry 09/26/16 09/26/16 09/26/16 05:27 05:28 06:00 Temperature Pulse Rate 82 77 74 Respiratory 27 H 28 H 37 H Rate Blood Pressure O2 Sat by Pulse 66 L Oximetry 09/26/16 09/26/16 09/26/16 06:13 06:18 06:20 Temperature Pulse Rate 73 75 Respiratory 32 H 30 H Rate Blood Pressure 146/73 156/87 H O2 Sat by Pulse 67 L 65 L Oximetry 09/26/16 09/26/16 09/26/16 06:43 06:44 06:45 Temperature Pulse Rate 80 78 74 Respiratory 26 H 25 H 26 H Rate Blood Pressure O2 Sat by Pulse Oximetry 09/26/16 09/26/16 09/26/16 06:46 06:49 07:00 Temperature Pulse Rate 75 72 75 Respiratory 29 H 25 H 30 H Rate Blood Pressure O2 Sat by Pulse 30 L Oximetry 09/26/16 09/26/16 09/26/16 07:01 07:13 07:14 Temperature Pulse Rate 69 71 76 Respiratory 29 H 30 H 27 H Rate Blood Pressure 161/73 H O2 Sat by Pulse 28 L Oximetry 09/26/16 09/26/16 09/26/16 07:15 07:16 07:17 Temperature Pulse Rate 79 82 78 Respiratory 25 H 25 H 26 H Rate Blood Pressure O2 Sat by Pulse Oximetry 09/26/16 09/26/16 09/26/16 07:18 07:19 07:20 Temperature Pulse Rate 76 78 83 Respiratory 26 H 28 H 31 H Rate Blood Pressure O2 Sat by Pulse Oximetry 09/26/16 09/26/16 09/26/16 07:21 07:22 07:23 Temperature Pulse Rate 75 83 72 Respiratory 27 H 27 H 29 H Rate Blood Pressure O2 Sat by Pulse Oximetry 09/26/16 09/26/16 09/26/16 07:24 07:25 07:26 Temperature Pulse Rate 73 72 71 Respiratory 28 H 29 H 30 H Rate Blood Pressure O2 Sat by Pulse Oximetry 09/26/16 09/26/16 09/26/16 07:27 07:34 07:35 Temperature Pulse Rate 71 73 72 Respiratory 29 H 31 H 30 H Rate Blood Pressure O2 Sat by Pulse Oximetry 09/26/16 09/26/16 09/26/16 07:36 07:37 07:38 Temperature Pulse Rate 69 73 75 Respiratory 26 H 29 H 29 H Rate Blood Pressure O2 Sat by Pulse Oximetry 09/26/16 09/26/16 09/26/16 07:39 07:40 07:41 Temperature Pulse Rate 67 75 74 Respiratory 28 H 26 H 29 H Rate Blood Pressure O2 Sat by Pulse Oximetry 09/26/16 09/26/16 09/26/16 07:42 07:43 07:44 Temperature Pulse Rate 70 73 71 Respiratory 27 H 26 H 26 H Rate Blood Pressure O2 Sat by Pulse Oximetry 09/26/16 09/26/16 09/26/16 08:00 08:01 08:39 Temperature 97.8 F Pulse Rate 71 93 H 75 Respiratory 27 H 26 H 28 H Rate Blood Pressure 162/83 H O2 Sat by Pulse 100 100 100 Oximetry 09/26/16 09/26/16 09/26/16 09:00 09:17 09:40 Temperature Pulse Rate 81 75 71 Respiratory 31 H Rate Blood Pressure 150/72 150/72 O2 Sat by Pulse 100 Oximetry 09/26/16 09/26/16 09/26/16 10:00 10:14 11:00 Temperature Pulse Rate 77 68 78 Respiratory 27 H 27 H 26 H Rate Blood Pressure 149/70 135/56 L 151/70 H O2 Sat by Pulse 100 97 99 Oximetry 09/26/16 09/26/16 09/26/16 11:50 12:00 12:26 Temperature 97.8 F Pulse Rate 46 L 63 Respiratory 25 H Rate Blood Pressure 132/60 132/60 O2 Sat by Pulse 98 Oximetry 09/26/16 09/26/16 09/26/16 12:38 13:00 13:19 Temperature Pulse Rate 38 L 66 64 Respiratory 25 H 26 H Rate Blood Pressure 125/70 O2 Sat by Pulse 100 Oximetry 09/26/16 09/26/16 09/26/16 13:22 13:23 13:35 Temperature Pulse Rate 59 L 67 69 Respiratory 26 H 28 H 27 H Rate Blood Pressure O2 Sat by Pulse 99 Oximetry 09/26/16 09/26/16 09/26/16 13:36 14:00 14:17 Temperature Pulse Rate 60 65 68 Respiratory 26 H 27 H 26 H Rate Blood Pressure 131/68 O2 Sat by Pulse 98 98 99 Oximetry 09/26/16 09/26/16 09/26/16 15:00 15:20 15:34 Temperature Pulse Rate 73 63 66 Respiratory 27 H 28 H Rate Blood Pressure 133/69 O2 Sat by Pulse 99 84 L Oximetry 09/26/16 09/26/16 09/26/16 16:00 17:00 17:18 Temperature 97.8 F Pulse Rate 66 72 71 Respiratory 25 H 28 H 24 Rate Blood Pressure 141/64 95/61 L 115/60 O2 Sat by Pulse 98 92 L 96 Oximetry 09/26/16 09/26/16 09/26/16 17:19 17:38 17:42 Temperature Pulse Rate 70 67 69 Respiratory 24 26 H Rate Blood Pressure 115/60 O2 Sat by Pulse 99 99 Oximetry 09/26/16 09/26/16 09/26/16 18:00 18:02 18:55 Temperature Pulse Rate 57 L 65 59 L Respiratory 20 30 H Rate Blood Pressure 130/63 O2 Sat by Pulse 100 100 Oximetry 09/26/16 20:00 Temperature Pulse Rate 63 Respiratory Rate Blood Pressure O2 Sat by Pulse Oximetry
--- NOTE | 2016-09-27 00:13 | PN ---
DATE: 09/26/2016 NEPHROLOGY FOLLOWUP NOTE HISTORY OF PRESENT ILLNESS: An 80-year-old male with history of CAD, CHF, with systolic dysfunction, CKD 4, previous CVA, admitted with septic shock secondary to pneumonia, CHF exacerbation, and acute renal failure on CKD. The patient on BiPAP at time of assessment. Per nursing staff, the patient is not able to comprehend current situation well. PHYSICAL EXAMINATION: VITAL SIGNS: This morning, blood pressure 150/72, heart rate 75, respirations 28, O2 sat 100% on BiP AP. GENERAL: The patient tachypneic, in mild distress, agitated. HEENT: Moist mucous membranes. Nonicteric. CHEST: Clear to auscultation bilaterally. ABDOMEN: Soft, nontender, nondistended. EXTREMITIES: Markedly edematous. LABORATORY DATA: This morning, WBC 9.4, hemoglobin 10.4, hematocrit 34.2, platelets 129. Chemistry panel: Sodium 143, potassium 5.3, chloride 117, bicarb 17, BUN 75, creatinine 3.6, glucose 80, calci um 8.1, phosphorus 7.7, albumin 2.0. ASSESSMENT: 1. Acute renal failure on chronic kidney disease for nonoliguric renal failure secondary to sepsis a nd hypotension. Renal function mildly worsened today with creatinine increased from 3.2 to 3.6, like ly due to diuresis. The patient still markedly volume overloaded, mild hyperkalemia, normal anion ga p metabolic acidosis secondary to advanced renal failure. Continue to give bicarbonate supplementati on, as well as standing IV diuretics in order to maintain euvolemia. 2. Congestive heart failure exacerbation with systolic dysfunction. Inotropic agent stopped. Will need to assess if patient develops further end-organ damage. 3. Healthcare associated pneumonia. The patient on ceftazidime-avibactam combination, getting 0.94 g q. 12 hours, correctly dosed for creatinine clearance 16-30 mL per minute. 4. Hyperphosphatemia, secondary to renal failure. Needs to be on low phos feeds. Can give Renal No vasource. Start PhosLo 1 tablet q. 6 hours after initiating tube feeds. Avoid calcium supplementati on as corrected calcium is within normal range. Marbin Bonner MD cc: [id number] TT: 09/27/2016 00:13:35 Confirmation # [id number] Dictation # [id number] dn
[2016-09-27] MEDS ORDERED: Dextrose 50% SYRINGE Inj (50 ml) IVP ONE ×2 (00:18→06:46)
[2016-09-27] MEDS: Levalbuterol 0.63 MG/3 ML Inhal Soln UD IH SCH ×6 (00:40→19:30)
[2016-09-27 04:36] LABS: TOTAL PROTEIN, SERUM 4.8 g/dL (6.1-8.1)
[2016-09-27 05:43] LABS: HEMATOCRIT 32.2 % (42.0-52.0); MEAN CELL VOLUME 88.2 fL (80.0-105.0); MEAN CORPUSCULAR HEMOGLOBIN 28.2 pg (25.0-35.0); MEAN PLATELET VOLUME 10.7 fl (7.0-11.0); PLATELET COUNT 88 10^3/uL (120.0-450.0); RED CELL DISTRIBUTION WIDTH 17.4 % (11.5-14.5)
[2016-09-27 05:49] LABS: ADD MANUAL DIFF? YES; WHITE BLOOD COUNT 6.9 10^3/ul (4.5-11.0)
[2016-09-27] MEDS ORDERED: Morphine 2 mg/ml ISec IVP STA (06:24)
[2016-09-27 06:33] LABS: ARTERIAL BLOOD GAS HCO3 17.9 mmol/L (21-28); ARTERIAL BLOOD GAS O2 CAPACITY 14.3 mL/dl (16-24); ARTERIAL BLOOD GAS O2 CONTENT 13.9 ML/dl (15-23); ARTERIAL BLOOD GAS PH 7.28 (7.35-7.45); ARTERIAL BLOOD HGB O2 SAT 94.4 % (95.0-98.0); CARBOXYHEMOGLOBIN 2.4 % (0.5-1.5); HHB 2.4 % (0-5); METHEMOGLOBIN 0.8 % (0.0-3.0)
[2016-09-27 06:36] LABS: BAND 4 % (0-2); NEUTROPHIL 72 % (50.0-70.0); PLATELET ESTIMATE LOW (NORMAL)
[2016-09-27 06:37] LABS: ANISOCYTOSIS 1+; POIKILOCYTOSIS SLIGHT
[2016-09-27 06:52] LABS: ALB/GLOB RATIO 0.6 (1.1-1.8); CALCIUM 7.8 mg/dL (8.4-10.5); MAGNESIUM 1.9 mg/dL (1.7-2.2); PHOSPHOROUS 7.4 mg/dL (2.5-4.5); POTASSIUM 4.5 mmol/L (3.6-5.0); TOTAL PROTEIN 5.5 g/dL (5.8-8.3)
--- NOTE | 2016-09-27 08:22 | PN ---
DATE: 09/27/2016(610am--700am) SUBJECTIVE: The patient is moderately short of breath at the present time. He is using accessory muscles for breathing. He is very lethargic. PHYSICAL EXAMINATION: VITAL SIGNS: Temperature is 98.4, pulse on the monitor is 69, respiratory rate 24/26, blood pressure 159/68. Oxygen saturation on BiPAP is 96%. HEENT: Normocephalic, atraumatic. No JVD. CARDIOVASCULAR: Systolic ejection murmur at the lower left sternal border. Questionable S3 gallop. LUNGS: Decreased breath sounds at the bases. Less rhonchi. No wheezing. EXTREMITIES: Positive for edema. No cyanosis. No clubbing. Calves are nontender to palpation. GASTROINTESTINAL: Abdomen is soft, nontender, nondistended. Bowel sounds are positive. SKIN: Mild cellulitis -- right lower extremity. NEUROLOGIC: Limited at the present time. PERTINENT LABORATORY DATA: Chest x-ray was done this morning and reviewed. The x-ray is somewhat improved -- with decreased pulmonary edema and decreased pleural effusions. Arterial blood gas was also done on BiPAP -- with 35% oxygen. Results are: pH 7.28, pCO2 38, pO2 of 81. IMPRESSION: 1. Respiratory failure. 2. Status post cardiopulmonary resuscitation. 3. Urosepsis. 4. Rule out pneumonia -- left lower lobe. 5. Renal insufficiency. 6. Pulmonary edema. 7. Rule out myocardial infarction. PLAN: The patient remains moderately short of breath. He is using accessory muscles for breathing. He is very lethargic this morning. I did discuss the case with the night nurse and medical assistant secretary at length. They both confirm that the patient is not doing well at all. The medical assistant secretary also confirms that the patient is now a DNR/DNI status. I did review the x-ray as above. The x-ray is actually improved -- with decreased pulmonary edema and decreased effusions. The patient remains on Lasix and dobutamine. I have also reviewed the arterial blood gas. The arterial blood gas is also improved with a decrease in the acidosis. A mild alveolar-arterial gradient remains. Inputs by cardiology and renal are noted. Renal parameters continue to worsen -- on today's labs. Unfortunately, the patient is now experiencing multisystem organ failure. Input by Rebekah Thomas (palliative care) is noted. Again, unfortunately, the patient's overall prognosis is very poor. I will discuss the above with the entire ICU team in the next few moments. I will also discuss the above with Dr. Dejesus later this morning. Maurilio Dietz MD cc: [id number] TT: 09/27/2016 08:21:30 Confirmation # [id number] Dictation # [id number] en MTDD
--- NOTE | 2016-09-27 08:50 | PN ---
DATE: 09/26/2016 See the previously dictated consult note. The patient is currently in the ICU, resting comfortably. At this point, we are following along and we are going to plan to change the Raya, but not at this m oment, PAST MEDICAL AND SURGICAL HISTORY: All unchanged. PHYSICAL EXAMINATION: Remains unchanged. DIAGNOSES: Urinary retention, voiding dysfunction, gigantic hernia. Apparently, is not being repaired right now. From urology standpoint, the plan is as follows: Maint ain the Raya. We will follow along and at some point, change it. Alfred Kovacs MD cc: [phone] TT: 09/27/2016 08:49:23 Confirmation # [id number] Dictation # [id number] tn
--- NOTE | 2016-09-27 08:54 | PN ---
DATE: 09/27/2016 I saw him in the intensive care unit. He got some morphine. He is a little bit sedated. He is also on BiPAP. He is now a DNR/DNI. He is on aspirin, bacitracin, Caltrate, ceftazidime, dobutamine, heparin, Lasix , Lipitor, Lopressor, Plavix, Protonix, Tylenol and Xopenex. He cannot talk with me or look at me because he is sedated at this time. PHYSICAL EXAMINATION: VITAL SIGNS: He has a 98.4 temp, 75 pulse, 140/89 blood pressure, 42 respiratory rate to 29 respiratory rate, 89% O2 sat to 94% O2 sat. HEENT: His head is atraumatic, normocephalic. Mouth dry. HEART: Regular rate. LUNGS: Decreased breath sounds. ABDOMEN: Soft. EXTREMITIES: No edema. He has got a large inguinal hernia. He has a 6.9 white count, 10.3 hemoglobin, 32.2 hematocrit with 88 platelets. He has a 148 sodium, potassium 4.5, BUN 83, creatinine . His kidney functions are getting worse. GFR is 16, glucose is 82, calcium is 7.8, phosphorus 7.4, very high, magnesium 1.9, total bili is 1, AST is 29, ALT is 33, alk phos 55, total protein 5.5. He is being seen by pulmonary, renal, urology, cardiology, motor driver, palliative care. He is here for respiratory failure, status post cardiopulmonary resuscitation, urosepsis, probably pneumonia, renal insufficiency to renal failure, pulmonary edema, rule out myocardial infarction. He has acute renal on chronic renal disease. He is in trouble. I do not know if he is going to make it the way he has been going. We will continue with aggressive treatment and care as best we can. I will discuss this with his partner, Jordi. I know him very well. Derick Dejesus DO cc: [id number] TT: 09/27/2016 08:53:00 Confirmation # [id number] Dictation # [id number] en MTDD
--- NOTE | 2016-09-27 09:04 | CON ---
DATE: 09/24/2016 REASON FOR CONSULTATION: Urinary retention. A very pleasant gentleman who is currently resting comfortably. The chart notes are noted from lucia bhat. He came in, he was subsequently actually intubated with some sepsis. Urine cultures are growing. He has urinary retention and tremendously large hernia. Urology is mostly consulted for the possibil ity of exchanging the Raya catheter. See the plans listed below. PAST MEDICAL AND SURGICAL HISTORY: As listed on the chart. Again, as mentioned, the hernia. REVIEW OF SYSTEMS: Listed above. PHYSICAL EXAMINATION: GENERAL: He is a well-developed . He is currently resting comfortably. He is awake. ABDOMEN: Difficult to evaluate secondary to body habitus. EXTREMITIES: In his groin area, there was a tremendously large hernia that is impeding upon the visi on of the penis and the phallus, but further inspection and feeling and palpating the penis, the latosha ent has a normal phallus that is just hidden well by the hernia, but the indwelling Raya catheter is in place and draining (in fact, I irrigated this well). DIAGNOSES: Sepsis, possible urosepsis, to which the patient is currently responding with his antibio tics. At some point, we will plan to change the Raya catheter. We will discuss the timing of this and the location. We will try to do it at the bedside, but for now, the patient is clinically improv ing. Then further plans will follow. PLAN: Antibiotics and leave the Raya catheter in. In the future, we will plan to change it. Alfred Kovacs MD cc: [phone] TT: 09/27/2016 09:04:03 Confirmation # [id number] Dictation # [id number] en
[2016-09-27] MEDS: Bacitracin Ointment 30 GM TUBE TOP SCH ×3 (10:32→18:09)
--- NOTE | 2016-09-27 11:04 | RAD ---
HISTORY: Follow-up. 05:27. Technique: Single view portable semi erect @ 05:27. COMPARISON: Multiple serial examinations preceding the most recent study: September 26, 2016. FINDINGS: LUNGS: Stable primarily lower lobe infiltrates. PLEURA: Large bilateral pleural effusions are unchanged. CARDIOVASCULAR: Stable cardiomegaly. OSSEOUS STRUCTURES: No significant abnormalities. VISUALIZED UPPER ABDOMEN: No change in position of nasogastric tube. OTHER FINDINGS: None. IMPRESSION: No significant interval change compared to the prior examination(s). Yes
--- NOTE | 2016-09-27 11:11 | CARD ---
APPROVED REPORT EKG Measurement Heart [id number] <Conclusion> Atrial fibrillation PVCs, couplets Right superior axis deviation Pulmonary disease pattern Incomplete right bundle branch block Septal infarct, age undetermined Abnormal ECG
--- NOTE | 2016-09-27 11:11 | PN ---
DATE: 09/27/2016 The patient remains dyspneic at rest. He is weak. PHYSICAL EXAMINATION: VITAL SIGNS: Blood pressure 165/72, the heart rate is in the 60s. NECK: Negative JVD. LUNGS: Bilateral rhonchi. HEART: Revealed S1, S2. EXTREMITIES: Without edema. LABORATORIES: His hemoglobin is 10.3. Chemistries: BUN and creatinine are 83 and 3.7. IMPRESSION: 1. Status post cardiopulmonary arrest. 2. Dilated cardiomyopathy. 3. Renal insufficiency. 4. Anoxic encephalopathy. Given these findings, the patient is now a DNR and DNI. We will continue him with supportive care wi th intravenous inotropic therapy; however, the prognosis is poor. Clement Wheat MD cc: [id number] TT: 09/27/2016 11:10:56 Confirmation # [id number] Dictation # [id number]
[2016-09-27] MEDS ORDERED: Morphine 2 mg/ml ISec IVP PRN (11:54)
--- NOTE | 2016-09-27 15:17 | CP.CCUPN ---
<Kiko Webber - Last Filed: 09/27/16 15:11> CCU Subjective - Physician Review Subjective (Free Text): 09/27/16 15:11 Patient seen and examined at bedside in ICU. Today is hospital day 7. Extubated 3 days ago. Remains on BiPAP. Awake but minimal alertness, not following most commands or answering most questions. Intermittently labored breaths while on BiPAP. Remains DNR/DNI. Overnight, HR intermittently dropped into 40's, would return to 60's-70's after 10-20 seconds. Persists today. CCU Objective - Vital Signs / Intake & Output Vital Signs (Last 4 hours): Vital Signs Pulse 09/27/16 12:55 61 Intake and Output (Last 8hrs): Intake & Output 09/27/16 09/27/16 09/27/16 06:59 14:59 22:59 Intake Total 148 Output Total 1200 Balance -1052 Intake: IV 148 Right Hand 148 Output: Urine 1200 Urethral (Piper) 1200 Other: Voiding Method Indwelling Catheter # Bowel Movements 1 - Physical Exam Physical Exam Limitations: Positive for: Altered Mental Status (awake but minimally alert, not following most commands) Head: Positive for: Atraumatic, Normocephalic. Negative for: Contusion, Ecchymosis, Abrasion, Laceration Pupils: Positive for: PERRL. Negative for: Sluggish, Non-Reactive, Pinpoint Conjunctiva: Positive for: Normal. Negative for: Injected, Icteric Mouth: Positive for: Moist Mucous Membranes, Other (wearing bipap mask). Negative for: Drooling Nose (External): Positive for: Atraumatic, Other (NG tube in place, fixed with tape). Negative for: Abrasion, Contusion, Laceration Neck: Positive for: Trachea Midline. Negative for: MIDLINE TENDERNESS, JVD Respiratory/Chest: Positive for: Respiratory Distress (intermittently labored and tachypnic breathing, despite being on Bipap), Decreased Breath Sounds ( decreased breath sounds in all auscultated alex), Rales (minimal rales, most prominent in bilateral bases), Tachypneic, Other (wearing Bipap). Negative for : Clear to Auscultation, Good Air Exchange, Accessory Muscle Use, Wheezes, Rhonchi, Tender to Palpation Cardiovascular: Positive for: Regular Rate and Rhythm, Normal S1, S2, Other ( RRR at time of exam, but multiple intermittent episodes of bradycardia down to 40's noted on monitors prior to and after exam). Negative for: Murmurs, Irregular Rhythm, Tachycardic, Bradycardic Abdomen: Positive for: Normal Bowel Sounds. Negative for: Tenderness, Distention, Peritoneal Signs, Guarding, Ostomy Tubes, Mass/Organomegaly Genitourinary Male: Positive for: Hernias (Large hernia/scrotal mass), Other ( diffusely swollen/enlarged scrotum, unable to visualize penis due to swollen/ enlarged scrotum but able to palpate through scrotal tissue; piper in place draining yellow urine) Upper Extremity: Positive for: Edema (+2 pitting edema bilaterally), Other ( both hands cool to palpation). Negative for: Normal Inspection, Cyanosis, Normal ROM, NORMAL PULSES (unable to palpate pulses through edema), Erythema Lower Extremity: Positive for: Edema (+2 pitting edema bilaterally). Negative for: Normal Inspection, CALF TENDERNESS, NORMAL PULSES (unable to palpate pulses through edema), Cyanosis, Normal ROM Neurological: Positive for: Other (GCS 9 ([id number])). Negative for: GCS=15, Speech Normal (speech is slow, dyspnic with talking), Motor Func Grossly Intact Skin: Positive for: Warm (except as noted in Extremities exams), Dry, Normal Color, Abrasion (as described in upper extremity exam). Negative for: Rashes, Diaphoretic, Erythematous Other physical findings (Free Text): Awake but only minimally alert, intermittently tracks staff in room, follows few commands, not responding to questions - Medications Active Medications: Active Medications Generic Name Dose Route Start Last Admin Trade Name Freq PRN Reason Stop Dose Admin Acetaminophen 650 mg 09/23/16 08:01 09/23/16 08:21 Tylenol 650 Mg Supp RC 650 mg Q6H PRN Administration Fever >100.4 F Aspirin 81 mg 09/24/16 11:45 09/27/16 10:26 Aspirin Chewable PO 81 mg DAILY ROXY Administration Atorvastatin Calcium 40 mg 09/24/16 11:45 09/26/16 17:18 Lipitor PO 40 mg DIN ROXY Administration Bacitracin 0 gm 09/24/16 18:00 09/27/16 13:58 Bacitracin TOP 1 gm TID ROXY Administration Calcium Carbonate 600 mg 09/25/16 10:00 09/27/16 10:26 Caltrate PO 600 mg BID ROXY Administration Clopidogrel Bisulfate 75 mg 09/24/16 11:45 09/27/16 10:26 Plavix PO 75 mg DAILY ROXY Administration Furosemide 60 mg 09/26/16 11:15 09/27/16 10:27 Lasix IVP 60 mg Q12 ROXY Administration Heparin Sodium/Sodium Chloride 250 mls @ 7.185 mls/hr 09/23/16 20:02 09/25/16 06:54 Heparin 63323 Units/250ml 1/2 Normal Saline IV 5 units/kg/hr .Q24H PRN Titration ADJUST RATE PER PROTOCOL Protocol 9 UNITS/KG/HR Dobutamine HCl/Dextrose 250 mls @ 11.975 mls/hr 09/25/16 05:40 09/25/16 09:00 Dobutamine/Dextrose 5% 500mg/250ml IV 11.975 mls/hr .[id number] PRN Administration TITRATE PER PROTOCOL Protocol 5 MCG/KG/MIN Ceftazidime/Avibactam 0.94 gm/ 100 mls @ 50 mls/hr 09/25/16 12:00 09/27/16 12: 29 Sodium Chloride IVPB 50 mls/hr Q12H ROXY Administration Dextrose 1,000 mls @ 60 mls/hr 09/27/16 12:30 09/27/16 12:29 Dextrose 5% In Water 1000 Ml IV 60 mls/hr .[id number] ROXY Administration Levalbuterol HCl 0.63 mg 09/25/16 15:30 09/27/16 11:04 Xopenex IH 0.63 mg [id number] ROXY Administration Metoprolol Tartrate 25 mg 09/25/16 18:00 09/27/16 10:26 Lopressor PO 25 mg BID ROXY Administration Morphine Sulfate 1 mg 09/27/16 11:54 Morphine IVP Q4H PRN Pain, moderate (4-7) Pantoprazole Sodium 40 mg 09/22/16 10:00 09/27/16 10:26 Protonix Inj IVP 40 mg DAILY ROXY Administration - Patient Studies Lab Studies: Microbiology Studies 09/23/16 12:00 Blood Culture - Final Blood-Venous Klebsiella Pneumoniae Ssp Pneu Gram Stain - Final 09/23/16 11:30 Blood Culture - Final Blood-Venous Klebsiella Pneumoniae Ssp Pneu Gram Stain - Final 09/24/16 07:00 Gram Stain - Final Sputum Sputum Culture - Final NORMAL ORAL EDUARDO Lab Studies 09/27/16 09/27/16 09/27/16 Range/Units 06:30 06:15 05:57 WBC (4.5-11.0) 10^3/ul RBC (3.5-6.1) 10^6/uL Hgb (14.0-18.0) gm/dL Hct (42.0-52.0) % MCV (80.0-105.0) fL MCH (25.0-35.0) pg MCHC (31.0-37.0) g/dl RDW (11.5-14.5) % Plt Count (120.0-450.0) 10^3/uL MPV (7.0-11.0) fl Neutrophils % (Manual) (50.0-70.0) % Band Neutrophils % (0-2) % Lymphocytes % (Manual) (22.0-35.0) % Monocytes % (Manual) (1.0-6.0) % Platelet Evaluation (NORMAL) Poikilocytosis (manual Anisocytosis (manual) APTT (23.7-30.8) Seconds pCO2 38 (35-45) mm/Hg pO2 81.0 (80-100) mm/Hg HCO3 17.9 L (21-28) mmol/L ABG pH 7.28 L (7.35-7.45) ABG Total CO2 19.1 L (22-28) mmol.L ABG O2 Saturation 97.5 (95-98) % ABG O2 Content 13.9 L (15-23) ML/dl ABG Base Excess -8.2 L (-2.0-3.0) mmol/L ABG Hemoglobin 10.4 L (11.7-17.4) g/dL ABG Carboxyhemoglobin 2.4 H (0.5-1.5) % POC ABG HHb (Measured) 2.4 (0-5) % ABG Methemoglobin 0.8 (0.0-3.0) % ABG O2 Capacity 14.3 L (16-24) mL/dl Hgb O2 Saturation 94.4 L (95.0-98.0) % FiO2 35.0 % Sodium 148 (132-148) mmol/L Potassium 4.5 (3.6-5.0) mmol/L Chloride 118 H (98-107) mmol/L Carbon Dioxide 18 L (21-33) mmol/L Anion Gap 17 (10-20) BUN 83 H (7-21) mg/dL Creatinine 3.7 H (0.5-1.4) mg/dL Est GFR ( Amer) 19 Est GFR (Non-Af Amer) 16 POC Glucose (mg/dL) 76 (65-110) mg/dL Random Glucose 82 (70-110) mg/dL Calcium 7.8 L (8.4-10.5) mg/dL Phosphorus 7.4 H (2.5-4.5) mg/dL Magnesium 1.9 (1.7-2.2) mg/dL Total Bilirubin 1.0 (0.2-1.3) mg/dL AST 29 (15-59) U/L ALT 33 (7-56) U/L Alkaline Phosphatase 55 (38-133) U/L Total Protein 5.5 L (5.8-8.3) g/dL Total Protein (PEP) (6.1-8.1) g/dL Albumin 2.1 L (3.0-4.8) g/dL Globulin 3.4 gm/dL Albumin/Globulin Ratio 0.6 L (1.1-1.8) Hep Bs Antigen (NEGATIVE) 09/27/16 09/27/16 09/26/16 Range/Units 05:30 00:10 22:10 WBC 6.9 D (4.5-11.0) 10^3/ul RBC 3.65 (3.5-6.1) 10^6/uL Hgb 10.3 L (14.0-18.0) gm/dL Hct 32.2 L (42.0-52.0) % MCV 88.2 (80.0-105.0) fL MCH 28.2 (25.0-35.0) pg MCHC 32.0 (31.0-37.0) g/dl RDW 17.4 H (11.5-14.5) % Plt Count 88 L (120.0-450.0) 10^3/uL MPV 10.7 (7.0-11.0) fl Neutrophils % (Manual) 72 H (50.0-70.0) % Band Neutrophils % 4 H (0-2) % Lymphocytes % (Manual) 15 L (22.0-35.0) % Monocytes % (Manual) 9 H (1.0-6.0) % Platelet Evaluation Low (NORMAL) Poikilocytosis (manual Slight Anisocytosis (manual) 1+ APTT 61.5 H (23.7-30.8) Seconds pCO2 (35-45) mm/Hg pO2 (80-100) mm/Hg HCO3 (21-28) mmol/L ABG pH (7.35-7.45) ABG Total CO2 (22-28) mmol.L ABG O2 Saturation (95-98) % ABG O2 Content (15-23) ML/dl ABG Base Excess (-2.0-3.0) mmol/L ABG Hemoglobin (11.7-17.4) g/dL ABG Carboxyhemoglobin (0.5-1.5) % POC ABG HHb (Measured) (0-5) % ABG Methemoglobin (0.0-3.0) % ABG O2 Capacity (16-24) mL/dl Hgb O2 Saturation (95.0-98.0) % FiO2 % Sodium (132-148) mmol/L Potassium (3.6-5.0) mmol/L Chloride (98-107) mmol/L Carbon Dioxide (21-33) mmol/L Anion Gap (10-20) BUN (7-21) mg/dL Creatinine (0.5-1.4) mg/dL Est GFR ( Amer) Est GFR (Non-Af Amer) POC Glucose (mg/dL) 69 67 (65-110) mg/dL Random Glucose (70-110) mg/dL Calcium (8.4-10.5) mg/dL Phosphorus (2.5-4.5) mg/dL Magnesium (1.7-2.2) mg/dL Total Bilirubin (0.2-1.3) mg/dL AST (15-59) U/L ALT (7-56) U/L Alkaline Phosphatase (38-133) U/L Total Protein (5.8-8.3) g/dL Total Protein (PEP) (6.1-8.1) g/dL Albumin (3.0-4.8) g/dL Globulin gm/dL Albumin/Globulin Ratio (1.1-1.8) Hep Bs Antigen (NEGATIVE) 09/26/16 09/26/16 09/26/16 Range/Units 16:08 11:49 07:22 WBC (4.5-11.0) 10^3/ul RBC (3.5-6.1) 10^6/uL Hgb (14.0-18.0) gm/dL Hct (42.0-52.0) % MCV (80.0-105.0) fL MCH (25.0-35.0) pg MCHC (31.0-37.0) g/dl RDW (11.5-14.5) % Plt Count (120.0-450.0) 10^3/uL MPV (7.0-11.0) fl Neutrophils % (Manual) (50.0-70.0) % Band Neutrophils % (0-2) % Lymphocytes % (Manual) (22.0-35.0) % Monocytes % (Manual) (1.0-6.0) % Platelet Evaluation (NORMAL) Poikilocytosis (manual Anisocytosis (manual) APTT (23.7-30.8) Seconds pCO2 (35-45) mm/Hg pO2 (80-100) mm/Hg HCO3 (21-28) mmol/L ABG pH (7.35-7.45) ABG Total CO2 (22-28) mmol.L ABG O2 Saturation (95-98) % ABG O2 Content (15-23) ML/dl ABG Base Excess (-2.0-3.0) mmol/L ABG Hemoglobin (11.7-17.4) g/dL ABG Carboxyhemoglobin (0.5-1.5) % POC ABG HHb (Measured) (0-5) % ABG Methemoglobin (0.0-3.0) % ABG O2 Capacity (16-24) mL/dl Hgb O2 Saturation (95.0-98.0) % FiO2 % Sodium (132-148) mmol/L Potassium (3.6-5.0) mmol/L Chloride (98-107) mmol/L Carbon Dioxide (21-33) mmol/L Anion Gap (10-20) BUN (7-21) mg/dL Creatinine (0.5-1.4) mg/dL Est GFR ( Amer) Est GFR (Non-Af Amer) POC Glucose (mg/dL) 70 77 84 (65-110) mg/dL Random Glucose (70-110) mg/dL Calcium (8.4-10.5) mg/dL Phosphorus (2.5-4.5) mg/dL Magnesium (1.7-2.2) mg/dL Total Bilirubin (0.2-1.3) mg/dL AST (15-59) U/L ALT (7-56) U/L Alkaline Phosphatase (38-133) U/L Total Protein (5.8-8.3) g/dL Total Protein (PEP) (6.1-8.1) g/dL Albumin (3.0-4.8) g/dL Globulin gm/dL Albumin/Globulin Ratio (1.1-1.8) Hep Bs Antigen (NEGATIVE) 09/26/16 09/26/16 Range/Units 06:20 05:07 WBC (4.5-11.0) 10^3/ul RBC (3.5-6.1) 10^6/uL Hgb (14.0-18.0) gm/dL Hct (42.0-52.0) % MCV (80.0-105.0) fL MCH (25.0-35.0) pg MCHC (31.0-37.0) g/dl RDW (11.5-14.5) % Plt Count (120.0-450.0) 10^3/uL MPV (7.0-11.0) fl Neutrophils % (Manual) (50.0-70.0) % Band Neutrophils % (0-2) % Lymphocytes % (Manual) (22.0-35.0) % Monocytes % (Manual) (1.0-6.0) % Platelet Evaluation (NORMAL) Poikilocytosis (manual Anisocytosis (manual) APTT (23.7-30.8) Seconds pCO2 (35-45) mm/Hg pO2 (80-100) mm/Hg HCO3 (21-28) mmol/L ABG pH (7.35-7.45) ABG Total CO2 (22-28) mmol.L ABG O2 Saturation (95-98) % ABG O2 Content (15-23) ML/dl ABG Base Excess (-2.0-3.0) mmol/L ABG Hemoglobin (11.7-17.4) g/dL ABG Carboxyhemoglobin (0.5-1.5) % POC ABG HHb (Measured) (0-5) % ABG Methemoglobin (0.0-3.0) % ABG O2 Capacity (16-24) mL/dl Hgb O2 Saturation (95.0-98.0) % FiO2 % Sodium (132-148) mmol/L Potassium (3.6-5.0) mmol/L Chloride (98-107) mmol/L Carbon Dioxide (21-33) mmol/L Anion Gap (10-20) BUN (7-21) mg/dL Creatinine (0.5-1.4) mg/dL Est GFR ( Amer) Est GFR (Non-Af Amer) POC Glucose (mg/dL) 102 (65-110) mg/dL Random Glucose (70-110) mg/dL Calcium (8.4-10.5) mg/dL Phosphorus (2.5-4.5) mg/dL Magnesium (1.7-2.2) mg/dL Total Bilirubin (0.2-1.3) mg/dL AST (15-59) U/L ALT (7-56) U/L Alkaline Phosphatase (38-133) U/L Total Protein (5.8-8.3) g/dL Total Protein (PEP) 4.8 L (6.1-8.1) g/dL Albumin (3.0-4.8) g/dL Globulin gm/dL Albumin/Globulin Ratio (1.1-1.8) Hep Bs Antigen Negative (NEGATIVE) Laboratory Results - last 24 hr 09/26/16 09/26/16 09/26/16 05:07 06:20 07:22 WBC RBC Hgb Hct MCV MCH MCHC RDW Plt Count MPV Neutrophils % (Manual) Band Neutrophils % Lymphocytes % (Manual) Monocytes % (Manual) Platelet Evaluation Poikilocytosis (manual Anisocytosis (manual) APTT pCO2 pO2 HCO3 ABG pH ABG Total CO2 ABG O2 Saturation ABG O2 Content ABG Base Excess ABG Hemoglobin ABG Carboxyhemoglobin POC ABG HHb (Measured) ABG Methemoglobin ABG O2 Capacity Hgb O2 Saturation FiO2 Sodium Potassium Chloride Carbon Dioxide Anion Gap BUN Creatinine Est GFR ( Amer) Est GFR (Non-Af Amer) POC Glucose (mg/dL) 102 84 Random Glucose Calcium Phosphorus Magnesium Total Bilirubin AST ALT Alkaline Phosphatase Total Protein Total Protein (PEP) 4.8 L Albumin Globulin Albumin/Globulin Ratio Hep Bs Antigen Negative 09/26/16 09/26/16 09/26/16 11:49 16:08 22:10 WBC RBC Hgb Hct MCV MCH MCHC RDW Plt Count MPV Neutrophils % (Manual) Band Neutrophils % Lymphocytes % (Manual) Monocytes % (Manual) Platelet Evaluation Poikilocytosis (manual Anisocytosis (manual) APTT pCO2 pO2 HCO3 ABG pH ABG Total CO2 ABG O2 Saturation ABG O2 Content ABG Base Excess ABG Hemoglobin ABG Carboxyhemoglobin POC ABG HHb (Measured) ABG Methemoglobin ABG O2 Capacity Hgb O2 Saturation FiO2 Sodium Potassium Chloride Carbon Dioxide Anion Gap BUN Creatinine Est GFR ( Amer) Est GFR (Non-Af Amer) POC Glucose (mg/dL) 77 70 67 Random Glucose Calcium Phosphorus Magnesium Total Bilirubin AST ALT Alkaline Phosphatase Total Protein Total Protein (PEP) Albumin Globulin Albumin/Globulin Ratio Hep Bs Antigen 09/27/16 09/27/16 09/27/16 00:10 05:30 05:57 WBC 6.9 D RBC 3.65 Hgb 10.3 L Hct 32.2 L MCV 88.2 MCH 28.2 MCHC 32.0 RDW 17.4 H Plt Count 88 L MPV 10.7 Neutrophils % (Manual) 72 H Band Neutrophils % 4 H Lymphocytes % (Manual) 15 L Monocytes % (Manual) 9 H Platelet Evaluation Low Poikilocytosis (manual Slight Anisocytosis (manual) 1+ APTT 61.5 H pCO2 pO2 HCO3 ABG pH ABG Total CO2 ABG O2 Saturation ABG O2 Content ABG Base Excess ABG Hemoglobin ABG Carboxyhemoglobin POC ABG HHb (Measured) ABG Methemoglobin ABG O2 Capacity Hgb O2 Saturation FiO2 Sodium Potassium Chloride Carbon Dioxide Anion Gap BUN Creatinine Est GFR ( Amer) Est GFR (Non-Af Amer) POC Glucose (mg/dL) 69 76 Random Glucose Calcium Phosphorus Magnesium Total Bilirubin AST ALT Alkaline Phosphatase Total Protein Total Protein (PEP) Albumin Globulin Albumin/Globulin Ratio Hep Bs Antigen 09/27/16 09/27/16 06:15 06:30 WBC RBC Hgb Hct MCV MCH MCHC RDW Plt Count MPV Neutrophils % (Manual) Band Neutrophils % Lymphocytes % (Manual) Monocytes % (Manual) Platelet Evaluation Poikilocytosis (manual Anisocytosis (manual) APTT pCO2 38 pO2 81.0 HCO3 17.9 L ABG pH 7.28 L ABG Total CO2 19.1 L ABG O2 Saturation 97.5 ABG O2 Content 13.9 L ABG Base Excess -8.2 L ABG Hemoglobin 10.4 L ABG Carboxyhemoglobin 2.4 H POC ABG HHb (Measured) 2.4 ABG Methemoglobin 0.8 ABG O2 Capacity 14.3 L Hgb O2 Saturation 94.4 L FiO2 35.0 Sodium 148 Potassium 4.5 Chloride 118 H Carbon Dioxide 18 L Anion Gap 17 BUN 83 H Creatinine 3.7 H Est GFR ( Amer) 19 Est GFR (Non-Af Amer) 16 POC Glucose (mg/dL) Random Glucose 82 Calcium 7.8 L Phosphorus 7.4 H Magnesium 1.9 Total Bilirubin 1.0 AST 29 ALT 33 Alkaline Phosphatase 55 Total Protein 5.5 L Total Protein (PEP) Albumin 2.1 L Globulin 3.4 Albumin/Globulin Ratio 0.6 L Hep Bs Antigen Fingerstick Blood Sugar Results: 76 Review of Systems - Review of Systems Systems not reviewed;Unavailable: Acuity of Condition Critical Care Progress Note - Nutrition Nutrition: Nutrition Category Date Time Status NPO Diet [DIET] Diets 09/21/16 Breakfast Ordered Assessment/Plan - Assessment and Plan (Free Text) Assessment: This is an 80 yo M with PMH of CVA, CHF with EF 30%, mild Pulm HTN, chronic Right LE cellulitis, and Depression who was intubated for respiratory failure and is s/p cardiac arrest with ROSC after 9 minutes. He is currently being managed for Klebsiella Urosepsis, respiratory distress with respiratory and metabolic acidosis; he remains a DNR/DNI. Plan: Neuro: -awake but minimally alert, follows few commands, largely non-verbal -extubated 3 days prior, airway remains protected, neurologically stable -maintain normothermia, no fevers overnight -Hx CVA -Neuro (Dr. Perry) signed off -Head CT on 09/21 notable for prior L-CVA, no acute mass effect or hemorrhage noted -PT/OT consulted Pulm: -Intubated for respiratory failure in the ED, extubated 3 days prior; worsened respiratory status today, remains on Bipap -patient remains DNR/DNI after discussion with patient and partner, partner considering progressing to comfort care and termination of Bipap; Palliative on board, appreciate all recs -CXR today and exam concerning for fluid overload/pulmonary edema, improved over CXR yesterday -Diuresing with 60mg IV Lasix q12 -Maintain SaO2 > 90%, paO2 > 60 -AM ABG reviewed, non-gapped metabolic acidosis with respiratory acidosis improved but persists -Pulm following (Dr. Dietz), appreciate any recs -Aspiration precautions, head of bed to 30 degrees Cardio: -NSTEMI, on heparin drip, continue ASA/Plavix/Statin -Hgb 10.3, was 10.4 -Maintain MAP > 65, not currently on pressors -Most recent trop 0.70 (was 1.24, 1.15); NSTEMI vs Kidney leak 2/2 renal failure vs ischemic injury from cardiac arrest -Cardio (Dr. Wheat) following, appreciate any recs; Dobutamine drip discontinued due to multiple and increasing frequency PVCs and arrhythmias -Most recent Echo on 09/25/16, notable for LVEF 40%, mild concentric LVH, moderate systolic fxn impairment, flattened septum, mild-mod AR and MR, moderate left pleural effusion -S/p Cardiac arrest in ED, ROSC after 9 minutes -Upper Extremity US notes bilateral subclavian thrombi, already covered by Heparin drip for NSTEMI GI: -NPO -NG tube in place, holding off on NG tube feeds due to risk of aspiration while on BiPAP -Protonix for GI ppx Renal: -Renal failure vs NAYA on CKD -Baseline Cr 2.5-2.7 in 2016, elevated to 3.1-3.4 during last admission ~3 weeks prior, 3.7 today -metabolic acidosis with respiratory acidosis, not compensated per Winter's formula -Nephro (Dr. Wong) and Urology (Dr. Kovacs) consulted, appreciate any recs -Avoid nephrotoxic drugs where feasible -maintain euglycemia (BG 140-180), no euvolemia as currently fluid overloaded/ trying to diurese -Monitor electrolytes and replete as needed -Urine Cx positive for resistant Klebsiella, noted during last admission as well , started on Tygacil as per ID, avoid Bactrim due to renal failure -Given recently treated resistant Klebsiella, increasing lethargy/weakness/ chills of patient prior to presentation, and WBCs of 19.0 on presentation, likely urosepsis ID: -Given recently treated MDR Klebsiella, increasing lethargy/weakness/chills of patient prior to presentation, and WBCs of 19.0 on presentation, likely urosepsis, now bacteremia as well -Repeat blood cultures obtained, 1st positive for G(-) rods, 2nd positive for MDR Klebsiela -Initial Chest CT and CXR concerning for possible pneumonia, but current CXR more suggestive of fluid overload/pulm edema; per Pulm elevated procal may be 2/ 2 UTI and renal failure -continue Acyvir as per ID -ID (Dr. Morrison) on board, appreciate any recs -WBCs 6.9 (was 9.4), afebrile overnight Heme: -Hgb 10.3, was 10.4 -on Heparin drip for NSTEMI and bilateral subclavian thrombi, f/u PTTs Endo: -maintain euglycemia BG 140-180 -holding NG tube feeds due to aspiration risk for NGT feds concurrent with BiPAP Dispo: ICU for respiratory failure (post extubation, day 3) and s/p Cardiac arrest (ROSC after 9 minutes), now on BiPAP, pending partner's decision regarding comfort measures FEN: NPO Access: Piper, Peripheral IV, NGT Consults: Urology, Nephrology, Cardio, ID, Neuro (signed off), Pulm, Palliative Ppx: Protonix for GI, Heparin drip covers for DVT Code Status: DNR/DNI, pending partner's decision regarding comfort measures Patient seen, reviewed, and discussed with attending, Dr. Littlejohn. - Date & Time Date: 09/27/16 Time: 15:44 <Eron JIMÉNEZ,Inakrzysztof H - Last Filed: 10/01/16 07:56> CCU Objective - Vital Signs / Intake & Output Intake and Output (Last 8hrs): Intake & Output 09/30/16 10/01/16 10/01/16 22:59 06:59 14:59 Output Total 250 Balance -250 Output: Urine 250 Urethral (Piper) 250 Other: # Bowel Movements 1 - Medications Active Medications: Active Medications Generic Name Dose Route Start Last Admin Trade Name Freq PRN Reason Stop Dose Admin Acetaminophen 650 mg 09/23/16 08:01 09/23/16 08:21 Tylenol 650 Mg Supp RC 650 mg Q6H PRN Administration Fever >100.4 F Aspirin 81 mg 09/24/16 11:45 09/30/16 16:18 Aspirin Chewable PO Not Given DAILY [facility] Atorvastatin Calcium 40 mg 09/24/16 11:45 09/30/16 16:20 Lipitor PO Not Given DIN [facility] Bacitracin 0 gm 09/24/16 18:00 09/30/16 18:20 Bacitracin TOP 1 applic TID ROXY Administration Clopidogrel Bisulfate 75 mg 09/24/16 11:45 09/30/16 10:21 Plavix PO Not Given DAILY [facility] Furosemide 60 mg 09/26/16 11:15 09/30/16 23:00 Lasix IVP 60 mg Q12 ROXY Administration Heparin Sodium/Sodium Chloride 250 mls @ 7.185 mls/hr 09/23/16 20:02 09/30/16 16:22 Heparin 65130 Units/250ml 1/2 Normal Saline IV 3.992 mls/hr .Q24H PRN Administration ADJUST RATE PER PROTOCOL Protocol 9 UNITS/KG/HR Dobutamine HCl/Dextrose 250 mls @ 11.975 mls/hr 09/25/16 05:40 09/25/16 09:00 Dobutamine/Dextrose 5% 500mg/250ml IV 11.975 mls/hr .[id number] PRN Administration TITRATE PER PROTOCOL Protocol 5 MCG/KG/MIN Ceftazidime/Avibactam 0.94 gm/ 100 mls @ 50 mls/hr 09/25/16 12:00 09/30/16 23: 30 Sodium Chloride IVPB 50 mls/hr Q12H ROXY Administration Dextrose 1,000 mls @ 60 mls/hr 09/27/16 12:30 09/30/16 16:29 Dextrose 5% In Water 1000 Ml IV 60 mls/hr .[id number] ROXY Administration Morphine Sulfate 25 mls @ 1 mls/hr 09/28/16 14:37 Morphine Blower Mechanic 1 Mg/Ml IV PRN PRN 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 PER MD ORDER Protocol 1 MG/HR Levalbuterol HCl 0.63 mg 09/25/16 15:30 10/01/16 04:30 Xopenex IH 0.63 mg [id number] ROXY Administration Metoprolol Tartrate 25 mg 09/25/16 18:00 09/30/16 18:21 Lopressor PO Not Given BID ROXY Morphine Sulfate 1 mg 09/27/16 11:54 09/29/16 02:03 Morphine IVP 1 mg Q4H PRN Administration Pain, moderate (4-7) Pantoprazole Sodium 40 mg 09/22/16 10:00 09/30/16 10:24 Protonix Inj IVP Not Given DAILY [facility] - Patient Studies Lab Studies: Lab Studies 10/01/16 10/01/16 09/30/16 Range/Units 07:10 03:00 21:16 WBC 1.5 L* (4.5-11.0) 10^3/ul RBC 2.55 L (3.5-6.1) 10^6/uL Hgb 7.2 L (14.0-18.0) gm/dL Hct 22.3 L (42.0-52.0) % MCV 87.5 (80.0-105.0) fL MCH 28.2 (25.0-35.0) pg MCHC 32.3 (31.0-37.0) g/dl RDW 17.1 H (11.5-14.5) % Plt Count 52 L (120.0-450.0) 10^3/uL MPV 11.3 H (7.0-11.0) fl Gran % 0.0 L (50.0-68.0) % Lymph % (Auto) 67.5 H (22.0-35.0) % [place] % (Auto) 32.5 H (1.0-6.0) % Eos % (Auto) 0.0 L (1.5-5.0) % Baso % (Auto) 0.0 (0.0-3.0) % Gran # 0.00 L (1.4-6.5) Lymph # 1.0 L (1.2-3.4) [place] # 0.5 (0.1-0.6) Eos # 0.0 (0.0-0.7) Baso # 0.00 (0.0-2.0) K/mm3 APTT 64.6 H (23.7-30.8) Seconds Sodium 142 (132-148) mmol/L Potassium 3.8 (3.6-5.0) mmol/L Chloride 111 H (98-107) mmol/L Carbon Dioxide 18 L (21-33) mmol/L Anion Gap 17 (10-20) BUN 90 H (7-21) mg/dL Creatinine 3.4 H (0.5-1.4) mg/dL Est GFR ( Amer) 21 Est GFR (Non-Af Amer) 17 POC Glucose (mg/dL) 116 H (65-110) mg/dL Random Glucose 90 (70-110) mg/dL Calcium 7.5 L (8.4-10.5) mg/dL Phosphorus 7.5 H (2.5-4.5) mg/dL Magnesium 1.8 (1.7-2.2) mg/dL Total Bilirubin 0.9 (0.2-1.3) mg/dL AST 32 (15-59) U/L ALT 36 (7-56) U/L Alkaline Phosphatase 46 (38-133) U/L Total Protein 4.8 L (5.8-8.3) g/dL Albumin 1.9 L (3.0-4.8) g/dL Globulin 2.9 gm/dL Albumin/Globulin Ratio 0.7 L (1.1-1.8) [place]/Lambda Light Chain (()) 09/30/16 09/30/16 09/26/16 Range/Units 16:32 11:34 06:20 WBC (4.5-11.0) 10^3/ul RBC (3.5-6.1) 10^6/uL Hgb (14.0-18.0) gm/dL Hct (42.0-52.0) % MCV (80.0-105.0) fL MCH (25.0-35.0) pg MCHC (31.0-37.0) g/dl RDW (11.5-14.5) % Plt Count (120.0-450.0) 10^3/uL MPV (7.0-11.0) fl Gran % (50.0-68.0) % Lymph % (Auto) (22.0-35.0) % [place] % (Auto) (1.0-6.0) % Eos % (Auto) (1.5-5.0) % Baso % (Auto) (0.0-3.0) % Gran # (1.4-6.5) Lymph # (1.2-3.4) [place] # (0.1-0.6) Eos # (0.0-0.7) Baso # (0.0-2.0) K/mm3 APTT (23.7-30.8) Seconds Sodium (132-148) mmol/L Potassium (3.6-5.0) mmol/L Chloride (98-107) mmol/L Carbon Dioxide (21-33) mmol/L Anion Gap (10-20) BUN (7-21) mg/dL Creatinine (0.5-1.4) mg/dL Est GFR ( Amer) Est GFR (Non-Af Amer) POC Glucose (mg/dL) 107 104 (65-110) mg/dL Random Glucose (70-110) mg/dL Calcium (8.4-10.5) mg/dL Phosphorus (2.5-4.5) mg/dL Magnesium (1.7-2.2) mg/dL Total Bilirubin (0.2-1.3) mg/dL AST (15-59) U/L ALT (7-56) U/L Alkaline Phosphatase (38-133) U/L Total Protein (5.8-8.3) g/dL Albumin (3.0-4.8) g/dL Globulin gm/dL Albumin/Globulin Ratio (1.1-1.8) [place]/Lambda Light Chain see note (()) Laboratory Results - last 24 hr 09/26/16 09/30/16 09/30/16 06:20 11:34 16:32 WBC RBC Hgb Hct MCV MCH MCHC RDW Plt Count MPV Gran % Lymph % (Auto) [place] % (Auto) Eos % (Auto) Baso % (Auto) Gran # Lymph # [place] # Eos # Baso # APTT Sodium Potassium Chloride Carbon Dioxide Anion Gap BUN Creatinine Est GFR ( Amer) Est GFR (Non-Af Amer) POC Glucose (mg/dL) 104 107 Random Glucose Calcium Phosphorus Magnesium Total Bilirubin AST ALT Alkaline Phosphatase Total Protein Albumin Globulin Albumin/Globulin Ratio [place]/Lambda Light Chain see note 09/30/16 10/01/16 10/01/16 21:16 03:00 07:10 WBC 1.5 L* RBC 2.55 L Hgb 7.2 L Hct 22.3 L MCV 87.5 MCH 28.2 MCHC 32.3 RDW 17.1 H Plt Count 52 L MPV 11.3 H Gran % 0.0 L Lymph % (Auto) 67.5 H [place] % (Auto) 32.5 H Eos % (Auto) 0.0 L Baso % (Auto) 0.0 Gran # 0.00 L Lymph # 1.0 L [place] # 0.5 Eos # 0.0 Baso # 0.00 APTT 64.6 H Sodium 142 Potassium 3.8 Chloride 111 H Carbon Dioxide 18 L Anion Gap 17 BUN 90 H Creatinine 3.4 H Est GFR ( Amer) 21 Est GFR (Non-Af Amer) 17 POC Glucose (mg/dL) 116 H Random Glucose 90 Calcium 7.5 L Phosphorus 7.5 H Magnesium 1.8 Total Bilirubin 0.9 AST 32 ALT 36 Alkaline Phosphatase 46 Total Protein 4.8 L Albumin 1.9 L Globulin 2.9 Albumin/Globulin Ratio 0.7 L [place]/Lambda Light Chain Critical Care Progress Note - Nutrition Nutrition: Nutrition Category Date Time Status NPO Diet [DIET] Diets 09/21/16 Breakfast Ordered Attending/Attestation - Attestation I have personally seen and examined this patient.: Yes I have fully participated in the care of the patient.: Yes I have reviewed all pertinent clinical information: Yes Notes (Text): 10/01/16 07:55 80 y/o M DNR DNI Multi organ failure NAYA CKD Refused HD MDR Kleb bacteremia Respiratory failure on BIPAP AG MET acidosis Previous CVA Recent cardiac arrest Planning for comfort care w/ paliative care and POA cc time 45 min
[2016-09-27] MEDS: Heparin25000 units/250ml 1/2NS 250 ML IV PRN (15:59)
--- NOTE | 2016-09-27 16:14 | PN ---
DATE: 09/27/2016 The patient is in bed, no acute distress, nontoxic. PHYSICAL EXAMINATION: VITAL SIGNS: Temperature is 98, blood pressure is 160/70, respiratory rate of 16. HEENT: Unremarkable. NECK: Supple. LUNGS: Have decreased breath sounds. HEART: Normal S1, S2. ABDOMEN: Soft, nontender. LABORATORY DATA: Reveals a white count of 6.9, hemoglobin of 10, platelets of 88. Coagulation is no mike. Chemistries reveal a BUN of 83, creatinine of 3.7. Procalcitonin is 35. Urinalysis is noted. Immunology is noted. Serology is noted. Microbiology is noted. Review of the orders reveals the patient to be on ceftazidime/avibactam. ASSESSMENT AND PLAN: This is an 80-year-old male with severe sepsis, acute hypoxic ventilatory depen dent respiratory failure secondary to lower lobe healthcare-associated pneumonia, possible gram-posit christy cocci, possible gram-negative sandra, also with multidrug-resistant Klebsiella bacteremia and multid rug-resistant Klebsiella pneumoniae in the urine as well, sensitive to Avycaz (which is ceftazidime/a vibactam). Today is day #3. Would complete 10-14 days of antibiotic. Currently patient is extubate d, comfortable and appears to be improving. Jose Morales MD cc: [id number] TT: 09/27/2016 16:13:47 Confirmation # [id number] Dictation # [id number] mn
--- NOTE | 2016-09-27 20:37 | PN ---
DATE: 09/27/2016 NEPHROLOGY FOLLOWUP NOTE An 80-year-old male with history of coronary artery disease, CHF with systolic dysfunction, CKD IV, p revious CVA, admitted with septic shock secondary to pneumonia and UTI, CHF exacerbation and acute re nal failure on CKD. Per critical care team, patient less responsive today. Unable to obtain review of systems from the patient. PHYSICAL EXAMINATION: VITAL SIGNS: This morning, blood pressure 165/72, heart rate 79, respirations 42, O2 sat 89%. GENERAL: No apparent distress, inconsistently following commands. HEENT: Moist mucous membranes. Nonicteric. CHEST: Clear to auscultation bilaterally. No rhonchi, no rales. HEART: S1, S2 positive, no murmurs, no gallops, no rubs. ABDOMEN: Soft, nontender, nondistended. EXTREMITIES: Markedly edematous. LABORATORY DATA: From this morning, CBC: WBC 6.9, hemoglobin 10.3, hematocrit 32.2, platelets 88, d ecreased from 192 four days ago. PTT 61.5. Chemistry panel: Sodium 148, potassium 4.5, chloride 11 8, bicarbonate 18, BUN 83, creatinine 3.7, glucose 82, calcium 7.8, phosphorus 7.4, albumin 2.1. ABG done on 35% FiO2, pH 7.28, pCO2 38, pO2 81, HCO3 of 17.9. ASSESSMENT: 1. Acute renal failure on chronic kidney disease stage IV. The patient with nonoliguric renal failu re, likely brought on by sepsis and relative hypotension seen earlier. Renal function continues to m ildly worsen with creatinine increasing from 3.2-3.7 over the past 2 days, likely due to diuresis. T he patient is still markedly volume overloaded. Hyperkalemia has resolved. Normal anion gap. Metab olic acidosis secondary to advanced renal failure. Continue to maintain pH above 7.20 with bicarbona te supplementation as needed. Continue standing Lasix 60 mg IV push twice daily in order to maintain euvolemia. 2. Congestive heart failure exacerbation with systolic dysfunction, off of inotropic agent for over 24 hours. Renal function not significantly worsened since then. Continue beta blockers to optimize cardiac status. 3. Sepsis secondary to healthcare-associated pneumonia and urinary tract infection with Klebsiella p neumoniae bacteremia and positive urine culture. Currently on ceftazidime, Avibactam combination cor rectly dosed for a creatinine clearance of about 16 mL per minute. 4. Hyperphosphatemia secondary to renal failure. The patient remains n.p.o. If starting seeds, nee ds to be on renal [employer] and would need to start PhosLo 1 tablet q. 6 hours. Avoid calcium suppl ementation as corrected calcium is within normal range. 5. Hypernatremia. Close to 3 liters free water deficit. Started D5W at 60 mL an hour. Marbin Bonner MD cc: [id number] TT: 09/27/2016 20:36:35 Confirmation # [id number] Dictation # [id number] [place]
[2016-09-28] MEDS: Levalbuterol 0.63 MG/3 ML Inhal Soln UD IH SCH ×7 (00:18→23:07)
[2016-09-28 05:38] LABS: ARTERIAL BLOOD GAS HCO3 18.4 mmol/L (21-28); ARTERIAL BLOOD GAS O2 CAPACITY 14.2 mL/dl (16-24); ARTERIAL BLOOD GAS O2 CONTENT 14.1 ML/dl (15-23); ARTERIAL BLOOD GAS PH 7.24 (7.35-7.45); ARTERIAL BLOOD HGB O2 SAT 96.5 % (95.0-98.0); CARBOXYHEMOGLOBIN 2.4 % (0.5-1.5); HHB 0.8 % (0-5); METHEMOGLOBIN 0.4 % (0.0-3.0)
[2016-09-28 06:50] LABS: KAPPA/LAMBDA FREE RATIO 1.99 (0.26-1.65)
--- NOTE | 2016-09-28 07:26 | PN ---
DATE: 09/28/2016(610am--700am) SUBJECTIVE: The patient is currently mildly to moderately short of breath. He is less short of breath -- compared to yesterday morning. He remains lethargic. VITAL SIGNS: Temperature is 98.4, pulse on the monitor is 62, respiratory rate 22/24, blood pressure 146/61. Oxygen saturation on BiPAP is 100%. HEENT: Normocephalic, atraumatic. No JVD. CARDIOVASCULAR: Systolic ejection murmur at the lower left sternal border. Questionable S3 gallop. LUNGS: Decreased breath sounds at the bases. Minimal/less rhonchi. No wheezing. EXTREMITIES: Positive for edema. No cyanosis, no clubbing. Calves are nontender to palpation. GASTROINTESTINAL: Abdomen is soft, nontender, nondistended. Bowel sounds are positive. SKIN: Mild cellulitis -- right lower extremity. NEUROLOGIC: Limited at the present time. PERTINENT LABORATORY DATA: Chest x-ray was done this morning and reviewed. There is mild continued improvement -- with decreased pulmonary edema noted, as well as decreased pleural effusions. Arterial blood gas was done on BiPAP 05/22 with 35% oxygen. Results are: pH 7.24, pCO2 of 43, pO2 of 99. IMPRESSION: 1. Respiratory failure. 2. Status post cardiopulmonary resuscitation. 3. Urosepsis. 4. Rule out pneumonia -- left lower lobe. 5. Worsening renal dysfunction. 6. Pulmonary edema. 7. Rule out myocardial infarction. PLAN: The patient is currently mildly to moderately short of breath at rest. He is less short of breath -- compared to yesterday morning. He remains lethargic. I did discuss the case with the night nurse at length. The night nurse confirms that the patient is not doing well overall. I did review the x- ray as above. The x-ray is mildly improved -- with decreased pulmonary edema, as well as decreased pleural effusions. I have also reviewed the arterial blood gas. A severe metabolic acidosis remains, with the upper limits of normal carbon dioxide. There is less alveolar arterial gradient -- on today's arterial blood gas. I did discuss the arterial blood gas with the respiratory therapist at length. I will make a small adjustment on the BiPAP this morning. I would continue with the antibiotic coverage as per infectious disease. Temperatures have resolved. The leukocytosis has resolved. I would continue with the cardiology and renal evaluations. Inputs are noted. Repeat a.m. labs are pending. The patient remains on a dobutamine drip. The patient remains critically ill, with overall very poor outlook. I will discuss the above with the entire ICU team in the next few moments. I will also discuss the above with Dr. Dejesus later this morning. Maurilio Dietz MD cc: [phone] TT: 09/28/2016 07:26:14 Confirmation # [id number] Dictation # [id number] jn MTDD
[2016-09-28 07:47] LABS: ADD MANUAL DIFF? NO
[2016-09-28 07:52] LABS: BASO # 0.01 K/mm3 (0.0-2.0); BASO % 0.2 % (0.0-3.0); EOS % 0.2 % (1.5-5.0); GRAN # 3.64 (1.4-6.5); GRAN % 60.7 % (50.0-68.0); HEMATOCRIT 33.7 % (42.0-52.0); LYMPH # 1.6 (1.2-3.4); LYMPH % 26.5 % (22.0-35.0); MEAN CELL VOLUME 89.9 fL (80.0-105.0); MEAN CORPUSCULAR HGB CONC 31.2 g/dl (31.0-37.0); MEAN PLATELET VOLUME 11.8 fl (7.0-11.0); MONO # 0.7 (0.1-0.6); MONO % 12.4 % (1.0-6.0); PLATELET COUNT 64 10^3/uL (120.0-450.0); RED CELL DISTRIBUTION WIDTH 17.6 % (11.5-14.5)
--- NOTE | 2016-09-28 08:42 | PN ---
DATE: 09/28/2016 I saw him in the intensive care unit today. He is sedated. He is on an oxygen mask. He is very weak and also very puffy and some oozing from the left arm, not really able to talk to me, but his eyes did open for a second. PHYSICAL EXAMINATION: VITAL SIGNS: He has a 98.4 temp, 77 pulse, 146/61 blood pressure, 18 respiratory rate, 100% O2 sat on 35% oxygen. HEENT: His head is atraumatic, normocephalic. NECK: Supple. HEART: Regular rate. LUNGS: Decreased breath sounds bilaterally with poor inspiration. ABDOMEN: Soft, obese, positive large inguinal hernia. EXTREMITIES: Trace edema. He is very puffy in the extremities. He is currently on aspirin, bacitracin, Caltrate, ceftazidime, avibactam, dextrose, dobutamine, heparin, Lasix, Lipitor, Lopressor, morphine, Plavix, Protonix, Tylenol and Xopenex. He has a 148 sodium, potassium 4.5, BUN 82, creatinine 3.7, which is one the biggest problems he is having is bad kidney function now. AST is 29, ALT is 33 , alk phos 55. His white count is 6, hemoglobin 10.5, hematocrit 33.7, platelets are 64. They have been dropping. He is here for respiratory failure, sepsis, EKG changes, urinary tract infection , renal failure and hopefully he can pull through. I discussed this with his partner, Elmer , who will be coming to visit him today. That will be good for his spirits. We will check his labs tomorrow. Continue with aggressive treatment and care as per the specialists. Derick Dejesus DO cc: [id number] TT: 09/28/2016 08:42:17 Confirmation # [id number] Dictation # [id number] en MTDD
--- NOTE | 2016-09-28 09:24 | PN ---
DATE: 09/28/2016 The patient is in bed, in no acute distress, nontoxic. PHYSICAL EXAMINATION: VITAL SIGNS: Temperature is 98, blood pressure is 140/60, respiratory rate of 16. HEENT: Unremarkable. NECK: Supple. LUNGS: Have decreased breath sounds. HEART: Normal S1, S2. ABDOMEN: Soft, nontender. LABORATORY EXAMINATION: Reveals the patient's white count is 6, hemoglobin of 10, platelets of 64. BUN of 83, creatinine of 3.7. Procalcitonin is 35. Review of orders reveals the patient to be on ceftazidime/avibactam. ASSESSMENT AND PLAN: An 80-year-old with severe sepsis, acute hypoxic ventilatory dependent respirat ory failure secondary to lower lobe healthcare-associated pneumonia, possible gram-positive cocci, po ssible gram-negative sandra with multidrug resistant Klebsiella bacteremia secondary to a multidrug resi stant Klebsiella pneumoniae in the urine, sensitive to Avycaz, which is ceftazidime and avibactam. T alina is day #4 of therapy. Would complete 10-14 days of antibiotics. Case discussed with Dr. Derick Dejesus. The patient is now extubated and comfortable. However, overall long-term prognosis is quit e poor. Jose Morales MD cc: 350 TT: 09/28/2016 09:23:43 Confirmation # [id number] Dictation # [id number] en
[2016-09-28] MEDS: Bacitracin Ointment 30 GM TUBE TOP SCH ×3 (09:49→18:33)
--- NOTE | 2016-09-28 10:18 | RAD ---
HISTORY: f/u COMPARISON: 09/27/2016 FINDINGS: LUNGS: Minimal bibasilar infiltrates and small effusions PLEURA: Small effusions CARDIOVASCULAR: Mild cardiomegaly OSSEOUS STRUCTURES: No significant abnormalities. VISUALIZED UPPER ABDOMEN: The nasogastric tube in satisfactory position OTHER FINDINGS: None. IMPRESSION: Minimal bibasilar infiltrates and small effusions
[2016-09-28 10:40] LABS: BETA 1 GLOBULIN 0.3 g/dL (0.4-0.6); BETA 2 GLOBULIN 0.4 g/dL (0.2-0.5); GAMMA GLOBULIN 1.1 g/dL (0.8-1.7)
--- NOTE | 2016-09-28 11:45 | CP.CCUPN ---
<Kiko Webber - Last Filed: 09/28/16 11:36> CCU Subjective - Physician Review Subjective (Free Text): 09/28/16 11:37 Patient seen and examined at bedside in ICU. Today is hospital day 8. Extubated 4 days ago. Remains on BiPAP. Awake but minimal alertness, not following most commands or answering most questions. Intermittently labored breaths while on BiPAP. Remains DNR/DNI. Intermittent HR decreases to 40's for 10-20 seconds persists. After long and thorough conversation with patient' s partner Yayo Vera, it was determined that, in accordance of what patient' s wishes would be, the patient should be switched to comfort/hospice care. CCU Objective - Vital Signs / Intake & Output Vital Signs (Last 4 hours): Vital Signs BP 09/28/16 09:47 167/79 H Intake and Output (Last 8hrs): Intake & Output 09/27/16 09/28/16 09/28/16 22:59 06:59 14:59 Intake Total 768 Output Total 600 Balance 168 Intake: IV 768 Right Antecubital 720 Right Hand 48 Output: Urine 600 Urethral (Piper) 600 Other: Voiding Method Indwelling Catheter - Physical Exam Narrative Physical Exam (Free Text): 09/28/16 11:39 Physical Exam Limitations: Altered Mental Status (awake but minimally alert, not following most commands) Head: Atraumatic, Normocephalic. Negative for: Contusion, Ecchymosis, Abrasion , Laceration Pupils: PERRL. Negative for: Sluggish, Non-Reactive, Pinpoint Conjunctiva: Normal. Negative for: Injected, Icteric Mouth: Moist Mucous Membranes, Wearing bipap mask. Negative for: Drooling Nose (External): Atraumatic, Other (NG tube in place, fixed with tape). Negative for: Abrasion, Contusion, Laceration Neck: Trachea Midline. Negative for: MIDLINE TENDERNESS, JVD Respiratory/Chest: Respiratory Distress (intermittently labored and tachypnic breathing, despite being on Bipap), Decreased Breath Sounds (decreased breath sounds in all auscultated alex), Rales (minimal rales, most prominent in bilateral bases, similar to mildly improved over yesterday), Tachypneic, On Bipap. Negative for: Clear to Auscultation, Good Air Exchange, Accessory Muscle Use, Wheezes, Rhonchi, Tender to Palpation Cardiovascular: Regular Rate and Rhythm, Normal S1, S2, RRR at time of exam but multiple intermittent episodes of bradycardia down to 40's noted on monitors prior to and after exam. Negative for: Murmurs, Irregular Rhythm, Tachycardic, Bradycardic Abdomen: Normal Bowel Sounds. Negative for: Tenderness, Distention, Peritoneal Signs, Guarding, Ostomy Tubes, Mass/Organomegaly Genitourinary Male: Large hernia/scrotal mass, diffusely swollen/enlarged scrotum, unable to visualize penis due to swollen/enlarged scrotum but able to palpate through scrotal tissue, piper in place draining yellow urine Upper Extremity: Edema (+2 pitting edema bilaterally), Both hands cool to palpation. Negative for: Normal Inspection, Cyanosis, Normal ROM, NORMAL PULSES (unable to palpate pulses through edema), Erythema Lower Extremity: Positive for: Edema (+2 pitting edema bilaterally). Negative for: Normal Inspection, CALF TENDERNESS, NORMAL PULSES (unable to palpate pulses through edema), Cyanosis, Normal ROM Neurological: Positive for: Other (GCS 9 (E3V2M4)). Negative for: GCS=15, Speech Normal (speech is slow, dyspnic with talking), Motor Func Grossly Intact Skin: Positive for: Warm (except as noted in Extremities exams), Dry, Normal Color, Abrasion (as described in upper extremity exam). Negative for: Rashes, Diaphoretic, Erythematous Other physical findings (Free Text): Awake but only minimally alert, intermittently tracks staff in room, follows few commands, not responding to most questions Head: Positive for: Atraumatic, Normocephalic. Negative for: Contusion, Ecchymosis, Abrasion, Laceration Pupils: Positive for: PERRL. Negative for: Sluggish, Non-Reactive, Pinpoint Conjunctiva: Positive for: Normal. Negative for: Injected, Icteric Mouth: Positive for: Moist Mucous Membranes, Other (wearing bipap mask). Negative for: Drooling Nose (External): Positive for: Atraumatic, Other (NG tube in place, fixed with tape). Negative for: Abrasion, Contusion, Laceration Neck: Positive for: Trachea Midline. Negative for: MIDLINE TENDERNESS, JVD Respiratory/Chest: Positive for: Respiratory Distress (intermittently labored and tachypnic breathing, despite being on Bipap), Decreased Breath Sounds ( decreased breath sounds in all auscultated alex), Rales (minimal rales, most prominent in bilateral bases), Tachypneic, Other (wearing Bipap). Negative for : Clear to Auscultation, Good Air Exchange, Accessory Muscle Use, Wheezes, Rhonchi, Tender to Palpation Cardiovascular: Positive for: Regular Rate and Rhythm, Normal S1, S2, Other ( RRR at time of exam, but multiple intermittent episodes of bradycardia down to 40's noted on monitors prior to and after exam). Negative for: Murmurs, Irregular Rhythm, Tachycardic, Bradycardic Abdomen: Positive for: Normal Bowel Sounds. Negative for: Tenderness, Distention, Peritoneal Signs, Guarding, Ostomy Tubes, Mass/Organomegaly Genitourinary Male: Positive for: Hernias (Large hernia/scrotal mass), Other ( diffusely swollen/enlarged scrotum, unable to visualize penis due to swollen/ enlarged scrotum but able to palpate through scrotal tissue; piper in place draining yellow urine) Upper Extremity: Positive for: Edema (+2 pitting edema bilaterally), Other ( both hands cool to palpation). Negative for: Normal Inspection, Cyanosis, Normal ROM, NORMAL PULSES (unable to palpate pulses through edema), Erythema Lower Extremity: Positive for: Edema (+2 pitting edema bilaterally). Negative for: Normal Inspection, CALF TENDERNESS, NORMAL PULSES (unable to palpate pulses through edema), Cyanosis, Normal ROM Neurological: Positive for: Other (GCS 9 (E3V2M4)). Negative for: GCS=15, Speech Normal (speech is slow, dyspnic with talking), Motor Func Grossly Intact Skin: Positive for: Warm (except as noted in Extremities exams), Dry, Normal Color, Abrasion (as described in upper extremity exam). Negative for: Rashes, Diaphoretic, Erythematous Psychiatric: Positive for: Lethargic - Medications Active Medications: Active Medications Generic Name Dose Route Start Last Admin Trade Name Freq PRN Reason Stop Dose Admin Acetaminophen 650 mg 09/23/16 08:01 09/23/16 08:21 Tylenol 650 Mg Supp RC 650 mg Q6H PRN Administration Fever >100.4 F Aspirin 81 mg 09/24/16 11:45 09/28/16 09:47 Aspirin Chewable PO 81 mg DAILY ROXY Administration Atorvastatin Calcium 40 mg 09/24/16 11:45 09/27/16 18:09 Lipitor PO 40 mg DIN ROXY Administration Bacitracin 0 gm 09/24/16 18:00 09/28/16 09:49 Bacitracin TOP 1 gm TID ROXY Administration Calcium Carbonate 600 mg 09/25/16 10:00 09/28/16 09:47 Caltrate PO 600 mg BID ROXY Administration Clopidogrel Bisulfate 75 mg 09/24/16 11:45 09/28/16 09:47 Plavix PO 75 mg DAILY ROXY Administration Furosemide 60 mg 09/26/16 11:15 09/28/16 09:47 Lasix IVP 60 mg Q12 ROXY Administration Heparin Sodium/Sodium Chloride 250 mls @ 7.185 mls/hr 09/23/16 20:02 09/27/16 15:59 Heparin 86561 Units/250ml 1/2 Normal Saline IV 3.992 mls/hr .Q24H PRN Administration ADJUST RATE PER PROTOCOL Protocol 9 UNITS/KG/HR Dobutamine HCl/Dextrose 250 mls @ 11.975 mls/hr 09/25/16 05:40 09/25/16 09:00 Dobutamine/Dextrose 5% 500mg/250ml IV 11.975 mls/hr .[id number] PRN Administration TITRATE PER PROTOCOL Protocol 5 MCG/KG/MIN Ceftazidime/Avibactam 0.94 gm/ 100 mls @ 50 mls/hr 09/25/16 12:00 09/27/16 23: 06 Sodium Chloride IVPB 50 mls/hr Q12H ROXY Administration Dextrose 1,000 mls @ 60 mls/hr 09/27/16 12:30 09/27/16 12:29 Dextrose 5% In Water 1000 Ml IV 60 mls/hr .[id number] ROXY Administration Levalbuterol HCl 0.63 mg 09/25/16 15:30 09/28/16 11:00 Xopenex IH 0.63 mg [id number] ROXY Administration Metoprolol Tartrate 25 mg 09/25/16 18:00 09/28/16 09:47 Lopressor PO 25 mg BID ROXY Administration Morphine Sulfate 1 mg 09/27/16 11:54 Morphine IVP Q4H PRN Pain, moderate (4-7) Pantoprazole Sodium 40 mg 09/22/16 10:00 09/28/16 09:47 Protonix Inj IVP 40 mg DAILY ROXY Administration - Patient Studies Lab Studies: Microbiology Studies 09/23/16 12:00 Blood Culture - Final Blood-Venous Klebsiella Pneumoniae Ssp Pneu Gram Stain - Final 09/23/16 11:30 Blood Culture - Final Blood-Venous Klebsiella Pneumoniae Ssp Pneu Gram Stain - Final Lab Studies 09/28/16 09/28/16 09/28/16 Range/Units 11:13 07:45 07:22 WBC 6.0 (4.5-11.0) 10^3/ul RBC 3.75 (3.5-6.1) 10^6/uL Hgb 10.5 L (14.0-18.0) gm/dL Hct 33.7 L (42.0-52.0) % MCV 89.9 (80.0-105.0) fL MCH 28.0 (25.0-35.0) pg MCHC 31.2 (31.0-37.0) g/dl RDW 17.6 H (11.5-14.5) % Plt Count 64 L (120.0-450.0) 10^3/uL MPV 11.8 H (7.0-11.0) fl Gran % 60.7 (50.0-68.0) % Lymph % (Auto) 26.5 (22.0-35.0) % Mayes % (Auto) 12.4 H (1.0-6.0) % Eos % (Auto) 0.2 L (1.5-5.0) % Baso % (Auto) 0.2 (0.0-3.0) % Gran # 3.64 (1.4-6.5) Lymph # 1.6 (1.2-3.4) Mayes # 0.7 H (0.1-0.6) Eos # 0.0 (0.0-0.7) Baso # 0.01 (0.0-2.0) K/mm3 pCO2 (35-45) mm/Hg pO2 (80-100) mm/Hg HCO3 (21-28) mmol/L ABG pH (7.35-7.45) ABG Total CO2 (22-28) mmol.L ABG O2 Saturation (95-98) % ABG O2 Content (15-23) ML/dl ABG Base Excess (-2.0-3.0) mmol/L ABG Hemoglobin (11.7-17.4) g/dL ABG Carboxyhemoglobin (0.5-1.5) % POC ABG HHb (Measured) (0-5) % ABG Methemoglobin (0.0-3.0) % ABG O2 Capacity (16-24) mL/dl Hgb O2 Saturation (95.0-98.0) % FiO2 % POC Glucose (mg/dL) 81 98 (65-110) mg/dL Albumin (PEP) (3.8-4.8) g/dL Dnisi-0-Ynojbxyou (0.2-0.3) g/dL Wykmm-4-Praaiweyg (0.5-0.9) g/dL Lslq-5-Yxbnhxpd (0.4-0.6) g/dL Acri-6-Guulxuzz (0.2-0.5) g/dL Gamma Globulins (0.8-1.7) g/dL Abnorm Protein Band 1 Abnorm Protein Band 2 Abnorm Protein Band 3 BRUCE & SPEP Interp (()) Free Tabiona Light Chains (3.3-19.4) mg/L Free Lambda Light Chain (5.7-26.3) mg/L Free Tabiona/Lambda Ratio (0.26-1.65) 09/28/16 09/27/16 09/27/16 Range/Units 05:20 17:51 12:06 WBC (4.5-11.0) 10^3/ul RBC (3.5-6.1) 10^6/uL Hgb (14.0-18.0) gm/dL Hct (42.0-52.0) % MCV (80.0-105.0) fL MCH (25.0-35.0) pg MCHC (31.0-37.0) g/dl RDW (11.5-14.5) % Plt Count (120.0-450.0) 10^3/uL MPV (7.0-11.0) fl Gran % (50.0-68.0) % Lymph % (Auto) (22.0-35.0) % Mayes % (Auto) (1.0-6.0) % Eos % (Auto) (1.5-5.0) % Baso % (Auto) (0.0-3.0) % Gran # (1.4-6.5) Lymph # (1.2-3.4) Mayes # (0.1-0.6) Eos # (0.0-0.7) Baso # (0.0-2.0) K/mm3 pCO2 43 (35-45) mm/Hg pO2 99.0 (80-100) mm/Hg HCO3 18.4 L (21-28) mmol/L ABG pH 7.24 L (7.35-7.45) ABG Total CO2 19.7 L (22-28) mmol.L ABG O2 Saturation 99.2 H (95-98) % ABG O2 Content 14.1 L (15-23) ML/dl ABG Base Excess -8.5 L (-2.0-3.0) mmol/L ABG Hemoglobin 10.3 L (11.7-17.4) g/dL ABG Carboxyhemoglobin 2.4 H (0.5-1.5) % POC ABG HHb (Measured) 0.8 (0-5) % ABG Methemoglobin 0.4 (0.0-3.0) % ABG O2 Capacity 14.2 L (16-24) mL/dl Hgb O2 Saturation 96.5 (95.0-98.0) % FiO2 35.0 % POC Glucose (mg/dL) 73 91 (65-110) mg/dL Albumin (PEP) (3.8-4.8) g/dL Xiwtp-7-Raeupwwgk (0.2-0.3) g/dL Vtcmd-8-Njodasbjn (0.5-0.9) g/dL Vczq-9-Psytgagd (0.4-0.6) g/dL Rqej-9-Glusisvl (0.2-0.5) g/dL Gamma Globulins (0.8-1.7) g/dL Abnorm Protein Band 1 Abnorm Protein Band 2 Abnorm Protein Band 3 BRUCE & SPEP Interp (()) Free Tabiona Light Chains (3.3-19.4) mg/L Free Lambda Light Chain (5.7-26.3) mg/L Free Tabiona/Lambda Ratio (0.26-1.65) 09/26/16 Range/Units 06:20 WBC (4.5-11.0) 10^3/ul RBC (3.5-6.1) 10^6/uL Hgb (14.0-18.0) gm/dL Hct (42.0-52.0) % MCV (80.0-105.0) fL MCH (25.0-35.0) pg MCHC (31.0-37.0) g/dl RDW (11.5-14.5) % Plt Count (120.0-450.0) 10^3/uL MPV (7.0-11.0) fl Gran % (50.0-68.0) % Lymph % (Auto) (22.0-35.0) % Mayes % (Auto) (1.0-6.0) % Eos % (Auto) (1.5-5.0) % Baso % (Auto) (0.0-3.0) % Gran # (1.4-6.5) Lymph # (1.2-3.4) Mayes # (0.1-0.6) Eos # (0.0-0.7) Baso # (0.0-2.0) K/mm3 pCO2 (35-45) mm/Hg pO2 (80-100) mm/Hg HCO3 (21-28) mmol/L ABG pH (7.35-7.45) ABG Total CO2 (22-28) mmol.L ABG O2 Saturation (95-98) % ABG O2 Content (15-23) ML/dl ABG Base Excess (-2.0-3.0) mmol/L ABG Hemoglobin (11.7-17.4) g/dL ABG Carboxyhemoglobin (0.5-1.5) % POC ABG HHb (Measured) (0-5) % ABG Methemoglobin (0.0-3.0) % ABG O2 Capacity (16-24) mL/dl Hgb O2 Saturation (95.0-98.0) % FiO2 % POC Glucose (mg/dL) (65-110) mg/dL Albumin (PEP) 2.0 L (3.8-4.8) g/dL Yyvya-0-Ybhulquhk 0.5 H (0.2-0.3) g/dL Ioeuf-3-Zvuajuauy 0.6 (0.5-0.9) g/dL Wbly-3-Etawbsed 0.3 L (0.4-0.6) g/dL Jvsp-7-Alwuuhrg 0.4 (0.2-0.5) g/dL Gamma Globulins 1.1 (0.8-1.7) g/dL Abnorm Protein Band 1 TEST NOT PERFORMED Abnorm Protein Band 2 TEST NOT PERFORMED Abnorm Protein Band 3 TEST NOT PERFORMED BRUCE & SPEP Interp See note (()) Free Tabiona Light Chains 217.1 H (3.3-19.4) mg/L Free Lambda Light Chain 108.9 H (5.7-26.3) mg/L Free Tabiona/Lambda Ratio 1.99 H (0.26-1.65) Laboratory Results - last 24 hr 09/26/16 09/27/16 09/27/16 06:20 12:06 17:51 WBC RBC Hgb Hct MCV MCH MCHC RDW Plt Count MPV Gran % Lymph % (Auto) Mayes % (Auto) Eos % (Auto) Baso % (Auto) Gran # Lymph # Mayes # Eos # Baso # pCO2 pO2 HCO3 ABG pH ABG Total CO2 ABG O2 Saturation ABG O2 Content ABG Base Excess ABG Hemoglobin ABG Carboxyhemoglobin POC ABG HHb (Measured) ABG Methemoglobin ABG O2 Capacity Hgb O2 Saturation FiO2 POC Glucose (mg/dL) 91 73 Albumin (PEP) 2.0 L Gxsej-2-Hozyeuepe 0.5 H Mgrux-0-Ybrhxefwf 0.6 Nttj-5-Drrvspfa 0.3 L Ydcs-2-Mzedoonj 0.4 Gamma Globulins 1.1 Abnorm Protein Band 1 TEST NOT PERFORMED Abnorm Protein Band 2 TEST NOT PERFORMED Abnorm Protein Band 3 TEST NOT PERFORMED BRUCE & SPEP Interp See note Free Tabiona Light Chains 217.1 H Free Lambda Light Chain 108.9 H Free Tabiona/Lambda Ratio 1.99 H 09/28/16 09/28/16 09/28/16 05:20 07:22 07:45 WBC 6.0 RBC 3.75 Hgb 10.5 L Hct 33.7 L MCV 89.9 MCH 28.0 MCHC 31.2 RDW 17.6 H Plt Count 64 L MPV 11.8 H Gran % 60.7 Lymph % (Auto) 26.5 Mayes % (Auto) 12.4 H Eos % (Auto) 0.2 L Baso % (Auto) 0.2 Gran # 3.64 Lymph # 1.6 Mayes # 0.7 H Eos # 0.0 Baso # 0.01 pCO2 43 pO2 99.0 HCO3 18.4 L ABG pH 7.24 L ABG Total CO2 19.7 L ABG O2 Saturation 99.2 H ABG O2 Content 14.1 L ABG Base Excess -8.5 L ABG Hemoglobin 10.3 L ABG Carboxyhemoglobin 2.4 H POC ABG HHb (Measured) 0.8 ABG Methemoglobin 0.4 ABG O2 Capacity 14.2 L Hgb O2 Saturation 96.5 FiO2 35.0 POC Glucose (mg/dL) 98 Albumin (PEP) Eppdo-2-Ezfgrevqn Cbwev-4-Ntrhoygtb Iqkj-8-Sqihtpim Kiwe-7-Txlyjfet Gamma Globulins Abnorm Protein Band 1 Abnorm Protein Band 2 Abnorm Protein Band 3 BRUCE & SPEP Interp Free Tabiona Light Chains Free Lambda Light Chain Free Tabiona/Lambda Ratio 09/28/16 11:13 WBC RBC Hgb Hct MCV MCH MCHC RDW Plt Count MPV Gran % Lymph % (Auto) Mayes % (Auto) Eos % (Auto) Baso % (Auto) Gran # Lymph # Mayes # Eos # Baso # pCO2 pO2 HCO3 ABG pH ABG Total CO2 ABG O2 Saturation ABG O2 Content ABG Base Excess ABG Hemoglobin ABG Carboxyhemoglobin POC ABG HHb (Measured) ABG Methemoglobin ABG O2 Capacity Hgb O2 Saturation FiO2 POC Glucose (mg/dL) 81 Albumin (PEP) Cfdii-7-Loyltazsx Zpsjq-2-Zzjhrmqif Avbh-4-Ipgshubv Cvrg-7-Gyuimsbj Gamma Globulins Abnorm Protein Band 1 Abnorm Protein Band 2 Abnorm Protein Band 3 BRUCE & SPEP Interp Free Tabiona Light Chains Free Lambda Light Chain Free Tabiona/Lambda Ratio Fingerstick Blood Sugar Results: 76 Review of Systems - Review of Systems Systems not reviewed;Unavailable: Altered Mental Status (awake but minimally alert, not answering most questions or following most commands) Critical Care Progress Note - Nutrition Nutrition: Nutrition Category Date Time Status NPO Diet [DIET] Diets 09/21/16 Breakfast Ordered Assessment/Plan - Assessment and Plan (Free Text) Assessment: This is an 80 yo M with PMH of CVA, CHF with EF 30%, mild Pulm HTN, chronic Right LE cellulitis, and Depression who was intubated for respiratory failure and is s/p cardiac arrest with ROSC after 9 minutes. He is currently being managed for Klebsiella Urosepsis, respiratory distress with respiratory and metabolic acidosis; he remains a DNR/DNI. After a long and thorough discussion with patient's partner regarding course of care and patient's wishes , patient is to be made comfort care/hospice. Plan: Neuro: -awake but minimally alert, follows few commands, largely non-verbal -extubated 4 days prior, airway remains protected, neurologically stable -maintain normothermia, no fevers overnight -Hx CVA -Neuro (Dr. Perry) signed off -Head CT on 09/21 notable for prior L-CVA, no acute mass effect or hemorrhage noted -PT/OT consulted Pulm: -Intubated for respiratory failure in the ED, extubated 4 days prior; improved respiratory status today, remains on Bipap -patient remains DNR/DNI after discussion with patient and partner, progressing to comfort care/hospice as per partner; Palliative and Orthopedic Physician Assistant/Case Management on board, appreciate all recs -CXR today and exam improved, some rales and signs of fluid overload persist -Diuresing with 60mg IV Lasix q12 -Maintain SaO2 > 90%, paO2 > 60 -AM ABG reviewed, non-gapped metabolic acidosis with respiratory acidosis persists -Pulm following (Dr. Dietz), appreciate any recs -Aspiration precautions, head of bed to 30 degrees Cardio: -NSTEMI, on heparin drip, continue ASA/Plavix/Statin -Hgb 10.5, was 10.3 -Maintain MAP > 65, not currently on pressors -Most recent trop 0.70 (was 1.24, 1.15); NSTEMI vs Kidney leak 2/2 renal failure vs ischemic injury from cardiac arrest -Cardio (Dr. Wheat) following, appreciate any recs; Dobutamine drip discontinued due to multiple and increasing frequency PVCs and arrhythmias -Most recent Echo on 09/25/16, notable for LVEF 40%, mild concentric LVH, moderate systolic fxn impairment, flattened septum, mild-mod AR and MR, moderate left pleural effusion -S/p Cardiac arrest in ED, ROSC after 9 minutes -Upper Extremity US notes bilateral subclavian thrombi, already covered by Heparin drip for NSTEMI GI: -NPO -NG tube in place, holding off on NG tube feeds due to risk of aspiration while on BiPAP -Protonix for GI ppx Renal: -Renal failure vs NAYA on CKD -Baseline Cr 2.5-2.7 in 2016, elevated to 3.1-3.4 during last admission ~3 weeks prior, 3.7 yesterday -metabolic acidosis with respiratory acidosis, not compensated per Winter's formula -Nephro (Dr. Wong) and Urology (Dr. Kovacs) consulted, appreciate any recs -Avoid nephrotoxic drugs where feasible -maintain euglycemia (BG 140-180), no euvolemia as currently fluid overloaded/ trying to diurese -Monitor electrolytes and replete as needed -Urine Cx positive for resistant Klebsiella, noted during last admission as well , started on Tygacil as per ID, avoid Bactrim due to renal failure -Given recently treated resistant Klebsiella, increasing lethargy/weakness/ chills of patient prior to presentation, and WBCs of 19.0 on presentation, likely urosepsis ID: -Given recently treated MDR Klebsiella, increasing lethargy/weakness/chills of patient prior to presentation, and WBCs of 19.0 on presentation, likely urosepsis, now bacteremia as well -Repeat blood cultures obtained, 1st positive for G(-) rods, 2nd positive for MDR Klebsiela -Initial Chest CT and CXR concerning for possible pneumonia, but current CXR more suggestive of fluid overload/pulm edema; per Pulm elevated procal may be 2/ 2 UTI and renal failure -continue Acyvir as per ID -ID (Dr. Morrison) on board, appreciate any recs -WBCs 6.9 (was 9.4), afebrile overnight Heme: -Hgb 10.5, was 10.3 -on Heparin drip for NSTEMI and bilateral subclavian thrombi, f/u PTTs Endo: -maintain euglycemia BG 140-180 -holding NG tube feeds due to aspiration risk for NGT feds concurrent with BiPAP Dispo: ICU for respiratory failure (post extubation, day 4) and s/p Cardiac arrest (ROSC after 9 minutes), now on BiPAP, will be made Comfort Care/Hospice as per partner FEN: NPO Access: Piper, Peripheral IV, NGT Consults: Urology, Nephrology, Cardio, ID, Neuro (signed off), Pulm, Palliative Ppx: Protonix for GI, Heparin drip covers for DVT Code Status: DNR/DNI, to be made comfort care/hospice as per partner, in keeping with patient's wishes Patient seen, reviewed, and discussed with attending, Dr. Craven. - Date & Time Date: 09/28/16 Time: 12:12 <Jordi Craven - Last Filed: 09/28/16 12:31> CCU Objective - Vital Signs / Intake & Output Vital Signs (Last 4 hours): Vital Signs BP 09/28/16 09:47 167/79 H Intake and Output (Last 8hrs): Intake & Output 09/27/16 09/28/16 09/28/16 22:59 06:59 14:59 Intake Total 768 Output Total 600 Balance 168 Intake: IV 768 Right Antecubital 720 Right Hand 48 Output: Urine 600 Urethral (Piper) 600 Other: Voiding Method Indwelling Catheter - Medications Active Medications: Active Medications Generic Name Dose Route Start Last Admin Trade Name Freq PRN Reason Stop Dose Admin Acetaminophen 650 mg 09/23/16 08:01 09/23/16 08:21 Tylenol 650 Mg Supp RC 650 mg Q6H PRN Administration Fever >100.4 F Aspirin 81 mg 09/24/16 11:45 09/28/16 09:47 Aspirin Chewable PO 81 mg DAILY ROXY Administration Atorvastatin Calcium 40 mg 09/24/16 11:45 09/27/16 18:09 Lipitor PO 40 mg DIN ROXY Administration Bacitracin 0 gm 09/24/16 18:00 09/28/16 09:49 Bacitracin TOP 1 gm TID ROXY Administration Calcium Carbonate 600 mg 09/25/16 10:00 09/28/16 09:47 Caltrate PO 600 mg BID ROXY Administration Clopidogrel Bisulfate 75 mg 09/24/16 11:45 09/28/16 09:47 Plavix PO 75 mg DAILY ROXY Administration Furosemide 60 mg 09/26/16 11:15 09/28/16 09:47 Lasix IVP 60 mg Q12 ROXY Administration Heparin Sodium/Sodium Chloride 250 mls @ 7.185 mls/hr 09/23/16 20:02 09/27/16 15:59 Heparin [id number] Units/250ml 1/2 Normal Saline IV 3.992 mls/hr .Q24H PRN Administration ADJUST RATE PER PROTOCOL Protocol 9 UNITS/KG/HR Dobutamine HCl/Dextrose 250 mls @ 11.975 mls/hr 09/25/16 05:40 09/25/16 09:00 Dobutamine/Dextrose 5% 500mg/250ml IV 11.975 mls/hr .[id number] PRN Administration TITRATE PER PROTOCOL Protocol 5 MCG/KG/MIN Ceftazidime/Avibactam 0.94 gm/ 100 mls @ 50 mls/hr 09/25/16 12:00 09/27/16 23: 06 Sodium Chloride IVPB 50 mls/hr Q12H ROXY Administration Dextrose 1,000 mls @ 60 mls/hr 09/27/16 12:30 09/27/16 12:29 Dextrose 5% In Water 1000 Ml IV 60 mls/hr .[id number] ROXY Administration Levalbuterol HCl 0.63 mg 09/25/16 15:30 09/28/16 11:00 Xopenex IH 0.63 mg [id number] ROXY Administration Metoprolol Tartrate 25 mg 09/25/16 18:00 09/28/16 09:47 Lopressor PO 25 mg BID ROXY Administration Morphine Sulfate 1 mg 09/27/16 11:54 Morphine IVP Q4H PRN Pain, moderate (4-7) Pantoprazole Sodium 40 mg 09/22/16 10:00 09/28/16 09:47 Protonix Inj IVP 40 mg DAILY ROXY Administration - Patient Studies Lab Studies: Microbiology Studies 09/23/16 12:00 Blood Culture - Final Blood-Venous Klebsiella Pneumoniae Ssp Pneu Gram Stain - Final 09/23/16 11:30 Blood Culture - Final Blood-Venous Klebsiella Pneumoniae Ssp Pneu Gram Stain - Final Lab Studies 09/28/16 09/28/16 09/28/16 Range/Units 11:13 07:45 07:22 WBC 6.0 (4.5-11.0) 10^3/ul RBC 3.75 (3.5-6.1) 10^6/uL Hgb 10.5 L (14.0-18.0) gm/dL Hct 33.7 L (42.0-52.0) % MCV 89.9 (80.0-105.0) fL MCH 28.0 (25.0-35.0) pg MCHC 31.2 (31.0-37.0) g/dl RDW 17.6 H (11.5-14.5) % Plt Count 64 L (120.0-450.0) 10^3/uL MPV 11.8 H (7.0-11.0) fl Gran % 60.7 (50.0-68.0) % Lymph % (Auto) 26.5 (22.0-35.0) % Mayes % (Auto) 12.4 H (1.0-6.0) % Eos % (Auto) 0.2 L (1.5-5.0) % Baso % (Auto) 0.2 (0.0-3.0) % Gran # 3.64 (1.4-6.5) Lymph # 1.6 (1.2-3.4) Mayes # 0.7 H (0.1-0.6) Eos # 0.0 (0.0-0.7) Baso # 0.01 (0.0-2.0) K/mm3 pCO2 (35-45) mm/Hg pO2 (80-100) mm/Hg HCO3 (21-28) mmol/L ABG pH (7.35-7.45) ABG Total CO2 (22-28) mmol.L ABG O2 Saturation (95-98) % ABG O2 Content (15-23) ML/dl ABG Base Excess (-2.0-3.0) mmol/L ABG Hemoglobin (11.7-17.4) g/dL ABG Carboxyhemoglobin (0.5-1.5) % POC ABG HHb (Measured) (0-5) % ABG Methemoglobin (0.0-3.0) % ABG O2 Capacity (16-24) mL/dl Hgb O2 Saturation (95.0-98.0) % FiO2 % POC Glucose (mg/dL) 81 98 (65-110) mg/dL Albumin (PEP) (3.8-4.8) g/dL Zgykz-7-Qqiacowfi (0.2-0.3) g/dL Stzdr-7-Eqputijlo (0.5-0.9) g/dL Fmxv-2-Jjwearke (0.4-0.6) g/dL Oiym-3-Xijhceei (0.2-0.5) g/dL Gamma Globulins (0.8-1.7) g/dL Abnorm Protein Band 1 Abnorm Protein Band 2 Abnorm Protein Band 3 BRUCE & SPEP Interp (()) Free Tabiona Light Chains (3.3-19.4) mg/L Free Lambda Light Chain (5.7-26.3) mg/L Free Tabiona/Lambda Ratio (0.26-1.65) 09/28/16 09/27/16 09/27/16 Range/Units 05:20 17:51 12:06 WBC (4.5-11.0) 10^3/ul RBC (3.5-6.1) 10^6/uL Hgb (14.0-18.0) gm/dL Hct (42.0-52.0) % MCV (80.0-105.0) fL MCH (25.0-35.0) pg MCHC (31.0-37.0) g/dl RDW (11.5-14.5) % Plt Count (120.0-450.0) 10^3/uL MPV (7.0-11.0) fl Gran % (50.0-68.0) % Lymph % (Auto) (22.0-35.0) % Mayes % (Auto) (1.0-6.0) % Eos % (Auto) (1.5-5.0) % Baso % (Auto) (0.0-3.0) % Gran # (1.4-6.5) Lymph # (1.2-3.4) Mayes # (0.1-0.6) Eos # (0.0-0.7) Baso # (0.0-2.0) K/mm3 pCO2 43 (35-45) mm/Hg pO2 99.0 (80-100) mm/Hg HCO3 18.4 L (21-28) mmol/L ABG pH 7.24 L (7.35-7.45) ABG Total CO2 19.7 L (22-28) mmol.L ABG O2 Saturation 99.2 H (95-98) % ABG O2 Content 14.1 L (15-23) ML/dl ABG Base Excess -8.5 L (-2.0-3.0) mmol/L ABG Hemoglobin 10.3 L (11.7-17.4) g/dL ABG Carboxyhemoglobin 2.4 H (0.5-1.5) % POC ABG HHb (Measured) 0.8 (0-5) % ABG Methemoglobin 0.4 (0.0-3.0) % ABG O2 Capacity 14.2 L (16-24) mL/dl Hgb O2 Saturation 96.5 (95.0-98.0) % FiO2 35.0 % POC Glucose (mg/dL) 73 91 (65-110) mg/dL Albumin (PEP) (3.8-4.8) g/dL Remzb-9-Cdujorvnx (0.2-0.3) g/dL Kflni-2-Xrrvshkky (0.5-0.9) g/dL Hkvb-0-Klxqxypj (0.4-0.6) g/dL Yjnl-3-Issrrdui (0.2-0.5) g/dL Gamma Globulins (0.8-1.7) g/dL Abnorm Protein Band 1 Abnorm Protein Band 2 Abnorm Protein Band 3 BRUCE & SPEP Interp (()) Free Tabiona Light Chains (3.3-19.4) mg/L Free Lambda Light Chain (5.7-26.3) mg/L Free Tabiona/Lambda Ratio (0.26-1.65) 09/26/16 Range/Units 06:20 WBC (4.5-11.0) 10^3/ul RBC (3.5-6.1) 10^6/uL Hgb (14.0-18.0) gm/dL Hct (42.0-52.0) % MCV (80.0-105.0) fL MCH (25.0-35.0) pg MCHC (31.0-37.0) g/dl RDW (11.5-14.5) % Plt Count (120.0-450.0) 10^3/uL MPV (7.0-11.0) fl Gran % (50.0-68.0) % Lymph % (Auto) (22.0-35.0) % Mayes % (Auto) (1.0-6.0) % Eos % (Auto) (1.5-5.0) % Baso % (Auto) (0.0-3.0) % Gran # (1.4-6.5) Lymph # (1.2-3.4) Mayes # (0.1-0.6) Eos # (0.0-0.7) Baso # (0.0-2.0) K/mm3 pCO2 (35-45) mm/Hg pO2 (80-100) mm/Hg HCO3 (21-28) mmol/L ABG pH (7.35-7.45) ABG Total CO2 (22-28) mmol.L ABG O2 Saturation (95-98) % ABG O2 Content (15-23) ML/dl ABG Base Excess (-2.0-3.0) mmol/L ABG Hemoglobin (11.7-17.4) g/dL ABG Carboxyhemoglobin (0.5-1.5) % POC ABG HHb (Measured) (0-5) % ABG Methemoglobin (0.0-3.0) % ABG O2 Capacity (16-24) mL/dl Hgb O2 Saturation (95.0-98.0) % FiO2 % POC Glucose (mg/dL) (65-110) mg/dL Albumin (PEP) 2.0 L (3.8-4.8) g/dL Bxnhy-7-Tzbdlduld 0.5 H (0.2-0.3) g/dL Xunzv-7-Todxghcwk 0.6 (0.5-0.9) g/dL Symx-2-Vejtxzbv 0.3 L (0.4-0.6) g/dL Rtmh-6-Fnjydplt 0.4 (0.2-0.5) g/dL Gamma Globulins 1.1 (0.8-1.7) g/dL Abnorm Protein Band 1 TEST NOT PERFORMED Abnorm Protein Band 2 TEST NOT PERFORMED Abnorm Protein Band 3 TEST NOT PERFORMED BRUCE & SPEP Interp See note (()) Free Tabiona Light Chains 217.1 H (3.3-19.4) mg/L Free Lambda Light Chain 108.9 H (5.7-26.3) mg/L Free Tabiona/Lambda Ratio 1.99 H (0.26-1.65) Laboratory Results - last 24 hr 09/26/16 09/27/16 09/27/16 06:20 12:06 17:51 WBC RBC Hgb Hct MCV MCH MCHC RDW Plt Count MPV Gran % Lymph % (Auto) Mayes % (Auto) Eos % (Auto) Baso % (Auto) Gran # Lymph # Mayes # Eos # Baso # pCO2 pO2 HCO3 ABG pH ABG Total CO2 ABG O2 Saturation ABG O2 Content ABG Base Excess ABG Hemoglobin ABG Carboxyhemoglobin POC ABG HHb (Measured) ABG Methemoglobin ABG O2 Capacity Hgb O2 Saturation FiO2 POC Glucose (mg/dL) 91 73 Albumin (PEP) 2.0 L Vbwbb-2-Rrrioxuvc 0.5 H Oyxci-4-Auyqbevnp 0.6 Epyg-8-Ldwpknam 0.3 L Kxtc-7-Jeflqmgn 0.4 Gamma Globulins 1.1 Abnorm Protein Band 1 TEST NOT PERFORMED Abnorm Protein Band 2 TEST NOT PERFORMED Abnorm Protein Band 3 TEST NOT PERFORMED BRUCE & SPEP Interp See note Free Tabiona Light Chains 217.1 H Free Lambda Light Chain 108.9 H Free Tabiona/Lambda Ratio 1.99 H 09/28/16 09/28/16 09/28/16 05:20 07:22 07:45 WBC 6.0 RBC 3.75 Hgb 10.5 L Hct 33.7 L MCV 89.9 MCH 28.0 MCHC 31.2 RDW 17.6 H Plt Count 64 L MPV 11.8 H Gran % 60.7 Lymph % (Auto) 26.5 Mayes % (Auto) 12.4 H Eos % (Auto) 0.2 L Baso % (Auto) 0.2 Gran # 3.64 Lymph # 1.6 Mayes # 0.7 H Eos # 0.0 Baso # 0.01 pCO2 43 pO2 99.0 HCO3 18.4 L ABG pH 7.24 L ABG Total CO2 19.7 L ABG O2 Saturation 99.2 H ABG O2 Content 14.1 L ABG Base Excess -8.5 L ABG Hemoglobin 10.3 L ABG Carboxyhemoglobin 2.4 H POC ABG HHb (Measured) 0.8 ABG Methemoglobin 0.4 ABG O2 Capacity 14.2 L Hgb O2 Saturation 96.5 FiO2 35.0 POC Glucose (mg/dL) 98 Albumin (PEP) Nxrao-9-Ojijmslfi Tjjgn-8-Zaianufiv Czzo-3-Rkscexvb Phqp-3-Lwjhubui Gamma Globulins Abnorm Protein Band 1 Abnorm Protein Band 2 Abnorm Protein Band 3 BRUCE & SPEP Interp Free Tabiona Light Chains Free Lambda Light Chain Free Tabiona/Lambda Ratio 09/28/16 11:13 WBC RBC Hgb Hct MCV MCH MCHC RDW Plt Count MPV Gran % Lymph % (Auto) Mayes % (Auto) Eos % (Auto) Baso % (Auto) Gran # Lymph # Mayes # Eos # Baso # pCO2 pO2 HCO3 ABG pH ABG Total CO2 ABG O2 Saturation ABG O2 Content ABG Base Excess ABG Hemoglobin ABG Carboxyhemoglobin POC ABG HHb (Measured) ABG Methemoglobin ABG O2 Capacity Hgb O2 Saturation FiO2 POC Glucose (mg/dL) 81 Albumin (PEP) Lplpy-5-Zhkquxfne Allbn-5-Rzchbqsmy Xxsj-5-Hcuehmap Eyrd-9-Aufbcoxr Gamma Globulins Abnorm Protein Band 1 Abnorm Protein Band 2 Abnorm Protein Band 3 BRUCE & SPEP Interp Free Tabiona Light Chains Free Lambda Light Chain Free Tabiona/Lambda Ratio Critical Care Progress Note - Nutrition Nutrition: Nutrition Category Date Time Status NPO Diet [DIET] Diets 09/21/16 Breakfast Ordered Attending/Attestation - Attestation I have personally seen and examined this patient.: Yes I have fully participated in the care of the patient.: Yes I have reviewed all pertinent clinical information: Yes Notes (Text): 09/28/16 12:30 The patient was seen and examined at the bedside. Patient care was discussed with resident Medical records, lab studies, and imaging were reviewed and management issues were discussed and formulated. Last 24H events reviewed. Agree with above treatment plans as outlined in 's note. Pt made comfort care only this am by his family as per his known wishes. Palliation team to follow up. CCM f\u 35min
[2016-09-28] MEDS ORDERED: Morphine PCA 1 mg/ml (25ml) 25 ML IV PRN (14:37)
[2016-09-29] MEDS: Levalbuterol 0.63 MG/3 ML Inhal Soln UD IH SCH ×5 (03:56→19:46)
[2016-09-29 05:06] LABS: ARTERIAL BLOOD GAS HCO3 18.4 mmol/L (21-28); ARTERIAL BLOOD GAS O2 CAPACITY 12.2 mL/dl (16-24); ARTERIAL BLOOD GAS PH 7.27 (7.35-7.45); ARTERIAL BLOOD HGB O2 SAT 95.5 % (95.0-98.0); CARBOXYHEMOGLOBIN 2.3 % (0.5-1.5); HHB 1.5 % (0-5); METHEMOGLOBIN 0.8 % (0.0-3.0)
[2016-09-29] MEDS: Bacitracin Ointment 30 GM TUBE TOP SCH ×3 (09:29→17:06)
--- NOTE | 2016-09-29 11:20 | RAD ---
HISTORY: f/u COMPARISON: Comparison made with prior study 09/28/2016 FINDINGS: LUNGS: Central pulmonary vascular congestive changes with bilateral lower lobe alveolar-type infiltrates and bilateral effusions PLEURA: No significant pleural effusion identified, no pneumothorax apparent. CARDIOVASCULAR: Cardiomegaly. OSSEOUS STRUCTURES: No significant abnormalities. VISUALIZED UPPER ABDOMEN: Normal. OTHER FINDINGS: In situ NGT, the tip of which has migrated proximally and now appears to to lie just at or below the EG junction. This should be advanced IMPRESSION: Pulmonary vascular congestion with bilateral lower lobe alveolar-type infiltrates and bilateral effusions. NGT appears have migrated proximally with tip now lying at and just below the EG junction. This should be advanced.
--- NOTE | 2016-09-29 13:21 | PN ---
DATE: 09/29/2016 The patient is an 80-year-old male seen and examined at bedside, was transferred from ICU to the [facility] floor at this point. Currently he is on the BiPAP mask. He is very lethargic and is not answering my questions; however, no acute distress. No shortness of breath, no nausea, no vomiting. PHYSICAL EXAMINATION: VITAL SIGNS: Blood pressure is 151/87, temperature 98.8, pulse rate is 70, O2 saturation is 95 on Bi PAP. HEENT: Normocephalic, atraumatic. Pale conjunctivae. Nonicteric sclerae. NECK: No JVD. No thyromegaly. CARDIOVASCULAR: Regular rate and rhythm. S1, S2 appreciated. No S3 noted. LUNGS: Bilateral air entry is positive, decreased at the periphery. ABDOMEN: Nondistended, nontender. Positive bowel sounds. EXTREMITIES: Peripheral pulses +2 with no pitting edema. LABORATORY DATA: WBCs of 6.0, hemoglobin 10.4, hematocrit of 33.7, platelets of 64. Chemistry withi n normal limits, except for a BUN of 83 and a creatinine of 3.7. Other labs were appreciated at this point. ASSESSMENT: 1. Respiratory failure, status post extubation, currently on BiPAP. 2. Sepsis. 3. Non-ST elevation myocardial infarction. 4. History of congestive heart failure. 5. Cellulitis. PLAN: At this time, we will continue current treatment. The patient is now DNR/DNI. He is being fo llowed with Dr. Clement Wheat, off dobutamine drip. He is currently on a heparin drip. I will speak wi th the boat driver to see if we will continue this or not. He is also on Plavix as well as breathin g treatments. Roman Son MD cc: [id number] TT: 09/29/2016 13:20:19 Confirmation # [id number] Dictation # [id number] paloma
--- NOTE | 2016-09-29 13:46 | PN ---
DATE: 09/29/2016 The patient is in bed in no acute distress, seen early this morning; however, chronically ill, debili tated. PHYSICAL EXAMINATION: VITAL SIGNS: Temperature of 98, blood pressure is 150/70, respiratory rate of 22. HEENT: Unremarkable. NECK: Supple. LUNGS: Have decreased breath sounds. HEART: Normal S1, S2. ABDOMEN: Soft, nontender. LABORATORY EXAMINATION: Reveals a white count of 6, hemoglobin of 10, platelets of 64. Chemistries reveal the patient's creatinine is 3.7 and the procalcitonin is 35. Urinalysis is noted. Immunology is noted. Serology is noted. Chest x-ray from today is reviewed. ____ Dr. ____ progress note is phani stein. Discussion about hospice was mentioned. ASSESSMENT AND PLAN: An 80-year-old male with severe sepsis, acute hypoxic ventilatory-dependent res piratory failure secondary to lower lobe healthcare-associated pneumonia, possible gram-positive cocc i, possible gram-negative sandra. The patient with multidrug resistant Klebsiella pneumoniae bacteremia secondary to multidrug resistant Klebsiella pneumoniae in the urine, sensitive to Avycaz which is ce ftazidime/avibactam. Today is day #5 of therapy. Would complete 10-14 days since the patient had po sitive blood cultures. Overall prognosis is quite poor for this patient and the patient is currently on Avycaz which requires a renewal. We will renew, so if the patient is to be made hospice status, would discontinue the antibiotics and comfort measures only. Awaiting for final decision. Jose Morales MD cc: [id number] TT: 09/29/2016 13:46:29 Confirmation # [id number] Dictation # [id number] tn
--- NOTE | 2016-09-29 14:21 | PN ---
DATE: 09/29/2016 SUBJECTIVE: The patient is in marked respiratory distress with BiPAP in place. His lips are blue. His limbs are mottled and cold. He was transferred from the ICU to for comfort care. He is a DNR and no intervention is to be done according to the nurse. There is no other history that needs to b e repeated at this time. The patient is in cardiopulmonary distress and is on maximal therapy to no avail. I have spoken to the ICU swatch maker who states that this is a comfort measure with imm inent. PHYSICAL EXAMINATION: VITAL SIGNS: Stable with a temperature of 98, pulse is 58, respiratory rate 26, blood pressure 140/6 0, O2 sat on BiPAP 100%. HEENT: Normocephalic, atraumatic. No JVD. CARDIOVASCULAR: Regular rhythm, S1, S2. Gallop is noted. Systolic ejection murmur remains. LUNGS: Rales throughout both lung alex, some rhonchi are heard and upper airway noises as well. ABDOMEN: Soft. Bowel sounds normoactive without mass, guarding, rebound. EXTREMITIES: Reveal edema, cyanosis, absent pulses. SKIN: Cellulitis, anoxic, blue colored, no excoriation. NEUROLOGIC: Evaluation impossible at this time. LABORATORY DATA: Last laboratory study shows an x-ray which showed continued pulmonary vascular jacek estion throughout. No pleural effusions at this time. The patient remains on BiPAP with a relative combined metabolic and respiratory acidosis. CLINICAL IMPRESSION: Respiratory failure, status post cardiopulmonary arrest, urosepsis, pulmonary e kolton, chronic obstructive pulmonary disease. PLAN: Continue supportive care. No additional intervention has been ordered by the swatch maker. No w that the patient is on the floor, a DNR/DNI order has been received, with the additional caveat of being comfort care only. Unfortunately, the patient remains on BiPAP and he is still cyanotic. His PMD continues antibiotic and other fluid resuscitative measures. The prognosis is guarded at best. Suspect the end soon. We will speak to primary medical doctor who can fill me in on additional probl ems with this patient. I have no idea of how to proceed at this point, having seen this patient toarabella mac for the first time. His prognosis is grave. We will discuss with Dr. Oleg wakefield. Marvin Ochoa MD cc: [phone] TT: 09/29/2016 14:21:12 Confirmation # [id number] Dictation # [id number] tn
[2016-09-30] MEDS: Levalbuterol 0.63 MG/3 ML Inhal Soln UD IH SCH ×5 (00:10→21:03)
[2016-09-30 03:20] LABS: HEMATOCRIT 26.8 % (42.0-52.0); MEAN CELL VOLUME 86.7 fL (80.0-105.0); MEAN CORPUSCULAR HEMOGLOBIN 28.2 pg (25.0-35.0); MEAN CORPUSCULAR HGB CONC 32.5 g/dl (31.0-37.0); MEAN PLATELET VOLUME 11.8 fl (7.0-11.0); RED CELL DISTRIBUTION WIDTH 17.3 % (11.5-14.5)
[2016-09-30 03:28] LABS: ALB/GLOB RATIO 0.7 (1.1-1.8); CALCIUM 7.3 mg/dL (8.4-10.5); MAGNESIUM 1.8 mg/dL (1.7-2.2); PHOSPHOROUS 6.8 mg/dL (2.5-4.5); POTASSIUM 3.8 mmol/L (3.6-5.0); TOTAL PROTEIN 5.2 g/dL (5.8-8.3)
[2016-09-30 03:33] LABS: PLATELET COUNT 39 10^3/uL (120.0-450.0)
[2016-09-30 03:34] LABS: ADD MANUAL DIFF? YES
[2016-09-30 04:09] LABS: WHITE BLOOD COUNT 1.4 10^3/ul (4.5-11.0)
[2016-09-30 04:17] LABS: ANISOCYTOSIS SLIGHT; NEUTROPHIL 12 % (50.0-70.0); PLATELET ESTIMATE LOW (NORMAL); POIKILOCYTOSIS SLIGHT
[2016-09-30 04:18] LABS: OVALOCYTES SLIGHT
[2016-09-30 04:20] LABS: GRAN # 0.16 (1.4-6.5)
[2016-09-30] MEDS: Bacitracin Ointment 30 GM TUBE TOP SCH ×3 (10:19→18:20)
--- NOTE | 2016-09-30 11:50 | PN ---
DATE: 09/30/2016 The patient is an 80-year-old male, seen and examined. He is currently on the fifth floor now. He i s on the bypass mask. He is very lethargic. He is not answering my questions. However, no acute si gns of distress. PHYSICAL EXAMINATION: VITAL SIGNS: Blood pressure is 128/85, pulse rate of 66, temperature is 97.8, O2 saturation is 97% o n room air. HEENT: Normocephalic, atraumatic. Pale conjunctivae, nonicteric sclerae. CARDIOVASCULAR: Regular rate and rhythm. S1, S2 appreciated. No S3 noted. LUNGS: Bilateral air entry is decreased at the base and there is scattered rhonchi. ABDOMEN: Nondistended, nontender. Positive bowel sounds. EXTREMITIES: Peripheral pulses +2 with no pitting edema. LABORATORIES: The patient's white count has dropped to 1.4, hemoglobin of 8.7, hematocrit of 26.2, p latelets of 39. Chemistry within normal limits except for a BUN of 88 and creatinine which is elevat ed to 3.3. Chest x-ray is currently pending at this point. ASSESSMENT: 1. Pancytopenia. 2. Respiratory failure, status post extubation, currently on BiPAP. 3. Sepsis. 4. Non-ST elevation myocardial infarction. 5. History of congestive heart failure. 6. Cellulitis. PLAN: At this time, we will continue his BiPAP treatment that he is receiving. Did note the respira tory evaluation. He is currently on IV antibiotics as well as Lipitor as well as morphine for pain a s needed and respiratory treatments. We will follow the patient very closely. Roman Son MD cc: [id number] TT: 09/30/2016 11:50:03 Confirmation # [id number] Dictation # [id number] en
--- NOTE | 2016-09-30 11:58 | PN ---
DATE: 09/30/2016 SUBJECTIVE: There is no change in the general status of this patient. He remains a DNR, cyanotic on BiPAP despite no intervention. A chest x-ray was done, which was poorly penetrated and does not nasir w any significant changes. It is not too helpful in evaluating the lung status, but in general, view of the clinical situation with a DNR/DNI and no heroic measures, further intervention is needless un less the primary medical doctor believes that further intervention will be helpful. I find the progn osis being extremely guarded and the outcome grave. The patient was transferred out of the intensive care unit for comfort care on 5R with no heroic measures to be taken. Further discussion with PMD w ill be necessary. PHYSICAL EXAMINATION: GENERAL: The patient remains unchanged. VITAL SIGNS: Lower with a subnormal temperature, pulse of 48, respiratory rate of 28 and blood press ure of 130/60, O2 sat remains elevated while on BiPAP. HEENT: Unchanged. CARDIOVASCULAR: Regular rhythm, systolic ejection murmur persists. LUNGS: Rales throughout both lung alex. Minimal rhonchi auscultated. No wheezing. ABDOMEN: Soft. Bowel sounds normoactive. EXTREMITIES: Bilateral edema with cyanosis and absent pulses. SKIN: Cellulitis, anoxic, tinged blue. NEUROLOGIC: Impossible to evaluate. CLINICAL IMPRESSION: 1. Respiratory failure. 2. Status post cardiopulmonary arrest. 3. Urosepsis. 4. Pulmonary edema. 5. Chronic obstructive pulmonary disease. 6. Cerebral anoxia. 7. Global cyanosis with peripheral clamping. PLAN: Continue the supportive care that was requested at the time of transfer from the intensive car e unit. I must clarify whether or not further intervention at all is to be done. I know that the pa vanessa is a DNR and DNI and that it was stated that only comfort care should be given. That would pre clude the use of further x-rays and blood work. We will speak to Dr. Dejesus and make sure that no fu rther problems need to be addressed. Thank you for the opportunity to follow this gentleman. I remain saddened by the grave prognosis. Marvin Ochoa MD cc: [id number] TT: 09/30/2016 11:58:31 Confirmation # [id number] Dictation # [id number] en
--- NOTE | 2016-09-30 12:01 | RAD ---
HISTORY: f/u COMPARISON: No prior. FINDINGS: LUNGS: Re- demonstrated is central pulmonary vascular congestive changes with bilateral effusions and questionable mild bilateral alveolar-type infiltrates. Note that the right lung apex is partially obscured by overlying mandible and facial soft tissue artifact. In situ NGT, the tip of which lies midline in the upper abdomen. This could be advanced. . PLEURA: No definitive pneumothorax apparent. CARDIOVASCULAR: Cardiomegaly unchanged OSSEOUS STRUCTURES: No significant abnormalities. VISUALIZED UPPER ABDOMEN: Normal. OTHER FINDINGS: None. IMPRESSION: Re- demonstrated is central pulmonary vascular congestive changes with bilateral effusions and questionable mild bilateral alveolar-type infiltrates. Note that the right lung apex is partially obscured by overlying mandible and facial soft tissue artifact. In situ NGT, the tip of which lies midline in the upper abdomen. This could be advanced. .
--- NOTE | 2016-09-30 14:13 | PN ---
DATE: 09/29/2016 The patient was seen in the intensive care unit. When I saw him, he was on a heparin infusion. He was on BiPAP with an FiO2 of 35% and quite lethargic. Raya catheter was in place with sidney colored urine. He did not appear to be in any distress, but as stated above, he was lethargic. PHYSICAL EXAMINATION: VITAL SIGNS: Blood pressure is 128/85 with a minimum blood pressure in the last 24-hour period of 104/52 and a maximum of 167/90. Heart rate is 72, but has ranged from the mid 50s to approximately 76 beats per minute. Temperature was 97.8, but has ranged from 92.4 up to 99.2 degrees in the last 24-hour period. Respiratory rate is 29 breaths per minute, but has ranged from 17-32 breaths per minute. Oxygen saturation was 97%, but had ranged from 80%-100% with an FiO2 of 35%. I's and O's in the last 24-hour period are noted to be 1200/900. GENERAL: The patient was lethargic as stated above. HEENT: He was normocephalic and atraumatic, however. Conjunctivae were pale, but they were anicteric. NECK: There was no jugular venous distention that I could appreciate on exam. CHEST: Lungs alex were grossly clear, but the patient was not cooperative with deep breaths. Breath sounds were distant. There was no wheezing or rhonchi. Diaphragmatic excursion and airflow into both lung alex appeared to be bilaterally symmetrical. CARDIAC: Had a regular rate and rhythm without any rubs or gallops. ABDOMEN: Distended but nontender, without any rebounding, guarding or rigidity. EXTREMITIES: Had 2+ dependent edema. NEUROLOGIC: The patient was lethargic, but arousable. VASCULAR: Had no bruits. SKIN: Had chronic stasis changes. GENITOURINARY: Had no suprapubic tenderness, but Raya catheter was in place with sidney colored urine. LABORATORIES: White count is 1.4 with an H and H of 8.7/26.8 and a platelet count that has decreased to 39,000. MCV is 87. There are 12% neutrophils, 64% lymphocytes, 24% monocytes. PTT is noted to be 63.9. ABG 7.27 with a pCO2 of 40, PaO2 of 87 and an oxygen saturation of 99%. Sodium is 145, potassium 3.8, chloride 113, bicarbonate 19, BUN/creatinine is 88/33 with a glucose of 81. Calcium is 7.3, but since the albumin is 2.1, it corrects to 8.9. Phosphorus is elevated at 6.8. C3 and C4 are both low. [place]/lambda ratio is mildly increased at 2.0. Blood cultures from 09/23 have grown out Klebsiella pneumoniae. Chest x-ray from today reveals pulmonary vascular congestion with bilateral effusions and mild alveolar infiltrates. IMPRESSION AND PLAN: The patient is an 80-year-old gentleman with history of coronary artery disease, heart failure with reduced ejection fraction (30%) with pulmonary hypertension, history of cerebrovascular accident with dementia, stage IV chronic kidney disease with a baseline creatinine in the low 3s, history of dementia, originally transferred from assisted with increasing lethargy and fatigue. He had cardiac arrest in the ED and was intubated and received advanced cardiac life support for 9 minutes with recovery of spontaneous circulation. He was brought to the intensive care unit, placed on a dobutamine infusion and has since been extubated, although he remains BiPAP dependent. 1. The patient's creatinine is steadily decreasing back to his baseline of approximately 3.3. 2. Chest x-ray does reveal pulmonary vascular congestion and for symptomatic benefit, I would continue furosemide intravenously. He is currently on 60 mg intravenously twice daily, but since he is not in negative fluid balance, I would increase this to 80 mg intravenously twice daily. 3. The patient is noted to be hypernatremic. As we diurese him with furosemide , I would expect his sodium to increase even further since furosemide inhibits renal concentrating ability and he will have obligatory water losses in the urine. For now, continue D5W at 60 mL per hour, but we will continue to monitor his sodium quite carefully and if he becomes more hypernatremic, then we will increase his D5W. Alternatively, we could give him water via the nasogastric tube, which would be much more physiologic and an approach I would prefer. 4. The patient's corrected calcium is 8.9, which is within normal limits and therefore, we will discontinue his calcium carbonate. 5. The patient is noted to be hypophosphatemic, however. Once his diet is reinitiated, he will need a phosphorus binder to be given with each meal or if he is being fed via nasogastric tube, then every 4-6 hours. 6. For his cardiac arrest and known history of coronary artery disease, continue dual antiplatelet therapy with aspirin, clopidogrel as well as atorvastatin and metoprolol. 7. If comfort measures are to be taken, I would discontinue any further labs on this patient since we will not be responding to any lab abnormalities in the setting of pursuing comfort care. 8. Pulmonary followup is appreciated as well and I agree with discontinuing further labs as well as blood work. 9. The patient is noted to be pancytopenic today. However, in the setting of comfort measures, he is not a candidate for any blood transfusion. 10. If he is to be comfort care, then we can discontinue his heparin infusion as well and I would consider discontinuing his antibiotic therapy also (which he is receiving for Klebsiella pneumoniae bacteremia). 11. If the patient is to remain on heparin infusion, then this will obviously suffice for deep venous thrombosis prophylaxis as well. Via the chart, review of systems, past medical history, social history and family history were all reviewed and there were no new changes and more than 35 minutes were spent in the care of this ICU patient. Geovanni Wong MD, ARIEL cc: [id number] TT: 09/30/2016 14:13:23 Confirmation # [id number] Dictation # [id number] en [id number]
[2016-09-30] MEDS: Heparin25000 units/250ml 1/2NS 250 ML IV PRN (16:22)
--- NOTE | 2016-09-30 18:02 | PN ---
DATE: 09/30/2016 The patient is in bed in no acute distress, nontoxic. PHYSICAL EXAMINATION: VITAL SIGNS: Temperature is 98, blood pressure is 120/50, respiratory rate of 18, heart rate of 54. HEENT: Unremarkable. NECK: Supple. LUNGS: Have decreased breath sounds. HEART: Normal S1, S2. ABDOMEN: Soft. LABORATORY DATA: Reveals a white count of 1.4, hemoglobin of 8, platelets are 39. Review of the ord ers reveals the patient to be on ceftazidime and avibactam. Dr. Wong' note is reviewed, Dr. José Antonio kern's note is reviewed and Dr. Son's note is reviewed. ASSESSMENT AND PLAN: This is an 80-year-old male, overall in poor condition, who was admitted with s evere sepsis, acute hypoxic ventilatory dependent respiratory failure secondary to a lower lobe healt hcare-associated pneumonia, possible gram-positive cocci and possible gram-negative sandra. The patient also with multidrug resistant Klebsiella pneumoniae bacteremia secondary to multidrug resistant Kleb siella pneumoniae in the blood and urine sensitive to Avycaz, which is ceftazidime and avibactam. To day is day #6 of therapy, would require 10-14 days; however, the patient continues to deteriorate and overall prognosis is quite poor in this patient with multiorgan failure. Jose Morales MD cc: [id number] TT: 09/30/2016 18:01:54 Confirmation # [id number] Dictation # [id number] dn
--- NOTE | 2016-09-30 18:06 | RAD ---
HISTORY: NG tube placement COMPARISON: Comparison made with prior study 09/30/2016 FINDINGS: LUNGS: Re- demonstrated is in situ NGT, the tip of which appears to have been advanced distally within the left parasagittal upper abdomen. Mild pulmonary vascular congestive changes with bilateral lower lobe alveolar-type infiltrates and bilateral effusions are felt to be present. PLEURA: As above CARDIOVASCULAR: Normal. OSSEOUS STRUCTURES: No significant abnormalities. VISUALIZED UPPER ABDOMEN: Normal. OTHER FINDINGS: None. IMPRESSION: NGT as described. Re- demonstrated are mild pulmonary vascular congestive changes with bilateral alveolar-type infiltrates and bilateral effusions.
[2016-10-01] MEDS: Levalbuterol 0.63 MG/3 ML Inhal Soln UD IH SCH ×5 (00:40→15:46)
[2016-10-01 07:02] LABS: ALB/GLOB RATIO 0.7 (1.1-1.8); BILIRUBIN,TOTAL 0.9 mg/dL (0.2-1.3); CALCIUM 7.5 mg/dL (8.4-10.5); MAGNESIUM 1.8 mg/dL (1.7-2.2); PHOSPHOROUS 7.5 mg/dL (2.5-4.5); POTASSIUM 3.8 mmol/L (3.6-5.0); TOTAL PROTEIN 4.8 g/dL (5.8-8.3)
[2016-10-01 07:27] LABS: MEAN CELL VOLUME 87.5 fL (80.0-105.0); MEAN CORPUSCULAR HEMOGLOBIN 28.2 pg (25.0-35.0); MEAN CORPUSCULAR HGB CONC 32.3 g/dl (31.0-37.0); MEAN PLATELET VOLUME 11.3 fl (7.0-11.0); PLATELET COUNT 52 10^3/uL (120.0-450.0); RED CELL DISTRIBUTION WIDTH 17.1 % (11.5-14.5)
[2016-10-01 07:35] LABS: HEMATOCRIT 22.3 % (42.0-52.0); WHITE BLOOD COUNT 1.5 10^3/ul (4.5-11.0)
[2016-10-01 08:16] VITALS: RESP 22; O2SAT 100
--- NOTE | 2016-10-01 10:05 | PN ---
DATE: 10/01/2016 I saw him resting in bed. His eyes are open. He is nodding yes and no, a little stronger. He is on the BiPAP. He has got IV antibiotics running. MEDICATIONS: He is currently on aspirin, Avycaz, bacitracin, dobutamine drip, dextrose, heparin, Lasix, Lipitor, Lopressor, morphine, Plavix, Protonix, Tylenol, Xopenex. PHYSICAL EXAMINATION: VITAL SIGNS: Temp 97.7, 75 pulse, 136/63 blood pressure, 22 respiratory rate, 100% O2 sat on 35% BiPAP. HEENT: His head is atraumatic, normocephalic. His eyes are open. He is looking at me. He understands when I am talking. He nodded yes and no correctly. HEART: Regular rate. LUNGS: Decreased breath sounds bilaterally, but no apparent congestion. ABDOMEN: Soft. Positive bowel sounds. EXTREMITIES: Trace edema if any. LABORATORY DATA: He has a white count of 1.5. I called in hematology/oncology , Dr. Irwin, for his pancytopenia. Hemoglobin is 7.2. I am transfusing him 2 units of packed red blood cells, 22.3 hematocrit with a 52 platelet count - all low. Sodium 142, potassium 3.8. BUN is 90, creatinine 3.4, still elevated. GFR is 17. Sugar is 90. Calcium is 7.5, phosphorus 7.5, magnesium 1.8. Total bili is 0.9. AST is 32. ALT is 36, alk phos 46. Total protein is 4.8. Urine has large blood, large leukocyte. He is being seen by numerous doctors - infectious disease, renal, pulmonary, cardiology, and urology. He will have hematology/oncology look at him today also. He is in trouble, hoping that new IV antibiotics will help. I will transfuse him 2 units of packed red blood cells with Lasix 40 IV 1-time dose in between 2 units, check his labs tomorrow. Continue IV antibiotics. This was discussed with Elmer , his friend, and hopefully, he will do very well. He agreed with transfusion. Derick Dejesus DO cc: [id number] TT: 10/01/2016 08:44:33 Confirmation # [id number] Dictation # [id number] MTDD
--- NOTE | 2016-10-01 10:50 | PN ---
DATE: 10/01/2016 CARDIOLOGY FOLLOWUP The patient is lethargic, mildly dyspneic. PHYSICAL EXAMINATION: VITAL SIGNS: Blood pressure is 136/63. The heart rate is in the 90s. NECK: Negative JVD. LUNGS: Decreased breath sounds bilaterally. HEART: Reveals S1, S2. EXTREMITIES: Without change. LABORATORY DATA: BUN and creatinine are 90 and 3.4. Hemoglobin is 7.2. IMPRESSION: 1. Severe anemia. 2. I agree with Dr. Dejesus about blood transfusions. 3. Dilated cardiomyopathy. 4. Sepsis. 5. Leukopenia. 6. Renal insufficiency. Given these findings, we will continue Lasix IV daily. The patient's prognosis is grave. Clement Wheat MD cc: [id number] TT: 10/01/2016 10:39:08 Confirmation # [id number] Dictation # [id number] 10/01/2016 09:49:17
[2016-10-01 12:19] LABS: ADD MANUAL DIFF? YES
[2016-10-01 12:22] LABS: ANISOCYTOSIS 1+; HYPOCHROMIA 2+; NEUTROPHIL 1 % (50.0-70.0); PLATELET ESTIMATE LOW (NORMAL); POLYCHROMASIA 1+
[2016-10-01 12:23] LABS: OVALOCYTES SLIGHT; TEAR DROP CELLS SLIGHT
--- NOTE | 2016-10-01 14:09 | CP.PCM.PN ---
Subjective - Date & Time of Evaluation Date of Evaluation: 10/01/16 Time of Evaluation: 10:00 - Subjective Subjective: Lethargic, unresponsive, accessory muscle use, BIPAP. Objective - Vital Signs/Intake and Output Vital Signs (last 24 hours): Temp Pulse Resp BP Pulse Ox 97.7 F 90 22 136/63 100 10/01/16 08:00 10/01/16 08:09 10/01/16 08:00 10/01/16 08:00 10/01/16 08:00 Intake and Output: 10/01/16 10/01/16 06:59 18:59 Output Total 250 Balance -250 - Medications Medications: Current Medications Acetaminophen (Tylenol 650 Mg Supp) 650 mg RC Q6H PRN PRN Reason: Fever >100.4 F Last Admin: 09/23/16 08:21 Dose: 650 mg Aspirin (Aspirin Chewable) 81 mg PO DAILY [facility] Last Admin: 09/30/16 16:18 Dose: Not Given Atorvastatin Calcium (Lipitor) 40 mg PO DIN [facility] Last Admin: 09/30/16 16:20 Dose: Not Given Bacitracin (Bacitracin) 0 gm TOP TID [facility] Last Admin: 09/30/16 18:20 Dose: 1 applic Clopidogrel Bisulfate (Plavix) 75 mg PO DAILY [facility] Last Admin: 10/01/16 11:50 Dose: Not Given Furosemide (Lasix) 60 mg IVP Q12 [facility] Last Admin: 09/30/16 23:00 Dose: 60 mg Furosemide (Lasix) 40 mg IVP DAILY [facility] Heparin Sodium/Sodium Chloride (Heparin 38288 Units/250ml 1/2 Normal Saline) 250 mls @ 7.185 mls/hr IV .Q24H PRN; Protocol; 9 UNITS/KG/HR PRN Reason: ADJUST RATE PER PROTOCOL Last Admin: 09/30/16 16:22 Dose: 3.992 mls/hr Dobutamine HCl/Dextrose (Dobutamine/Dextrose 5% 500mg/250ml) 250 mls @ 11.975 mls/hr IV .[id number] PRN; Protocol; 5 MCG/KG/MIN PRN Reason: TITRATE PER PROTOCOL Last Admin: 09/25/16 09:00 Dose: 11.975 mls/hr Ceftazidime/Avibactam 0.94 gm/ (Sodium Chloride) 100 mls @ 50 mls/hr IVPB Q12H [facility] Last Admin: 09/30/16 23:30 Dose: 50 mls/hr Dextrose (Dextrose 5% In Water 1000 Ml) 1,000 mls @ 60 mls/hr IV .[id number] [facility] Last Admin: 09/30/16 16:29 Dose: 60 mls/hr Morphine Sulfate (Morphine Milling Planer Operator 1 Mg/Ml) 25 mls @ 1 mls/hr IV PRN PRN; Protocol ; 1 MG/HR PRN Reason: CLINICAL COUNSELOR PER MD ORDER Levalbuterol HCl (Xopenex) 0.63 mg IH [id number] [facility] Last Admin: 10/01/16 11:08 Dose: 0.63 mg Metoprolol Tartrate (Lopressor) 25 mg PO BID [facility] Last Admin: 10/01/16 11:59 Dose: Not Given Morphine Sulfate (Morphine) 1 mg IVP Q4H PRN PRN Reason: Pain, moderate (4-7) Last Admin: 09/29/16 02:03 Dose: 1 mg Pantoprazole Sodium (Protonix Inj) 40 mg IVP DAILY [facility] Last Admin: 09/30/16 10:24 Dose: Not Given - Labs Labs: 10/01/16 07:10 10/01/16 03:00 PT 12.4 Seconds (9.9-11.8) H 09/24/16 08:25 INR 1.15 (0.93-1.08) H 09/24/16 08:25 APTT 64.6 Seconds (23.7-30.8) H 10/01/16 03:00 - Constitutional Appears: Chronically Ill - Eye Exam Eye Exam: Normal appearance, PERRL - ENT Exam ENT Exam: Mucous Membranes Moist - Respiratory Exam Respiratory Exam: Accessory Muscle Use, Decreased Breath Sounds, Rales, Rhonchi - Cardiovascular Exam Cardiovascular Exam: Irregular Rhythm, +S1, +S2 - GI/Abdominal Exam GI & Abdominal Exam: Soft, Diminished Bowel Sounds - Exam Additional comments: oliguria - Extremities Exam Additional comments: 3 +edema of both lower extremities - Neurological Exam Neurological Exam: Altered - Skin Skin Exam: Dry, Pallor Additional comments: anasarca Assessment and Plan - Assessment and Plan (Free Text) Assessment: 80 year old male s/p cardiac arrest, respiratory failure, NAYA, cardiac arrhythmias,sepsis. I spoke with patients partner Jordi this morning. We discussed option for comfort care. Jordi stated that comfort care was already in place. I explained that the patient was receiving supportive care and that comfort care would mean stopping all interventions with the exception of pain and symptom management. I asked if he wanted to consider comfort/hospice care. Jordi indicated that he could not take the patient home. I explained that there were options for comfort care in the hospital and that the patient could be evaluated for hospice services here. Jordi stated that he would speak with Dr Dejesus today before making his decision. Case discussed with Dr Sera Dejesus Time spent in discussion with partner regarding goals of care/ comfort/hospice services, 30 minutes Plan: Will assist with establishing goals of care
[2016-10-01 15:37] VITALS: BP 132/70; PULSE 62
[2016-10-01 16:10] VITALS: TEMP 97
--- NOTE | 2016-10-01 16:37 | CP.PCM.PN ---
Subjective - Date & Time of Evaluation Date of Evaluation: 10/01/16 Time of Evaluation: 16:34 - Subjective Subjective: called by nurse to see pt, pt with no pulse no bp , not breathing , unresposive . pt at 4:30 pm . pt was dnr /dni . hx of sepsis multiorgan failure. Objective - Vital Signs/Intake and Output Vital Signs (last 24 hours): Temp Pulse Resp BP Pulse Ox 97 F L 62 22 132/70 100 10/01/16 16:10 10/01/16 16:10 10/01/16 16:10 10/01/16 16:10 10/01/16 08:00 Intake and Output: 10/01/16 10/01/16 06:59 18:59 Intake Total 0 Output Total 250 200 Balance -250 -200 - Medications Medications: Current Medications Acetaminophen (Tylenol 650 Mg Supp) 650 mg RC Q6H PRN PRN Reason: Fever >100.4 F Last Admin: 09/23/16 08:21 Dose: 650 mg Aspirin (Aspirin Chewable) 81 mg PO DAILY [facility] Last Admin: 09/30/16 16:18 Dose: Not Given Atorvastatin Calcium (Lipitor) 40 mg PO DIN [facility] Last Admin: 09/30/16 16:20 Dose: Not Given Bacitracin (Bacitracin) 0 gm TOP TID [facility] Last Admin: 09/30/16 18:20 Dose: 1 applic Clopidogrel Bisulfate (Plavix) 75 mg PO DAILY [facility] Last Admin: 10/01/16 11:50 Dose: Not Given Furosemide (Lasix) 60 mg IVP Q12 [facility] Last Admin: 09/30/16 23:00 Dose: 60 mg Furosemide (Lasix) 40 mg IVP DAILY [facility] Heparin Sodium/Sodium Chloride (Heparin 30200 Units/250ml 1/2 Normal Saline) 250 mls @ 7.185 mls/hr IV .Q24H PRN; Protocol; 9 UNITS/KG/HR PRN Reason: ADJUST RATE PER PROTOCOL Last Admin: 09/30/16 16:22 Dose: 3.992 mls/hr Dobutamine HCl/Dextrose (Dobutamine/Dextrose 5% 500mg/250ml) 250 mls @ 11.975 mls/hr IV .[id number] PRN; Protocol; 5 MCG/KG/MIN PRN Reason: TITRATE PER PROTOCOL Last Admin: 09/25/16 09:00 Dose: 11.975 mls/hr Ceftazidime/Avibactam 0.94 gm/ (Sodium Chloride) 100 mls @ 50 mls/hr IVPB Q12H [facility] Last Admin: 09/30/16 23:30 Dose: 50 mls/hr Dextrose (Dextrose 5% In Water 1000 Ml) 1,000 mls @ 60 mls/hr IV .[id number] [facility] Last Admin: 09/30/16 16:29 Dose: 60 mls/hr Morphine Sulfate (Morphine Process Design Chemical Engineer 1 Mg/Ml) 25 mls @ 1 mls/hr IV PRN PRN; Protocol ; 1 MG/HR PRN Reason: PLUG MAKING OPERATOR PER MD ORDER Levalbuterol HCl (Xopenex) 0.63 mg IH [id number] [facility] Last Admin: 10/01/16 15:46 Dose: 0.63 mg Metoprolol Tartrate (Lopressor) 25 mg PO BID [facility] Last Admin: 10/01/16 11:59 Dose: Not Given Morphine Sulfate (Morphine) 1 mg IVP Q4H PRN PRN Reason: Pain, moderate (4-7) Last Admin: 09/29/16 02:03 Dose: 1 mg Pantoprazole Sodium (Protonix Inj) 40 mg IVP DAILY [facility] Last Admin: 09/30/16 10:24 Dose: Not Given - Labs Labs: 10/01/16 07:10 10/01/16 03:00 PT 12.4 Seconds (9.9-11.8) H 09/24/16 08:25 INR 1.15 (0.93-1.08) H 09/24/16 08:25 APTT 64.6 Seconds (23.7-30.8) H 10/01/16 03:00 Assessment and Plan - Assessment and Plan (Free Text) Assessment: at 4:30 pm. dnr /dni.
--- NOTE | 2016-10-01 16:45 | CP.PCM.PN ---
Subjective - Date & Time of Evaluation Date of Evaluation: 10/01/16 Time of Evaluation: 10:15 - Subjective Subjective: Continues to be on a BiPAP, no fevers overnight. Objective - Vital Signs/Intake and Output Vital Signs (last 24 hours): Temp Pulse Resp BP Pulse Ox 97 F L 62 22 132/70 100 10/01/16 16:10 10/01/16 16:10 10/01/16 16:10 10/01/16 16:10 10/01/16 08:00 Intake and Output: 10/01/16 10/01/16 06:59 18:59 Intake Total 0 Output Total 250 200 Balance -250 -200 - Medications Medications: Current Medications Acetaminophen (Tylenol 650 Mg Supp) 650 mg RC Q6H PRN PRN Reason: Fever >100.4 F Last Admin: 09/23/16 08:21 Dose: 650 mg Aspirin (Aspirin Chewable) 81 mg PO DAILY [facility] Last Admin: 09/30/16 16:18 Dose: Not Given Atorvastatin Calcium (Lipitor) 40 mg PO DIN [facility] Last Admin: 09/30/16 16:20 Dose: Not Given Bacitracin (Bacitracin) 0 gm TOP TID [facility] Last Admin: 09/30/16 18:20 Dose: 1 applic Clopidogrel Bisulfate (Plavix) 75 mg PO DAILY [facility] Last Admin: 10/01/16 11:50 Dose: Not Given Furosemide (Lasix) 60 mg IVP Q12 [facility] Last Admin: 09/30/16 23:00 Dose: 60 mg Furosemide (Lasix) 40 mg IVP DAILY [facility] Heparin Sodium/Sodium Chloride (Heparin 45796 Units/250ml 1/2 Normal Saline) 250 mls @ 7.185 mls/hr IV .Q24H PRN; Protocol; 9 UNITS/KG/HR PRN Reason: ADJUST RATE PER PROTOCOL Last Admin: 09/30/16 16:22 Dose: 3.992 mls/hr Dobutamine HCl/Dextrose (Dobutamine/Dextrose 5% 500mg/250ml) 250 mls @ 11.975 mls/hr IV .[id number] PRN; Protocol; 5 MCG/KG/MIN PRN Reason: TITRATE PER PROTOCOL Last Admin: 09/25/16 09:00 Dose: 11.975 mls/hr Ceftazidime/Avibactam 0.94 gm/ (Sodium Chloride) 100 mls @ 50 mls/hr IVPB Q12H [facility] Last Admin: 09/30/16 23:30 Dose: 50 mls/hr Dextrose (Dextrose 5% In Water 1000 Ml) 1,000 mls @ 60 mls/hr IV .[id number] [facility] Last Admin: 09/30/16 16:29 Dose: 60 mls/hr Morphine Sulfate (Morphine Marble Helper 1 Mg/Ml) 25 mls @ 1 mls/hr IV PRN PRN; Protocol ; 1 MG/HR PRN Reason: 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 MD ORDER Levalbuterol HCl (Xopenex) 0.63 mg IH [id number] [facility] Last Admin: 10/01/16 15:46 Dose: 0.63 mg Metoprolol Tartrate (Lopressor) 25 mg PO BID [facility] Last Admin: 10/01/16 11:59 Dose: Not Given Morphine Sulfate (Morphine) 1 mg IVP Q4H PRN PRN Reason: Pain, moderate (4-7) Last Admin: 09/29/16 02:03 Dose: 1 mg Pantoprazole Sodium (Protonix Inj) 40 mg IVP DAILY [facility] Last Admin: 09/30/16 10:24 Dose: Not Given - Labs Labs: 10/01/16 07:10 10/01/16 03:00 PT 12.4 Seconds (9.9-11.8) H 09/24/16 08:25 INR 1.15 (0.93-1.08) H 09/24/16 08:25 APTT 64.6 Seconds (23.7-30.8) H 10/01/16 03:00 - Constitutional Appears: Non-toxic, No Acute Distress - Head Exam Head Exam: NORMAL INSPECTION - ENT Exam ENT Exam: Mucous Membranes Moist - Neck Exam Neck Exam: absent: Lymphadenopathy, Meningismus - Respiratory Exam Respiratory Exam: Decreased Breath Sounds - Cardiovascular Exam Cardiovascular Exam: +S1, +S2 - GI/Abdominal Exam GI & Abdominal Exam: Soft. absent: Tenderness Assessment and Plan - Assessment and Plan (Free Text) Plan: assessment Severe sepsis with acute hypoxic respiratory failure probably secondary to left lower lobe healthcare-associated pneumonia with associated extra-drug resistant Klebsiella bacteremia and possible UTI Chronic renal failure history of enterobacter bacteremia S/P treatment with at least 2 weeks of IV antibiotics history of right leg cellulitis CAD S/P CABG with chronic CHF HTN dyslipidemia history of CVA Plan continue Avycaz (day 7 since start) - will need at least 2 weeks of antibiotics Overall prognosis is poor Discussed with Dr. Dejesus
--- NOTE | 2016-10-09 12:07 | DS ---
EXPIRATION SUMMARY: We were trying to get the patient to the hospice. I went and did a house call o n his partner who finally was able to get to the hospital to see him. I think the patient was waitin g for him to come before he would let himself go. He has been very sick. He has got infection. He has multiple issues, sepsis, anemia. I think he just could not handle it anymore with the multiple r espiratory failures, and he after he saw his partner. Derick Dejesus DO cc: [id number] TT: 10/09/2016 12:06:53 an
== END 2016-10-01 16:30 | DRG 871 ==
LOC: ED 19:00 → ERH 21:49 → CCU 09-22 01:22 → 5RSO 09-29 12:32
PROVIDERS: ADMIT Family Medicine; ATTEND Family Medicine
PROC: 5A1945Z Respiratory Ventilation, 24-96 Consecutive Hours (ICD-10-PCS; principal; 2016-09-21)
PROC: 0BH17EZ Insertion of Endotracheal Airway into Trachea, Via Natural or Artificial Opening (ICD-10-PCS; 2016-09-21)
PROC: 5A12012 Performance of Cardiac Output, Single, Manual (ICD-10-PCS; 2016-09-21)
PROC: 5A09557 Assistance with Respiratory Ventilation, Greater than 96 Consecutive Hours, Continuous Positive Airway Pressure (ICD-10-PCS; 2016-09-24)
PROC: 30233N1 Transfusion of Nonautologous Red Blood Cells into Peripheral Vein, Percutaneous Approach (ICD-10-PCS; 2016-10-01)
DX: A41.89 Other specified sepsis (principal); J96.01 Acute respiratory failure with hypoxia; I21.4 Non-ST elevation (NSTEMI) myocardial infarction; J15.6 Pneumonia due to other Gram-negative bacteria; G92 Toxic encephalopathy; N18.4 Chronic kidney disease, stage 4 (severe); G93.1 Anoxic brain damage, not elsewhere classified; N17.9 Acute kidney failure, unspecified; I42.0 Dilated cardiomyopathy; D61.818 Other pancytopenia; I13.0 Hypertensive heart and chronic kidney disease with heart failure and stage 1 through stage 4 chronic kidney disease, or unspecified chronic kidney disease; I50.22 Chronic systolic (congestive) heart failure; N39.0 Urinary tract infection, site not specified; L03.115 Cellulitis of right lower limb; I69.351 Hemiplegia and hemiparesis following cerebral infarction affecting right dominant side; I82.B13 Acute embolism and thrombosis of subclavian vein, bilateral; E87.0 Hyperosmolality and hypernatremia; J44.0 Chronic obstructive pulmonary disease with (acute) lower respiratory infection; E87.4 Mixed disorder of acid-base balance; Z99.11 Dependence on respirator [ventilator] status; F03.90 Unspecified dementia, unspecified severity, without behavioral disturbance, psychotic disturbance, mood disturbance, and anxiety; F32.9 Major depressive disorder, single episode, unspecified; I25.10 Atherosclerotic heart disease of native coronary artery without angina pectoris; E87.5 Hyperkalemia; D50.9 Iron deficiency anemia, unspecified; E78.5 Hyperlipidemia, unspecified; R65.20 Severe sepsis without septic shock; I27.2 Other secondary pulmonary hypertension; Z51.5 Encounter for palliative care; Z66 Do not resuscitate; K40.90 Unilateral inguinal hernia, without obstruction or gangrene, not specified as recurrent; Z16.24 Resistance to multiple antibiotics; I49.3 Ventricular premature depolarization; E83.39 Other disorders of phosphorus metabolism; R23.0 Cyanosis; I69.320 Aphasia following cerebral infarction; Z79.82 Long term (current) use of aspirin; Z95.1 Presence of aortocoronary bypass graft